=== PATIENT | male | born 1955 | race American Indian/Alaskan Native ===

== ENCOUNTER 2017-09-09 08:24 | Outpatient (CLI) | payer BC ==
[2017-09-09 09:05] LABS: Blood Urea Nitrogen 15 mg/dL (9-20)
--- NOTE | 2017-09-09 11:01 | Cat Scan Report ---
FINAL REPORT EXAM: CT ANGIO ABD/FEMORAL ABD AORTA HISTORY: ANUERYSM BEHIND LEFT KNEE TECHNIQUE: CT angiography of the abdomen and pelvis performed. Lower extremity CT runoff angiography of the lower extremities performed. Images obtained from above diaphragm to the feet. IV contrast was administered. Axial images and coronal and sagittal reformatted images were obtained. Rotational MIP reformatted angiographic images also obtained. PRIORS: None. FINDINGS: There is some dependent atelectasis at the lung bases. There are coronary artery atherosclerotic calcifications. There is fatty infiltration of the liver. The visualized liver, spleen, pancreas, adrenal glands and kidneys demonstrate no significant abnormalities. There is no evidence of intestinal obstruction. The appendix is normal. There is no free intraperitoneal air. There are no abnormal fluid collections seen. The bladder is unremarkable. There are aortoiliac atherosclerotic calcifications. There is no abdominal aortic aneurysm, but there is a left common iliac artery aneurysm measuring 19 mm diameter. The celiac trunk/axis, SMA, renal arteries and TORI are patent without evidence of stenosis. Lower extremity runoff images demonstrate patent vessels from groin to foot bilaterally. There is a right superficial femoral artery aneurysm at level of mid thigh. It measures about 12 mm diameter. There is distal popliteal artery is slightly aneurysmal just above the trifurcation. It measures about 10 mm diameter as opposed to 7 mm measurement of popliteal segment above this. There is a popliteal artery aneurysm on the left containing some mural thrombus. This involves the upper popliteal artery which measures up to 13 mm diameter. IMPRESSION: The coronary and aortoiliac atherosclerotic calcifications. Left common iliac artery aneurysm measuring 19 mm diameter. Left popliteal artery aneurysm with some mural thrombus measuring 13 mm diameter. 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 Right distal popliteal artery aneurysm/ectasia measuring 10 mm. Lower extremity arteries are patent without evidence of stenosis.
== END 2017-09-09 08:25 | disposition home or self-care (01) ==
LOC: CT 08:24
PROVIDERS: ATTEND Radiology Diagnostic Radiology
DX: I87.2 Venous insufficiency (chronic) (peripheral) (principal); I70.293 Other atherosclerosis of native arteries of extremities, bilateral legs; I25.10 Atherosclerotic heart disease of native coronary artery without angina pectoris; I74.8 Embolism and thrombosis of other arteries; F17.210 Nicotine dependence, cigarettes, uncomplicated
CPT/HCPCS: 36415; 75635; 82565; 84520; Q9967

== ENCOUNTER 2017-09-24 07:42 | Day surgery (SDC) | payer BC, MEDICARE ==
[~2017-09-24 07:42] MED LIST: ANCEF/STERILE WATER 2 GM/20 ML 2 GM/20 ML SYRINGE IV NR; NACL 0.9% 1000 ML 1,000 ML IV SCH
[2017-09-24 08:55] LABS: Hematocrit 46.7 % (35.5-45.6); Hemoglobin 15.6 gm/dl (11.8-15.2); Mean Corpuscular HGB Conc 33 % (32-34); Mean Corpuscular Hemoglobin 30 pg (28-32); Mean Corpuscular Volume 90 fl (84-94); Platelet Count 191 K/mm3 (140-440); Red Cell Distribution Width 14.9 % (13.2-15.2)
[2017-09-24 10:09] LABS: Band Neutrophils # (Manual) 0.1 K/mm3; Total Cells Counted 100
[2017-09-24 10:10] LABS: RBC Morphology Normal
[2017-09-24 10:11] LABS: Platelet Estimate Cons
[2017-09-24 10:29] LABS: BUN/Creatinine Ratio 9; Blood Urea Nitrogen 11 mg/dL (9-20); Calcium 9.3 mg/dL (8.4-10.2); Hemolysis Index 21
[2017-09-24 11:06] LABS: INR 0.91 (0.87-1.13); Partial Thromboplastin Time 26.9 Sec. (24.2-36.6)
[2017-09-24] MEDS ORDERED: HEPARIN/NS 5000 UNIT/500ML(CATH LAB) 1,000 ML IR ONE (12:06)
[2017-09-24] MEDS ORDERED: XYLOCAINE 2% INFILTRATI ONE (12:07)
[2017-09-24] MEDS ORDERED: ANCEF/STERILE WATER 2 GM/20 ML 2 GM/20 ML SYRINGE IV ONE (12:19)
[2017-09-24] MEDS ORDERED: HEPARIN 10,000 UNITS/10 ML ONE (12:19)
[2017-09-24] MEDS ORDERED: ZOFRAN ONE (12:28)
[2017-09-24] MEDS: SUBLIMAZE ONE ×2 (12:31→12:40)
[2017-09-24] MEDS: VERSED ONE ×2 (12:32→12:41)
--- NOTE | 2017-09-24 13:04 | Short Stay Summary ---
Short Stay Documentation Date of service: 09/24/17 - History Principal diagnosis: Popliteal aneurysm H&P: obtained from office - Allergies and Medications Current Medications: Allergies No Known Allergies Allergy (Verified 06/14/13 08:29) Home Medications Medication Instructions Recorded Confirmed Last Taken Type Atorvastatin Calcium [Lipitor] 80 mg PO QDAY 06/14/13 09/24/17 09/23/17 History 40mg Clopidogrel Bisulfate [Plavix] 75 mg PO QDAY 06/14/13 09/24/17 09/23/17 History 75mg Darunavir [Prezista] 800 mg PO QDAY 06/14/13 09/24/17 09/23/17 History 800mg Famciclovir 125 mg PO QDAY 06/14/13 09/24/17 09/23/17 History 125mg Metoprolol [Lopressor] 50 mg PO BID 06/14/13 09/24/17 09/23/17 History 50mg Ramipril Cap (Nf) [Altace Cap (Nf)] 2.5 mg PO QDAY 06/14/13 09/24/17 09/23/17 History 2.5mg Ritonavir [Norvir] 100 mg PO QDAY 06/14/13 09/24/17 09/23/17 History 100mg Active Medications Cefazolin Sodium (Ancef/Sterile Water 2 Gm/20 Ml) 2 gm in 20 mls @ 80 mls/hr IV PREOP NR; Protocol Stop: 09/24/17 23:59 Sodium Chloride (Nacl 0.9% 1000 Ml) 1,000 mls @ 42 mls/hr IV DIRECT HIRA Last Admin: 09/24/17 08:35 Dose: 42 mls/hr - Brief post op/procedure progress note Date of procedure: 09/24/17 Pre-op diagnosis: Popliteal aneurysm Post-op diagnosis: same Procedure: Revascularization of left popliteal aneurysm stent/graft placement Anesthesia: local Surgeon: SUYAPA NICOLE Estimated blood loss: minimal Pathology: none Condition: stable - Disposition Condition at discharge: Good Disposition: DC-01 TO HOME OR SELFCARE Short Stay Discharge Plan Activity: advance as tolerated Weight Bearing Status: Weight Bear as Tolerated Diet: regular Wound: keep clean and dry, per your surgeon's advice Follow up with: PRIMARY CARE, [Primary Care Provider] - 7 Days
--- NOTE | 2017-09-24 13:13 | Operative Report ---
Operative Report Operative Report: EXAM: LEFT LOWER EXTREMITY REVASCULARIZATION CLINICAL INDICATION: LEFT POPLITEAL ANEURYSM DATE: 10/01 2017 PROCEDURE: Following an explanation of the risks, fits and alternatives; written informed consent was obtained. The patient was brought to the cardiac catheterization suite and placed in supine position examination table. Initial ultrasound evaluation of his right groin demonstrated a patent right common femoral artery. The patient's right groin was prepped and draped in the usual fashion 1% cocaine was used for anesthesia. Under ultrasound guidance, the right common femoral artery was cannulated with a 7 cm 21-gauge needle. A 0.018 guidewire was advanced centrally. The needle was removed and a micro-sheath placed. The 0.018 guidewire was exchanged for a 0.035 guidewire and the micro-sheath exchanged for a 5 Bangladeshi vascular sheath. A 5 Bangl[place]hi Omni flush catheter was advanced over the guidewire to the distal abdominal aorta. Aortogram was performed for anatomic localization. The bifurcation was crossed Omni flush catheter and a 0.5 guidewire and the cath advanced to proximal SFA. The catheter was then exchanged for a vertebral catheter and together the catheter guidewire advanced to the distal SFA. Imaging is obtained following the injection of contrast through the catheter which documented and demonstrated again the patient's popliteal aneurysm extending the tibioperoneal trunk. The 5 Bangl[place]hi sheath was exchanged for a 7 Bangladeshi 65 cm sheath. The guidewire and catheter were advanced to the tibioperoneal trunk and the guidewire exchanged for a V 18 guidewire which was advanced down the peroneal artery. Additional imaging was obtained through the sheath for anatomic localization and the popliteal aneurysm was treated using a 6 x 150 mm [place] stent graft. The stent graft was seated using a 6 mm balloon. Post stent and angioplasty imaging demonstrated a persistent proximal endoleak and a 7 mm x 50 mm upon stent graft was deployed in the proximal aspect of the stent extending into the SFA the stent was seated using a 7 mm balloon. Procedure imaging was obtained which demonstrates brisk flow with complete exclusion of the popliteal aneurysm and no persistent endoleak. The V 18 guidewire was removed and a 0.035 guidewire advanced through the sheath and the sheath removed. Hemostasis achieved using an Angio-Seal arterial closure device. The patient tolerated the procedure well. There were no immediate post procedure complications. Conscious sedation was performed under the guidance of radiologic nursing. Continuous cardiopulmonary monitoring was utilized. IMPRESSION: 1) Left lower extremity angiogram demonstrating a popliteal aneurysm. 2) Revascularization of the left lower extremity using a stent graft to exclude the popliteal aneurysm as described.
[2017-09-24 14:52] VITALS: BP 113/81
== END 2017-09-24 15:00 | disposition home or self-care (01) ==
LOC: CATHLABREC 07:42
PROVIDERS: ATTEND Radiology Diagnostic Radiology
DX: I72.4 Aneurysm of artery of lower extremity (principal); I70.213 Atherosclerosis of native arteries of extremities with intermittent claudication, bilateral legs; I10 Essential (primary) hypertension; J45.909 Unspecified asthma, uncomplicated; E78.5 Hyperlipidemia, unspecified; Z79.01 Long term (current) use of anticoagulants; Z79.899 Other long term (current) drug therapy; Z98.890 Other specified postprocedural states
CPT/HCPCS: 36415; 37226; 80048; 85007; 85025; 85610; 85730; 99156; 99157; C1725; C1760; C1769; C1874; C1887; J0690; J1644; J2250; J2405; J3010; J7030; Q9967

== ENCOUNTER 2017-10-05 17:15 | Inpatient (IN) | payer MEDICARE ==
[2017-10-05] MEDS ORDERED: SUBLIMAZE IV ONE (17:44)
--- NOTE | 2017-10-05 17:56 | Emergency Department Report ---
ED Extremity Problem HPI - General Chief complaint: Extremity Problem,Nontraumatic Stated complaint: PAIN IN THE LEFT LEG/SURGERY ABOUT 2 WEEKS AGO Time Seen by Provider: 10/05/17 17:30 Source: patient Mode of arrival: Wheelchair Limitations: No Limitations - History of Present Illness Initial comments: Mr Saunders is a 61 year-old man with hx of HIV, peripheral vascular disease who presents from home with acute onset left leg pain. had popliteal artery aneurysm stented on 09/[address] Heaton here at [facility]. Has been taking his plavix , but did not take it today. Reports compliance with ARVs and has normal CD4+ count. Acute onset left calf/foot pain since 330pm. No longer has feeling in foot now. No injury. MD Complaint: extremity pain -: Sudden Time: 15:30 Location: left, lower extremity Radiation: none Consistency: constant Improves with: nothing - Related Data Home Medications Medication Instructions Recorded Confirmed Last Taken Atorvastatin Calcium [Lipitor] 80 mg PO QDAY 06/14/13 09/24/17 09/23/17 40mg Clopidogrel Bisulfate [Plavix] 75 mg PO QDAY 06/14/13 09/24/17 09/23/17 75mg Darunavir [Prezista] 800 mg PO QDAY 06/14/13 09/24/17 09/23/17 800mg Famciclovir 125 mg PO QDAY 06/14/13 09/24/17 09/23/17 125mg Metoprolol [Lopressor] 50 mg PO BID 06/14/13 09/24/17 09/23/17 50mg Ramipril Cap (Nf) [Altace Cap (Nf)] 2.5 mg PO QDAY 06/14/13 09/24/17 09/23/17 2.5mg Ritonavir [Norvir] 100 mg PO QDAY 06/14/13 09/24/17 09/23/17 100mg Allergies Allergy/AdvReac Type Severity Reaction Status Date / Time No Known Allergies Allergy Verified 06/14/13 08:29 ED Review of Systems ROS: Stated complaint: PAIN IN THE LEFT LEG/SURGERY ABOUT 2 WEEKS AGO Other details as noted in HPI Comment: All other systems reviewed and negative ED Past Medical Hx - Past Medical History Hx Hypertension: Yes Hx Heart Attack/AMI: Yes (2003,2004) Hx Deep Vein Thrombosis: Yes Hx Arthritis: Yes Hx Asthma: Yes Hx HIV: Yes - Surgical History Hx Coronary Stent: Yes (2003,2004) - Social History Smoking Status: Current Every Day Smoker Substance Use Type: None - Medications Home Medications: Home Medications Medication Instructions Recorded Confirmed Last Taken Type Atorvastatin Calcium [Lipitor] 80 mg PO QDAY 06/14/13 09/24/17 09/23/17 History 40mg Clopidogrel Bisulfate [Plavix] 75 mg PO QDAY 06/14/13 09/24/17 09/23/17 History 75mg Darunavir [Prezista] 800 mg PO QDAY 06/14/13 09/24/17 09/23/17 History 800mg Famciclovir 125 mg PO QDAY 06/14/13 09/24/17 09/23/17 History 125mg Metoprolol [Lopressor] 50 mg PO BID 06/14/13 09/24/17 09/23/17 History 50mg Ramipril Cap (Nf) [Altace Cap (Nf)] 2.5 mg PO QDAY 06/14/13 09/24/17 09/23/17 History 2.5mg Ritonavir [Norvir] 100 mg PO QDAY 06/14/13 09/24/17 09/23/17 History 100mg ED Physical Exam - General Limitations: No Limitations General appearance: alert, other (in severe pain) - Head Head exam: Present: atraumatic, normocephalic - Eye Eye exam: Present: normal appearance, PERRL, EOMI - ENT ENT exam: Present: normal exam, normal orophraynx - Neck Neck exam: Present: normal inspection. Absent: tenderness - Respiratory Respiratory exam: Present: normal lung sounds bilaterally. Absent: respiratory distress - Cardiovascular Cardiovascular Exam: Present: normal rhythm, tachycardia - GI/Abdominal GI/Abdominal exam: Present: soft. Absent: distended, tenderness, guarding - Rectal Rectal exam: Present: deferred - Extremities Exam Extremities exam: Present: other (RLE with multiple well healed surgical incisional scars. L foot without palpable DP or PT pulses. No capillary refill. Able to move toes, no sensation in foot. Mild left calf ttp. no leg swelling. ) - Back Exam Back exam: Present: normal inspection. Absent: tenderness - Neurological Exam Neurological exam: Present: alert, oriented X3 - Psychiatric Psychiatric exam: Present: normal affect, normal mood - Skin Skin exam: Present: dry, intact ED Course Vital Signs 10/05/17 10/05/17 10/05/17 17:22 17:45 18:04 Pulse Rate 107 H 105 H Respiratory 20 24 24 Rate Blood Pressure 124/83 Blood Pressure 136/96 [Right] O2 Sat by Pulse 97 97 97 Oximetry ED Medical Decision Making - Lab Data Result diagrams: 10/05/17 17:51 10/05/17 17:51 - Radiology Data Radiology results: report reviewed, image reviewed - Medical Decision Making Mr Saunders is a 61 year-old man who presents with pulseless left foot. had popliteal aneurysm stented on 09/24/17. Acute onset of pain at 330pm. Did not take plavix today. Exam without pulses or cap refill. Unable to get doppler pulse L DP or PT. Cold foot. Spoke with vascular surgery supervisor bonding, Massimo MOTTA. Recommends stat CTA LLE and she will be in. Giving fentanyl for pain. Basic labs. Has full lab work-up from 09/24 with Cr 1.2 and GFR>60. Will not wait for repeat Cr before getting CTA. Has been well since surgery, normal PO and urine output. Low suspicion of Michael in this time period. Explained risks and benefits to patient, he agrees with plan and understands risks. To CT urgently. Starting HIHD. Dilaudid and zofran as pain is unrelieved. CTA was not done by proper protocol, only imaged lower leg. No visible contrast. to biology laboratory assistant and admit to ICU. Critical Care Time: Yes Critical care time in (mins) excluding proc time.: 30 Critical care attestation.: If time is entered above; I have spent that time in minutes in the direct care of this critically ill patient, excluding procedure time. ED Disposition Clinical Impression: Obstruction of artery Disposition: DC-09 OP ADMIT IP TO THIS HOSP Is pt being admited?: Yes Condition: Fair Referrals: PRIMARY CARE, [Primary Care Provider] - 3-5 Days
[2017-10-05 18:03] LABS: Basophils # (Auto) 0.1 K/mm3 (0.0-0.1); Basophils % (Auto) 1.1 % (0.0-1.8); Eosinophils # (Auto) 0.1 K/mm3 (0.0-0.4); Eosinophils % (Auto) 0.9 % (0.0-4.3); Hematocrit 46.8 % (35.5-45.6); Hemoglobin 15.9 gm/dl (11.8-15.2); Lymphocytes # (Auto) 2.1 K/mm3 (1.2-5.4); Lymphocytes % (Auto) 31.4 % (13.4-35.0); Mean Corpuscular HGB Conc 34 % (32-34); Mean Corpuscular Hemoglobin 30 pg (28-32); Mean Corpuscular Volume 90 fl (84-94); Monocytes # (Auto) 0.5 K/mm3 (0.0-0.8); Monocytes % (Auto) 8.1 % (0.0-7.3); Platelet Count 198 K/mm3 (140-440); Red Blood Count 5.22 M/mm3 (3.65-5.03); Red Cell Distribution Width 14.5 % (13.2-15.2)
[2017-10-05 18:14] LABS: INR 0.94 (0.87-1.13)
[2017-10-05] MEDS ORDERED: HEPARIN 10,000 UNITS/10 ML IV ONE (18:15)
[2017-10-05] MEDS ORDERED: DILAUDID IV ONE (18:18)
[2017-10-05] MEDS ORDERED: ZOFRAN IV ONE (18:18)
[2017-10-05 18:20] LABS: Albumin 4.6 g/dL (3.9-5)
[2017-10-05 18:32] LABS: Calcium 9.8 mg/dL (8.4-10.2)
[2017-10-05] MEDS: HEPARIN/ 0.45% NACL-25,000 UNIT/500 ML 25,000 UNIT/500 ML BAG IV SCH ×2 (18:36→21:08)
--- NOTE | 2017-10-05 19:07 | Cat Scan Report ---
FINAL REPORT PROCEDURE: CT ANGIO LOWER EXTREMITY LT TECHNIQUE: Computerized tomographic angiography of the LEFT lower extremity was performed after the IV injection of iodinated nonionic contrast including image processing. The image data was postprocessed using 2-dimensional multiplanar reformatted (MPR) and 3-dimensional (MIP and/or volume rendered) techniques. HISTORY: pulseless LLE COMPARISON: CTA 09/09/2017 FINDINGS: There is a stent seen in the popliteal artery. There is no enhancement of the arteries or the veins in the left lower extremity, which may be related to technical factors. Therefore cannot exclude occlusion of the popliteal artery. No muscle edema or osseous abnormality is seen. IMPRESSION: Study is limited. Images only of the calf were obtained. No enhancement of the arteries is identified, which may be related to technical factors versus arterial occlusion. Study is indeterminate. Findings were discussed with Dr. Etienne by telephone at 5:52 p.m. central standard time on 10/05/2017
[2017-10-05] MEDS ORDERED: SODIUM CHLORIDE FLUSH SYRINGE 10 ML IV PRN (19:12)
--- NOTE | 2017-10-05 19:12 | History and Physical Report ---
History of Present Illness Chief complaint: My leg hurts History of present illness: 61 YO Male with PVD S/P Left Popliteal Aneurysm Repair, HTN, Nicotine Dependence , DVT, OA, Asthma, HIV presents to ED for evaluation. PT states that he has acute onset of pain in his Left foot. Pt states that pain started around 1500 hrs after he completed doing work in his yard. Pt states that he is not able to feel his foot at this time. Pt seen and evaluated in ED and found to have LLE ischemia. Vascular surgery team consulted. Patient Admitted to ICU. Pt taken to operating room emergently for surgical intervention. Pt denies fever, chills, CP , palpitations, NVD, Syncope, Productive cough, recent ill contacts, BRBPR, prolonged travel/immobility, skin rash, or recent ill contacts. Past History Past Medical History: acute PR, arthritis, HIV/AIDS, hypertension, PVD Past Surgical History: Other (vascular surgery) Social history: smoking Family history: hypertension Medications and Allergies Allergies Allergy/AdvReac Type Severity Reaction Status Date / Time No Known Allergies Allergy Verified 06/14/13 08:29 Home Medications Medication Instructions Recorded Confirmed Last Taken Type Atorvastatin Calcium [Lipitor] 80 mg PO QDAY 06/14/13 10/05/17 09/23/17 History 40mg Clopidogrel Bisulfate [Plavix] 75 mg PO QDAY 06/14/13 10/05/17 09/23/17 History 75mg Darunavir [Prezista] 800 mg PO QDAY 06/14/13 10/05/17 09/23/17 History 800mg Famciclovir 125 mg PO QDAY 06/14/13 10/05/17 09/23/17 History 125mg Metoprolol [Lopressor] 50 mg PO BID 06/14/13 10/05/17 09/23/17 History 50mg Ramipril Cap (Nf) [Altace Cap (Nf)] 2.5 mg PO QDAY 06/14/13 10/05/17 09/23/17 History 2.5mg Ritonavir [Norvir] 100 mg PO QDAY 06/14/13 10/05/17 09/23/17 History 100mg Active Meds: Active Medications Heparin Sodium/Sodium Chloride (Heparin/ 0.45% Nacl-25,000 Unit/500 Ml) 25,000 unit in 500 mls @ 29 mls/hr IV TITR HIRA; Protocol Last Admin: 10/05/17 18:36 Dose: 1,450 units/hr, 29 mls/hr Review of Systems Constitutional: no weight loss, no weight gain, no fever, no chills Ears, nose, mouth and throat: no ear pain, no ear discharge, no tinnitis, no decreased hearing, no nose pain, no nasal congestion Cardiovascular: no chest pain, no orthopnea, no palpitations, no rapid/ irregular heart beat, no edema Respiratory: no cough, no cough with sputum, no excessive sputum, no hemoptysis , no shortness of breath Gastrointestinal: no nausea, no vomiting, no diarrhea, no constipation, no change in bowel habits Genitourinary Male: no hematuria, no flank pain, no discharge, no urinary frequency, no urinary hesitancy, no nocturia Rectal: no pain, no incontinence, no bleeding Musculoskeletal: no neck stiffness, no neck pain, no shooting arm pain, no arm numbness/tingling, no low back pain, no shooting leg pain Integumentary: no rash, no pruritis, no redness, no sores, no wounds, no jaundice Neurological: no head injury, no transient paralysis, no paralysis, no weakness , no parathesias, no numbness, no tingling, no seizures Psychiatric: no anxiety, no memory loss, no change in sleep habits, no sleep disturbances, no insomnia, no hypersomnia, no change in appetite, no change in libido, no suicidal ideation Endocrine: no cold intolerance, no heat intolerance, no polyphagia, no excessive thirst, no polydipsia, no polyuria, no nocturia, no excessive sweating Hematologic/Lymphatic: no easy bruising, no easy bleeding, no lymphadenopathy, no lymphedema Allergic/Immunologic: no urticaria, no allergic rhinitis, no wheezing, no persistent infections, no anaphylaxis Exam - Constitutional Vitals: Temp Pulse Resp BP Pulse Ox 105 H 24 136/96 97 10/05/17 17:45 10/05/17 18:04 10/05/17 17:45 10/05/17 18:04 General appearance: Present: mild distress - EENT Eyes: Present: PERRL ENT: hearing intact, clear oral mucosa - Neck Neck: Present: supple, normal ROM - Respiratory Respiratory effort: normal Respiratory: bilateral: CTA - Cardiovascular Heart Sounds: Present: S1 & S2. Absent: rub, click - Extremities Extremities: pulses symmetrical, No edema Extremity abnormal: cold (diminished LLE pulses), pulses diminished Peripheral Pulses: abnormal - Abdominal General gastrointestinal: Present: soft, non-tender, non-distended, normal bowel sounds Male genitourinary: Present: normal - Integumentary Integumentary: Present: clear, warm, dry - Musculoskeletal Musculoskeletal: gait normal, strength equal bilaterally - Psychiatric Psychiatric: appropriate mood/affect, intact judgment & insight - Neurologic Neurologic: CNII-XII intact, moves all extremities Results - Labs CBC & Chem 7: 10/05/17 17:51 10/05/17 17:51 Labs: Abnormal lab results 10/05/17 10/05/17 10/05/17 Range/Units 17:51 17:51 17:51 RBC 5.22 H (3.65-5.03) M/mm3 Hgb 15.9 H (11.8-15.2) gm/dl Hct 46.8 H (35.5-45.6) % [place] % (Auto) 8.1 H (0.0-7.3) % Glucose 122 H (75-100) mg/dL Lactic Acid 3.10 H* (0.7-2.0) mmol/L Assessment and Plan - Patient Problems (1) Ischemia of left lower extremity Current Visit: Yes Status: Acute Plan to address problem: CT LLE, Vascular surgery consulted, Pt taken urgently to operating room for surgical intervention. Admit to ICU The high probability of a clinically significant, sudden or life threatening deterioration of the [vascular, respiratory, renal] system(s) required my full and direct attention, intervention and personal management. The aggregate critical care time was [65] minutes. This time is in addition to time spent performing reported procedures but includes the following: [x] Data Review and interpretation [x] Patient assessment and monitoring of vital signs [x] Documentation [x] Medication orders and management (2) HIV disease Current Visit: Yes Status: Acute Plan to address problem: Resume antiretroviral therapy, outpatient ID f/u care. (3) Acidosis Current Visit: Yes Status: Acute Plan to address problem: IVF resuscitation therapy, treat LLE limb ischemia, repeat lactic acid (4) PVD (peripheral vascular disease) Current Visit: Yes Status: Acute (5) Nicotine dependence Current Visit: Yes Status: Acute Qualifiers: Substance use status: in withdrawal Plan to address problem: smoking cessation counseling, supportive care. (6) HTN (hypertension) Current Visit: Yes Status: Acute Qualifiers: Hypertension type: essential hypertension Qualified Code(s): I10 - Essential (primary) hypertension Plan to address problem: monitor bp q shift, (7) DVT prophylaxis Current Visit: Yes Status: Acute Plan to address problem: supportive care, anticoagulation as per vascular team.
--- NOTE | 2017-10-05 19:22 | Consultation ---
History of Present Illness - Reason for Consult Consult date: 10/05/17 left leg ischemia Requesting physician: SONIA OLSEN - History of Present Illness 61y male came with c/o severe left foot pain that started today around 3pm after cutting grass. He came to ED. Patient has sensoryloss in the foot, foot cool, but motor +. Patient had left popliteal aneurysm repair with stent graft on 09/24/17. Past History Past Medical History: CAD Past Surgical History: Other (right LE poplitealaneurysm repair, recent endovascular popliteal artery repair left) Medications and Allergies Allergies Allergy/AdvReac Type Severity Reaction Status Date / Time No Known Allergies Allergy Verified 06/14/13 08:29 Home Medications Medication Instructions Recorded Confirmed Last Taken Type Atorvastatin Calcium [Lipitor] 80 mg PO QDAY 06/14/13 09/24/17 09/23/17 History 40mg Clopidogrel Bisulfate [Plavix] 75 mg PO QDAY 06/14/13 09/24/17 09/23/17 History 75mg Darunavir [Prezista] 800 mg PO QDAY 06/14/13 09/24/17 09/23/17 History 800mg Famciclovir 125 mg PO QDAY 06/14/13 09/24/17 09/23/17 History 125mg Metoprolol [Lopressor] 50 mg PO BID 06/14/13 09/24/17 09/23/17 History 50mg Ramipril Cap (Nf) [Altace Cap (Nf)] 2.5 mg PO QDAY 06/14/13 09/24/17 09/23/17 History 2.5mg Ritonavir [Norvir] 100 mg PO QDAY 06/14/13 09/24/17 09/23/17 History 100mg Active Meds: Active Medications Atorvastatin Calcium (Lipitor) 80 mg PO QDAY HIRA Darunavir (Prezista) 800 mg PO QDAY [facility] Heparin Sodium/Sodium Chloride (Heparin/ 0.45% Nacl-25,000 Unit/500 Ml) 25,000 unit in 500 mls @ 29 mls/hr IV TITR [facility]; Protocol Last Admin: 10/05/17 18:36 Dose: 1,450 units/hr, 29 mls/hr Metoprolol Tartrate (Lopressor) 50 mg PO BID [facility] Miscellaneous Medication (Famciclovir [Famciclovir]) 125 mg PO QDAY [facility] Miscellaneous Medication (Ramipril Cap (Nf) [Altace Cap (Nf)]) 2.5 mg PO QDAY HIRA Ritonavir (Norvir) 100 mg PO QDAY HIRA Sodium Chloride (Sodium Chloride Flush Syringe 10 Ml) 10 ml IV BID HIRA Sodium Chloride (Sodium Chloride Flush Syringe 10 Ml) 10 ml IV PRN PRN PRN Reason: LINE FLUSH Exam - Physical Exam Narrative exam: left Le femoral pulse palpable, no palpable distal pulses, foot cool to touch, decreased sensory, motor+ right Le warm, with palpable DP/PT - Constitutional Vitals: Temp Pulse Resp BP Pulse Ox 105 H 24 136/96 97 10/05/17 17:45 10/05/17 18:04 10/05/17 17:45 10/05/17 18:04 Results - Labs CBC & Chem 7: 10/05/17 17:51 10/05/17 17:51 Labs: Abnormal lab results 10/05/17 10/05/17 10/05/17 Range/Units 17:51 17:51 17:51 RBC 5.22 H (3.65-5.03) M/mm3 Hgb 15.9 H (11.8-15.2) gm/dl Hct 46.8 H (35.5-45.6) % [place] % (Auto) 8.1 H (0.0-7.3) % Glucose 122 H (75-100) mg/dL Lactic Acid 3.10 H* (0.7-2.0) mmol/L Assessment and Plan 61y male with acute left LE ischemia [place] IIa he underwent CTA, however inadequate, only below knee portion was imaged, which showed only lower portion of popliteal stent that appears occluded, no flow in tibials seen. He was immediately started on Heparin drip with bolus plan for angiogram with possible placement of EKOS catheter patient is low bleeding risk
[2017-10-05] MEDS ORDERED: XYLOCAINE 2% INFILTRATI ONE (19:31)
[2017-10-05] MEDS ORDERED: HEPARIN/NS 5000 UNIT/500ML(CATH LAB) 1,000 ML IR ONE (19:31)
[2017-10-05] MEDS ORDERED: HEPARIN 10,000 UNITS/10 ML ONE (19:31)
[2017-10-05] MEDS ORDERED: NACL 0.9% 500 ML 500 ML ONE (19:32)
[2017-10-05] MEDS ORDERED: CATHFLO ONE (19:32)
[2017-10-05] MEDS ORDERED: ANCEF/STERILE WATER 2 GM/20 ML 2 GM/20 ML SYRINGE IV ONE (19:32)
[2017-10-05] MEDS ORDERED: HEPARIN/ 0.45% NACL-25,000 UNIT/500 ML 25,000 UNIT/500 ML BAG ONE (19:43)
[2017-10-05] MEDS ORDERED: NACL 0.9% 1000 ML 1,000 ML ONE (19:43)
[2017-10-05] MEDS ORDERED: NACL 0.9% 1000 ML 1,000 ML EKOSCLUMEN SCH (20:00)
[2017-10-05] MEDS ORDERED: NACL 0.9% 1000 ML 1,000 ML SHEATH SCH (20:00)
[2017-10-05] MEDS ORDERED: CATHFLO 20 MG in NACL 0.9% 500 ML 500 ML EKOSDLUMEN SCH (20:00)
[2017-10-05] MEDS ORDERED: HEPARIN/ 0.45% NACL-25,000 UNIT/500 ML 25,000 UNIT/500 ML BAG SHEATH SCH (20:00)
[2017-10-05] MEDS ORDERED: NACL 0.9% 1000 ML 1,000 ML IV SCH (20:00)
[2017-10-05] MEDS: SUBLIMAZE ONE ×2 (20:02→20:06)
[2017-10-05] MEDS: VERSED ONE ×2 (20:02→20:08)
[2017-10-05] MEDS ORDERED: ZOFRAN IV PRN (20:36)
[2017-10-05] MEDS ORDERED: MORPHINE ONE (20:43)
--- NOTE | 2017-10-05 21:05 | Operative Report ---
Operative Report Operative Report: Operative note: Date: 10/05/2017 Preoperative diagnosis: Left leg ischemia Postoperative diagnosis: Same. Operation: Ultrasound-guided right common femoral artery access. Left lower extremity immediate angiogram and placement of EKOS catheter. Surgeon: Snow Draper. Asst.: none Anesthesia: Gen. EBL: Minimal Findings: Thrombosed distal femoral artery and popliteal stent Indications: 61-year-old gentleman came in was left lower extremity pain that started bold 2 hours prior to arrival. 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 On limited CT it was noted to have in-stent thrombosis. Patient was offered emergent procedure. He was explained risk and benefits of the procedure and chose to proceed, signed informed consent. Operative details: Patient was brought to the Back Panel Padder and placed in supine position. He is right groin was prepped and draped in sterile fashion. Timeout was performed and ultimately members in agreement. Right femoral artery was accessed under continuous ultrasound guidance using micropuncture needle after local anesthetic injection. Micropuncture wire was advanced and neck incision was created by 11 blade. This was exchanged to Q puncture sheath. Bentson wire was advanced into distal aorta and the micropuncture sheath was exchanged to 5 Polish access sheath. It was washed. Omni Flush catheter was inserted and aortogram performed noting bifurcation. Wire was advanced to contralateral site and Omni Flush catheter was positioned in the left common femoral artery. Angiogram was performed noting began starting distal femoral artery. Bentson wire was advanced into the SFA. Omni Flush catheter was exchanged to a vertebral catheter and those were maneuvered through occluded stent in the posterior tibial artery. Catheter was removed and a 5 Polish access sheath was changed to 6 x 45 cm destination sheath. Next, I placed a EKOS catheter was 50 cm infusion length from mid SFA to posterior tibial artery. Sheath" were primed with 3 mL of heparin and TPA port was primed with 4 mg of TPA. Infusion was initiated. Catheters were secured in place with stitches. Sterile dressing was applied. Patient tolerated procedure well and was transferred to ICU for further management.
[2017-10-05] MEDS ORDERED: VASELINE LIP THERAPY TP PRN (21:43)
[2017-10-05] MEDS: MORPHINE IV PRN (22:20)
[2017-10-05] MEDS: SODIUM CHLORIDE FLUSH SYRINGE 10 ML IV SCH (22:21)
[2017-10-05] MEDS: LOPRESSOR PO SCH (22:27)
[2017-10-06] MEDS: NORCO 5/325 PO PRN ×4 (00:35→23:00)
[2017-10-06 02:06] LABS: Basophils # (Auto) 0.1 K/mm3 (0.0-0.1); Basophils % (Auto) 0.8 % (0.0-1.8); Eosinophils % (Auto) 0.1 % (0.0-4.3); Hematocrit 44.4 % (35.5-45.6); Hemoglobin 14.9 gm/dl (11.8-15.2); Lymphocytes # (Auto) 1.8 K/mm3 (1.2-5.4); Lymphocytes % (Auto) 21.8 % (13.4-35.0); Mean Corpuscular HGB Conc 34 % (32-34); Mean Corpuscular Hemoglobin 30 pg (28-32); Mean Corpuscular Volume 90 fl (84-94); Monocytes # (Auto) 0.5 K/mm3 (0.0-0.8); Monocytes % (Auto) 5.5 % (0.0-7.3); Platelet Count 181 K/mm3 (140-440); Red Blood Count 4.93 M/mm3 (3.65-5.03); Red Cell Distribution Width 14.7 % (13.2-15.2)
[2017-10-06] MEDS: MORPHINE IV PRN ×3 (02:53→20:26)
[2017-10-06 06:19] LABS: BUN/Creatinine Ratio 18; Blood Urea Nitrogen 18 mg/dL (9-20); Calcium 8.6 mg/dL (8.4-10.2); Hemolysis Index 5
[2017-10-06 07:51] LABS: Basophils # (Auto) 0.1 K/mm3 (0.0-0.1); Basophils % (Auto) 0.7 % (0.0-1.8); Eosinophils % (Auto) 0.6 % (0.0-4.3); Hemoglobin 14.7 gm/dl (11.8-15.2); Lymphocytes # (Auto) 2.9 K/mm3 (1.2-5.4); Lymphocytes % (Auto) 34.5 % (13.4-35.0); Mean Corpuscular HGB Conc 33 % (32-34); Mean Corpuscular Hemoglobin 30 pg (28-32); Mean Corpuscular Volume 91 fl (84-94); Monocytes # (Auto) 0.6 K/mm3 (0.0-0.8); Monocytes % (Auto) 7.6 % (0.0-7.3); Platelet Count 162 K/mm3 (140-440); Red Blood Count 4.83 M/mm3 (3.65-5.03); Red Cell Distribution Width 15.1 % (13.2-15.2)
[2017-10-06 08:03] LABS: Fibrinogen 385 mg/dl (211-480)
[2017-10-06 08:13] LABS: Heparin anti-factor XA > 2.00 U.I./ml (0.3-0.7)
--- NOTE | 2017-10-06 08:43 | Progress Note ---
Assessment and Plan (1) Ischemia of left lower extremity Current Visit: Yes Status: Acute Plan to address problem: S/p left femoral art angioram and EKOS catheter insertion (2) HIV disease Current Visit: Yes Status: Acute Plan to address problem: Continue with antiretroviral therapy, outpatient ID f/u care. (3) Acidosis Current Visit: Yes Status: Acute Plan to address problem: Lactic acidosis resolved. continue with IVF resuscitation therapy, (4) PVD (peripheral vascular disease) Current Visit: Yes Status: Acute on TPA with EKOS (5) Nicotine dependence Current Visit: Yes Status: Acute Qualifiers: Substance use status: in withdrawal Plan to address problem: smoking cessation counseling, supportive care. (6) HTN (hypertension) Current Visit: Yes Status: Acute Qualifiers: Hypertension type: essential hypertension Qualified Code(s): I10 - Essential (primary) hypertension Plan to address problem: monitor bp q shift, (7) DVT prophylaxis Current Visit: Yes Status: Acute Plan to address problem: supportive care, anticoagulation as per vascular team. The high probability of a clinically significant, sudden or life threatening deterioration of the [vascular, respiratory, renal] system(s) required my full and direct attention, intervention and personal management. The aggregate critical care time was [65] minutes. This time is in addition to time spent performing reported procedures but includes the following: [x] Data Review and interpretation [x] Patient assessment and monitoring of vital signs [x] Documentation [x] Medication orders and management Subjective Date of service: 10/06/17 Principal diagnosis: acute ischemic left limb, PAD Interval history: Pt seen and examined. Pain in the left leg improved Objective - Constitutional Vitals: Vital Signs - 12hr 10/05/17 10/05/17 10/05/17 21:16 21:21 21:30 Temperature Pulse Rate 99 H 104 H 106 H Respiratory 13 14 Rate Blood Pressure 130/87 143/88 O2 Sat by Pulse 97 95 Oximetry 10/05/17 10/05/17 10/05/17 21:41 21:50 21:51 Temperature 99.6 F Pulse Rate 103 H 103 H Respiratory 14 13 Rate Blood Pressure 143/88 141/93 O2 Sat by Pulse 95 96 Oximetry 10/05/17 10/05/17 10/05/17 22:00 22:01 22:11 Temperature Pulse Rate 101 H 105 H 107 H Respiratory 17 15 Rate Blood Pressure 158/98 158/98 O2 Sat by Pulse 96 97 Oximetry 10/05/17 10/05/17 10/05/17 22:21 22:27 22:30 Temperature Pulse Rate 103 H 102 H 106 H Respiratory 13 15 Rate Blood Pressure 152/96 152/96 148/93 O2 Sat by Pulse 95 94 Oximetry 10/05/17 10/05/17 10/05/17 22:41 22:51 23:00 Temperature Pulse Rate 108 H 110 H 113 H Respiratory 15 27 H 11 L Rate Blood Pressure 148/93 163/102 161/97 O2 Sat by Pulse 95 96 93 Oximetry 10/05/17 10/05/17 10/05/17 23:15 23:21 23:30 Temperature Pulse Rate 110 H 113 H Respiratory 19 16 21 Rate Blood Pressure 164/104 148/100 O2 Sat by Pulse 94 95 Oximetry 10/05/17 10/05/17 10/06/17 23:40 23:45 00:00 Temperature 98.4 F Pulse Rate 113 H 112 H 112 H Respiratory 16 19 20 Rate Blood Pressure 148/100 179/108 171/108 O2 Sat by Pulse 97 94 95 Oximetry 10/06/17 10/06/17 10/06/17 00:01 00:15 00:30 Temperature Pulse Rate 110 H 106 H 105 H Respiratory 12 12 10 L Rate Blood Pressure 171/108 162/104 159/99 O2 Sat by Pulse 96 95 92 Oximetry 10/06/17 10/06/17 10/06/17 00:45 01:00 01:15 Temperature Pulse Rate 96 H 94 H 91 H Respiratory 16 18 9 L Rate Blood Pressure 156/100 161/105 162/99 O2 Sat by Pulse 95 96 92 Oximetry 10/06/17 10/06/17 10/06/17 01:30 01:45 02:00 Temperature Pulse Rate 87 89 89 Respiratory 19 17 16 Rate Blood Pressure 158/100 158/103 154/103 O2 Sat by Pulse 95 94 94 Oximetry 10/06/17 10/06/17 10/06/17 02:15 02:30 02:45 Temperature Pulse Rate 86 81 89 Respiratory 15 17 13 Rate Blood Pressure 147/100 148/96 148/96 O2 Sat by Pulse 97 94 96 Oximetry 10/06/17 10/06/17 10/06/17 02:53 03:00 03:15 Temperature Pulse Rate 93 H 80 Respiratory 18 16 18 Rate Blood Pressure 134/95 138/90 O2 Sat by Pulse 96 93 Oximetry 10/06/17 10/06/17 10/06/17 03:30 03:45 04:00 Temperature 98.7 F Pulse Rate 80 85 78 Respiratory 17 14 16 Rate Blood Pressure 137/91 141/89 141/94 O2 Sat by Pulse 97 92 94 Oximetry 10/06/17 10/06/17 10/06/17 04:05 04:15 04:30 Temperature Pulse Rate 80 78 Respiratory 16 20 13 Rate Blood Pressure 138/92 147/98 O2 Sat by Pulse 94 92 93 Oximetry 10/06/17 10/06/17 10/06/17 04:45 05:00 05:15 Temperature Pulse Rate 78 76 80 Respiratory 14 13 16 Rate Blood Pressure 143/92 131/92 157/91 O2 Sat by Pulse 93 93 89 Oximetry 10/06/17 10/06/17 10/06/17 05:30 05:45 06:00 Temperature Pulse Rate 75 72 80 Respiratory 14 15 16 Rate Blood Pressure 157/94 151/85 151/85 O2 Sat by Pulse 93 93 95 Oximetry 10/06/17 10/06/17 10/06/17 06:15 06:30 06:45 Temperature Pulse Rate 80 65 80 Respiratory 18 13 12 Rate Blood Pressure 139/89 142/92 142/82 O2 Sat by Pulse 94 92 89 Oximetry 10/06/17 10/06/17 10/06/17 07:00 07:15 07:30 Temperature Pulse Rate 84 80 58 L Respiratory 12 12 11 L Rate Blood Pressure 132/89 139/87 140/85 O2 Sat by Pulse 91 90 92 Oximetry 10/06/17 10/06/17 10/06/17 07:45 08:00 08:06 Temperature Pulse Rate 77 66 Respiratory 14 16 14 Rate Blood Pressure 144/85 O2 Sat by Pulse 92 96 96 Oximetry 10/06/17 08:15 Temperature Pulse Rate 73 Respiratory 14 Rate Blood Pressure 142/88 O2 Sat by Pulse 93 Oximetry General appearance: Present: no acute distress, well-nourished - EENT Eyes: PERRL, EOM intact Ears: bilateral: normal - Neck Neck: supple, normal ROM - Respiratory Respiratory effort: normal Respiratory: bilateral: CTA - Breasts Breasts: normal - Cardiovascular Rhythm: regular Heart Sounds: Present: S1 & S2. Absent: gallop, rub Extremities: pulses intact, No edema, normal color, Full ROM - Gastrointestinal General gastrointestinal: Present: soft, non-tender, non-distended, normal bowel sounds - Integumentary Integumentary: clear, warm, dry - Musculoskeletal Musculoskeletal: 1, strength equal bilaterally - Neurologic Neurologic: moves all extremities - Psychiatric Psychiatric: memory intact, appropriate mood/affect, intact judgment & insight - Labs CBC & Chem 7: 10/06/17 07:14 10/06/17 05:41 Labs: Abnormal lab results 10/05/17 10/05/17 10/05/17 Range/Units 17:51 17:51 17:51 RBC 5.22 H (3.65-5.03) M/mm3 Hgb 15.9 H (11.8-15.2) gm/dl Hct 46.8 H (35.5-45.6) % [place] % (Auto) 8.1 H (0.0-7.3) % Seg Neutrophils % (40.0-70.0) % Fibrinogen (211-480) mg/dl Heparin Anti-Xa Level (0.3-0.7) U.I./ml Glucose 122 H (75-100) mg/dL Lactic Acid 3.10 H* (0.7-2.0) mmol/L 10/05/17 10/06/17 10/06/17 Range/Units 19:44 01:54 01:54 RBC (3.65-5.03) M/mm3 Hgb (11.8-15.2) gm/dl Hct (35.5-45.6) % [place] % (Auto) (0.0-7.3) % Seg Neutrophils % 71.8 H (40.0-70.0) % Fibrinogen 521 H (211-480) mg/dl Heparin Anti-Xa Level 0.15 L (0.3-0.7) U.I./ml Glucose (75-100) mg/dL Lactic Acid (0.7-2.0) mmol/L 10/06/17 10/06/17 10/06/17 Range/Units 05:41 07:14 07:14 RBC (3.65-5.03) M/mm3 Hgb (11.8-15.2) gm/dl Hct (35.5-45.6) % [place] % (Auto) 7.6 H (0.0-7.3) % Seg Neutrophils % (40.0-70.0) % Fibrinogen (211-480) mg/dl Heparin Anti-Xa Level > 2.00 H (0.3-0.7) U.I./ml Glucose 103 H (75-100) mg/dL Lactic Acid (0.7-2.0) mmol/L
[2017-10-06] MEDS ORDERED: RAMIPRIL 2.5 MG PO SCH (10:00)
[2017-10-06] MEDS ORDERED: FAMCICLOVIR 125 MG PO SCH (10:00)
[2017-10-06] MEDS: LOPRESSOR PO SCH ×2 (10:08→23:01)
[2017-10-06] MEDS: ZESTRIL PO SCH (10:08)
--- NOTE | 2017-10-06 10:27 | Progress Note ---
Assessment and Plan Patient with acute left limb ischemia 2 weeks following exclusion of left popliteal aneurysm with stent graft. 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 He has not yet had his chest and abdomen evaluated. We'll plan on bringing the patient down for thrombolytic catheter removal and clean out of any residual thrombus if any. The patient will then need to be started on Eliquis for at least 6 months. Additionally, the patient will need a CTA of his chest and abdomen to determine if any vascular abnormalities are contributing to his acute limb ischemia Subjective Date of service: 10/06/17 Principal diagnosis: acute ischemic left limb, PAD Interval history: Patient seen and evaluated. His leg no longer hurts and he has palpable dorsalis pedis pulses. Thrombolytics infusion catheter remains intact. Objective - Constitutional Vitals: Vital Signs - 12hr 10/05/17 10/05/17 10/05/17 22:27 22:30 22:41 Temperature Pulse Rate 102 H 106 H 108 H Respiratory 15 15 Rate Blood Pressure 152/96 148/93 148/93 O2 Sat by Pulse 94 95 Oximetry 10/05/17 10/05/17 10/05/17 22:51 23:00 23:15 Temperature Pulse Rate 110 H 113 H 110 H Respiratory 27 H 11 L 19 Rate Blood Pressure 163/102 161/97 164/104 O2 Sat by Pulse 96 93 94 Oximetry 10/05/17 10/05/17 10/05/17 23:21 23:30 23:40 Temperature Pulse Rate 113 H 113 H Respiratory 16 21 16 Rate Blood Pressure 148/100 148/100 O2 Sat by Pulse 95 97 Oximetry 10/05/17 10/06/17 10/06/17 23:45 00:00 00:01 Temperature 98.4 F Pulse Rate 112 H 112 H 110 H Respiratory 19 20 12 Rate Blood Pressure 179/108 171/108 171/108 O2 Sat by Pulse 94 95 96 Oximetry 10/06/17 10/06/17 10/06/17 00:15 00:30 00:45 Temperature Pulse Rate 106 H 105 H 96 H Respiratory 12 10 L 16 Rate Blood Pressure 162/104 159/99 156/100 O2 Sat by Pulse 95 92 95 Oximetry 10/06/17 10/06/17 10/06/17 01:00 01:15 01:30 Temperature Pulse Rate 94 H 91 H 87 Respiratory 18 9 L 19 Rate Blood Pressure 161/105 162/99 158/100 O2 Sat by Pulse 96 92 95 Oximetry 10/06/17 10/06/17 10/06/17 01:45 02:00 02:15 Temperature Pulse Rate 89 89 86 Respiratory 17 16 15 Rate Blood Pressure 158/103 154/103 147/100 O2 Sat by Pulse 94 94 97 Oximetry 10/06/17 10/06/17 10/06/17 02:30 02:45 02:53 Temperature Pulse Rate 81 89 Respiratory 17 13 18 Rate Blood Pressure 148/96 148/96 O2 Sat by Pulse 94 96 96 Oximetry 10/06/17 10/06/17 10/06/17 03:00 03:15 03:30 Temperature Pulse Rate 93 H 80 80 Respiratory 16 18 17 Rate Blood Pressure 134/95 138/90 137/91 O2 Sat by Pulse 93 97 Oximetry 10/06/17 10/06/17 10/06/17 03:45 04:00 04:05 Temperature 98.7 F Pulse Rate 85 78 Respiratory 14 16 16 Rate Blood Pressure 141/89 141/94 O2 Sat by Pulse 92 94 94 Oximetry 10/06/17 10/06/17 10/06/17 04:15 04:30 04:45 Temperature Pulse Rate 80 78 78 Respiratory 20 13 14 Rate Blood Pressure 138/92 147/98 143/92 O2 Sat by Pulse 92 93 93 Oximetry 10/06/17 10/06/17 10/06/17 05:00 05:15 05:30 Temperature Pulse Rate 76 80 75 Respiratory 13 16 14 Rate Blood Pressure 131/92 157/91 157/94 O2 Sat by Pulse 93 89 93 Oximetry 10/06/17 10/06/17 10/06/17 05:45 06:00 06:15 Temperature Pulse Rate 72 80 80 Respiratory 15 16 18 Rate Blood Pressure 151/85 151/85 139/89 O2 Sat by Pulse 93 95 94 Oximetry 10/06/17 10/06/17 10/06/17 06:30 06:45 07:00 Temperature Pulse Rate 65 80 84 Respiratory 13 12 12 Rate Blood Pressure 142/92 142/82 132/89 O2 Sat by Pulse 92 89 91 Oximetry 10/06/17 10/06/17 10/06/17 07:15 07:30 07:45 Temperature Pulse Rate 80 58 L 77 Respiratory 12 11 L 14 Rate Blood Pressure 139/87 140/85 144/85 O2 Sat by Pulse 90 92 92 Oximetry 10/06/17 10/06/17 10/06/17 08:00 08:06 08:15 Temperature Pulse Rate 66 73 Respiratory 16 14 14 Rate Blood Pressure 142/88 O2 Sat by Pulse 96 96 93 Oximetry 10/06/17 10:08 Temperature Pulse Rate 75 Respiratory Rate Blood Pressure 126/80 O2 Sat by Pulse Oximetry General appearance: Present: no acute distress - EENT Eyes: PERRL ENT: hearing intact - Neck Neck: supple, normal ROM - Respiratory Respiratory effort: normal - Breasts Breasts: deferred - Cardiovascular Rhythm: regular Extremities: no ischemia, Full ROM - Gastrointestinal General gastrointestinal: Present: deferred Rectal Exam: deferred - Genitourinary Male genitourinary: deferred - Musculoskeletal Musculoskeletal: strength equal bilaterally - Psychiatric Psychiatric: appropriate mood/affect, cooperative - Labs CBC & Chem 7: 10/06/17 07:14 10/06/17 05:41 Labs: Abnormal lab results 10/05/17 10/05/17 10/05/17 Range/Units 17:51 17:51 17:51 RBC 5.22 H (3.65-5.03) M/mm3 Hgb 15.9 H (11.8-15.2) gm/dl Hct 46.8 H (35.5-45.6) % [place] % (Auto) 8.1 H (0.0-7.3) % Seg Neutrophils % (40.0-70.0) % Fibrinogen (211-480) mg/dl Heparin Anti-Xa Level (0.3-0.7) U.I./ml Glucose 122 H (75-100) mg/dL Lactic Acid 3.10 H* (0.7-2.0) mmol/L 10/05/17 10/06/17 10/06/17 Range/Units 19:44 01:54 01:54 RBC (3.65-5.03) M/mm3 Hgb (11.8-15.2) gm/dl Hct (35.5-45.6) % [place] % (Auto) (0.0-7.3) % Seg Neutrophils % 71.8 H (40.0-70.0) % Fibrinogen 521 H (211-480) mg/dl Heparin Anti-Xa Level 0.15 L (0.3-0.7) U.I./ml Glucose (75-100) mg/dL Lactic Acid (0.7-2.0) mmol/L 10/06/17 10/06/17 10/06/17 Range/Units 05:41 07:14 07:14 RBC (3.65-5.03) M/mm3 Hgb (11.8-15.2) gm/dl Hct (35.5-45.6) % [place] % (Auto) 7.6 H (0.0-7.3) % Seg Neutrophils % (40.0-70.0) % Fibrinogen (211-480) mg/dl Heparin Anti-Xa Level > 2.00 H (0.3-0.7) U.I./ml Glucose 103 H (75-100) mg/dL Lactic Acid (0.7-2.0) mmol/L
[2017-10-06] MEDS: NORVIR PO SCH (10:53)
[2017-10-06] MEDS: PREZISTA PO SCH (10:54)
[2017-10-06] MEDS: FAMVIR PO SCH (11:04)
--- NOTE | 2017-10-06 11:22 | Consultation ---
History of Present Illness Consult date: 10/06/17 Requesting physician: YUE BONILLA Reason for consult: other (Acute Limb Ischemia s/p Thrombolysis; HIV positive; HTN) History of present illness: PULMONARY/CCM CONSULT NOTE (Full dictation # [id number]) Please see dictated notes for full details Past History Past Medical History: acute [place], arthritis, HIV/AIDS, hypertension, PVD Past Surgical History: Other (vascular surgery) Social history: smoking Family history: hypertension Medications and Allergies Allergies Allergy/AdvReac Type Severity Reaction Status Date / Time No Known Allergies Allergy Verified 06/14/13 08:29 Home Medications Medication Instructions Recorded Confirmed Last Taken Type Atorvastatin Calcium [Lipitor] 80 mg PO QDAY 06/14/13 10/05/17 09/23/17 History 40mg Clopidogrel Bisulfate [Plavix] 75 mg PO QDAY 06/14/13 10/05/17 09/23/17 History 75mg Darunavir [Prezista] 800 mg PO QDAY 06/14/13 10/05/17 09/23/17 History 800mg Famciclovir 125 mg PO QDAY 06/14/13 10/05/17 09/23/17 History 125mg Metoprolol [Lopressor] 50 mg PO BID 06/14/13 10/05/17 09/23/17 History 50mg Ramipril Cap (Nf) [Altace Cap (Nf)] 2.5 mg PO QDAY 06/14/13 10/05/17 09/23/17 History 2.5mg Ritonavir [Norvir] 100 mg PO QDAY 06/14/13 10/05/17 09/23/17 History 100mg Active Meds: Active Medications Acetaminophen/Hydrocodone Bitart ([place] 5/325) 2 each PO Q6H PRN PRN Reason: Pain, Moderate (4-6) Last Admin: 10/06/17 07:02 Dose: 2 each Atorvastatin Calcium (Lipitor) 80 mg PO QDAY [facility] Last Admin: 10/06/17 10:53 Dose: 80 mg Darunavir (Prezista) 800 mg PO QDAY [facility] Last Admin: 10/06/17 10:54 Dose: 800 mg Famciclovir (Famvir) 125 mg PO QDAY [facility] Last Admin: 10/06/17 11:04 Dose: Not Given Hydrophilic Ointment (Vaseline Lip Therapy) 1 applic TP DIRECT PRN PRN Reason: Dry Lips Last Admin: 10/05/17 22:21 Dose: 1 applic Heparin Sodium/Sodium Chloride (Heparin/ 0.45% Nacl-25,000 Unit/500 Ml) 25,000 unit in 500 mls @ 29 mls/hr IV TITR HIRA; Protocol Last Admin: 10/05/17 21:08 Dose: 1,450 units/hr, 29 mls/hr Alteplase, Recombinant 20 mg/ (Sodium Chloride) 500 mls @ 25 mls/hr EKOSDLUMEN DIRECT HIRA Last Admin: 10/05/17 21:08 Dose: 0 mls Heparin Sodium/Sodium Chloride (Heparin/ 0.45% Nacl-25,000 Unit/500 Ml) 25,000 unit in 500 mls @ 10 mls/hr SHEATH DIRECT HIRA; Protocol Sodium Chloride (Nacl 0.9% 1000 Ml) 1,000 mls @ 30 mls/hr IV DIRECT HIRA Sodium Chloride (Nacl 0.9% 1000 Ml) 1,000 mls @ 35 mls/hr EKOSCLUMEN DIRECT HIRA Sodium Chloride (Nacl 0.9% 1000 Ml) 1,000 mls @ 30 mls/hr SHEATH DIRECT HIRA Lisinopril (Zestril) 5 mg PO QDAY [facility] Last Admin: 10/06/17 10:08 Dose: Not Given Metoprolol Tartrate (Lopressor) 50 mg PO BID [facility] Last Admin: 10/06/17 10:08 Dose: 50 mg Morphine Sulfate (Morphine) 2 mg IV Q4H PRN PRN Reason: Pain, Moderate (4-6) Last Admin: 10/06/17 10:08 Dose: 2 mg Ondansetron HCl (Zofran) 4 mg IV Q8H PRN PRN Reason: Nausea And Vomiting Last Admin: 10/05/17 22:20 Dose: 4 mg Ritonavir (Norvir) 100 mg PO QDAY [facility] Last Admin: 10/06/17 10:53 Dose: 100 mg Sodium Chloride (Sodium Chloride Flush Syringe 10 Ml) 10 ml IV BID [facility] Last Admin: 10/05/17 22:21 Dose: 10 ml Sodium Chloride (Sodium Chloride Flush Syringe 10 Ml) 10 ml IV PRN PRN PRN Reason: LINE FLUSH Physical Examination Vital signs: Vital Signs Pulse Resp BP Pulse Ox 107 H 20 124/83 97 10/05/17 17:22 10/05/17 17:22 10/05/17 17:22 10/05/17 17:22 Results - Laboratory Findings CBC and BMP: 10/06/17 07:14 10/06/17 05:41 PT/INR, D-dimer PT 13.0 Sec. (12.2-14.9) 10/05/17 17:51 INR 0.94 (0.87-1.13) 10/05/17 17:51 Abnormal lab findings: Abnormal Labs 10/05/17 10/05/17 10/05/17 17:51 17:51 17:51 RBC 5.22 H Hgb 15.9 H Hct 46.8 H [place] % (Auto) 8.1 H Seg Neutrophils % Fibrinogen Heparin Anti-Xa Level Glucose 122 H Lactic Acid 3.10 H* 10/05/17 10/06/17 10/06/17 19:44 01:54 01:54 RBC Hgb Hct [place] % (Auto) Seg Neutrophils % 71.8 H Fibrinogen 521 H Heparin Anti-Xa Level 0.15 L Glucose Lactic Acid 10/06/17 10/06/17 10/06/17 05:41 07:14 07:14 RBC Hgb Hct [place] % (Auto) 7.6 H Seg Neutrophils % Fibrinogen Heparin Anti-Xa Level > 2.00 H Glucose 103 H Lactic Acid
[2017-10-06] MEDS ORDERED: HEPARIN/NS 5000 UNIT/500ML(CATH LAB) 1,000 ML IR ONE (13:32)
[2017-10-06] MEDS ORDERED: HEPARIN 10,000 UNITS/10 ML ONE (13:32)
[2017-10-06] MEDS ORDERED: XYLOCAINE 2% INFILTRATI ONE (13:33)
[2017-10-06] MEDS ORDERED: ANCEF/STERILE WATER 2 GM/20 ML 0 GM/0 ML SYRINGE IV ONE (13:52)
[2017-10-06] MEDS ORDERED: NACL 0.9% 250ML 250 ML ONE (13:52)
[2017-10-06] MEDS: SUBLIMAZE ONE ×3 (13:58→14:54)
[2017-10-06] MEDS: VERSED IV ONE ×3 (13:58→14:54)
[2017-10-06] MEDS ORDERED: CATHFLO ONE ×3 (14:12→14:40)
[2017-10-06] MEDS ORDERED: NITROGLYCERIN SYRINGE 3 ML ONE ×3 (14:12→14:59)
--- NOTE | 2017-10-06 15:21 | Operative Report ---
Operative Report Operative Report: Exam: Thrombolytics catheter removal, left lower extremity mechanical thrombectomy and angioplasty Clinical indication: Patient with arterial thrombus in his left leg Date: 10/06/2017 Procedure: Following an explanation of the risks, benefits and alternatives; written informed consent was obtained. The patient was brought to the angiographic suite and placed in supine position on the examination table. His right groin and indwelling catheter and sheath were prepped and draped in the usual sterile fashion. 1% lidocaine was used for anesthesia. Initial fluoroscopic images demonstrated appropriate positioning of the patient' s previously placed thrombolytics catheter. The infusion wire was removed and a 0.035 guidewire advanced through the catheter. The catheter was then removed intact. Contrast was injected through the sheath which demonstrated patency of the superficial femoral artery, popliteal artery including the previously placed stents in the proximal aspects of the anterior tibial artery, peroneal artery and posterior tibial artery. On the foot and both anterior tibial artery and posterior tibial artery there is sluggish flow with collateral formation however , thrombus is present within the distal aspect of both arteries. A 4 [place] vertebral catheter was advanced over the guidewire and the guidewire exchanged for a V 18 guidewire. Initially, selection of the posterior tibial artery was performed in the guidewire and catheter advanced distally. The guidewire and catheter would only advanced to the mid foot and the lateral plantar artery. Contrast was injected which demonstrated thrombus extending from the lateral plantar artery to the distal posterior tibial artery. A total of 6 mg of TPA was then infused followed by nitroglycerin. Followed by a dwell time of 5 minutes, mechanical thrombectomy was performed using a CAT3 Penumbra aspiration thrombectomy catheter. The catheter would only reached the mid foot. Post thrombectomy imaging plasty demonstrated flow extending to the mid foot with collaterals extending distally filling the pedal arch. 2 areas of stenosis versus arterial spasm are present and these were balloon using a 3 mm x 80 mm balloon insufflated to 8 mellissa for 1 minute. The catheter and guidewire were then withdrawn proximally and directed to the anterior tibial artery. The catheter and guidewire were advanced into the anterior tibial artery to the dorsalis pedis artery proximally. Contrast was injected which demonstrated thrombus extending in the distal anterior tibial artery extending into the dorsalis pedis artery. 4 mg of TPA was infused followed by nitroglycerin. Aspiration thrombectomy was performed using the penumbra aspiration thrombectomy catheter again. The catheter was withdrawn proximally and angiography performed from the popliteal artery. This demonstrates brisk flow into the proximal and mid anterior tibial arteries, posterior tibial artery and peroneal artery with sluggish flow distally secondary to scattered areas thrombus. An additional 4 mg of TPA followed by nitroglycerin was infused from the popliteal artery. At this point, the catheters, guidewires and she's were removed and hemostasis achieved using an Angio-Seal arterial closure device. A sterile dressing was then applied. The patient tolerated the procedure well. There were no immediate post procedure complications. Conscious sedation was performed under the guidance of radiologic nursing. Continuous cardiopulmonary monitoring was utilized. Impression: 1) Successful thrombolysis of the popliteal artery and proximal tibial arteries with residual combos within the distal anterior tibial and posterior tibial arteries. 2) Mechanical thrombectomy of the anterior tibial artery and posterior tibial artery. 3) Angioplasty of the posterior tibial artery. 4) At the conclusion of the procedure, the patient was started on a heparin drip with nitroglycerin paste applied to the dorsum of the foot.
[2017-10-06 15:38] LABS: Basophils # (Auto) 0.1 K/mm3 (0.0-0.1); Eosinophils # (Auto) 0.3 K/mm3 (0.0-0.4); Eosinophils % (Auto) 4.8 % (0.0-4.3); Hematocrit 42.1 % (35.5-45.6); Hemoglobin 13.7 gm/dl (11.8-15.2); Lymphocytes # (Auto) 2.2 K/mm3 (1.2-5.4); Lymphocytes % (Auto) 31.7 % (13.4-35.0); Mean Corpuscular HGB Conc 33 % (32-34); Mean Corpuscular Hemoglobin 30 pg (28-32); Mean Corpuscular Volume 91 fl (84-94); Monocytes # (Auto) 0.5 K/mm3 (0.0-0.8); Platelet Count 140 K/mm3 (140-440); Red Blood Count 4.65 M/mm3 (3.65-5.03); Red Cell Distribution Width 15.1 % (13.2-15.2)
[2017-10-06] MEDS: PEPCID PO SCH (15:42)
[2017-10-06 15:49] LABS: Heparin anti-factor XA 0.11 U.I./ml (0.3-0.7)
[2017-10-06] MEDS: HEPARIN/ 0.45% NACL-25,000 UNIT/500 ML 25,000 UNIT/500 ML BAG IV SCH (16:12)
[2017-10-06] MEDS: NITRO-BID 2% TP SCH (17:26)
--- NOTE | 2017-10-06 19:00 | XRay Report ---
FINAL REPORT PROCEDURE: XR CHEST 1V AP TECHNIQUE: Chest radiograph anteroposterior view. CPT 67878 HISTORY: Acute Hypoxemic Respiratory Failure COMPARISON: No prior studies are available for comparison. FINDINGS: Heart: Normal. Mediastinum/Vessels: Normal. Lungs/Pleural space: No infiltrate, effusion, or pneumothorax is seen. Bony thorax: No acute osseous abnormality. Life support devices: None. IMPRESSION: No radiographic evidence of acute cardiopulmonary abnormality.
[2017-10-07] MEDS: MORPHINE IV PRN ×3 (01:07→18:44)
--- NOTE | 2017-10-07 01:26 | Consultation ---
PULMONARY CRITICAL CARE CONSULT NOTE CONSULTING PHYSICIAN: Dr. Willams. REASON FOR CONSULTATION: Need for ICU admission in a patient status post thrombolytic therapy. CHIEF COMPLAINT AND HISTORY OF PRESENT ILLNESS: The patient is a 61-year-old -[place]wegian male with past medical history significant amongst other things for a diagnosis of peripheral vascular disease, who reportedly has recently had a stent placed to the left lower extremity secondary to his peripheral vascular disease. He states that he was out in his yard and it was the first time he would really exert himself since he has a surgical intervention when he developed an acute onset of pain and then numbness in the left lower extremities. He was unable to feel his feet. He came into the Emergency Room, was found to have acute limb ischemia. Vascular Surgery was consulted. He was taken emergently into the OR/procedure suite and thrombolytic catheter-directed therapy was performed. Postop, he was brought into the Intensive Care Unit for observation and for catheter-directed thrombolytic therapy overnight. When I stopped by to see him, he was feeling better, still had some pain in his lower extremity, but certainly said he feels much better and he was able to feel and move his lower extremity. He denied any acute chest pains along with his symptoms. He admits to continued tobacco use. He does have a 15+ pack year tobacco smoking history. He denies any palpitations. He denied any fevers or chills. He denied any direct head trauma, otherwise to the lower extremity. This really is as much of the history of presentation as I have. PAST MEDICAL HISTORY: Again, history of peripheral vascular disease, hypertension, tobacco use disorder. He is HIV positive. He has a history of prior deep venous thrombosis, history of osteoarthritis. He has a history of asthma. He is obese. PAST SURGICAL HISTORY: Status post left popliteal artery aneurysm repair. MEDICATIONS: He was on at the time I stopped by to see were reviewed, pertinent medications include the following: He was on the EKOS therapy with recombinant alteplase 25 mL per hour, Lipitor 80 mg p.o. daily, Prezista 800 mg p.o. daily, Famciclovir 125 mg p.o. daily. He was on IV heparin therapy at 1450 units per hour. Lisinopril 5 mg p.o. daily, metoprolol 50 mg p.o. b.i.d., morphine sulfate 2 mg IV q. 4 hours p.r.n. moderate pain, Zofran 4 mg IV q. 8 hours p.r.n. nausea and vomiting, and Norvir 100 mg p.o. daily. ALLERGIES: No known drug allergies. DIET: Obese gentleman. Denies significant weight loss or gain in the preceding few weeks to months. FAMILY AND SOCIAL HISTORY: Lives in the community. He has a 15+ pack year tobacco smoking history. There is a family history of hypertension. Denies alcohol or illicit drug use or abuse. REVIEW OF SYSTEMS: No loss of consciousness. No new onset seizures. No new onset focal weakness. Denied palpitations, no syncope. No heat or cold intolerance. No polyuria or polydipsia. Denies any new rash on his body. A complete 13-system review of systems obtained. Pertinent positives and/or negatives are as in the body of history above; otherwise, are noncontributory. PHYSICAL EXAMINATION: VITAL SIGNS: At presentation in the Emergency Room, review of the vital signs shows that he had low-grade fever, temperature 99.6, pulse 103, respiratory rate 14, blood pressure 143/88, oxygen sats were 95%, at the time I saw him he was on 3 liters nasal cannula. GENERAL: He is an elderly looking -Norwegian, normocephalic, atraumatic, lying in bed, talking to me in full sentences without significant respiratory distress. HEAD, EYES, EARS, NOSE AND THROAT: ____ EXTREMITIES: There is EKOS catheter sheath in the right groin. NEUROLOGICAL: Pupils are equal, round, about 4 mm, reactive to light. Extraocular muscle movements are intact. SKIN: Poor turgor in the lower extremities without cellulitis or rashes. LABORATORY DATA: From my review are as follows: Admission white cell count 6700, hemoglobin 15.9, hematocrit 46.8, platelet count 198. INR 0.94. Serum sodium 139, potassium 3.7, chloride 99, bicarbonate 22, BUN is 18, creatinine 1.5, glucose 122. Lactic acid level was 3.10 at presentation. Microbiology: No studies. RADIOGRAPHIC STUDIES: He had a lower extremity CT angiogram done at presentation yesterday. It read as no enhancement of the arteries is identified, which could have been related due to technical factors or due to an acute occlusion. ASSESSMENT AND PLAN: 1. Acute limb ischemia, status post catheter-directed thrombolytic therapy. 2. Peripheral vascular disease. 3. Hypertension. 4. Tobacco use disorder. 5. History of deep venous thrombosis. 6. Asthma. 7. Human immunodeficiency virus positive. 8. Obesity. 9. History of coronary artery disease. PLAN: Continue EKOS catheter-directed thrombolytic therapy until the sheath is pulled by the vascular team. Continue IV heparin for now. He is unable to give me much of a history regarding the treatment received on the prior DVT. For now, we will continue with anticoagulation as directed by the vascular team. Tobacco cessation has been strongly counseled. I am bothered about his hypoxemia, I will get an arterial blood gas on the oxygen therapy. I will also get a chest x-ray. He will be placed on GI prophylaxis, especially with him on IV heparin. Flu and pneumonia vaccination will be addressed per protocol. Physical therapy consult will be placed. Other intervention will depend on his progression during this admission. We will continue his chronic disease medications. Thank you very much for the consult. We will follow along. We will make further recommendations as picture progresses/becomes clearer. JOB# [id number] MIKALA/JEISON CREWS
[2017-10-07 04:33] LABS: Hematocrit 43.4 % (35.5-45.6); Hemoglobin 14.5 gm/dl (11.8-15.2)
[2017-10-07 06:02] LABS: BUN/Creatinine Ratio 18; Blood Urea Nitrogen 14 mg/dL (9-20); Calcium 8.5 mg/dL (8.4-10.2); Hemolysis Index 1
[2017-10-07] MEDS: NITRO-BID 2% TP SCH ×4 (06:50→18:45)
[2017-10-07] MEDS: NORCO 5/325 PO PRN ×3 (07:14→23:41)
[2017-10-07] MEDS: HEPARIN/ 0.45% NACL-25,000 UNIT/500 ML 25,000 UNIT/500 ML BAG IV SCH ×2 (08:33→23:45)
[2017-10-07] MEDS: ZESTRIL PO SCH (09:55)
[2017-10-07] MEDS: PEPCID PO SCH (09:56)
[2017-10-07] MEDS: LOPRESSOR PO SCH ×2 (09:56→22:10)
[2017-10-07] MEDS: NORVIR PO SCH (09:57)
[2017-10-07] MEDS: PREZISTA PO SCH (09:58)
--- NOTE | 2017-10-07 10:08 | Progress Note ---
Assessment and Plan Assessment and plan: (1) Ischemia of left lower extremity Current Visit: Yes Status: Acute Plan to address problem: S/p left femoral art angioram and EKOS catheter insertion (2) HIV disease Current Visit: Yes Status: Acute Plan to address problem: Continue with antiretroviral therapy, outpatient ID f/u care. (3) Acidosis Current Visit: Yes Status: Acute Plan to address problem: Lactic acidosis resolved. continue with IVF resuscitation therapy, (4) PVD (peripheral vascular disease) Current Visit: Yes Status: Acute on TPA with EKOS (5) Nicotine dependence Current Visit: Yes Status: Acute Qualifiers: Substance use status: in withdrawal Plan to address problem: smoking cessation counseling, supportive care. (6) HTN (hypertension) Current Visit: Yes Status: Acute Qualifiers: Hypertension type: essential hypertension Qualified Code(s): I10 - Essential (primary) hypertension Plan to address problem: monitor bp q shift, (7) DVT prophylaxis Current Visit: Yes Status: Acute Plan to address problem: supportive care, on heparin drip History Interval history: Patient seen and examined medical records reviewed Feels better no new complaints once to go home Left lower extremity pulses palpable, very minimal edema Denies chest pain shortness of breath Vital signs reviewed Hospitalist Physical - Constitutional Vitals: Temp Pulse Resp BP Pulse Ox 98.0 F 60 13 145/86 93 10/07/17 04:00 10/07/17 09:58 10/07/17 09:01 10/07/17 09:58 10/07/17 09:01 General appearance: Present: no acute distress, well-nourished - EENT Eyes: Present: PERRL, EOM intact - Neck Neck: Present: supple, normal ROM - Respiratory Respiratory effort: normal Respiratory: bilateral: diminished, negative: rales, rhonchi, wheezing - Cardiovascular Rhythm: regular Heart Sounds: Present: S1 & S2 - Extremities Extremities: no ischemia, No edema - Abdominal General gastrointestinal: soft, non-tender, non-distended, normal bowel sounds - Integumentary Integumentary: Present: clear, warm - Psychiatric Psychiatric: appropriate mood/affect, cooperative - Neurologic Neurologic: CNII-XII intact, moves all extremities Results - Labs CBC & Chem 7: 10/08/17 06:12 10/08/17 06:12 Labs: Laboratory Last Values WBC 7.0 K/mm3 (4.5-11.0) 10/06/17 15:00 RBC 4.65 M/mm3 (3.65-5.03) 10/06/17 15:00 Hgb 14.5 gm/dl (11.8-15.2) 10/07/17 03:35 Hct 43.4 % (35.5-45.6) 10/07/17 03:35 MCV 91 fl (84-94) 10/06/17 15:00 MCH 30 pg (28-32) 10/06/17 15:00 MCHC 33 % (32-34) 10/06/17 15:00 RDW 15.1 % (13.2-15.2) 10/06/17 15:00 Plt Count 133 K/mm3 (140-440) L 10/07/17 03:35 Lymph % (Auto) 31.7 % (13.4-35.0) 10/06/17 15:00 [place] % (Auto) 7.0 % (0.0-7.3) 10/06/17 15:00 Eos % (Auto) 4.8 % (0.0-4.3) H 10/06/17 15:00 Baso % (Auto) 2.0 % (0.0-1.8) H 10/06/17 15:00 Lymph # 2.2 K/mm3 (1.2-5.4) 10/06/17 15:00 [place] # 0.5 K/mm3 (0.0-0.8) 10/06/17 15:00 Eos # 0.3 K/mm3 (0.0-0.4) 10/06/17 15:00 Baso # 0.1 K/mm3 (0.0-0.1) 10/06/17 15:00 Seg Neutrophils % 54.5 % (40.0-70.0) 10/06/17 15:00 Seg Neutrophils # 3.8 K/mm3 (1.8-7.7) 10/06/17 15:00 PT 13.0 Sec. (12.2-14.9) 10/05/17 17:51 INR 0.94 (0.87-1.13) 10/05/17 17:51 APTT 25.6 Sec. (24.2-36.6) 10/05/17 18:22 Fibrinogen 309 mg/dl (211-480) 10/06/17 15:00 Heparin Anti-Xa Level 0.43 U.I./ml (0.3-0.7) 10/07/17 06:54 POC ABG pH 7.354 (7.35-7.45) 10/06/17 16:44 POC ABG pCO2 45.0 (35-45) 10/06/17 16:44 POC ABG pO2 59 (80-105) L 10/06/17 16:44 POC ABG HCO3 25.1 10/06/17 16:44 POC ABG Total CO2 26 10/06/17 16:44 POC ABG O2 Sat 89 10/06/17 16:44 POC ABG Base Excess 0 10/06/17 16:44 FiO2 32 % 10/06/17 16:44 Sodium 139 mmol/L (137-145) 10/07/17 03:35 Potassium 4.2 mmol/L (3.6-5.0) 10/07/17 03:35 Chloride 96.4 mmol/L (98-107) L 10/07/17 03:35 Carbon Dioxide 26 mmol/L (22-30) 10/07/17 03:35 Anion Gap 13 mmol/L 10/07/17 03:35 BUN 14 mg/dL (9-20) 10/07/17 03:35 Creatinine 0.8 mg/dL (0.8-1.5) 10/07/17 03:35 Estimated GFR > 60 ml/min 10/07/17 03:35 BUN/Creatinine Ratio 18 % 10/07/17 03:35 Glucose 114 mg/dL (75-100) H 10/07/17 03:35 Lactic Acid 1.50 mmol/L (0.7-2.0) 10/05/17 21:39 Calcium 8.5 mg/dL (8.4-10.2) 10/07/17 03:35 Total Bilirubin 0.50 mg/dL (0.1-1.2) 10/05/17 17:51 AST 21 units/L (5-40) 10/05/17 17:51 ALT 12 units/L (7-56) 10/05/17 17:51 Alkaline Phosphatase 86 units/L (35-129) 10/05/17 17:51 Total Protein 8.0 g/dL (6.3-8.2) 10/05/17 17:51 Albumin 4.6 g/dL (3.9-5) 10/05/17 17:51 Albumin/Globulin Ratio 1.4 % 10/05/17 17:51 Blood Type O POSITIVE 10/05/17 18:49 Antibody Screen Negative 10/05/17 18:49
[2017-10-07] MEDS: SODIUM CHLORIDE FLUSH SYRINGE 10 ML IV SCH ×3 (10:16→22:11)
[2017-10-07] MEDS: FAMVIR PO SCH (10:18)
--- NOTE | 2017-10-07 10:33 | Consultation ---
REFERRING PHYSICIAN: Gerard Heaton MD REASON FOR CONSULTATION: Arterial thrombosis. HISTORY OF PRESENT ILLNESS: The patient is a 61-year-old male with history of HIV, who presented to the hospital 2 weeks following surgery on left popliteal aneurysm and stent graft. 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 The patient underwent left popliteal aneurysm repair and thrombolysis of the left lower extremity mechanical thrombectomy and angioplasty. He had had similar right popliteal artery surgery in 2012 in the form of lysis and surgical revision on the right popliteal artery. 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 FAMILY HISTORY: The patient does have family history of thrombosis in his brother and also has low extremity swelling in mother and sister. SOCIAL HISTORY: The patient does smoke cigarettes. Positive for tobacco abuse. PAST SURGICAL HISTORY: He also has had cardiac surgery back in 2003 and 2004 in [place]. REVIEW OF SYSTEMS: He denies any malignancy. He had been fairly active prior to these episodes. PAST MEDICAL HISTORY: Positive for HIV, arthritis, coronary artery disease, hypertension. PHYSICAL EXAMINATION: GENERAL: The patient is awake and oriented. HEENT: Unremarkable. CHEST: Clear. HEART: Regular rate and rhythm. ABDOMEN: Soft. EXTREMITIES: Left foot is swollen, warm. Right foot is warm. PERTINENT LABORATORY DATA: The patient's hemoglobin 14.5, hematocrit 43.2, white count yesterday was 7.0, platelets today are 133, where it is slightly down from his admission platelet count of 198. Chemistries initially exact lactic acid was 3.1, now it is 1.5, creatinine 1.0. LFTs within normal limits. HOSPITAL COURSE: The patient is currently on heparin drip. MEDICATIONS: He is on Lipitor, Famvir, Zestril, [place]. ASSESSMENT: 1. History of arterial thrombosis in this patient in the fall of events in 2011 and now requiring thrombectomy and angioplasty. 2. Tobacco abuse. 3. Family history of thrombosis. PLAN: At this time, we will go ahead and do hypercoagulable workup. Strongly recommended for the patient to quit smoking. I agree with anticoagulation in view of the patient having had arterial thrombosis, Coumadin may be a choice, but may be a more appropriate and may be an approved choice. Once he is stable, he can be switched to Coumadin. We will follow. Platelets are trickling down. We will monitor closely. If may consider heparin-induced thrombocytopenia assay if the platelets go down further. JOB# [id number] NEGIN/JEISON
--- NOTE | 2017-10-07 12:04 | Progress Note ---
Assessment and Plan Acute limb ischemia, status post catheter-directed thrombolytic therapy. Peripheral vascular disease. Hypertension. Tobacco use disorder. History of deep venous thrombosis. Asthma. Human immunodeficiency virus positive. Obesity. History of coronary artery disease (hypoxemia is bothersome in this HIV +ve patient with hazy CXR re: ? PCP) - encourage ICS and deep breathing re: Atelectasis - get ABG - if persistent hypoxemic will get CT chest to r/o GGO's / occult PCP as may need therapy - consider CD4 count assay - continue supplemental oxygen and wean for sats > 90% - continue wound care per RN and WCT - vascular surgery E&M ongoing - continue IV heparin for now - hematology consult placed - continue GI prophylaxis - continue ART ... improved and will transfer out of ICU' ... 35' Subjective Date of service: 10/07/17 Principal diagnosis: Acute Limb Ischemia s/p thrombolysis; Hypoxemic Resp failure; PVDx; HIV +ve Interval history: Patient is seen today for: Acute Limb Ischemia s/p thrombolysis; Hypoxemic Resp failure; PVDx; HIV +ve Seen and examined at bedside; 24hour events reviewed; nursing and respiratory care staff consulted; no adverse overnight events reported to me; resting in bed ; EkOS sheath has been removed; remains on supplemental oxygen; remains on IV heparin Objective Vital Signs - 12hr 10/07/17 10/07/17 10/07/17 01:00 02:00 03:01 Temperature Pulse Rate 79 85 72 Pulse Rate [ From Monitor] Respiratory 22 18 17 Rate Blood Pressure 131/80 138/72 134/81 O2 Sat by Pulse 86 93 95 Oximetry 10/07/17 10/07/17 10/07/17 04:00 05:00 06:00 Temperature 98.0 F Pulse Rate 70 60 49 L Pulse Rate [ From Monitor] Respiratory 17 17 14 Rate Blood Pressure 125/74 133/70 142/83 O2 Sat by Pulse 92 92 94 Oximetry 10/07/17 10/07/17 10/07/17 06:50 07:00 08:00 Temperature Pulse Rate 54 L 75 Pulse Rate [ 54 L From Monitor] Respiratory 13 18 Rate Blood Pressure 122/80 122/80 O2 Sat by Pulse 93 96 Oximetry 10/07/17 10/07/17 10/07/17 08:01 08:15 09:01 Temperature Pulse Rate 52 L 53 L Pulse Rate [ From Monitor] Respiratory 19 13 Rate Blood Pressure 144/84 145/86 O2 Sat by Pulse 95 97 93 Oximetry 10/07/17 10/07/17 10/07/17 09:55 09:56 09:58 Temperature Pulse Rate 62 62 60 Pulse Rate [ From Monitor] Respiratory Rate Blood Pressure 145/86 145/86 145/86 O2 Sat by Pulse Oximetry 10/07/17 10:00 Temperature Pulse Rate 65 Pulse Rate [ From Monitor] Respiratory 15 Rate Blood Pressure 147/86 O2 Sat by Pulse 89 Oximetry Constitutional: no acute distress, alert, other (elderly AAM, normocephalic and atraumatic resting in bed.) Eyes: non-icteric ENT: oropharynx moist, other (mallampati 2) Neck: supple, no lymphadenopathy, no JVD, other (no thyromegaly) Effort: mildly labored Ascultation: Bilateral: diminished breath sounds, rhonchi (base) Percussion: Bilateral: not dull Cardiovascular: regular rate and rhythm, other (No R/M) Gastrointestinal: normoactive bowel sounds, soft, non-tender, non-distended, other (No HSM) Integumentary: normal Extremities: no cyanosis, pulses normal, no ischemia or petechiae, other (right groin dressing) Neurologic: normal mental status, non-focal exam, pupils equal and round, motor strength normal and Psychiatric: mood appropriate, affect normal CBC and BMP: 10/08/17 06:12 10/08/17 06:12 ABG, PT/INR, D-dimer: ABG POC ABG pH 7.354 (7.35-7.45) 10/06/17 16:44 POC ABG pCO2 45.0 (35-45) 10/06/17 16:44 POC ABG pO2 59 (80-105) L 10/06/17 16:44 POC ABG HCO3 25.1 10/06/17 16:44 POC ABG Total CO2 26 10/06/17 16:44 POC ABG O2 Sat 89 10/06/17 16:44 PT/INR, D-dimer PT 13.0 Sec. (12.2-14.9) 10/05/17 17:51 INR 0.94 (0.87-1.13) 10/05/17 17:51 Abnormal lab findings: Abnormal Labs 10/05/17 10/05/17 10/05/17 17:51 17:51 17:51 RBC 5.22 H Hgb 15.9 H Hct 46.8 H Plt Count [place] % (Auto) 8.1 H Eos % (Auto) Baso % (Auto) Seg Neutrophils % Fibrinogen Heparin Anti-Xa Level POC ABG pO2 Chloride Glucose 122 H Lactic Acid 3.10 H* 10/05/17 10/06/17 10/06/17 19:44 01:54 01:54 RBC Hgb Hct Plt Count [place] % (Auto) Eos % (Auto) Baso % (Auto) Seg Neutrophils % 71.8 H Fibrinogen 521 H Heparin Anti-Xa Level 0.15 L POC ABG pO2 Chloride Glucose Lactic Acid 10/06/17 10/06/17 10/06/17 05:41 07:14 07:14 RBC Hgb Hct Plt Count [place] % (Auto) 7.6 H Eos % (Auto) Baso % (Auto) Seg Neutrophils % Fibrinogen Heparin Anti-Xa Level > 2.00 H POC ABG pO2 Chloride Glucose 103 H Lactic Acid 10/06/17 10/06/17 10/06/17 15:00 15:00 16:44 RBC Hgb Hct Plt Count [place] % (Auto) Eos % (Auto) 4.8 H Baso % (Auto) 2.0 H Seg Neutrophils % Fibrinogen Heparin Anti-Xa Level 0.11 L POC ABG pO2 59 L Chloride Glucose Lactic Acid 10/06/17 10/07/17 10/07/17 21:09 03:35 03:35 RBC Hgb Hct Plt Count 133 L [place] % (Auto) Eos % (Auto) Baso % (Auto) Seg Neutrophils % Fibrinogen Heparin Anti-Xa Level 0.10 L POC ABG pO2 Chloride 96.4 L Glucose 114 H Lactic Acid Chest x-ray: image reviewed (RLL platelike atelectasis and mild haziness) Allied health notes reviewed: nursing
--- NOTE | 2017-10-07 15:37 | Progress Note ---
Assessment and Plan Patient with a minimal amount of reperfusion edema following revascularization of his left leg. This is his second lower extremity thrombotic event and he is currently undergoing evaluation with hematology oncology for a hypercoagulable state. We will defer to their recommendations regarding long-term anticoagulation. Patient will need to ambulate as well. Will order JERED hose to help with decompression of his left leg. Okay to transfer from the ICU to [facility] floor with telemetry. Subjective Date of service: 10/07/17 Principal diagnosis: acute ischemic left limb, PAD Interval history: Patient doing well. He has a minimal amount of reperfusion edema with a palpable dorsalis pedis and posterior tibial pulse on the left foot. The left foot is warm. He complains of some burning pain. The leg is currently being elevated. Objective - Constitutional Vitals: Vital Signs - 12hr 10/07/17 10/07/17 10/07/17 04:00 05:00 06:00 Temperature 98.0 F Pulse Rate 70 60 49 L Pulse Rate [ From Monitor] Respiratory 17 17 14 Rate Blood Pressure 125/74 133/70 142/83 O2 Sat by Pulse 92 92 94 Oximetry 10/07/17 10/07/17 10/07/17 06:50 07:00 08:00 Temperature Pulse Rate 54 L 75 Pulse Rate [ 54 L From Monitor] Respiratory 13 18 Rate Blood Pressure 122/80 122/80 O2 Sat by Pulse 93 96 Oximetry 10/07/17 10/07/17 10/07/17 08:01 08:15 09:01 Temperature Pulse Rate 52 L 53 L Pulse Rate [ From Monitor] Respiratory 19 13 Rate Blood Pressure 144/84 145/86 O2 Sat by Pulse 95 97 93 Oximetry 10/07/17 10/07/17 10/07/17 09:55 09:56 09:58 Temperature Pulse Rate 62 62 60 Pulse Rate [ From Monitor] Respiratory Rate Blood Pressure 145/86 145/86 145/86 O2 Sat by Pulse Oximetry 10/07/17 10/07/17 10/07/17 10:00 11:01 12:01 Temperature Pulse Rate 65 66 71 Pulse Rate [ From Monitor] Respiratory 15 18 15 Rate Blood Pressure 147/86 136/87 138/86 O2 Sat by Pulse 89 93 93 Oximetry 10/07/17 10/07/17 10/07/17 13:00 13:01 14:01 Temperature Pulse Rate 63 57 L Pulse Rate [ From Monitor] Respiratory 20 18 19 Rate Blood Pressure 138/86 127/71 O2 Sat by Pulse 95 93 94 Oximetry 10/07/17 10/07/17 14:28 15:01 Temperature Pulse Rate 62 58 L Pulse Rate [ From Monitor] Respiratory 16 Rate Blood Pressure 127/71 O2 Sat by Pulse 94 Oximetry General appearance: Present: no acute distress - EENT Eyes: PERRL, EOM intact ENT: hearing intact - Neck Neck: supple, normal ROM - Respiratory Respiratory effort: normal - Breasts Breasts: deferred Extremities: no ischemia Extremity abnormal: edema - Gastrointestinal General gastrointestinal: Present: deferred Rectal Exam: deferred - Genitourinary Male genitourinary: deferred - Integumentary Integumentary: clear - Psychiatric Psychiatric: cooperative - Labs CBC & Chem 7: 10/07/17 03:35 10/07/17 03:35 Labs: Abnormal lab results 10/06/17 10/06/17 10/06/17 Range/Units 15:00 15:00 16:44 Plt Count (140-440) K/mm3 Eos % (Auto) 4.8 H (0.0-4.3) % Baso % (Auto) 2.0 H (0.0-1.8) % Heparin Anti-Xa Level 0.11 L (0.3-0.7) U.I./ml POC ABG pO2 59 L (80-105) Chloride (98-107) mmol/L Glucose (75-100) mg/dL 10/06/17 10/07/17 10/07/17 Range/Units 21:09 03:35 03:35 Plt Count 133 L (140-440) K/mm3 Eos % (Auto) (0.0-4.3) % Baso % (Auto) (0.0-1.8) % Heparin Anti-Xa Level 0.10 L (0.3-0.7) U.I./ml POC ABG pO2 (80-105) Chloride 96.4 L (98-107) mmol/L Glucose 114 H (75-100) mg/dL
[2017-10-08] MEDS: NITRO-BID 2% TP SCH ×3 (06:50→14:32)
[2017-10-08] MEDS: NORCO 5/325 PO PRN (06:57)
[2017-10-08 07:17] LABS: BUN/Creatinine Ratio 10; Blood Urea Nitrogen 9 mg/dL (9-20); Calcium 8.8 mg/dL (8.4-10.2); Hemolysis Index 3
[2017-10-08 07:20] LABS: Hematocrit 42.8 % (35.5-45.6); Hemoglobin 14.1 gm/dl (11.8-15.2); Mean Corpuscular HGB Conc 33 % (32-34); Mean Corpuscular Hemoglobin 30 pg (28-32); Mean Corpuscular Volume 91 fl (84-94); Mean Platelet Volume 9 fl (6-12); Platelet Count 148 K/mm3 (140-440); Red Blood Count 4.72 M/mm3 (3.65-5.03); Red Cell Distribution Width 14.5 % (13.2-15.2)
--- NOTE | 2017-10-08 07:45 | Hem/Onc Consultation ---
History of Present Illness - Reason for Consult Consult date: 10/07/17 - History of Present Illness dictated a/coag for 6 months preferably with coumadin Past History Past Medical History: acute [place], arthritis, HIV/AIDS, hypertension, PVD Past Surgical History: Other (vascular surgery) Social history: smoking Family history: hypertension Medications and Allergies Allergies Allergy/AdvReac Type Severity Reaction Status Date / Time No Known Allergies Allergy Verified 06/14/13 08:29 Home Medications Medication Instructions Recorded Confirmed Last Taken Type Atorvastatin Calcium [Lipitor] 80 mg PO QDAY 06/14/13 10/05/17 09/23/17 History 40mg Clopidogrel Bisulfate [Plavix] 75 mg PO QDAY 06/14/13 10/05/17 09/23/17 History 75mg Darunavir [Prezista] 800 mg PO QDAY 06/14/13 10/05/17 09/23/17 History 800mg Famciclovir 125 mg PO QDAY 06/14/13 10/05/17 09/23/17 History 125mg Metoprolol [Lopressor] 50 mg PO BID 06/14/13 10/05/17 09/23/17 History 50mg Ramipril Cap (Nf) [Altace Cap (Nf)] 2.5 mg PO QDAY 06/14/13 10/05/17 09/23/17 History 2.5mg Ritonavir [Norvir] 100 mg PO QDAY 06/14/13 10/05/17 09/23/17 History 100mg Active Meds: Active Medications Acetaminophen/Hydrocodone Bitart ([place] 5/325) 2 each PO Q6H PRN PRN Reason: Pain, Moderate (4-6) Last Admin: 10/08/17 06:57 Dose: 2 each Atorvastatin Calcium (Lipitor) 80 mg PO QDAY [facility] Last Admin: 10/07/17 12:52 Dose: Not Given Darunavir (Prezista) 800 mg PO QDAY [facility] Last Admin: 10/07/17 09:58 Dose: 800 mg Famciclovir (Famvir) 125 mg PO QDAY [facility] Last Admin: 10/07/17 10:18 Dose: Not Given Famotidine (Pepcid) 20 mg PO DAILY [facility] Last Admin: 10/07/17 09:56 Dose: 20 mg Hydrophilic Ointment (Vaseline Lip Therapy) 1 applic TP DIRECT PRN PRN Reason: Dry Lips Last Admin: 10/05/17 22:21 Dose: 1 applic Heparin Sodium/Sodium Chloride (Heparin/ 0.45% Nacl-25,000 Unit/500 Ml) 25,000 unit in 500 mls @ 29 mls/hr IV TITR [facility]; Protocol Last Admin: 10/07/17 23:45 Dose: 1,650 units/hr, 33 mls/hr Sodium Chloride (Nacl 0.9% 1000 Ml) 1,000 mls @ 30 mls/hr IV DIRECT HIRA Lisinopril (Zestril) 5 mg PO QDAY [facility] Last Admin: 10/07/17 09:55 Dose: 5 mg Metoprolol Tartrate (Lopressor) 50 mg PO BID [facility] Last Admin: 10/07/17 22:10 Dose: 50 mg Morphine Sulfate (Morphine) 2 mg IV Q4H PRN PRN Reason: Pain, Moderate (4-6) Last Admin: 10/07/17 18:44 Dose: 2 mg Nitroglycerin (Nitro-Bid 2%) 0.5 inch TP QIDNTG [facility]; Protocol Stop: 10/08/17 14:01 Last Admin: 10/08/17 06:50 Dose: 0.5 inch Ondansetron HCl (Zofran) 4 mg IV Q8H PRN PRN Reason: Nausea And Vomiting Last Admin: 10/05/17 22:20 Dose: 4 mg Ritonavir (Norvir) 100 mg PO QDAY [facility] Last Admin: 10/07/17 09:57 Dose: 100 mg Sodium Chloride (Sodium Chloride Flush Syringe 10 Ml) 10 ml IV BID [facility] Last Admin: 10/07/17 22:11 Dose: 10 ml Sodium Chloride (Sodium Chloride Flush Syringe 10 Ml) 10 ml IV PRN PRN PRN Reason: LINE FLUSH Exam - Constitutional Vitals: Last Vital Signs Temp 98.7 F 10/08/17 05:50 Pulse 66 10/08/17 06:50 Resp 18 10/08/17 05:50 BP 133/76 10/08/17 06:50 Pulse Ox 91 10/08/17 05:50 Results - Labs lab Results: Laboratory Results - last 24 hr 10/07/17 10/08/17 10/08/17 17:26 06:12 06:12 WBC 7.1 RBC 4.72 Hgb 14.1 Hct 42.8 MCV 91 MCH 30 MCHC 33 RDW 14.5 Plt Count 148 Heparin Anti-Xa Level 0.53 Sodium 142 Potassium 3.9 Chloride 101.6 Carbon Dioxide 26 Anion Gap 18 BUN 9 Creatinine 0.9 Estimated GFR > 60 BUN/Creatinine Ratio 10 Glucose 93 Calcium 8.8 10/08/17 06:12 WBC RBC Hgb Hct MCV MCH MCHC RDW Plt Count Heparin Anti-Xa Level 0.33 Sodium Potassium Chloride Carbon Dioxide Anion Gap BUN Creatinine Estimated GFR BUN/Creatinine Ratio Glucose Calcium
[2017-10-08] MEDS: SODIUM CHLORIDE FLUSH SYRINGE 10 ML IV SCH ×2 (09:51→10:00)
[2017-10-08] MEDS: FAMVIR PO SCH (09:52)
[2017-10-08] MEDS: PREZISTA PO SCH (09:54)
[2017-10-08] MEDS: NORVIR PO SCH (09:59)
[2017-10-08] MEDS: LOPRESSOR PO SCH (10:00)
[2017-10-08] MEDS: ZESTRIL PO SCH (10:01)
[2017-10-08] MEDS: PEPCID PO SCH (10:01)
--- NOTE | 2017-10-08 14:07 | Progress Note ---
Assessment and Plan Acute limb ischemia, status post catheter-directed thrombolytic therapy. Peripheral vascular disease. Hypertension. Tobacco use disorder. History of deep venous thrombosis. Asthma. Human immunodeficiency virus positive. Obesity. History of coronary artery disease (hypoxemia is bothersome in this HIV +ve patient with hazy CXR re: ? PCP) - ordered serum Ldh as a PCP screen - encourage ICS and deep breathing re: Atelectasis - get ABG - if persistent hypoxemic will get CT chest to r/o GGO's / occult PCP as may need therapy - consider CD4 count assay - continue supplemental oxygen and wean for sats > 90% - continue wound care per RN and WCT - vascular surgery E&M ongoing - continue IV heparin for now - hematology consult placed - continue GI prophylaxis - continue ART ... re-evaluate in am & prn ... 35' Subjective Date of service: 10/08/17 Principal diagnosis: Acute Limb Ischemia s/p thrombolysis; Hypoxemic Resp failure; PVDx; HIV +ve Interval history: Patient is seen today for: Acute Limb Ischemia s/p thrombolysis; Hypoxemic Resp failure; PVDx; HIV +ve Seen and examined at bedside; 24hour events reviewed; nursing and respiratory care staff consulted; no adverse overnight events reported to me; resting in bed ; still with some groin pain; no N/V/F/C Objective Vital Signs - 12hr 10/08/17 10/08/17 10/08/17 05:50 06:50 08:35 Temperature 98.7 F Pulse Rate 66 66 Respiratory 18 Rate Blood Pressure 133/76 Blood Pressure 133/76 [Right] O2 Sat by Pulse 91 93 Oximetry 10/08/17 10/08/17 10/08/17 09:03 09:57 10:00 Temperature 98.3 F Pulse Rate 66 66 66 Respiratory 18 Rate Blood Pressure 137/84 134/84 Blood Pressure 137/84 [Right] O2 Sat by Pulse 88 Oximetry 10/08/17 10/08/17 10:01 12:35 Temperature 98.4 F Pulse Rate 66 52 L Respiratory 18 Rate Blood Pressure 137/84 Blood Pressure 120/66 [Right] O2 Sat by Pulse 89 Oximetry Constitutional: no acute distress, alert, other (elderly AAM, normocephalic and atraumatic resting in bed.) Eyes: non-icteric ENT: oropharynx moist, other (mallampati 2) Neck: supple, no lymphadenopathy, no JVD, other (no thyromegaly) Effort: mildly labored Ascultation: Bilateral: diminished breath sounds, rhonchi (base) Percussion: Bilateral: not dull Cardiovascular: regular rate and rhythm, other (No R/M) Gastrointestinal: normoactive bowel sounds, soft, non-tender, non-distended, other (No HSM) Integumentary: normal Extremities: no cyanosis, pulses normal, no ischemia or petechiae, other (right groin dressing) Neurologic: normal mental status, non-focal exam, pupils equal and round, motor strength normal and Psychiatric: mood appropriate, affect normal CBC and BMP: 10/11/17 09:46 10/10/17 05:07 ABG, PT/INR, D-dimer: ABG POC ABG pH 7.354 (7.35-7.45) 10/06/17 16:44 POC ABG pCO2 45.0 (35-45) 10/06/17 16:44 POC ABG pO2 59 (80-105) L 10/06/17 16:44 POC ABG HCO3 25.1 10/06/17 16:44 POC ABG Total CO2 26 10/06/17 16:44 POC ABG O2 Sat 89 10/06/17 16:44 PT/INR, D-dimer PT 13.0 Sec. (12.2-14.9) 10/05/17 17:51 INR 0.94 (0.87-1.13) 10/05/17 17:51 Abnormal lab findings: Abnormal Labs 10/05/17 10/05/17 10/05/17 17:51 17:51 17:51 RBC 5.22 H Hgb 15.9 H Hct 46.8 H Plt Count [place] % (Auto) 8.1 H Eos % (Auto) Baso % (Auto) Seg Neutrophils % Fibrinogen Heparin Anti-Xa Level POC ABG pO2 Chloride Glucose 122 H Lactic Acid 3.10 H* 10/05/17 10/06/17 10/06/17 19:44 01:54 01:54 RBC Hgb Hct Plt Count [place] % (Auto) Eos % (Auto) Baso % (Auto) Seg Neutrophils % 71.8 H Fibrinogen 521 H Heparin Anti-Xa Level 0.15 L POC ABG pO2 Chloride Glucose Lactic Acid 10/06/17 10/06/17 10/06/17 05:41 07:14 07:14 RBC Hgb Hct Plt Count [place] % (Auto) 7.6 H Eos % (Auto) Baso % (Auto) Seg Neutrophils % Fibrinogen Heparin Anti-Xa Level > 2.00 H POC ABG pO2 Chloride Glucose 103 H Lactic Acid 10/06/17 10/06/17 10/06/17 15:00 15:00 16:44 RBC Hgb Hct Plt Count [place] % (Auto) Eos % (Auto) 4.8 H Baso % (Auto) 2.0 H Seg Neutrophils % Fibrinogen Heparin Anti-Xa Level 0.11 L POC ABG pO2 59 L Chloride Glucose Lactic Acid 10/06/17 10/07/17 10/07/17 21:09 03:35 03:35 RBC Hgb Hct Plt Count 133 L [place] % (Auto) Eos % (Auto) Baso % (Auto) Seg Neutrophils % Fibrinogen Heparin Anti-Xa Level 0.10 L POC ABG pO2 Chloride 96.4 L Glucose 114 H Lactic Acid Allied health notes reviewed: nursing
[2017-10-08] MEDS: HEPARIN/ 0.45% NACL-25,000 UNIT/500 ML 25,000 UNIT/500 ML BAG IV SCH (16:13)
[2017-10-08 16:18] LABS: Anisocytosis 1+; Band Neutrophils # (Manual) 0.1 K/mm3; Platelet Estimate Consistent w Auto; Total Cells Counted 100
--- NOTE | 2017-10-08 16:29 | Event Note ---
Date: 10/08/17 Evaluated patient today. Patient has palpable left pedal pulses, but expresses that he is having more difficulty moving his left foot than yesterday. He has slight bulging of his anterior lateral compartment on the left side. Discuss compartment syndrome with patient, and explained that he would require a left sided fasciotomy. Risks, benefits, and alternatives discussed. Will be brought down once OR room available.
[2017-10-08] MEDS ORDERED: NACL 0.9% 1000 ML 1,000 ML ONE (20:48)
--- NOTE | 2017-10-08 20:55 | Anesthesia Day of Surgery ---
Anesthesia Day of Surgery - Day of Surgery Patient Examined: Yes Patient H&P Reviewed: Yes Patient is NPO: Yes
--- NOTE | 2017-10-08 20:55 | Anesthesia Consultation ---
Anesthesia Consult and Med Hx Date of service: 10/08/17 - Airway Anesthetic Teeth Evaluation: Poor, Chipped ROM Head & Neck: Adequate Mental/Hyoid Distance: Adequate Mallampati Class: Class III Intubation Access Assessment: Probably Good - Pulmonary Exam CTA: Yes - Cardiac Exam Cardiac Exam: RRR - Pre-Operative Health Status ASA Pre-Surgery Classification: ASA3, Emergency Proposed Anesthetic Plan: General - Pulmonary Hx Smoking: Yes Hx Asthma: Yes Hx Pneumonia: Yes - Cardiovascular System Hx Hypertension: Yes Hx Heart Attack/AMI: Yes (2003,2004) Hx Percutaneous Transluminal Coronary Angioplasty (PTCA): Yes - Central Nervous System Hx Psychiatric Problems: No - Other Systems Hx Cancer: No
[2017-10-08] MEDS ORDERED: DILAUDID IV PRN ×2 (20:59)
[2017-10-08] MEDS ORDERED: NARCAN 0.4 MG/1 ML IV PRN (20:59)
[2017-10-08] MEDS ORDERED: DEMEROL IV PRN (20:59)
[2017-10-08] MEDS ORDERED: ZOFRAN IV PRN (20:59)
[2017-10-08] MEDS ORDERED: DIPRIVAN 10 MG/ML IV ONE (21:17)
[2017-10-08] MEDS ORDERED: SUBLIMAZE ONE ×2 (21:17→21:28)
[2017-10-08] MEDS ORDERED: VERSED ONE (21:17)
[2017-10-08] MEDS ORDERED: XYLOCAINE MPF 2% ONE (21:20)
--- NOTE | 2017-10-08 21:39 | Progress Note ---
Assessment and Plan Assessment and plan: -- Ischemia of left lower extremity Current Visit: Yes Status: Acute Plan to address problem: S/p catheter directed thrombolytic therapy. And Thrombectomy --HIV disease Current Visit: Yes Status: Acute Plan to address problem: Continue with antiretroviral therapy, outpatient ID f/u upon discharge --Lactic Acidosis Current Visit: Yes Status: Acute Plan to address problem: Lactic acidosis resolved. continue with IVF needed -- PVD (peripheral vascular disease) Current Visit: Yes Status: Acute on TPA with EKOS -- Nicotine dependence Current Visit: Yes Status: Acute Qualifiers: Substance use status: in withdrawal Plan to address problem: smoking cessation counseling, supportive care. -- HTN (hypertension) Current Visit: Yes Status: Acute Qualifiers: Hypertension type: essential hypertension Qualified Code(s): I10 - Essential (primary) hypertension Plan to address problem: monitor bp q shift, -- DVT prophylaxis Current Visit: Yes Status: Acute Plan to address problem: Patient is on heparin drip History Interval history: Patient seen and examined medical records reviewed Patient feels slightly better, left foot pulses are palpable, on heparin drip Patient complaint some vague pain in the leg, relieved by pain medications Vital signs noted Hospitalist Physical - Constitutional Vitals: Temp Pulse Resp BP Pulse Ox 98.9 F 72 17 134/83 93 10/08/17 20:47 10/08/17 21:00 10/08/17 21:00 10/08/17 21:00 10/08/17 21:00 General appearance: Present: no acute distress, well-nourished - EENT Eyes: Present: PERRL, EOM intact - Neck Neck: Present: supple, normal ROM - Respiratory Respiratory effort: normal Respiratory: negative: rales, rhonchi, wheezing - Cardiovascular Rhythm: regular Heart Sounds: Present: S1 & S2 - Extremities Extremity abnormal: edema, tenderness (mild), other (Pedal pulses palpable) - Abdominal General gastrointestinal: soft, non-tender, non-distended, normal bowel sounds - Integumentary Integumentary: Present: clear, warm - Psychiatric Psychiatric: appropriate mood/affect, cooperative - Neurologic Neurologic: CNII-XII intact, moves all extremities Results - Labs CBC & Chem 7: 10/09/17 06:09 10/08/17 06:12 Labs: Laboratory Last Values WBC 7.1 K/mm3 (4.5-11.0) 10/08/17 06:12 RBC 4.72 M/mm3 (3.65-5.03) 10/08/17 06:12 Hgb 14.1 gm/dl (11.8-15.2) 10/08/17 06:12 Hct 42.8 % (35.5-45.6) 10/08/17 06:12 MCV 91 fl (84-94) 10/08/17 06:12 MCH 30 pg (28-32) 10/08/17 06:12 MCHC 33 % (32-34) 10/08/17 06:12 RDW 14.5 % (13.2-15.2) 10/08/17 06:12 Plt Count 148 K/mm3 (140-440) 10/08/17 06:12 Lymph % (Auto) 31.7 % (13.4-35.0) 10/06/17 15:00 [place] % (Auto) 7.0 % (0.0-7.3) 10/06/17 15:00 Eos % (Auto) 4.8 % (0.0-4.3) H 10/06/17 15:00 Baso % (Auto) 2.0 % (0.0-1.8) H 10/06/17 15:00 Lymph # 2.2 K/mm3 (1.2-5.4) 10/06/17 15:00 [place] # 0.5 K/mm3 (0.0-0.8) 10/06/17 15:00 Eos # 0.3 K/mm3 (0.0-0.4) 10/06/17 15:00 Baso # 0.1 K/mm3 (0.0-0.1) 10/06/17 15:00 Add Manual Diff Complete 10/08/17 06:12 Total Counted 100 10/08/17 06:12 Seg Neutrophils % 54.5 % (40.0-70.0) 10/06/17 15:00 Seg Neuts % (Manual) 35.0 % (40.0-70.0) L 10/08/17 06:12 Band Neutrophils % 1.0 % 10/08/17 06:12 Lymphocytes % (Manual) 50.0 % (13.4-35.0) H 10/08/17 06:12 Reactive Lymphs % (Man) 0 % 10/08/17 06:12 Monocytes % (Manual) 4.0 % (0.0-7.3) 10/08/17 06:12 Eosinophils % (Manual) 9.0 % (0.0-4.3) H 10/08/17 06:12 Basophils % (Manual) 1.0 % (0.0-1.8) 10/08/17 06:12 Metamyelocytes % 0 % 10/08/17 06:12 Myelocytes % 0 % 10/08/17 06:12 Promyelocytes % 0 % 10/08/17 06:12 Blast Cells % 0 % 10/08/17 06:12 Nucleated RBC % Not Reportable 10/08/17 06:12 Seg Neutrophils # 3.8 K/mm3 (1.8-7.7) 10/06/17 15:00 Seg Neutrophils # Man 2.5 K/mm3 (1.8-7.7) 10/08/17 06:12 Band Neutrophils # 0.1 K/mm3 10/08/17 06:12 Lymphocytes # (Manual) 3.6 K/mm3 (1.2-5.4) 10/08/17 06:12 Abs React Lymphs (Man) 0.0 K/mm3 10/08/17 06:12 Monocytes # (Manual) 0.3 K/mm3 (0.0-0.8) 10/08/17 06:12 Eosinophils # (Manual) 0.6 K/mm3 (0.0-0.4) H 10/08/17 06:12 Basophils # (Manual) 0.1 K/mm3 (0.0-0.1) 10/08/17 06:12 Metamyelocytes # 0.0 K/mm3 10/08/17 06:12 Myelocytes # 0.0 K/mm3 10/08/17 06:12 Promyelocytes # 0.0 K/mm3 10/08/17 06:12 Blast Cells # 0.0 K/mm3 10/08/17 06:12 WBC Morphology Not Reportable 10/08/17 06:12 Hypersegmented Neuts Not Reportable 10/08/17 06:12 Hyposegmented Neuts Not Reportable 10/08/17 06:12 Hypogranular Neuts Not Reportable 10/08/17 06:12 Smudge Cells Not Reportable 10/08/17 06:12 Toxic Granulation Not Reportable 10/08/17 06:12 Toxic Vacuolation Not Reportable 10/08/17 06:12 Dohle Bodies Not Reportable 10/08/17 06:12 Pelger-Huet Anomaly Not Reportable 10/08/17 06:12 Candelaria Rods Not Reportable 10/08/17 06:12 Platelet Estimate Consistent w auto 10/08/17 06:12 Clumped Platelets Not Reportable 10/08/17 06:12 Plt Clumps, EDTA Not Reportable 10/08/17 06:12 Large Platelets Not Reportable 10/08/17 06:12 Giant Platelets Not Reportable 10/08/17 06:12 Platelet Satelliting Not Reportable 10/08/17 06:12 Plt Morphology Comment Not Reportable 10/08/17 06:12 RBC Morphology Not Reportable 10/08/17 06:12 Dimorphic RBCs Not Reportable 10/08/17 06:12 Polychromasia Not Reportable 10/08/17 06:12 Hypochromasia Not Reportable 10/08/17 06:12 Poikilocytosis Not Reportable 10/08/17 06:12 Anisocytosis 1+ 10/08/17 06:12 Microcytosis Not Reportable 10/08/17 06:12 Macrocytosis Not Reportable 10/08/17 06:12 Spherocytes Not Reportable 10/08/17 06:12 Pappenheimer Bodies Not Reportable 10/08/17 06:12 Sickle Cells Not Reportable 10/08/17 06:12 Target Cells Not Reportable 10/08/17 06:12 Tear Drop Cells Not Reportable 10/08/17 06:12 Ovalocytes Not Reportable 10/08/17 06:12 Helmet Cells Not Reportable 10/08/17 06:12 Rosario-Inland Bodies Not Reportable 10/08/17 06:12 Rhodes Rings Not Reportable 10/08/17 06:12 Nabeel Cells Not Reportable 10/08/17 06:12 Bite Cells Not Reportable 10/08/17 06:12 Crenated Cell Not Reportable 10/08/17 06:12 Elliptocytes Not Reportable 10/08/17 06:12 Acanthocytes (Spur) Not Reportable 10/08/17 06:12 Rouleaux Not Reportable 10/08/17 06:12 Hemoglobin C Crystals Not Reportable 10/08/17 06:12 Schistocytes Not Reportable 10/08/17 06:12 Malaria parasites Not Reportable 10/08/17 06:12 Cruzito Bodies Not Reportable 10/08/17 06:12 Hem Pathologist Commnt No 10/08/17 06:12 PT 13.0 Sec. (12.2-14.9) 10/05/17 17:51 INR 0.94 (0.87-1.13) 10/05/17 17:51 APTT 25.6 Sec. (24.2-36.6) 10/05/17 18:22 Fibrinogen 309 mg/dl (211-480) 10/06/17 15:00 Heparin Anti-Xa Level 0.33 U.I./ml (0.3-0.7) 10/08/17 06:12 POC ABG pH 7.354 (7.35-7.45) 10/06/17 16:44 POC ABG pCO2 45.0 (35-45) 10/06/17 16:44 POC ABG pO2 59 (80-105) L 10/06/17 16:44 POC ABG HCO3 25.1 10/06/17 16:44 POC ABG Total CO2 26 10/06/17 16:44 POC ABG O2 Sat 89 10/06/17 16:44 POC ABG Base Excess 0 10/06/17 16:44 FiO2 32 % 10/06/17 16:44 Sodium 142 mmol/L (137-145) 10/08/17 06:12 Potassium 3.9 mmol/L (3.6-5.0) 10/08/17 06:12 Chloride 101.6 mmol/L (98-107) 10/08/17 06:12 Carbon Dioxide 26 mmol/L (22-30) 10/08/17 06:12 Anion Gap 18 mmol/L 10/08/17 06:12 BUN 9 mg/dL (9-20) 10/08/17 06:12 Creatinine 0.9 mg/dL (0.8-1.5) 10/08/17 06:12 Estimated GFR > 60 ml/min 10/08/17 06:12 BUN/Creatinine Ratio 10 % 10/08/17 06:12 Glucose 93 mg/dL (75-100) 10/08/17 06:12 Lactic Acid 1.50 mmol/L (0.7-2.0) 10/05/17 21:39 Calcium 8.8 mg/dL (8.4-10.2) 10/08/17 06:12 Total Bilirubin 0.50 mg/dL (0.1-1.2) 10/05/17 17:51 AST 21 units/L (5-40) 10/05/17 17:51 ALT 12 units/L (7-56) 10/05/17 17:51 Alkaline Phosphatase 86 units/L (35-129) 10/05/17 17:51 Lactate Dehydrogenase 283 units/L (91-180) H 10/08/17 06:12 Total Protein 8.0 g/dL (6.3-8.2) 10/05/17 17:51 Albumin 4.6 g/dL (3.9-5) 10/05/17 17:51 Albumin/Globulin Ratio 1.4 % 10/05/17 17:51 Blood Type O POSITIVE 10/05/17 18:49 Antibody Screen Negative 10/05/17 18:49
[2017-10-08] MEDS ORDERED: ZOFRAN ONE (21:53)
[2017-10-08] MEDS ORDERED: ANCEF/STERILE WATER 2 GM/20 ML 2 GM/20 ML SYRINGE IV ONE (21:57)
[2017-10-08] MEDS ORDERED: MARCAINE 0.5% 30 ML INFILTRATI ONE (22:10)
--- NOTE | 2017-10-08 22:25 | Post Operative Note ---
Pre-op diagnosis: compartment syndrome left leg Post-op diagnosis: same Findings: Significant Bulging anterior compartment with viable muscle, minor bulging in the lateral compartment with viable muscle Procedure: Fasciotomy of the anterior and lateral compartments left leg Anesthesia: other (Gen. via LMA) Surgeon: KEVIN BROWN Estimated blood loss: minimal Pathology: none Condition: stable Disposition: floor
[2017-10-08] MEDS ORDERED: NACL 0.9% 1000 ML 1,000 ML IV ONE (22:30)
--- NOTE | 2017-10-08 22:37 | Operative Report ---
Operative Report Operative Report: Date of procedure: 10/08/2017 Pre-operative diagnosis: Compartment syndrome left leg with foot drop Post-operative diagnosis: Same Procedure name(s): Fasciotomy of the anterior and lateral compartments left leg Surgeon: Jcarlos Tidwell MD Papier Mache Molder: None Anesthesia: Gen. via LMA EBL: Minimal Specimen(s): None Complications: None Findings: Anterior compartment with significant bulging, muscle viable, lateral compartment with minimal bulging, muscle viable Procedure: Patient in the supine position after adequate levels of general anesthesia was obtained the left leg was prepped and draped using standard sterile technique. A longitudinal incision was made in the midcalf overlying the border between the anterior and lateral compartments and carried down to the fascia was encountered. A vertical incision was then made over the anterior compartment for several centimeters and the muscle was noted a bulge promptly through the fascia consistent with elevated compartment pressures. The skin incision was then extended both proximally and distally as was the fascial incision until the entire anterior compartment was released. There was minimal bleeding. A longitudinal incision was also made over the lateral compartment with significantly less bulging. Extended that fasciotomy proximally and distally approximately two thirds the length of the anterior compartment until I was satisfied that there was probably no significant compartment pressure elevation in the lateral compartment and I stopped. Stasis was obtained using electrocautery as necessary. Field block with Marcaine was then placed in the incision was then dressed using iodoform gauze and a bulky fluff dressing was applied. This was secured with ABDs lightly applied Kerlix and an colette wrap applied loosely. There was a palpable pedal pulse at the completion of the procedure. Sponge and needle counts correct. The patient was then extubated and returned to the recovery room in stable condition having tolerated the procedure well.
[2017-10-08] MEDS ORDERED: DILAUDID ONE (23:12)
[2017-10-09] MEDS: SODIUM CHLORIDE FLUSH SYRINGE 10 ML IV SCH ×3 (00:22→21:43)
[2017-10-09] MEDS: LOPRESSOR PO SCH ×3 (00:22→21:30)
[2017-10-09] MEDS: NACL 0.9% 1000 ML 1,000 ML IV SCH (05:41)
[2017-10-09] MEDS: NORCO 5/325 PO PRN ×4 (05:50→23:54)
--- NOTE | 2017-10-09 06:32 | Post Anesthesia Evaluation ---
- Post Anesthesia Evaluation Patient Participated: Yes Airway Patent: Yes Stable Respiratory Function: Yes Nausea/Vomiting: No Temp > 96.8F: Yes Pain Manageable: Yes Adequeate Hydration: Yes Anesthesia Complications: No Block Receding Appropriately: Not Applicable Patient on Ventilator: No
[2017-10-09 07:05] LABS: Hematocrit 43.5 % (35.5-45.6); Hemoglobin 14.7 gm/dl (11.8-15.2)
[2017-10-09] MEDS: PEPCID PO SCH (09:35)
[2017-10-09] MEDS: ZESTRIL PO SCH (09:35)
[2017-10-09] MEDS ORDERED: PLAVIX PO SCH (10:00)
--- NOTE | 2017-10-09 12:08 | Hem/Onc Progress Note ---
Assessment and Plan CBC stable. Hypercoagulable workup in progress. Again discussed with the patient that he would need anticoagulants. I have recommended at least 6 months of Coumadin once he's stable. Also strongly recommended tobacco cessation Subjective Date of service: 10/09/17 Interval history: Events noted. Patient was taken to the operating room for compartment syndrome. Still has pain in the left leg. Objective - Constitutional Vitals: Last Vital Signs Temp 98.3 F 10/09/17 08:00 Pulse 72 10/09/17 08:10 Resp 18 10/09/17 08:10 BP 120/75 10/09/17 09:36 Pulse Ox 91 10/09/17 08:10 General appearance: mild distress - Neck Neck: supple - Respiratory Respiratory: bilateral: CTA - Cardiovascular Rhythm: regular Extremity abnormal: other (left leg bandaged) - Gastrointestinal General gastrointestinal: Present: soft - Labs Lab Results: Laboratory Results - last 24 hr 10/08/17 10/08/17 10/09/17 06:12 06:12 06:09 Hgb 14.7 Hct 43.5 Plt Count 162 Add Manual Diff Complete Total Counted 100 Seg Neuts % (Manual) 35.0 L Band Neutrophils % 1.0 Lymphocytes % (Manual) 50.0 H Reactive Lymphs % (Man) 0 Monocytes % (Manual) 4.0 Eosinophils % (Manual) 9.0 H Basophils % (Manual) 1.0 Metamyelocytes % 0 Myelocytes % 0 Promyelocytes % 0 Blast Cells % 0 Nucleated RBC % Not Reportable Seg Neutrophils # Man 2.5 Band Neutrophils # 0.1 Lymphocytes # (Manual) 3.6 Abs React Lymphs (Man) 0.0 Monocytes # (Manual) 0.3 Eosinophils # (Manual) 0.6 H Basophils # (Manual) 0.1 Metamyelocytes # 0.0 Myelocytes # 0.0 Promyelocytes # 0.0 Blast Cells # 0.0 WBC Morphology Not Reportable Hypersegmented Neuts Not Reportable Hyposegmented Neuts Not Reportable Hypogranular Neuts Not Reportable Smudge Cells Not Reportable Toxic Granulation Not Reportable Toxic Vacuolation Not Reportable Dohle Bodies Not Reportable Pelger-Huet Anomaly Not Reportable Candelaria Rods Not Reportable Platelet Estimate Consistent w auto Clumped Platelets Not Reportable Plt Clumps, EDTA Not Reportable Large Platelets Not Reportable Giant Platelets Not Reportable Platelet Satelliting Not Reportable Plt Morphology Comment Not Reportable RBC Morphology Not Reportable Dimorphic RBCs Not Reportable Polychromasia Not Reportable Hypochromasia Not Reportable Poikilocytosis Not Reportable Anisocytosis 1+ Microcytosis Not Reportable Macrocytosis Not Reportable Spherocytes Not Reportable Pappenheimer Bodies Not Reportable Sickle Cells Not Reportable Target Cells Not Reportable Tear Drop Cells Not Reportable Ovalocytes Not Reportable Helmet Cells Not Reportable Rosario-[place] Bodies Not Reportable [place] Rings Not Reportable [place] Cells Not Reportable Bite Cells Not Reportable Crenated Cell Not Reportable Elliptocytes Not Reportable Acanthocytes (Spur) Not Reportable Rouleaux Not Reportable Hemoglobin C Crystals Not Reportable Schistocytes Not Reportable Malaria parasites Not Reportable [place] Bodies Not Reportable Hem Pathologist Commnt No Heparin Anti-Xa Level Lactate Dehydrogenase 283 H 10/09/17 06:09 Hgb Hct Plt Count Add Manual Diff Total Counted Seg Neuts % (Manual) Band Neutrophils % Lymphocytes % (Manual) Reactive Lymphs % (Man) Monocytes % (Manual) Eosinophils % (Manual) Basophils % (Manual) Metamyelocytes % Myelocytes % Promyelocytes % Blast Cells % Nucleated RBC % Seg Neutrophils # Man Band Neutrophils # Lymphocytes # (Manual) Abs React Lymphs (Man) Monocytes # (Manual) Eosinophils # (Manual) Basophils # (Manual) Metamyelocytes # Myelocytes # Promyelocytes # Blast Cells # WBC Morphology Hypersegmented Neuts Hyposegmented Neuts Hypogranular Neuts Smudge Cells Toxic Granulation Toxic Vacuolation Dohle Bodies Pelger-Huet Anomaly Candelaria Rods Platelet Estimate Clumped Platelets Plt Clumps, EDTA Large Platelets Giant Platelets Platelet Satelliting Plt Morphology Comment RBC Morphology Dimorphic RBCs Polychromasia Hypochromasia Poikilocytosis Anisocytosis Microcytosis Macrocytosis Spherocytes Pappenheimer Bodies Sickle Cells Target Cells Tear Drop Cells Ovalocytes Helmet Cells Rosario-Ram[place] Bodies [place] Rings Nabeel Cells Bite Cells Crenated Cell Elliptocytes Acanthocytes (Spur) Rouleaux Hemoglobin C Crystals Schistocytes Malaria parasites [place] Bodies Hem Pathologist Commnt Heparin Anti-Xa Level 0.36 Lactate Dehydrogenase
[2017-10-09] MEDS: MORPHINE IV PRN (14:50)
--- NOTE | 2017-10-09 18:27 | Progress Note ---
Assessment and Plan 61-year-old male status post left lower extremity percutaneous thrombolysis and left lower extremity fasciotomy. In pain. Change medication so [place] is scheduled twice a day, with breakthrough [place] as needed. No strikethrough bleeding. Will assess wound site tomorrow. Palpable left pedal pulses. Decreased left foot neurologic function from baseline. Discussed how patient will need physical therapy and that neurologic function could slowly improve over the course of many months/year. On heparin drip. Subjective Date of service: 10/09/17 Principal diagnosis: Acute Limb Ischemia s/p thrombolysis; Hypoxemic Resp failure; PVDx; HIV +ve Interval history: Still has trouble with dorsiflexion and plantarflexion and toe movements of the left foot. Palpable pedal pulses. In pain from fasciotomies. Objective - Constitutional Vitals: Vital Signs - 12hr 10/09/17 10/09/17 10/09/17 08:00 08:10 09:35 Temperature 98.3 F Pulse Rate 72 Respiratory 18 Rate Blood Pressure 120/85 120/75 Blood Pressure [Right] O2 Sat by Pulse 91 Oximetry 10/09/17 10/09/17 10/09/17 09:36 10:00 12:00 Temperature 98.2 F Pulse Rate Respiratory 18 Rate Blood Pressure 120/75 Blood Pressure [Right] O2 Sat by Pulse Oximetry 10/09/17 10/09/17 10/09/17 12:53 16:00 16:45 Temperature 98.2 F Pulse Rate 64 70 Respiratory 18 18 Rate Blood Pressure 125/80 Blood Pressure 134/87 [Right] O2 Sat by Pulse 93 95 94 Oximetry General appearance: Present: no acute distress - EENT Eyes: EOM intact ENT: hearing intact - Respiratory Respiratory effort: normal Extremities: pulses intact (left pedal pulses palpable.), normal temperature, normal color - Psychiatric Psychiatric: appropriate mood/affect, cooperative - Labs CBC & Chem 7: 10/09/17 06:09 10/08/17 06:12
--- NOTE | 2017-10-09 18:39 | Progress Note ---
Assessment and Plan Patient alert, awake, resting on room air.O2 saturation 94%. No complaint of chest pain, shortness of breath or cough. - Patient Problems (1) HIV disease Current Visit: Yes Status: Acute Plan to address problem: Management as per primary and infectious diseases. (2) HTN (hypertension) Current Visit: Yes Status: Acute Qualifiers: Hypertension type: essential hypertension Qualified Code(s): I10 - Essential (primary) hypertension Plan to address problem: Management as per primary care. (3) Ischemia of left lower extremity Current Visit: Yes Status: Acute Plan to address problem: Patient is on I/V heparin Management as per vascular surgery. (4) Nicotine dependence Current Visit: Yes Status: Acute Qualifiers: Substance use status: in withdrawal Plan to address problem: Counselled to stop smoking. (5) Respiratory failure with hypoxia and hypercapnia Current Visit: Yes Status: Acute Plan to address problem: Patient has mild hypoxic and hypercapnic faolure. Possible COPD. PFTs as out patient. Subjective Date of service: 10/09/17 Principal diagnosis: Acute Limb Ischemia s/p thrombolysis; Hypoxemic Resp failure; PVDx; HIV +ve Interval history: Patient alert, awake, resting on room air.O2 saturation 94%. No complaint of chest pain, shortness of breath or cough. Objective Vital Signs - 12hr 10/09/17 10/09/17 10/09/17 08:00 08:10 09:35 Temperature 98.3 F Pulse Rate 72 Respiratory 18 Rate Blood Pressure 120/85 120/75 Blood Pressure [Right] O2 Sat by Pulse 91 Oximetry 10/09/17 10/09/17 10/09/17 09:36 10:00 12:00 Temperature 98.2 F Pulse Rate Respiratory 18 Rate Blood Pressure 120/75 Blood Pressure [Right] O2 Sat by Pulse Oximetry 10/09/17 10/09/17 10/09/17 12:53 16:00 16:45 Temperature 98.2 F Pulse Rate 64 70 Respiratory 18 18 Rate Blood Pressure 125/80 Blood Pressure 134/87 [Right] O2 Sat by Pulse 93 95 94 Oximetry Constitutional: no acute distress, alert Eyes: non-icteric ENT: oropharynx moist, other (mallampati 2) Neck: supple, no lymphadenopathy, no JVD, other (no thyromegaly) Effort: mildly labored Ascultation: Bilateral: diminished breath sounds, rhonchi (base) Percussion: Bilateral: not dull Cardiovascular: regular rate and rhythm, other (No R/M) Gastrointestinal: normoactive bowel sounds, soft, non-tender, non-distended, other (No HSM) Integumentary: normal Extremities: no cyanosis, pulses normal, no ischemia or petechiae, other (right groin dressing) Neurologic: normal mental status, non-focal exam, pupils equal and round, motor strength normal and Psychiatric: mood appropriate, affect normal CBC and BMP: 10/09/17 06:09 10/08/17 06:12 ABG, PT/INR, D-dimer: ABG POC ABG pH 7.354 (7.35-7.45) 10/06/17 16:44 POC ABG pCO2 45.0 (35-45) 10/06/17 16:44 POC ABG pO2 59 (80-105) L 10/06/17 16:44 POC ABG HCO3 25.1 10/06/17 16:44 POC ABG Total CO2 26 10/06/17 16:44 POC ABG O2 Sat 89 10/06/17 16:44 PT/INR, D-dimer PT 13.0 Sec. (12.2-14.9) 10/05/17 17:51 INR 0.94 (0.87-1.13) 10/05/17 17:51 Abnormal lab findings: Abnormal Labs 10/05/17 10/05/17 10/05/17 17:51 17:51 17:51 RBC 5.22 H Hgb 15.9 H Hct 46.8 H Plt Count [place] % (Auto) 8.1 H Eos % (Auto) Baso % (Auto) Seg Neutrophils % Seg Neuts % (Manual) Lymphocytes % (Manual) Eosinophils % (Manual) Eosinophils # (Manual) Fibrinogen Heparin Anti-Xa Level POC ABG pO2 Chloride Glucose 122 H Lactic Acid 3.10 H* Lactate Dehydrogenase 10/05/17 10/06/17 10/06/17 19:44 01:54 01:54 RBC Hgb Hct Plt Count [place] % (Auto) Eos % (Auto) Baso % (Auto) Seg Neutrophils % 71.8 H Seg Neuts % (Manual) Lymphocytes % (Manual) Eosinophils % (Manual) Eosinophils # (Manual) Fibrinogen 521 H Heparin Anti-Xa Level 0.15 L POC ABG pO2 Chloride Glucose Lactic Acid Lactate Dehydrogenase 10/06/17 10/06/17 10/06/17 05:41 07:14 07:14 RBC Hgb Hct Plt Count [place] % (Auto) 7.6 H Eos % (Auto) Baso % (Auto) Seg Neutrophils % Seg Neuts % (Manual) Lymphocytes % (Manual) Eosinophils % (Manual) Eosinophils # (Manual) Fibrinogen Heparin Anti-Xa Level > 2.00 H POC ABG pO2 Chloride Glucose 103 H Lactic Acid Lactate Dehydrogenase 10/06/17 10/06/17 10/06/17 15:00 15:00 16:44 RBC Hgb Hct Plt Count [place] % (Auto) Eos % (Auto) 4.8 H Baso % (Auto) 2.0 H Seg Neutrophils % Seg Neuts % (Manual) Lymphocytes % (Manual) Eosinophils % (Manual) Eosinophils # (Manual) Fibrinogen Heparin Anti-Xa Level 0.11 L POC ABG pO2 59 L Chloride Glucose Lactic Acid Lactate Dehydrogenase 10/06/17 10/07/17 10/07/17 21:09 03:35 03:35 RBC Hgb Hct Plt Count 133 L [place] % (Auto) Eos % (Auto) Baso % (Auto) Seg Neutrophils % Seg Neuts % (Manual) Lymphocytes % (Manual) Eosinophils % (Manual) Eosinophils # (Manual) Fibrinogen Heparin Anti-Xa Level 0.10 L POC ABG pO2 Chloride 96.4 L Glucose 114 H Lactic Acid Lactate Dehydrogenase 10/08/17 10/08/17 06:12 06:12 RBC Hgb Hct Plt Count [place] % (Auto) Eos % (Auto) Baso % (Auto) Seg Neutrophils % Seg Neuts % (Manual) 35.0 L Lymphocytes % (Manual) 50.0 H Eosinophils % (Manual) 9.0 H Eosinophils # (Manual) 0.6 H Fibrinogen Heparin Anti-Xa Level POC ABG pO2 Chloride Glucose Lactic Acid Lactate Dehydrogenase 283 H Allied health notes reviewed: nursing
--- NOTE | 2017-10-09 18:45 | Progress Note ---
Assessment and Plan Assessment and plan: --Compartment syndrome Patient had fasciotomy of the anterior and lateral compartments of the left leg Elevated liver, pain medication supportive care, vascular following -- Ischemia of left lower extremity Current Visit: Yes Status: Acute Plan to address problem: S/p catheter directed thrombolytic therapy. And Thrombectomy --HIV disease Current Visit: Yes Status: Acute Plan to address problem: Continue with antiretroviral therapy, outpatient ID f/u upon discharge --Lactic Acidosis Current Visit: Yes Status: Acute Plan to address problem: Lactic acidosis resolved. continue with IVF needed -- PVD (peripheral vascular disease) Current Visit: Yes Status: Acute on TPA with EKOS -- Nicotine dependence Current Visit: Yes Status: Acute Qualifiers: Substance use status: in withdrawal Plan to address problem: smoking cessation counseling, supportive care. -- HTN (hypertension) Current Visit: Yes Status: Acute Qualifiers: Hypertension type: essential hypertension Qualified Code(s): I10 - Essential (primary) hypertension Plan to address problem: monitor bp q shift, -- DVT prophylaxis Current Visit: Yes Status: Acute Plan to address problem: Patient is on heparin drip History Interval history: Patient seen and examined medical records reviewed Patient had fasciotomy of the anterior and lateral compartments of the left leg Complains of some pain. Afebrile alert awake oriented 3 Vital signs reviewed Hospitalist Physical - Constitutional Vitals: Temp Pulse Resp BP Pulse Ox 98.2 F 70 18 134/87 94 10/09/17 16:00 10/09/17 16:00 10/09/17 16:00 10/09/17 16:00 10/09/17 16:45 General appearance: Present: no acute distress, well-nourished - EENT Eyes: Present: PERRL, EOM intact - Neck Neck: Present: supple, normal ROM - Respiratory Respiratory effort: normal Respiratory: bilateral: diminished, negative: rales, rhonchi, wheezing - Cardiovascular Rhythm: regular Heart Sounds: Present: S1 & S2 - Extremities Extremities: abnormal (difficulty dorsiflexion and plantar flexion of left foot toes) Extremity abnormal: edema - Abdominal General gastrointestinal: soft, non-tender, non-distended, normal bowel sounds - Integumentary Integumentary: Present: clear, warm - Psychiatric Psychiatric: appropriate mood/affect, cooperative - Neurologic Neurologic: CNII-XII intact, moves all extremities Results - Labs CBC & Chem 7: 10/09/17 06:09 10/08/17 06:12 Labs: Laboratory Last Values WBC 7.1 K/mm3 (4.5-11.0) 10/08/17 06:12 RBC 4.72 M/mm3 (3.65-5.03) 10/08/17 06:12 Hgb 14.7 gm/dl (11.8-15.2) 10/09/17 06:09 Hct 43.5 % (35.5-45.6) 10/09/17 06:09 MCV 91 fl (84-94) 10/08/17 06:12 MCH 30 pg (28-32) 10/08/17 06:12 MCHC 33 % (32-34) 10/08/17 06:12 RDW 14.5 % (13.2-15.2) 10/08/17 06:12 Plt Count 162 K/mm3 (140-440) 10/09/17 06:09 Lymph % (Auto) 31.7 % (13.4-35.0) 10/06/17 15:00 [place] % (Auto) 7.0 % (0.0-7.3) 10/06/17 15:00 Eos % (Auto) 4.8 % (0.0-4.3) H 10/06/17 15:00 Baso % (Auto) 2.0 % (0.0-1.8) H 10/06/17 15:00 Lymph # 2.2 K/mm3 (1.2-5.4) 10/06/17 15:00 [place] # 0.5 K/mm3 (0.0-0.8) 10/06/17 15:00 Eos # 0.3 K/mm3 (0.0-0.4) 10/06/17 15:00 Baso # 0.1 K/mm3 (0.0-0.1) 10/06/17 15:00 Add Manual Diff Complete 10/08/17 06:12 Total Counted 100 10/08/17 06:12 Seg Neutrophils % 54.5 % (40.0-70.0) 10/06/17 15:00 Seg Neuts % (Manual) 35.0 % (40.0-70.0) L 10/08/17 06:12 Band Neutrophils % 1.0 % 07/04/18 06:12 Lymphocytes % (Manual) 50.0 % (13.4-35.0) H 10/08/17 06:12 Reactive Lymphs % (Man) 0 % 10/08/17 06:12 Monocytes % (Manual) 4.0 % (0.0-7.3) 10/08/17 06:12 Eosinophils % (Manual) 9.0 % (0.0-4.3) H 10/08/17 06:12 Basophils % (Manual) 1.0 % (0.0-1.8) 10/08/17 06:12 Metamyelocytes % 0 % 10/08/17 06:12 Myelocytes % 0 % 10/08/17 06:12 Promyelocytes % 0 % 10/08/17 06:12 Blast Cells % 0 % 10/08/17 06:12 Nucleated RBC % Not Reportable 10/08/17 06:12 Seg Neutrophils # 3.8 K/mm3 (1.8-7.7) 10/06/17 15:00 Seg Neutrophils # Man 2.5 K/mm3 (1.8-7.7) 10/08/17 06:12 Band Neutrophils # 0.1 K/mm3 10/08/17 06:12 Lymphocytes # (Manual) 3.6 K/mm3 (1.2-5.4) 10/08/17 06:12 Abs React Lymphs (Man) 0.0 K/mm3 10/08/17 06:12 Monocytes # (Manual) 0.3 K/mm3 (0.0-0.8) 10/08/17 06:12 Eosinophils # (Manual) 0.6 K/mm3 (0.0-0.4) H 10/08/17 06:12 Basophils # (Manual) 0.1 K/mm3 (0.0-0.1) 10/08/17 06:12 Metamyelocytes # 0.0 K/mm3 10/08/17 06:12 Myelocytes # 0.0 K/mm3 10/08/17 06:12 Promyelocytes # 0.0 K/mm3 10/08/17 06:12 Blast Cells # 0.0 K/mm3 10/08/17 06:12 WBC Morphology Not Reportable 10/08/17 06:12 Hypersegmented Neuts Not Reportable 10/08/17 06:12 Hyposegmented Neuts Not Reportable 10/08/17 06:12 Hypogranular Neuts Not Reportable 10/08/17 06:12 Smudge Cells Not Reportable 10/08/17 06:12 Toxic Granulation Not Reportable 10/08/17 06:12 Toxic Vacuolation Not Reportable 10/08/17 06:12 Dohle Bodies Not Reportable 10/08/17 06:12 Pelger-Huet Anomaly Not Reportable 10/08/17 06:12 [place] Rods Not Reportable 10/08/17 06:12 Platelet Estimate Consistent w auto 10/08/17 06:12 Clumped Platelets Not Reportable 10/08/17 06:12 Plt Clumps, EDTA Not Reportable 10/08/17 06:12 Large Platelets Not Reportable 10/08/17 06:12 Giant Platelets Not Reportable 10/08/17 06:12 Platelet Satelliting Not Reportable 10/08/17 06:12 Plt Morphology Comment Not Reportable 10/08/17 06:12 RBC Morphology Not Reportable 10/08/17 06:12 Dimorphic RBCs Not Reportable 10/08/17 06:12 Polychromasia Not Reportable 10/08/17 06:12 Hypochromasia Not Reportable 10/08/17 06:12 Poikilocytosis Not Reportable 10/08/17 06:12 Anisocytosis 1+ 10/08/17 06:12 Microcytosis Not Reportable 10/08/17 06:12 Macrocytosis Not Reportable 10/08/17 06:12 Spherocytes Not Reportable 10/08/17 06:12 Pappenheimer Bodies Not Reportable 10/08/17 06:12 Sickle Cells Not Reportable 10/08/17 06:12 Target Cells Not Reportable 10/08/17 06:12 Tear Drop Cells Not Reportable 10/08/17 06:12 Ovalocytes Not Reportable 10/08/17 06:12 Helmet Cells Not Reportable 10/08/17 06:12 [place] Bodies Not Reportable 10/08/17 06:12 [place] Rings Not Reportable 10/08/17 06:12 [place]abe[place] Cells Not Reportable 10/08/17 06:12 Bite Cells Not Reportable 10/08/17 06:12 Crenated Cell Not Reportable 10/08/17 06:12 Elliptocytes Not Reportable 10/08/17 06:12 Acanthocytes (Spur) Not Reportable 10/08/17 06:12 Rouleaux Not Reportable 10/08/17 06:12 Hemoglobin C Crystals Not Reportable 10/08/17 06:12 Schistocytes Not Reportable 10/08/17 06:12 Malaria parasites Not Reportable 10/08/17 06:12 [place] Bodies Not Reportable 10/08/17 06:12 Hem Pathologist Commnt No 10/08/17 06:12 PT 13.0 Sec. (12.2-14.9) 10/05/17 17:51 INR 0.94 (0.87-1.13) 10/05/17 17:51 APTT 25.6 Sec. (24.2-36.6) 10/05/17 18:22 Fibrinogen 309 mg/dl (211-480) 10/06/17 15:00 Heparin Anti-Xa Level 0.36 U.I./ml (0.3-0.7) 10/09/17 06:09 POC ABG pH 7.354 (7.35-7.45) 10/06/17 16:44 POC ABG pCO2 45.0 (35-45) 10/06/17 16:44 POC ABG pO2 59 (80-105) L 10/06/17 16:44 POC ABG HCO3 25.1 10/06/17 16:44 POC ABG Total CO2 26 10/06/17 16:44 POC ABG O2 Sat 89 10/06/17 16:44 POC ABG Base Excess 0 10/06/17 16:44 FiO2 32 % 10/06/17 16:44 Sodium 142 mmol/L (137-145) 10/08/17 06:12 Potassium 3.9 mmol/L (3.6-5.0) 10/08/17 06:12 Chloride 101.6 mmol/L (98-107) 10/08/17 06:12 Carbon Dioxide 26 mmol/L (22-30) 10/08/17 06:12 Anion Gap 18 mmol/L 10/08/17 06:12 BUN 9 mg/dL (9-20) 10/08/17 06:12 Creatinine 0.9 mg/dL (0.8-1.5) 10/08/17 06:12 Estimated GFR > 60 ml/min 10/08/17 06:12 BUN/Creatinine Ratio 10 % 10/08/17 06:12 Glucose 93 mg/dL (75-100) 10/08/17 06:12 Lactic Acid 1.50 mmol/L (0.7-2.0) 10/05/17 21:39 Calcium 8.8 mg/dL (8.4-10.2) 10/08/17 06:12 Total Bilirubin 0.50 mg/dL (0.1-1.2) 10/05/17 17:51 AST 21 units/L (5-40) 10/05/17 17:51 ALT 12 units/L (7-56) 10/05/17 17:51 Alkaline Phosphatase 86 units/L (35-129) 10/05/17 17:51 Lactate Dehydrogenase 283 units/L (91-180) H 10/08/17 06:12 Total Protein 8.0 g/dL (6.3-8.2) 10/05/17 17:51 Albumin 4.6 g/dL (3.9-5) 10/05/17 17:51 Albumin/Globulin Ratio 1.4 % 10/05/17 17:51 Blood Type O POSITIVE 10/05/17 18:49 Antibody Screen Negative 10/05/17 18:49
[2017-10-09] MEDS: NORCO 5/325 PO SCH (21:41)
[2017-10-09] MEDS: HEPARIN/ 0.45% NACL-25,000 UNIT/500 ML 25,000 UNIT/500 ML BAG IV SCH (23:54)
[2017-10-10] MEDS: NORCO 5/325 PO PRN ×5 (04:08→21:15)
[2017-10-10 06:01] LABS: BUN/Creatinine Ratio 11; Blood Urea Nitrogen 10 mg/dL (9-20); Hemolysis Index 6
[2017-10-10 07:26] LABS: Protein S, Free 132 % normal (57-171); Protein S, Total 105 % (70-140)
[2017-10-10] MEDS: LOPRESSOR PO SCH ×2 (10:06→21:15)
[2017-10-10] MEDS: ZESTRIL PO SCH (10:06)
[2017-10-10] MEDS: PEPCID PO SCH (10:06)
[2017-10-10] MEDS: SODIUM CHLORIDE FLUSH SYRINGE 10 ML IV SCH ×2 (10:07→22:47)
[2017-10-10] MEDS: NORCO 5/325 PO SCH ×2 (10:08→21:26)
[2017-10-10] MEDS ORDERED: MILK OF MAGNESIA PO PRN (10:29)
[2017-10-10] MEDS ORDERED: MILK OF MAGNESIA PO ONE (11:00)
--- NOTE | 2017-10-10 13:43 | Progress Note ---
Assessment and Plan Patient alert, awake, resting on room air.O2 saturation 93%. No complaint of chest pain, shortness of breath or cough. - Patient Problems (1) HIV disease Current Visit: Yes Status: Acute Plan to address problem: Management as per primary and infectious diseases. (2) HTN (hypertension) Current Visit: Yes Status: Acute Qualifiers: Hypertension type: essential hypertension Qualified Code(s): I10 - Essential (primary) hypertension Plan to address problem: Management as per primary care. (3) Ischemia of left lower extremity Current Visit: Yes Status: Acute Plan to address problem: Patient is on I/V heparin Management as per vascular surgery. (4) Nicotine dependence Current Visit: Yes Status: Acute Qualifiers: Substance use status: in withdrawal Plan to address problem: Counselled to stop smoking. (5) Respiratory failure with hypoxia and hypercapnia Current Visit: Yes Status: Acute Plan to address problem: Patient has mild hypoxic and hypercapnic faolure. Possible COPD. PFTs as out patient. Subjective Date of service: 10/10/17 Principal diagnosis: Acute Limb Ischemia s/p thrombolysis; Hypoxemic Resp failure; PVDx; HIV +ve Interval history: Patient alert, awake, resting on room air.O2 saturation 93%. No complaint of chest pain, shortness of breath or cough. Objective Vital Signs - 12hr 10/10/17 10/10/17 10/10/17 03:51 07:23 08:33 Temperature 98.5 F 98.2 F Pulse Rate 70 52 L Pulse Rate [ From Monitor] Respiratory 16 Rate Respiratory 20 Rate [Bilateral Leg] Blood Pressure 136/89 129/81 Blood Pressure [Right] O2 Sat by Pulse 90 93 Oximetry 10/10/17 10/10/17 10/10/17 08:35 08:37 10:00 Temperature Pulse Rate 55 L Pulse Rate [ 72 From Monitor] Respiratory 20 20 Rate Respiratory Rate [Bilateral Leg] Blood Pressure Blood Pressure [Right] O2 Sat by Pulse 98 Oximetry 10/10/17 10/10/17 10/10/17 10:06 12:03 13:06 Temperature 98.1 F Pulse Rate 63 54 L Pulse Rate [ From Monitor] Respiratory 16 20 Rate Respiratory Rate [Bilateral Leg] Blood Pressure 129/81 Blood Pressure 125/76 [Right] O2 Sat by Pulse 93 Oximetry Constitutional: no acute distress, alert Eyes: non-icteric ENT: oropharynx moist, other (mallampati 2) Neck: supple, no lymphadenopathy, no JVD, other (no thyromegaly) Effort: mildly labored Ascultation: Bilateral: diminished breath sounds, rhonchi (base) Percussion: Bilateral: not dull Cardiovascular: regular rate and rhythm, other (No R/M) Gastrointestinal: normoactive bowel sounds, soft, non-tender, non-distended, other (No HSM) Integumentary: normal Extremities: no cyanosis, pulses normal, no ischemia or petechiae, other (right groin dressing) Neurologic: normal mental status, non-focal exam, pupils equal and round, motor strength normal and Psychiatric: mood appropriate, affect normal CBC and BMP: 10/09/17 06:09 10/10/17 05:07 ABG, PT/INR, D-dimer: ABG POC ABG pH 7.354 (7.35-7.45) 10/06/17 16:44 POC ABG pCO2 45.0 (35-45) 10/06/17 16:44 POC ABG pO2 59 (80-105) L 10/06/17 16:44 POC ABG HCO3 25.1 10/06/17 16:44 POC ABG Total CO2 26 10/06/17 16:44 POC ABG O2 Sat 89 10/06/17 16:44 PT/INR, D-dimer PT 13.0 Sec. (12.2-14.9) 10/05/17 17:51 INR 0.94 (0.87-1.13) 10/05/17 17:51 Abnormal lab findings: Abnormal Labs 10/05/17 10/05/17 10/05/17 17:51 17:51 17:51 RBC 5.22 H Hgb 15.9 H Hct 46.8 H Plt Count [place] % (Auto) 8.1 H Eos % (Auto) Baso % (Auto) Seg Neutrophils % Seg Neuts % (Manual) Lymphocytes % (Manual) Eosinophils % (Manual) Eosinophils # (Manual) Fibrinogen LA PTT Baseline Heparin Anti-Xa Level POC ABG pO2 Chloride Glucose 122 H Lactic Acid 3.10 H* Lactate Dehydrogenase 10/05/17 10/06/17 10/06/17 19:44 01:54 01:54 RBC Hgb Hct Plt Count [place] % (Auto) Eos % (Auto) Baso % (Auto) Seg Neutrophils % 71.8 H Seg Neuts % (Manual) Lymphocytes % (Manual) Eosinophils % (Manual) Eosinophils # (Manual) Fibrinogen 521 H LA PTT Baseline Heparin Anti-Xa Level 0.15 L POC ABG pO2 Chloride Glucose Lactic Acid Lactate Dehydrogenase 10/06/17 10/06/17 10/06/17 05:41 07:14 07:14 RBC Hgb Hct Plt Count [place] % (Auto) 7.6 H Eos % (Auto) Baso % (Auto) Seg Neutrophils % Seg Neuts % (Manual) Lymphocytes % (Manual) Eosinophils % (Manual) Eosinophils # (Manual) Fibrinogen LA PTT Baseline Heparin Anti-Xa Level > 2.00 H POC ABG pO2 Chloride Glucose 103 H Lactic Acid Lactate Dehydrogenase 10/06/17 10/06/17 10/06/17 15:00 15:00 16:44 RBC Hgb Hct Plt Count [place] % (Auto) Eos % (Auto) 4.8 H Baso % (Auto) 2.0 H Seg Neutrophils % Seg Neuts % (Manual) Lymphocytes % (Manual) Eosinophils % (Manual) Eosinophils # (Manual) Fibrinogen LA PTT Baseline Heparin Anti-Xa Level 0.11 L POC ABG pO2 59 L Chloride Glucose Lactic Acid Lactate Dehydrogenase 10/06/17 10/07/17 10/07/17 21:09 03:35 03:35 RBC Hgb Hct Plt Count 133 L [place] % (Auto) Eos % (Auto) Baso % (Auto) Seg Neutrophils % Seg Neuts % (Manual) Lymphocytes % (Manual) Eosinophils % (Manual) Eosinophils # (Manual) Fibrinogen LA PTT Baseline Heparin Anti-Xa Level 0.10 L POC ABG pO2 Chloride 96.4 L Glucose 114 H Lactic Acid Lactate Dehydrogenase 10/07/17 10/08/17 10/08/17 10:23 06:12 06:12 RBC Hgb Hct Plt Count [place] % (Auto) Eos % (Auto) Baso % (Auto) Seg Neutrophils % Seg Neuts % (Manual) 35.0 L Lymphocytes % (Manual) 50.0 H Eosinophils % (Manual) 9.0 H Eosinophils # (Manual) 0.6 H Fibrinogen LA PTT Baseline 98 H Heparin Anti-Xa Level POC ABG pO2 Chloride Glucose Lactic Acid Lactate Dehydrogenase 283 H 10/10/17 05:07 RBC Hgb Hct Plt Count [place] % (Auto) Eos % (Auto) Baso % (Auto) Seg Neutrophils % Seg Neuts % (Manual) Lymphocytes % (Manual) Eosinophils % (Manual) Eosinophils # (Manual) Fibrinogen LA PTT Baseline Heparin Anti-Xa Level POC ABG pO2 Chloride Glucose 112 H Lactic Acid Lactate Dehydrogenase Allied health notes reviewed: nursing
[2017-10-10] MEDS: HEPARIN/ 0.45% NACL-25,000 UNIT/500 ML 25,000 UNIT/500 ML BAG IV SCH (14:40)
--- NOTE | 2017-10-10 14:50 | Progress Note ---
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 Pt subsequently presents with ischemic leg and thrombosed arterial supply to LLE. Pt s/p ekos thrombolysis revascularization to the LLE. Post-operatively he developed increasing pain and swelling to the left leg. With concerns of possible compartment syndrome he was taken to the OR for a fasciotomy. He is tolerating anticoagulation with a heparin drip. Wound vac has been placed by ET. Re-evaluate next week, if swelling improves then he maybe able to be closed primarily. Would not start oral anticoagulation in the event he needs additional surgery. He has underlying HIV and possible underlying hypercoagulable state. Heme recommend 6 months of AC, preferably with coumadin. Will consult PT for gait training and possible foot drop. Subjective Date of service: 10/10/17 Principal diagnosis: Acute Limb Ischemia s/p thrombolysis; Hypoxemic Resp failure; PVDx; HIV +ve Interval history: Pt awake and alert. C/o incisional pain. Objective - Constitutional Vitals: Vital Signs - 12hr 10/10/17 10/10/17 10/10/17 03:51 07:23 08:33 Temperature 98.5 F 98.2 F Pulse Rate 70 52 L Pulse Rate [ From Monitor] Respiratory 16 Rate Respiratory 20 Rate [Bilateral Leg] Blood Pressure 136/89 129/81 Blood Pressure [Right] O2 Sat by Pulse 90 93 Oximetry 10/10/17 10/10/17 10/10/17 08:35 08:37 10:00 Temperature Pulse Rate 55 L Pulse Rate [ 72 From Monitor] Respiratory 20 20 Rate Respiratory Rate [Bilateral Leg] Blood Pressure Blood Pressure [Right] O2 Sat by Pulse 98 Oximetry 10/10/17 10/10/17 10/10/17 10:06 12:03 13:06 Temperature 98.1 F Pulse Rate 63 54 L Pulse Rate [ From Monitor] Respiratory 16 20 Rate Respiratory Rate [Bilateral Leg] Blood Pressure 129/81 Blood Pressure 125/76 [Right] O2 Sat by Pulse 93 Oximetry General appearance: Present: no acute distress - EENT Eyes: EOM intact ENT: hearing intact - Neck Neck: supple - Respiratory Respiratory effort: normal Extremities: pulses intact (LLE DP and Pt are palpable), abnormal (LLE bandages CDI , vac in place.) - Neurologic Neurologic: other (moves left foot, dorsiflex left great toe slightly, unable to dorsiflex foot) - Psychiatric Psychiatric: appropriate mood/affect, intact judgment & insight, cooperative - Labs CBC & Chem 7: 10/09/17 06:09 10/10/17 05:07 Labs: Abnormal lab results 10/07/17 10/10/17 Range/Units 10:23 05:07 LA PTT Baseline 98 H (<=40) sec Glucose 112 H (75-100) mg/dL
--- NOTE | 2017-10-10 19:37 | Progress Note ---
Assessment and Plan Assessment and plan: --Constipation; stool softeners, if no improvement consider enema as needed --Possible Compartment syndrome Patient had fasciotomy /wound VAC, elevated the limb pain medication supportive care, vascular following -- Ischemia of left lower extremity Current Visit: Yes Status: Acute Plan to address problem: S/p catheter directed thrombolytic therapy. And Thrombectomy --HIV disease Current Visit: Yes Status: Acute Plan to address problem: Continue with antiretroviral therapy, outpatient ID f/u upon discharge --Lactic Acidosis Current Visit: Yes Status: Acute Plan to address problem: Lactic acidosis resolved. -- PVD (peripheral vascular disease) Current Visit: Yes Status: Acute Continue current management -- Nicotine dependence Current Visit: Yes Status: Acute Qualifiers: Substance use status: in withdrawal Plan to address problem: smoking cessation counseling, supportive care. -- HTN (hypertension) Current Visit: Yes Status: Acute Qualifiers: Hypertension type: essential hypertension Qualified Code(s): I10 - Essential (primary) hypertension Plan to address problem: monitor bp q shift, -- DVT prophylaxis Current Visit: Yes Status: Acute Plan to address problem: Patient is on heparin drip Physical therapy occupational therapy History Interval history: Patient seen and examined medical records reviewed Complains of some pain in the left lower extremity, unable to dorsiflex or plantar flex the toes of the left foot Alert awake Oriented 3 No new complaints Vital signs reviewed Hospitalist Physical - Constitutional Vitals: Temp Pulse Resp BP Pulse Ox 98.1 F 56 L 20 111/65 93 10/10/17 15:11 10/10/17 15:11 10/10/17 17:19 10/10/17 15:11 10/10/17 15:11 General appearance: Present: no acute distress, well-nourished - EENT Eyes: Present: PERRL, EOM intact - Neck Neck: Present: supple, normal ROM - Respiratory Respiratory effort: normal Respiratory: bilateral: diminished, negative: rales, rhonchi, wheezing - Cardiovascular Rhythm: regular Heart Sounds: Present: S1 & S2 - Extremities Extremities: abnormal ( mild swelling, pulses palpable) - Abdominal General gastrointestinal: soft, non-tender, non-distended, normal bowel sounds - Integumentary Integumentary: Present: clear, warm - Psychiatric Psychiatric: appropriate mood/affect, cooperative - Neurologic Neurologic: CNII-XII intact, moves all extremities Results - Labs CBC & Chem 7: 10/09/17 06:09 10/10/17 05:07 Labs: Laboratory Last Values WBC 7.1 K/mm3 (4.5-11.0) 10/08/17 06:12 RBC 4.72 M/mm3 (3.65-5.03) 10/08/17 06:12 Hgb 14.7 gm/dl (11.8-15.2) 10/09/17 06:09 Hct 43.5 % (35.5-45.6) 10/09/17 06:09 MCV 91 fl (84-94) 10/08/17 06:12 MCH 30 pg (28-32) 10/08/17 06:12 MCHC 33 % (32-34) 10/08/17 06:12 RDW 14.5 % (13.2-15.2) 10/08/17 06:12 Plt Count 162 K/mm3 (140-440) 10/09/17 06:09 Lymph % (Auto) 31.7 % (13.4-35.0) 10/06/17 15:00 [place] % (Auto) 7.0 % (0.0-7.3) 10/06/17 15:00 Eos % (Auto) 4.8 % (0.0-4.3) H 10/06/17 15:00 Baso % (Auto) 2.0 % (0.0-1.8) H 10/06/17 15:00 Lymph # 2.2 K/mm3 (1.2-5.4) 10/06/17 15:00 [place] # 0.5 K/mm3 (0.0-0.8) 10/06/17 15:00 Eos # 0.3 K/mm3 (0.0-0.4) 10/06/17 15:00 Baso # 0.1 K/mm3 (0.0-0.1) 10/06/17 15:00 Add Manual Diff Complete 10/08/17 06:12 Total Counted 100 10/08/17 06:12 Seg Neutrophils % 54.5 % (40.0-70.0) 10/06/17 15:00 Seg Neuts % (Manual) 35.0 % (40.0-70.0) L 10/08/17 06:12 Band Neutrophils % 1.0 % 10/08/17 06:12 Lymphocytes % (Manual) 50.0 % (13.4-35.0) H 10/08/17 06:12 Reactive Lymphs % (Man) 0 % 10/08/17 06:12 Monocytes % (Manual) 4.0 % (0.0-7.3) 10/08/17 06:12 Eosinophils % (Manual) 9.0 % (0.0-4.3) H 10/08/17 06:12 Basophils % (Manual) 1.0 % (0.0-1.8) 10/08/17 06:12 Metamyelocytes % 0 % 10/08/17 06:12 Myelocytes % 0 % 10/08/17 06:12 Promyelocytes % 0 % 10/08/17 06:12 Blast Cells % 0 % 10/08/17 06:12 Nucleated RBC % Not Reportable 10/08/17 06:12 Seg Neutrophils # 3.8 K/mm3 (1.8-7.7) 10/06/17 15:00 Seg Neutrophils # Man 2.5 K/mm3 (1.8-7.7) 10/08/17 06:12 Band Neutrophils # 0.1 K/mm3 10/08/17 06:12 Lymphocytes # (Manual) 3.6 K/mm3 (1.2-5.4) 10/08/17 06:12 Abs React Lymphs (Man) 0.0 K/mm3 10/08/17 06:12 Monocytes # (Manual) 0.3 K/mm3 (0.0-0.8) 10/08/17 06:12 Eosinophils # (Manual) 0.6 K/mm3 (0.0-0.4) H 10/08/17 06:12 Basophils # (Manual) 0.1 K/mm3 (0.0-0.1) 10/08/17 06:12 Metamyelocytes # 0.0 K/mm3 10/08/17 06:12 Myelocytes # 0.0 K/mm3 10/08/17 06:12 Promyelocytes # 0.0 K/mm3 10/08/17 06:12 Blast Cells # 0.0 K/mm3 10/08/17 06:12 WBC Morphology Not Reportable 10/08/17 06:12 Hypersegmented Neuts Not Reportable 10/08/17 06:12 Hyposegmented Neuts Not Reportable 10/08/17 06:12 Hypogranular Neuts Not Reportable 10/08/17 06:12 Smudge Cells Not Reportable 10/08/17 06:12 Toxic Granulation Not Reportable 10/08/17 06:12 Toxic Vacuolation Not Reportable 10/08/17 06:12 Dohle Bodies Not Reportable 10/08/17 06:12 Pelger-Huet Anomaly Not Reportable 10/08/17 06:12 [place] Rods Not Reportable 10/08/17 06:12 Platelet Estimate Consistent w auto 10/08/17 06:12 Clumped Platelets Not Reportable 10/08/17 06:12 Plt Clumps, EDTA Not Reportable 10/08/17 06:12 Large Platelets Not Reportable 10/08/17 06:12 Giant Platelets Not Reportable 10/08/17 06:12 Platelet Satelliting Not Reportable 10/08/17 06:12 Plt Morphology Comment Not Reportable 10/08/17 06:12 RBC Morphology Not Reportable 10/08/17 06:12 Dimorphic RBCs Not Reportable 10/08/17 06:12 Polychromasia Not Reportable 10/08/17 06:12 Hypochromasia Not Reportable 10/08/17 06:12 Poikilocytosis Not Reportable 10/08/17 06:12 Anisocytosis 1+ 10/08/17 06:12 Microcytosis Not Reportable 10/08/17 06:12 Macrocytosis Not Reportable 10/08/17 06:12 Spherocytes Not Reportable 10/08/17 06:12 Pappenheimer Bodies Not Reportable 10/08/17 06:12 Sickle Cells Not Reportable 10/08/17 06:12 Target Cells Not Reportable 10/08/17 06:12 Tear Drop Cells Not Reportable 10/08/17 06:12 Ovalocytes Not Reportable 10/08/17 06:12 Helmet Cells Not Reportable 10/08/17 06:12 Rosario-Charlack Bodies Not Reportable 10/08/17 06:12 [place] Rings Not Reportable 10/08/17 06:12 [place] Cells Not Reportable 10/08/17 06:12 Bite Cells Not Reportable 10/08/17 06:12 Crenated Cell Not Reportable 10/08/17 06:12 Elliptocytes Not Reportable 10/08/17 06:12 Acanthocytes (Spur) Not Reportable 10/08/17 06:12 Rouleaux Not Reportable 10/08/17 06:12 Hemoglobin C Crystals Not Reportable 10/08/17 06:12 Schistocytes Not Reportable 10/08/17 06:12 Malaria parasites Not Reportable 10/08/17 06:12 [place] Bodies Not Reportable 10/08/17 06:12 Hem Pathologist Commnt No 10/08/17 06:12 PT 13.0 Sec. (12.2-14.9) 10/05/17 17:51 INR 0.94 (0.87-1.13) 10/05/17 17:51 APTT 25.6 Sec. (24.2-36.6) 10/05/17 18:22 Fibrinogen 309 mg/dl (211-480) 10/06/17 15:00 Lupus Anticoagulant see below 10/07/17 10:23 LA PTT Baseline 98 sec (<=40) H 10/07/17 10:23 Free Protein S 132 % normal (57-171) 10/07/17 10:23 Total Protein S 105 % (70-140) 10/07/17 10:23 Heparin Anti-Xa Level 0.36 U.I./ml (0.3-0.7) 10/10/17 05:08 POC ABG pH 7.354 (7.35-7.45) 10/06/17 16:44 POC ABG pCO2 45.0 (35-45) 10/06/17 16:44 POC ABG pO2 59 (80-105) L 10/06/17 16:44 POC ABG HCO3 25.1 10/06/17 16:44 POC ABG Total CO2 26 10/06/17 16:44 POC ABG O2 Sat 89 10/06/17 16:44 POC ABG Base Excess 0 10/06/17 16:44 FiO2 32 % 10/06/17 16:44 Sodium 140 mmol/L (137-145) 10/10/17 05:07 Potassium 4.0 mmol/L (3.6-5.0) 10/10/17 05:07 Chloride 101.6 mmol/L (98-107) 10/10/17 05:07 Carbon Dioxide 25 mmol/L (22-30) 10/10/17 05:07 Anion Gap 17 mmol/L 10/10/17 05:07 BUN 10 mg/dL (9-20) 10/10/17 05:07 Creatinine 0.9 mg/dL (0.8-1.5) 10/10/17 05:07 Estimated GFR > 60 ml/min 10/10/17 05:07 BUN/Creatinine Ratio 11 % 10/10/17 05:07 Glucose 112 mg/dL (75-100) H 10/10/17 05:07 Lactic Acid 1.50 mmol/L (0.7-2.0) 10/05/17 21:39 Calcium 9.0 mg/dL (8.4-10.2) 10/10/17 05:07 Total Bilirubin 0.50 mg/dL (0.1-1.2) 10/05/17 17:51 AST 21 units/L (5-40) 10/05/17 17:51 ALT 12 units/L (7-56) 10/05/17 17:51 Alkaline Phosphatase 86 units/L (35-129) 10/05/17 17:51 Lactate Dehydrogenase 283 units/L (91-180) H 10/08/17 06:12 Total Protein 8.0 g/dL (6.3-8.2) 10/05/17 17:51 Albumin 4.6 g/dL (3.9-5) 10/05/17 17:51 Albumin/Globulin Ratio 1.4 % 10/05/17 17:51 Blood Type O POSITIVE 10/05/17 18:49 Antibody Screen Negative 10/05/17 18:49
[2017-10-11] MEDS: NORCO 5/325 PO PRN ×2 (04:31→09:51)
[2017-10-11] MEDS: HEPARIN/ 0.45% NACL-25,000 UNIT/500 ML 25,000 UNIT/500 ML BAG IV SCH ×2 (04:31→19:45)
[2017-10-11] MEDS: ZESTRIL PO SCH (09:49)
[2017-10-11] MEDS: LOPRESSOR PO SCH ×2 (09:50→21:51)
[2017-10-11] MEDS: PEPCID PO SCH (09:50)
[2017-10-11] MEDS: SODIUM CHLORIDE FLUSH SYRINGE 10 ML IV SCH (09:52)
[2017-10-11 10:07] LABS: Hematocrit 45.4 % (35.5-45.6); Hemoglobin 15.3 gm/dl (11.8-15.2)
--- NOTE | 2017-10-11 11:05 | Progress Note ---
Assessment and Plan Patient doing well status post reperfusion of his left lower extremity. He will undergo primary closure of his fasciotomies on Friday. He will need aggressive physical therapy as well. Subjective Date of service: 10/11/17 Principal diagnosis: Acute Limb Ischemia s/p thrombolysis; Hypoxemic Resp failure; PVDx; HIV +ve Interval history: Patient doing well following left lower extremity revascularization and fasciotomies. Is able to wiggle his toes and minimally dorsiflex and plantarflex his foot. Complains of pain at the site of the fasciotomies. Objective - Constitutional Vitals: Vital Signs - 12hr 10/10/17 10/10/17 10/11/17 23:17 23:26 04:06 Temperature 98.1 F 98.1 F Pulse Rate 67 58 L 72 Pulse Rate [ From Monitor] Respiratory 18 18 Rate Respiratory Rate [Left Leg] Blood Pressure 121/77 137/85 O2 Sat by Pulse 91 94 Oximetry 10/11/17 10/11/17 10/11/17 07:26 08:00 09:49 Temperature 98.2 F Pulse Rate 82 82 Pulse Rate [ From Monitor] Respiratory 20 Rate Respiratory Rate [Left Leg] Blood Pressure 127/85 127/85 O2 Sat by Pulse 92 Oximetry 10/11/17 10/11/17 10/11/17 09:50 09:51 09:57 Temperature Pulse Rate 82 Pulse Rate [ From Monitor] Respiratory 20 Rate Respiratory 20 Rate [Left Leg] Blood Pressure 127/85 O2 Sat by Pulse Oximetry 10/11/17 10:00 Temperature Pulse Rate Pulse Rate [ 95 H From Monitor] Respiratory 20 Rate Respiratory Rate [Left Leg] Blood Pressure O2 Sat by Pulse 92 Oximetry General appearance: Present: no acute distress - EENT Eyes: PERRL ENT: hearing intact - Neck Neck: supple, normal ROM - Respiratory Respiratory effort: normal - Breasts Breasts: deferred - Cardiovascular Rhythm: regular Extremities: abnormal Extremity abnormal: edema - Gastrointestinal General gastrointestinal: Present: deferred Rectal Exam: deferred - Genitourinary Male genitourinary: deferred - Integumentary Integumentary: clear, warm - Psychiatric Psychiatric: appropriate mood/affect, cooperative - Labs CBC & Chem 7: 10/11/17 09:46 10/10/17 05:07 Labs: Abnormal lab results 10/11/17 Range/Units 09:46 Hgb 15.3 H (11.8-15.2) gm/dl
[2017-10-11] MEDS: OxyCONTIN PO SCH ×2 (12:42→21:51)
--- NOTE | 2017-10-11 13:04 | Progress Note ---
Assessment and Plan Assessment and plan: --Constipation; stool softeners, if no improvement consider enema as needed --Possible Compartment syndrome Patient had fasciotomy /wound VAC, elevated the limb pain medication supportive care, vascular planning wound closure on Friday -- Ischemia of left lower extremity Current Visit: Yes Status: Acute Plan to address problem: S/p catheter directed thrombolytic therapy. And Thrombectomy --HIV disease Current Visit: Yes Status: Acute Plan to address problem: Continue with antiretroviral therapy, outpatient ID f/u upon discharge --Lactic Acidosis Current Visit: Yes Status: Acute Plan to address problem: Lactic acidosis resolved. -- PVD (peripheral vascular disease) Current Visit: Yes Status: Acute Continue current management -- Nicotine dependence Current Visit: Yes Status: Acute Qualifiers: Substance use status: in withdrawal Plan to address problem: smoking cessation counseling, supportive care. -- HTN (hypertension) Current Visit: Yes Status: Acute Qualifiers: Hypertension type: essential hypertension Qualified Code(s): I10 - Essential (primary) hypertension Plan to address problem: monitor bp q shift, -- DVT prophylaxis Current Visit: Yes Status: Acute Plan to address problem: Patient is on heparin drip Physical therapy occupational therapy History Interval history: Patient seen and examined medical records reviewed The patient feels slightly better Complains of excruciating pain left lower extremity Status post fasciotomy with the drain in place Alert awake oriented 3 Vital signs reviewed Hospitalist Physical - Constitutional Vitals: Temp Pulse Resp BP Pulse Ox 97.9 F 63 20 118/85 93 10/11/17 12:00 10/11/17 12:00 10/11/17 12:42 10/11/17 12:00 10/11/17 12:00 General appearance: Present: no acute distress, well-nourished - EENT Eyes: Present: PERRL, EOM intact - Neck Neck: Present: supple, normal ROM - Respiratory Respiratory effort: normal Respiratory: bilateral: diminished, negative: rales, rhonchi, wheezing - Cardiovascular Rhythm: regular Heart Sounds: Present: S1 & S2 - Extremities Extremities: abnormal (left lower extremity, swelling and tenderness, unable to plantar flex and dorsiflex the toes) Extremity abnormal: other (wound VAC in place) - Abdominal General gastrointestinal: soft, non-tender, non-distended, normal bowel sounds - Integumentary Integumentary: Present: clear, warm - Psychiatric Psychiatric: appropriate mood/affect, cooperative - Neurologic Neurologic: CNII-XII intact, moves all extremities Results - Labs CBC & Chem 7: 10/11/17 09:46 10/10/17 05:07 Labs: Laboratory Last Values WBC 7.1 K/mm3 (4.5-11.0) 10/08/17 06:12 RBC 4.72 M/mm3 (3.65-5.03) 10/08/17 06:12 Hgb 15.3 gm/dl (11.8-15.2) H 10/11/17 09:46 Hct 45.4 % (35.5-45.6) 10/11/17 09:46 MCV 91 fl (84-94) 10/08/17 06:12 MCH 30 pg (28-32) 10/08/17 06:12 MCHC 33 % (32-34) 10/08/17 06:12 RDW 14.5 % (13.2-15.2) 10/08/17 06:12 Plt Count 195 K/mm3 (140-440) 10/11/17 09:46 Lymph % (Auto) 31.7 % (13.4-35.0) 10/06/17 15:00 [place] % (Auto) 7.0 % (0.0-7.3) 10/06/17 15:00 Eos % (Auto) 4.8 % (0.0-4.3) H 10/06/17 15:00 Baso % (Auto) 2.0 % (0.0-1.8) H 10/06/17 15:00 Lymph # 2.2 K/mm3 (1.2-5.4) 10/06/17 15:00 [place] # 0.5 K/mm3 (0.0-0.8) 10/06/17 15:00 Eos # 0.3 K/mm3 (0.0-0.4) 10/06/17 15:00 Baso # 0.1 K/mm3 (0.0-0.1) 10/06/17 15:00 Add Manual Diff Complete 10/08/17 06:12 Total Counted 100 10/08/17 06:12 Seg Neutrophils % 54.5 % (40.0-70.0) 10/06/17 15:00 Seg Neuts % (Manual) 35.0 % (40.0-70.0) L 10/08/17 06:12 Band Neutrophils % 1.0 % 10/08/17 06:12 Lymphocytes % (Manual) 50.0 % (13.4-35.0) H 10/08/17 06:12 Reactive Lymphs % (Man) 0 % 10/08/17 06:12 Monocytes % (Manual) 4.0 % (0.0-7.3) 10/08/17 06:12 Eosinophils % (Manual) 9.0 % (0.0-4.3) H 10/08/17 06:12 Basophils % (Manual) 1.0 % (0.0-1.8) 10/08/17 06:12 Metamyelocytes % 0 % 10/08/17 06:12 Myelocytes % 0 % 10/08/17 06:12 Promyelocytes % 0 % 10/08/17 06:12 Blast Cells % 0 % 10/08/17 06:12 Nucleated RBC % Not Reportable 10/08/17 06:12 Seg Neutrophils # 3.8 K/mm3 (1.8-7.7) 10/06/17 15:00 Seg Neutrophils # Man 2.5 K/mm3 (1.8-7.7) 10/08/17 06:12 Band Neutrophils # 0.1 K/mm3 10/08/17 06:12 Lymphocytes # (Manual) 3.6 K/mm3 (1.2-5.4) 10/08/17 06:12 Abs React Lymphs (Man) 0.0 K/mm3 10/08/17 06:12 Monocytes # (Manual) 0.3 K/mm3 (0.0-0.8) 10/08/17 06:12 Eosinophils # (Manual) 0.6 K/mm3 (0.0-0.4) H 10/08/17 06:12 Basophils # (Manual) 0.1 K/mm3 (0.0-0.1) 10/08/17 06:12 Metamyelocytes # 0.0 K/mm3 10/08/17 06:12 Myelocytes # 0.0 K/mm3 10/08/17 06:12 Promyelocytes # 0.0 K/mm3 10/08/17 06:12 Blast Cells # 0.0 K/mm3 10/08/17 06:12 WBC Morphology Not Reportable 10/08/17 06:12 Hypersegmented Neuts Not Reportable 10/08/17 06:12 Hyposegmented Neuts Not Reportable 10/08/17 06:12 Hypogranular Neuts Not Reportable 10/08/17 06:12 Smudge Cells Not Reportable 10/08/17 06:12 Toxic Granulation Not Reportable 10/08/17 06:12 Toxic Vacuolation Not Reportable 10/08/17 06:12 Dohle Bodies Not Reportable 10/08/17 06:12 Pelger-Huet Anomaly Not Reportable 10/08/17 06:12 Candelaria Rods Not Reportable 10/08/17 06:12 Platelet Estimate Consistent w auto 10/08/17 06:12 Clumped Platelets Not Reportable 10/08/17 06:12 Plt Clumps, EDTA Not Reportable 10/08/17 06:12 Large Platelets Not Reportable 10/08/17 06:12 Giant Platelets Not Reportable 10/08/17 06:12 Platelet Satelliting Not Reportable 10/08/17 06:12 Plt Morphology Comment Not Reportable 10/08/17 06:12 RBC Morphology Not Reportable 10/08/17 06:12 Dimorphic RBCs Not Reportable 10/08/17 06:12 Polychromasia Not Reportable 10/08/17 06:12 Hypochromasia Not Reportable 10/08/17 06:12 Poikilocytosis Not Reportable 10/08/17 06:12 Anisocytosis 1+ 10/08/17 06:12 Microcytosis Not Reportable 10/08/17 06:12 Macrocytosis Not Reportable 10/08/17 06:12 Spherocytes Not Reportable 10/08/17 06:12 Pappenheimer Bodies Not Reportable 10/08/17 06:12 Sickle Cells Not Reportable 10/08/17 06:12 Target Cells Not Reportable 10/08/17 06:12 Tear Drop Cells Not Reportable 10/08/17 06:12 Ovalocytes Not Reportable 10/08/17 06:12 Helmet Cells Not Reportable 10/08/17 06:12 Rosario-Kirkpatrick Bodies Not Reportable 10/08/17 06:12 [place] Rings Not Reportable 10/08/17 06:12 [place]abeel Cells Not Reportable 10/08/17 06:12 Bite Cells Not Reportable 10/08/17 06:12 Crenated Cell Not Reportable 10/08/17 06:12 Elliptocytes Not Reportable 10/08/17 06:12 Acanthocytes (Spur) Not Reportable 10/08/17 06:12 Rouleaux Not Reportable 10/08/17 06:12 Hemoglobin C Crystals Not Reportable 10/08/17 06:12 Schistocytes Not Reportable 10/08/17 06:12 Malaria parasites Not Reportable 10/08/17 06:12 [place] Bodies Not Reportable 10/08/17 06:12 Hem Pathologist Commnt No 10/08/17 06:12 PT 13.0 Sec. (12.2-14.9) 10/05/17 17:51 INR 0.94 (0.87-1.13) 10/05/17 17:51 APTT 25.6 Sec. (24.2-36.6) 10/05/17 18:22 Fibrinogen 309 mg/dl (211-480) 10/06/17 15:00 Lupus Anticoagulant see below 10/07/17 10:23 LA PTT Baseline 98 sec (<=40) H 10/07/17 10:23 Free Protein S 132 % normal (57-171) 10/07/17 10:23 Total Protein S 105 % (70-140) 10/07/17 10:23 Heparin Anti-Xa Level 0.36 U.I./ml (0.3-0.7) 10/11/17 09:49 POC ABG pH 7.354 (7.35-7.45) 10/06/17 16:44 POC ABG pCO2 45.0 (35-45) 10/06/17 16:44 POC ABG pO2 59 (80-105) L 10/06/17 16:44 POC ABG HCO3 25.1 10/06/17 16:44 POC ABG Total CO2 26 10/06/17 16:44 POC ABG O2 Sat 89 10/06/17 16:44 POC ABG Base Excess 0 10/06/17 16:44 FiO2 32 % 10/06/17 16:44 Sodium 140 mmol/L (137-145) 10/10/17 05:07 Potassium 4.0 mmol/L (3.6-5.0) 10/10/17 05:07 Chloride 101.6 mmol/L (98-107) 10/10/17 05:07 Carbon Dioxide 25 mmol/L (22-30) 10/10/17 05:07 Anion Gap 17 mmol/L 10/10/17 05:07 BUN 10 mg/dL (9-20) 10/10/17 05:07 Creatinine 0.9 mg/dL (0.8-1.5) 10/10/17 05:07 Estimated GFR > 60 ml/min 10/10/17 05:07 BUN/Creatinine Ratio 11 % 10/10/17 05:07 Glucose 112 mg/dL (75-100) H 10/10/17 05:07 Lactic Acid 1.50 mmol/L (0.7-2.0) 10/05/17 21:39 Calcium 9.0 mg/dL (8.4-10.2) 10/10/17 05:07 Total Bilirubin 0.50 mg/dL (0.1-1.2) 10/05/17 17:51 AST 21 units/L (5-40) 10/05/17 17:51 ALT 12 units/L (7-56) 10/05/17 17:51 Alkaline Phosphatase 86 units/L (35-129) 10/05/17 17:51 Lactate Dehydrogenase 283 units/L (91-180) H 10/08/17 06:12 Total Protein 8.0 g/dL (6.3-8.2) 10/05/17 17:51 Albumin 4.6 g/dL (3.9-5) 10/05/17 17:51 Albumin/Globulin Ratio 1.4 % 10/05/17 17:51 Blood Type O POSITIVE 10/05/17 18:49 Antibody Screen Negative 10/05/17 18:49
--- NOTE | 2017-10-11 13:44 | Progress Note ---
Assessment and Plan Acute limb ischemia, status post catheter-directed thrombolytic therapy. Peripheral vascular disease. Hypertension. Tobacco use disorder. History of deep venous thrombosis. Asthma. Human immunodeficiency virus positive. Obesity. History of coronary artery disease - serum LDH slightly elevated but other possible reasons - encouraged ICS and deep breathing re: Atelectasis - CXR discontinued - continue supplemental oxygen and wean for sats > 90% - continue wound care per RN and WCT - vascular surgery E&M ongoing - continue IV heparin for now - hematology consult noted re: coumadin X 6 months - continue GI prophylaxis - continue ART ... re-evaluate in am & prn ... 35' Subjective Date of service: 10/11/17 Principal diagnosis: Acute Limb Ischemia s/p thrombolysis; Hypoxemic Resp failure; PVDx; HIV +ve Interval history: Patient is seen today for: Acute Limb Ischemia s/p thrombolysis; Hypoxemic Resp failure; PVDx; HIV +ve Seen and examined at bedside; 24hour events reviewed; nursing and respiratory care staff consulted; no adverse overnight events reported to me; resting in bed ; now off oxygen; still with left leg pain; No N/V/F/C; no gross bleeding Objective Vital Signs - 12hr 10/11/17 10/11/17 10/11/17 04:06 07:26 08:00 Temperature 98.1 F 98.2 F Pulse Rate 72 82 Pulse Rate [ From Monitor] Respiratory 18 20 Rate Respiratory Rate [Left Leg] Blood Pressure 137/85 127/85 Blood Pressure [Right] O2 Sat by Pulse 94 92 Oximetry 10/11/17 10/11/17 10/11/17 09:49 09:50 09:51 Temperature Pulse Rate 82 82 Pulse Rate [ From Monitor] Respiratory 20 Rate Respiratory Rate [Left Leg] Blood Pressure 127/85 127/85 Blood Pressure [Right] O2 Sat by Pulse Oximetry 10/11/17 10/11/17 10/11/17 09:57 10:00 12:00 Temperature 97.9 F Pulse Rate 77 63 Pulse Rate [ 95 H From Monitor] Respiratory 20 18 Rate Respiratory 20 Rate [Left Leg] Blood Pressure Blood Pressure 118/85 [Right] O2 Sat by Pulse 92 93 Oximetry 10/11/17 12:42 Temperature Pulse Rate Pulse Rate [ From Monitor] Respiratory 20 Rate Respiratory Rate [Left Leg] Blood Pressure Blood Pressure [Right] O2 Sat by Pulse Oximetry Constitutional: no acute distress, alert, other (elderly AAM, normocephalic and atraumatic resting in bed.) Eyes: non-icteric ENT: oropharynx moist, other (mallampati 2) Neck: supple, no lymphadenopathy, no JVD, other (no thyromegaly) Effort: mildly labored Ascultation: Bilateral: clear, diminished breath sounds Percussion: Bilateral: not dull Cardiovascular: regular rate and rhythm, other (No R/M) Gastrointestinal: normoactive bowel sounds, soft, non-tender, non-distended, other (No HSM) Integumentary: normal Extremities: no cyanosis, pulses normal, no ischemia or petechiae, other (left leg /alan dressing) Neurologic: normal mental status, non-focal exam, pupils equal and round, motor strength normal and Psychiatric: mood appropriate, affect normal CBC and BMP: 10/11/17 09:46 10/10/17 05:07 ABG, PT/INR, D-dimer: ABG POC ABG pH 7.354 (7.35-7.45) 10/06/17 16:44 POC ABG pCO2 45.0 (35-45) 10/06/17 16:44 POC ABG pO2 59 (80-105) L 10/06/17 16:44 POC ABG HCO3 25.1 10/06/17 16:44 POC ABG Total CO2 26 10/06/17 16:44 POC ABG O2 Sat 89 10/06/17 16:44 PT/INR, D-dimer PT 13.0 Sec. (12.2-14.9) 10/05/17 17:51 INR 0.94 (0.87-1.13) 10/05/17 17:51 Abnormal lab findings: Abnormal Labs 10/05/17 10/05/17 10/05/17 17:51 17:51 17:51 RBC 5.22 H Hgb 15.9 H Hct 46.8 H Plt Count [place] % (Auto) 8.1 H Eos % (Auto) Baso % (Auto) Seg Neutrophils % Seg Neuts % (Manual) Lymphocytes % (Manual) Eosinophils % (Manual) Eosinophils # (Manual) Fibrinogen LA PTT Baseline Heparin Anti-Xa Level POC ABG pO2 Chloride Glucose 122 H Lactic Acid 3.10 H* Lactate Dehydrogenase 10/05/17 10/06/17 10/06/17 19:44 01:54 01:54 RBC Hgb Hct Plt Count [place] % (Auto) Eos % (Auto) Baso % (Auto) Seg Neutrophils % 71.8 H Seg Neuts % (Manual) Lymphocytes % (Manual) Eosinophils % (Manual) Eosinophils # (Manual) Fibrinogen 521 H LA PTT Baseline Heparin Anti-Xa Level 0.15 L POC ABG pO2 Chloride Glucose Lactic Acid Lactate Dehydrogenase 10/06/17 10/06/17 10/06/17 05:41 07:14 07:14 RBC Hgb Hct Plt Count [place] % (Auto) 7.6 H Eos % (Auto) Baso % (Auto) Seg Neutrophils % Seg Neuts % (Manual) Lymphocytes % (Manual) Eosinophils % (Manual) Eosinophils # (Manual) Fibrinogen LA PTT Baseline Heparin Anti-Xa Level > 2.00 H POC ABG pO2 Chloride Glucose 103 H Lactic Acid Lactate Dehydrogenase 10/06/17 10/06/17 10/06/17 15:00 15:00 16:44 RBC Hgb Hct Plt Count [place] % (Auto) Eos % (Auto) 4.8 H Baso % (Auto) 2.0 H Seg Neutrophils % Seg Neuts % (Manual) Lymphocytes % (Manual) Eosinophils % (Manual) Eosinophils # (Manual) Fibrinogen LA PTT Baseline Heparin Anti-Xa Level 0.11 L POC ABG pO2 59 L Chloride Glucose Lactic Acid Lactate Dehydrogenase 10/06/17 10/07/17 10/07/17 21:09 03:35 03:35 RBC Hgb Hct Plt Count 133 L [place] % (Auto) Eos % (Auto) Baso % (Auto) Seg Neutrophils % Seg Neuts % (Manual) Lymphocytes % (Manual) Eosinophils % (Manual) Eosinophils # (Manual) Fibrinogen LA PTT Baseline Heparin Anti-Xa Level 0.10 L POC ABG pO2 Chloride 96.4 L Glucose 114 H Lactic Acid Lactate Dehydrogenase 10/07/17 10/08/17 10/08/17 10:23 06:12 06:12 RBC Hgb Hct Plt Count [place] % (Auto) Eos % (Auto) Baso % (Auto) Seg Neutrophils % Seg Neuts % (Manual) 35.0 L Lymphocytes % (Manual) 50.0 H Eosinophils % (Manual) 9.0 H Eosinophils # (Manual) 0.6 H Fibrinogen LA PTT Baseline 98 H Heparin Anti-Xa Level POC ABG pO2 Chloride Glucose Lactic Acid Lactate Dehydrogenase 283 H 10/10/17 10/11/17 05:07 09:46 RBC Hgb 15.3 H Hct Plt Count [place] % (Auto) Eos % (Auto) Baso % (Auto) Seg Neutrophils % Seg Neuts % (Manual) Lymphocytes % (Manual) Eosinophils % (Manual) Eosinophils # (Manual) Fibrinogen LA PTT Baseline Heparin Anti-Xa Level POC ABG pO2 Chloride Glucose 112 H Lactic Acid Lactate Dehydrogenase Allied health notes reviewed: nursing
[2017-10-12] MEDS: SODIUM CHLORIDE FLUSH SYRINGE 10 ML IV SCH ×3 (00:17→23:35)
[2017-10-12] MEDS: NORCO 5/325 PO PRN ×4 (00:17→20:32)
--- NOTE | 2017-10-12 09:34 | Progress Note ---
Assessment and Plan Assessment and plan: --Constipation; stool softeners,milk of magnesia, Dulcolax if no improvement consider enema as needed --Compartment syndrome s/p fasciotomy /wound VAC, elevate the limb Physical therapy as tolerated,pain medication supportive care, vascular planning wound closure tomorrow 10/13/2017 -- Ischemia of left lower extremity Current Visit: Yes Status: Acute Plan to address problem: S/p catheter directed thrombolytic therapy. And Thrombectomy --HIV disease Current Visit: Yes Status: Acute Plan to address problem: Continue with antiretroviral therapy, outpatient ID f/u upon discharge --Lactic Acidosis Current Visit: Yes Status: Acute Plan to address problem: Lactic acidosis resolved. -- PVD (peripheral vascular disease) Current Visit: Yes Status: Acute Continue current management -- Nicotine dependence Current Visit: Yes Status: Acute Qualifiers: Substance use status: in withdrawal Plan to address problem: smoking cessation counseling, supportive care. -- HTN (hypertension) continue antihypertensives and when necessary medication -- DVT prophylaxis Current Visit: Yes Status: Acute Plan to address problem: Patient is on heparin drip Physical therapy occupational therapy Plan of care is reviewed with patient and his notes History Interval history: Patient seen and examined medical record reviewed Patient Complaints of constipation alert,wake Oriented 3 Vital signs reviewed Hospitalist Physical - Constitutional Vitals: Temp Pulse Resp BP Pulse Ox 98.4 F 78 24 134/88 92 10/12/17 07:50 10/12/17 07:50 10/12/17 08:53 10/12/17 07:50 10/12/17 07:50 General appearance: Present: no acute distress, well-nourished - EENT Eyes: Present: PERRL, EOM intact - Neck Neck: Present: supple, normal ROM - Respiratory Respiratory: bilateral: diminished, negative: rales, rhonchi, wheezing - Cardiovascular Rhythm: regular Heart Sounds: Present: S1 & S2 - Extremities Extremities: abnormal (Fasciotomy with wound VAC) Extremity abnormal: edema, erythema (reduced dorsiflexion and plantar flexion of the toes of the left foot) - Abdominal General gastrointestinal: soft, non-tender, non-distended, normal bowel sounds - Integumentary Integumentary: Present: clear, warm - Psychiatric Psychiatric: appropriate mood/affect, cooperative - Neurologic Neurologic: CNII-XII intact, moves all extremities Results - Labs CBC & Chem 7: 10/11/17 09:46 10/10/17 05:07 Labs: Laboratory Last Values WBC 7.1 K/mm3 (4.5-11.0) 10/08/17 06:12 RBC 4.72 M/mm3 (3.65-5.03) 10/08/17 06:12 Hgb 15.3 gm/dl (11.8-15.2) H 10/11/17 09:46 Hct 45.4 % (35.5-45.6) 10/11/17 09:46 MCV 91 fl (84-94) 10/08/17 06:12 MCH 30 pg (28-32) 10/08/17 06:12 MCHC 33 % (32-34) 10/08/17 06:12 RDW 14.5 % (13.2-15.2) 10/08/17 06:12 Plt Count 195 K/mm3 (140-440) 10/11/17 09:46 Lymph % (Auto) 31.7 % (13.4-35.0) 10/06/17 15:00 [place] % (Auto) 7.0 % (0.0-7.3) 10/06/17 15:00 Eos % (Auto) 4.8 % (0.0-4.3) H 10/06/17 15:00 Baso % (Auto) 2.0 % (0.0-1.8) H 10/06/17 15:00 Lymph # 2.2 K/mm3 (1.2-5.4) 10/06/17 15:00 [place] # 0.5 K/mm3 (0.0-0.8) 10/06/17 15:00 Eos # 0.3 K/mm3 (0.0-0.4) 10/06/17 15:00 Baso # 0.1 K/mm3 (0.0-0.1) 10/06/17 15:00 Add Manual Diff Complete 10/08/17 06:12 Total Counted 100 10/08/17 06:12 Seg Neutrophils % 54.5 % (40.0-70.0) 10/06/17 15:00 Seg Neuts % (Manual) 35.0 % (40.0-70.0) L 10/08/17 06:12 Band Neutrophils % 1.0 % 10/08/17 06:12 Lymphocytes % (Manual) 50.0 % (13.4-35.0) H 10/08/17 06:12 Reactive Lymphs % (Man) 0 % 10/08/17 06:12 Monocytes % (Manual) 4.0 % (0.0-7.3) 10/08/17 06:12 Eosinophils % (Manual) 9.0 % (0.0-4.3) H 10/08/17 06:12 Basophils % (Manual) 1.0 % (0.0-1.8) 10/08/17 06:12 Metamyelocytes % 0 % 10/08/17 06:12 Myelocytes % 0 % 10/08/17 06:12 Promyelocytes % 0 % 10/08/17 06:12 Blast Cells % 0 % 10/08/17 06:12 Nucleated RBC % Not Reportable 10/08/17 06:12 Seg Neutrophils # 3.8 K/mm3 (1.8-7.7) 10/06/17 15:00 Seg Neutrophils # Man 2.5 K/mm3 (1.8-7.7) 10/08/17 06:12 Band Neutrophils # 0.1 K/mm3 10/08/17 06:12 Lymphocytes # (Manual) 3.6 K/mm3 (1.2-5.4) 10/08/17 06:12 Abs React Lymphs (Man) 0.0 K/mm3 10/08/17 06:12 Monocytes # (Manual) 0.3 K/mm3 (0.0-0.8) 10/08/17 06:12 Eosinophils # (Manual) 0.6 K/mm3 (0.0-0.4) H 10/08/17 06:12 Basophils # (Manual) 0.1 K/mm3 (0.0-0.1) 10/08/17 06:12 Metamyelocytes # 0.0 K/mm3 10/08/17 06:12 Myelocytes # 0.0 K/mm3 10/08/17 06:12 Promyelocytes # 0.0 K/mm3 10/08/17 06:12 Blast Cells # 0.0 K/mm3 10/08/17 06:12 WBC Morphology Not Reportable 10/08/17 06:12 Hypersegmented Neuts Not Reportable 10/08/17 06:12 Hyposegmented Neuts Not Reportable 10/08/17 06:12 Hypogranular Neuts Not Reportable 10/08/17 06:12 Smudge Cells Not Reportable 10/08/17 06:12 Toxic Granulation Not Reportable 10/08/17 06:12 Toxic Vacuolation Not Reportable 10/08/17 06:12 Dohle Bodies Not Reportable 10/08/17 06:12 Pelger-Huet Anomaly Not Reportable 10/08/17 06:12 Candelaria Rods Not Reportable 10/08/17 06:12 Platelet Estimate Consistent w auto 10/08/17 06:12 Clumped Platelets Not Reportable 10/08/17 06:12 Plt Clumps, EDTA Not Reportable 10/08/17 06:12 Large Platelets Not Reportable 10/08/17 06:12 Giant Platelets Not Reportable 10/08/17 06:12 Platelet Satelliting Not Reportable 10/08/17 06:12 Plt Morphology Comment Not Reportable 10/08/17 06:12 RBC Morphology Not Reportable 10/08/17 06:12 Dimorphic RBCs Not Reportable 10/08/17 06:12 Polychromasia Not Reportable 10/08/17 06:12 Hypochromasia Not Reportable 10/08/17 06:12 Poikilocytosis Not Reportable 10/08/17 06:12 Anisocytosis 1+ 10/08/17 06:12 Microcytosis Not Reportable 10/08/17 06:12 Macrocytosis Not Reportable 10/08/17 06:12 Spherocytes Not Reportable 10/08/17 06:12 Pappenheimer Bodies Not Reportable 10/08/17 06:12 Sickle Cells Not Reportable 10/08/17 06:12 Target Cells Not Reportable 10/08/17 06:12 Tear Drop Cells Not Reportable 10/08/17 06:12 Ovalocytes Not Reportable 10/08/17 06:12 Helmet Cells Not Reportable 10/08/17 06:12 Rosario-Obert Bodies Not Reportable 10/08/17 06:12 [place] Rings Not Reportable 10/08/17 06:12 [place] Cells Not Reportable 10/08/17 06:12 Bite Cells Not Reportable 10/08/17 06:12 Crenated Cell Not Reportable 10/08/17 06:12 Elliptocytes Not Reportable 10/08/17 06:12 Acanthocytes (Spur) Not Reportable 10/08/17 06:12 Rouleaux Not Reportable 10/08/17 06:12 Hemoglobin C Crystals Not Reportable 10/08/17 06:12 Schistocytes Not Reportable 10/08/17 06:12 Malaria parasites Not Reportable 10/08/17 06:12 [place] Bodies Not Reportable 10/08/17 06:12 Hem Pathologist Commnt No 10/08/17 06:12 PT 13.0 Sec. (12.2-14.9) 10/05/17 17:51 INR 0.94 (0.87-1.13) 10/05/17 17:51 APTT 25.6 Sec. (24.2-36.6) 10/05/17 18:22 Fibrinogen 309 mg/dl (211-480) 10/06/17 15:00 Lupus Anticoagulant see below 10/07/17 10:23 LA PTT Baseline 98 sec (<=40) H 10/07/17 10:23 Free Protein S 132 % normal (57-171) 10/07/17 10:23 Total Protein S 105 % (70-140) 10/07/17 10:23 Heparin Anti-Xa Level 0.36 U.I./ml (0.3-0.7) 10/11/17 09:49 POC ABG pH 7.354 (7.35-7.45) 10/06/17 16:44 POC ABG pCO2 45.0 (35-45) 10/06/17 16:44 POC ABG pO2 59 (80-105) L 10/06/17 16:44 POC ABG HCO3 25.1 10/06/17 16:44 POC ABG Total CO2 26 10/06/17 16:44 POC ABG O2 Sat 89 10/06/17 16:44 POC ABG Base Excess 0 10/06/17 16:44 FiO2 32 % 10/06/17 16:44 Sodium 140 mmol/L (137-145) 10/10/17 05:07 Potassium 4.0 mmol/L (3.6-5.0) 10/10/17 05:07 Chloride 101.6 mmol/L (98-107) 10/10/17 05:07 Carbon Dioxide 25 mmol/L (22-30) 10/10/17 05:07 Anion Gap 17 mmol/L 10/10/17 05:07 BUN 10 mg/dL (9-20) 10/10/17 05:07 Creatinine 0.9 mg/dL (0.8-1.5) 10/10/17 05:07 Estimated GFR > 60 ml/min 10/10/17 05:07 BUN/Creatinine Ratio 11 % 10/10/17 05:07 Glucose 112 mg/dL (75-100) H 10/10/17 05:07 Lactic Acid 1.50 mmol/L (0.7-2.0) 10/05/17 21:39 Calcium 9.0 mg/dL (8.4-10.2) 10/10/17 05:07 Total Bilirubin 0.50 mg/dL (0.1-1.2) 10/05/17 17:51 AST 21 units/L (5-40) 10/05/17 17:51 ALT 12 units/L (7-56) 10/05/17 17:51 Alkaline Phosphatase 86 units/L (35-129) 10/05/17 17:51 Lactate Dehydrogenase 283 units/L (91-180) H 10/08/17 06:12 Total Protein 8.0 g/dL (6.3-8.2) 10/05/17 17:51 Albumin 4.6 g/dL (3.9-5) 10/05/17 17:51 Albumin/Globulin Ratio 1.4 % 10/05/17 17:51 Blood Type O POSITIVE 10/05/17 18:49 Antibody Screen Negative 10/05/17 18:49
[2017-10-12] MEDS ORDERED: MILK OF MAGNESIA PO ONE (09:35)
[2017-10-12] MEDS ORDERED: DULCOLAX PR ONE (09:35)
--- NOTE | 2017-10-12 09:40 | Progress Note ---
Assessment and Plan Plan for closure Friday of patient's left lower extremity fasciotomies Subjective Date of service: 10/12/17 Principal diagnosis: Acute Limb Ischemia s/p thrombolysis; Hypoxemic Resp failure; PVDx; HIV +ve Interval history: Doing well. No significant complaints of pain. Palpable pedal pulses on the left. Objective - Constitutional Vitals: Vital Signs - 12hr 10/11/17 10/11/17 10/11/17 21:51 22:51 23:44 Temperature 98.2 F Pulse Rate 73 78 Respiratory 20 20 18 Rate Respiratory Rate [Left Leg] Blood Pressure 107/63 130/86 O2 Sat by Pulse 93 Oximetry 10/12/17 10/12/17 10/12/17 00:17 03:51 06:22 Temperature 98.5 F Pulse Rate 65 Respiratory 20 Rate Respiratory 22 Rate [Left Leg] Blood Pressure 112/72 O2 Sat by Pulse 92 Oximetry 10/12/17 10/12/17 10/12/17 06:36 07:50 08:53 Temperature 98.4 F Pulse Rate 65 78 Respiratory 18 24 Rate Respiratory Rate [Left Leg] Blood Pressure 134/88 O2 Sat by Pulse 92 Oximetry General appearance: Present: no acute distress - EENT Eyes: PERRL ENT: hearing intact - Neck Neck: supple - Respiratory Respiratory effort: normal - Breasts Breasts: deferred - Cardiovascular Rhythm: regular Extremities: pulses intact, abnormal Extremity abnormal: edema - Gastrointestinal General gastrointestinal: Present: deferred Rectal Exam: deferred - Genitourinary Male genitourinary: deferred - Psychiatric Psychiatric: appropriate mood/affect, cooperative - Labs CBC & Chem 7: 10/11/17 09:46 10/10/17 05:07 Labs: Abnormal lab results 10/11/17 Range/Units 09:46 Hgb 15.3 H (11.8-15.2) gm/dl
[2017-10-12] MEDS: PEPCID PO SCH (10:38)
[2017-10-12] MEDS: ZESTRIL PO SCH (10:39)
[2017-10-12] MEDS: LOPRESSOR PO SCH ×2 (10:39→23:30)
[2017-10-12] MEDS: OxyCONTIN PO SCH ×2 (10:40→23:29)
[2017-10-12] MEDS: HEPARIN/ 0.45% NACL-25,000 UNIT/500 ML 25,000 UNIT/500 ML BAG IV SCH (12:25)
[2017-10-12] MEDS: NORCO 5/325 PO SCH (12:58)
--- NOTE | 2017-10-12 13:23 | Progress Note ---
Assessment and Plan Acute limb ischemia, status post catheter-directed thrombolytic therapy. Peripheral vascular disease. Hypertension. Tobacco use disorder. History of deep venous thrombosis. Asthma. Human immunodeficiency virus positive. Obesity. History of coronary artery disease - serum LDH slightly elevated but other possible reasons - encouraged ICS and deep breathing re: Atelectasis - CXR discontinued - continue supplemental oxygen and wean for sats > 90% - continue wound care per RN and WCT - vascular surgery E&M ongoing - continue IV heparin for now - hematology consult noted re: coumadin X 6 months - continue GI prophylaxis - continue ART ... re-evaluate in am & prn ... 35' Subjective Date of service: 10/12/17 Principal diagnosis: Acute Limb Ischemia s/p thrombolysis; Hypoxemic Resp failure; PVDx; HIV +ve Interval history: Patient is seen today for: Acute Limb Ischemia s/p thrombolysis; Hypoxemic Resp failure; PVDx; HIV +ve Seen and examined at bedside; 24hour events reviewed; nursing and respiratory care staff consulted; no adverse overnight events reported to me; resting in bed ; Objective Vital Signs - 12hr 10/12/17 10/12/17 10/12/17 03:51 06:22 06:36 Temperature 98.5 F Pulse Rate 65 65 Respiratory Rate Respiratory 22 Rate [Left Leg] Blood Pressure 112/72 O2 Sat by Pulse 92 Oximetry 10/12/17 10/12/17 10/12/17 07:50 08:53 10:39 Temperature 98.4 F Pulse Rate 78 Respiratory 18 24 Rate Respiratory Rate [Left Leg] Blood Pressure 134/88 134/88 O2 Sat by Pulse 92 Oximetry 10/12/17 11:44 Temperature 97.4 F L Pulse Rate 89 Respiratory 18 Rate Respiratory Rate [Left Leg] Blood Pressure 106/77 O2 Sat by Pulse 92 Oximetry Constitutional: no acute distress, alert, other (elderly AAM, normocephalic and atraumatic resting in bed.) Eyes: non-icteric ENT: oropharynx moist, other (mallampati 2) Neck: supple, no lymphadenopathy, no JVD, other (no thyromegaly) Effort: mildly labored Ascultation: Bilateral: clear, diminished breath sounds, rhonchi (base) Percussion: Bilateral: not dull Cardiovascular: regular rate and rhythm, other (No R/M) Gastrointestinal: normoactive bowel sounds, soft, non-tender, non-distended, other (No HSM) Integumentary: normal Extremities: no cyanosis, pulses normal, no ischemia or petechiae, other (left leg /alan dressing) Neurologic: normal mental status, non-focal exam, pupils equal and round, motor strength normal and Psychiatric: mood appropriate, affect normal CBC and BMP: 10/11/17 09:46 10/10/17 05:07 ABG, PT/INR, D-dimer: ABG POC ABG pH 7.354 (7.35-7.45) 10/06/17 16:44 POC ABG pCO2 45.0 (35-45) 10/06/17 16:44 POC ABG pO2 59 (80-105) L 10/06/17 16:44 POC ABG HCO3 25.1 10/06/17 16:44 POC ABG Total CO2 26 10/06/17 16:44 POC ABG O2 Sat 89 10/06/17 16:44 PT/INR, D-dimer PT 13.0 Sec. (12.2-14.9) 10/05/17 17:51 INR 0.94 (0.87-1.13) 10/05/17 17:51 Abnormal lab findings: Abnormal Labs 10/05/17 10/05/17 10/05/17 17:51 17:51 17:51 RBC 5.22 H Hgb 15.9 H Hct 46.8 H Plt Count [place] % (Auto) 8.1 H Eos % (Auto) Baso % (Auto) Seg Neutrophils % Seg Neuts % (Manual) Lymphocytes % (Manual) Eosinophils % (Manual) Eosinophils # (Manual) Fibrinogen LA PTT Baseline Heparin Anti-Xa Level POC ABG pO2 Chloride Glucose 122 H Lactic Acid 3.10 H* Lactate Dehydrogenase 10/05/17 10/06/17 10/06/17 19:44 01:54 01:54 RBC Hgb Hct Plt Count [place] % (Auto) Eos % (Auto) Baso % (Auto) Seg Neutrophils % 71.8 H Seg Neuts % (Manual) Lymphocytes % (Manual) Eosinophils % (Manual) Eosinophils # (Manual) Fibrinogen 521 H LA PTT Baseline Heparin Anti-Xa Level 0.15 L POC ABG pO2 Chloride Glucose Lactic Acid Lactate Dehydrogenase 10/06/17 10/06/17 10/06/17 05:41 07:14 07:14 RBC Hgb Hct Plt Count [place] % (Auto) 7.6 H Eos % (Auto) Baso % (Auto) Seg Neutrophils % Seg Neuts % (Manual) Lymphocytes % (Manual) Eosinophils % (Manual) Eosinophils # (Manual) Fibrinogen LA PTT Baseline Heparin Anti-Xa Level > 2.00 H POC ABG pO2 Chloride Glucose 103 H Lactic Acid Lactate Dehydrogenase 10/06/17 10/06/17 10/06/17 15:00 15:00 16:44 RBC Hgb Hct Plt Count [place] % (Auto) Eos % (Auto) 4.8 H Baso % (Auto) 2.0 H Seg Neutrophils % Seg Neuts % (Manual) Lymphocytes % (Manual) Eosinophils % (Manual) Eosinophils # (Manual) Fibrinogen LA PTT Baseline Heparin Anti-Xa Level 0.11 L POC ABG pO2 59 L Chloride Glucose Lactic Acid Lactate Dehydrogenase 10/06/17 10/07/17 10/07/17 21:09 03:35 03:35 RBC Hgb Hct Plt Count 133 L [place] % (Auto) Eos % (Auto) Baso % (Auto) Seg Neutrophils % Seg Neuts % (Manual) Lymphocytes % (Manual) Eosinophils % (Manual) Eosinophils # (Manual) Fibrinogen LA PTT Baseline Heparin Anti-Xa Level 0.10 L POC ABG pO2 Chloride 96.4 L Glucose 114 H Lactic Acid Lactate Dehydrogenase 10/07/17 10/08/17 10/08/17 10:23 06:12 06:12 RBC Hgb Hct Plt Count [place] % (Auto) Eos % (Auto) Baso % (Auto) Seg Neutrophils % Seg Neuts % (Manual) 35.0 L Lymphocytes % (Manual) 50.0 H Eosinophils % (Manual) 9.0 H Eosinophils # (Manual) 0.6 H Fibrinogen LA PTT Baseline 98 H Heparin Anti-Xa Level POC ABG pO2 Chloride Glucose Lactic Acid Lactate Dehydrogenase 283 H 10/10/17 10/11/17 10/12/17 05:07 09:46 09:37 RBC Hgb 15.3 H Hct Plt Count [place] % (Auto) Eos % (Auto) Baso % (Auto) Seg Neutrophils % Seg Neuts % (Manual) Lymphocytes % (Manual) Eosinophils % (Manual) Eosinophils # (Manual) Fibrinogen LA PTT Baseline Heparin Anti-Xa Level < 0.10 L POC ABG pO2 Chloride Glucose 112 H Lactic Acid Lactate Dehydrogenase [facility] notes reviewed: nursing
[2017-10-12] MEDS ORDERED: HABITROL TD SCH (14:00)
[2017-10-12] MEDS: HABITROL TD SCH (16:20)
[2017-10-13] MEDS: HEPARIN/ 0.45% NACL-25,000 UNIT/500 ML 25,000 UNIT/500 ML BAG IV SCH ×2 (05:25→21:06)
[2017-10-13 05:47] LABS: Basophils # (Auto) 0.1 K/mm3 (0.0-0.1); Basophils % (Auto) 0.8 % (0.0-1.8); Eosinophils # (Auto) 0.5 K/mm3 (0.0-0.4); Eosinophils % (Auto) 7.1 % (0.0-4.3); Hematocrit 45.8 % (35.5-45.6); Hemoglobin 15.5 gm/dl (11.8-15.2); Lymphocytes # (Auto) 2.8 K/mm3 (1.2-5.4); Mean Corpuscular HGB Conc 34 % (32-34); Mean Corpuscular Hemoglobin 31 pg (28-32); Mean Corpuscular Volume 91 fl (84-94); Monocytes # (Auto) 0.6 K/mm3 (0.0-0.8); Monocytes % (Auto) 8.1 % (0.0-7.3); Platelet Count 225 K/mm3 (140-440); Red Blood Count 5.03 M/mm3 (3.65-5.03); Red Cell Distribution Width 14.6 % (13.2-15.2)
[2017-10-13 06:12] LABS: BUN/Creatinine Ratio 15; Blood Urea Nitrogen 15 mg/dL (9-20); Calcium 9.5 mg/dL (8.4-10.2); Hemolysis Index 15
--- NOTE | 2017-10-13 09:05 | Hem/Onc Progress Note ---
Assessment and Plan Protein C and S within normal limits. Lupus anticoagulant indeterminate due to heparin. Rest pending. Continue heparin and can be switched to Coumadin when ready. We will have to repeat lupus anticoagulant as outpatient Subjective Date of service: 10/13/17 Interval history: Events noted. pt to have surgery possibly today Objective - Constitutional Vitals: Last Vital Signs Temp 98.5 F 10/13/17 07:55 Pulse 82 10/13/17 07:55 Resp 17 10/13/17 08:17 BP 120/77 10/13/17 07:55 Pulse Ox 90 10/13/17 07:55 General appearance: no acute distress Performance status: 3-limited selfcare - Neck Neck: supple - Respiratory Respiratory effort: Positive: normal - Cardiovascular Rhythm: regular Extremities: abnormal (left leg bandaged swelling better warm to touch) - Gastrointestinal General gastrointestinal: Present: soft - Labs Lab Results: Laboratory Results - last 24 hr 10/12/17 10/12/17 10/13/17 09:37 12:47 05:28 WBC 7.7 RBC 5.03 Hgb 15.5 H Hct 45.8 H MCV 91 MCH 31 MCHC 34 RDW 14.6 Plt Count 225 Lymph % (Auto) 37.0 H Roberts % (Auto) 8.1 H Eos % (Auto) 7.1 H Baso % (Auto) 0.8 Lymph # 2.8 Roberts # 0.6 Eos # 0.5 H Baso # 0.1 Seg Neutrophils % 47.0 Seg Neutrophils # 3.6 Heparin Anti-Xa Level < 0.10 L 0.39 Sodium Potassium Chloride Carbon Dioxide Anion Gap BUN Creatinine Estimated GFR BUN/Creatinine Ratio Glucose Calcium Magnesium 10/13/17 05:28 WBC RBC Hgb Hct MCV MCH MCHC RDW Plt Count Lymph % (Auto) Roberts % (Auto) Eos % (Auto) Baso % (Auto) Lymph # Roberts # Eos # Baso # Seg Neutrophils % Seg Neutrophils # Heparin Anti-Xa Level Sodium 138 Potassium 4.5 Chloride 98.2 Carbon Dioxide 27 Anion Gap 17 BUN 15 Creatinine 1.0 Estimated GFR > 60 BUN/Creatinine Ratio 15 Glucose 95 Calcium 9.5 Magnesium 2.20
[2017-10-13] MEDS: ZESTRIL PO SCH (09:46)
[2017-10-13] MEDS: NORCO 5/325 PO PRN ×4 (09:47→22:28)
[2017-10-13] MEDS: LOPRESSOR PO SCH ×2 (09:47→21:19)
[2017-10-13] MEDS: PEPCID PO SCH (09:48)
[2017-10-13] MEDS: HABITROL TD SCH (09:48)
[2017-10-13] MEDS: SODIUM CHLORIDE FLUSH SYRINGE 10 ML IV SCH ×2 (09:49→21:20)
--- NOTE | 2017-10-13 10:40 | Progress Note ---
Assessment and Plan Assessment and plan: --Compartment syndrome s/p fasciotomy /wound VAC, elevate the limb Physical therapy as tolerated,pain medication supportive care, vascular planning wound closure today, rescheduled -- Ischemia of left lower extremity Current Visit: Yes Status: Acute Plan to address problem: S/p catheter directed thrombolytic therapy. And Thrombectomy --HIV disease Current Visit: Yes Status: Acute Plan to address problem: Continue with antiretroviral therapy, outpatient ID f/u upon discharge --Lactic Acidosis Current Visit: Yes Status: Acute Plan to address problem: Lactic acidosis resolved. -- PVD (peripheral vascular disease) Current Visit: Yes Status: Acute Continue current management -- Nicotine dependence Current Visit: Yes Status: Acute Qualifiers: Substance use status: in withdrawal Plan to address problem: smoking cessation counseling, supportive care. -- HTN (hypertension) continue antihypertensives and when necessary medication --Constipation; stool softeners,milk of magnesia, Dulcolax if no improvement consider enema as needed -- DVT prophylaxis Current Visit: Yes Status: Acute Plan to address problem: Patient is on heparin drip Physical therapy occupational therapy Plan of care is reviewed with patient and his notes History Interval history: Patient seen and examined medical records reviewed No new events reported by the nursing staff Patient was initially scheduled for wound closure, Reschedule for technical reasons Patient feels better Complaints of excruciating pain by changing the dressing Hospitalist Physical - Constitutional Vitals: Temp Pulse Resp BP Pulse Ox 98.5 F 70 17 122/74 90 10/13/17 07:55 10/13/17 10:00 10/13/17 09:47 10/13/17 09:47 10/13/17 07:55 General appearance: Present: no acute distress, well-nourished - EENT Eyes: Present: PERRL, EOM intact - Neck Neck: Present: supple, normal ROM - Respiratory Respiratory effort: normal Respiratory: negative: rales, rhonchi, wheezing - Cardiovascular Rhythm: regular Heart Sounds: Present: S1 & S2 - Extremities Extremities: abnormal (dressing in place, wound VAC intact) Extremity abnormal: edema, erythema - Abdominal General gastrointestinal: soft, non-tender, non-distended, normal bowel sounds - Integumentary Integumentary: Present: clear, warm - Psychiatric Psychiatric: appropriate mood/affect, cooperative - Neurologic Neurologic: CNII-XII intact, moves all extremities Results - Labs CBC & Chem 7: 10/13/17 05:28 10/13/17 05:28 Labs: Laboratory Last Values WBC 7.7 K/mm3 (4.5-11.0) 10/13/17 05:28 RBC 5.03 M/mm3 (3.65-5.03) 10/13/17 05:28 Hgb 15.5 gm/dl (11.8-15.2) H 10/13/17 05:28 Hct 45.8 % (35.5-45.6) H 10/13/17 05:28 MCV 91 fl (84-94) 10/13/17 05:28 MCH 31 pg (28-32) 10/13/17 05:28 MCHC 34 % (32-34) 10/13/17 05:28 RDW 14.6 % (13.2-15.2) 10/13/17 05:28 Plt Count 225 K/mm3 (140-440) 10/13/17 05:28 Lymph % (Auto) 37.0 % (13.4-35.0) H 10/13/17 05:28 [place] % (Auto) 8.1 % (0.0-7.3) H 10/13/17 05:28 Eos % (Auto) 7.1 % (0.0-4.3) H 10/13/17 05:28 Baso % (Auto) 0.8 % (0.0-1.8) 10/13/17 05:28 Lymph # 2.8 K/mm3 (1.2-5.4) 10/13/17 05:28 [place] # 0.6 K/mm3 (0.0-0.8) 10/13/17 05:28 Eos # 0.5 K/mm3 (0.0-0.4) H 10/13/17 05:28 Baso # 0.1 K/mm3 (0.0-0.1) 10/13/17 05:28 Add Manual Diff Complete 10/08/17 06:12 Total Counted 100 10/08/17 06:12 Seg Neutrophils % 47.0 % (40.0-70.0) 10/13/17 05:28 Seg Neuts % (Manual) 35.0 % (40.0-70.0) L 10/08/17 06:12 Band Neutrophils % 1.0 % 10/08/17 06:12 Lymphocytes % (Manual) 50.0 % (13.4-35.0) H 10/08/17 06:12 Reactive Lymphs % (Man) 0 % 10/08/17 06:12 Monocytes % (Manual) 4.0 % (0.0-7.3) 10/08/17 06:12 Eosinophils % (Manual) 9.0 % (0.0-4.3) H 10/08/17 06:12 Basophils % (Manual) 1.0 % (0.0-1.8) 10/08/17 06:12 Metamyelocytes % 0 % 10/08/17 06:12 Myelocytes % 0 % 10/08/17 06:12 Promyelocytes % 0 % 10/08/17 06:12 Blast Cells % 0 % 10/08/17 06:12 Nucleated RBC % Not Reportable 10/08/17 06:12 Seg Neutrophils # 3.6 K/mm3 (1.8-7.7) 10/13/17 05:28 Seg Neutrophils # Man 2.5 K/mm3 (1.8-7.7) 10/08/17 06:12 Band Neutrophils # 0.1 K/mm3 10/08/17 06:12 Lymphocytes # (Manual) 3.6 K/mm3 (1.2-5.4) 10/08/17 06:12 Abs React Lymphs (Man) 0.0 K/mm3 10/08/17 06:12 Monocytes # (Manual) 0.3 K/mm3 (0.0-0.8) 10/08/17 06:12 Eosinophils # (Manual) 0.6 K/mm3 (0.0-0.4) H 10/08/17 06:12 Basophils # (Manual) 0.1 K/mm3 (0.0-0.1) 10/08/17 06:12 Metamyelocytes # 0.0 K/mm3 10/08/17 06:12 Myelocytes # 0.0 K/mm3 10/08/17 06:12 Promyelocytes # 0.0 K/mm3 10/08/17 06:12 Blast Cells # 0.0 K/mm3 10/08/17 06:12 WBC Morphology Not Reportable 10/08/17 06:12 Hypersegmented Neuts Not Reportable 10/08/17 06:12 Hyposegmented Neuts Not Reportable 10/08/17 06:12 Hypogranular Neuts Not Reportable 10/08/17 06:12 Smudge Cells Not Reportable 10/08/17 06:12 Toxic Granulation Not Reportable 10/08/17 06:12 Toxic Vacuolation Not Reportable 10/08/17 06:12 Dohle Bodies Not Reportable 10/08/17 06:12 Pelger-Huet Anomaly Not Reportable 10/08/17 06:12 [place] Rods Not Reportable 10/08/17 06:12 Platelet Estimate Consistent w auto 10/08/17 06:12 Clumped Platelets Not Reportable 10/08/17 06:12 Plt Clumps, EDTA Not Reportable 10/08/17 06:12 Large Platelets Not Reportable 10/08/17 06:12 Giant Platelets Not Reportable 10/08/17 06:12 Platelet Satelliting Not Reportable 10/08/17 06:12 Plt Morphology Comment Not Reportable 10/08/17 06:12 RBC Morphology Not Reportable 10/08/17 06:12 Dimorphic RBCs Not Reportable 10/08/17 06:12 Polychromasia Not Reportable 10/08/17 06:12 Hypochromasia Not Reportable 10/08/17 06:12 Poikilocytosis Not Reportable 10/08/17 06:12 Anisocytosis 1+ 10/08/17 06:12 Microcytosis Not Reportable 10/08/17 06:12 Macrocytosis Not Reportable 10/08/17 06:12 Spherocytes Not Reportable 10/08/17 06:12 Pappenheimer Bodies Not Reportable 10/08/17 06:12 Sickle Cells Not Reportable 10/08/17 06:12 Target Cells Not Reportable 10/08/17 06:12 Tear Drop Cells Not Reportable 10/08/17 06:12 Ovalocytes Not Reportable 10/08/17 06:12 Helmet Cells Not Reportable 10/08/17 06:12 Rosario-[place] Bodies Not Reportable 10/08/17 06:12 [place] Rings Not Reportable 10/08/17 06:12 [place] Cells Not Reportable 10/08/17 06:12 Bite Cells Not Reportable 10/08/17 06:12 Crenated Cell Not Reportable 10/08/17 06:12 Elliptocytes Not Reportable 10/08/17 06:12 Acanthocytes (Spur) Not Reportable 10/08/17 06:12 Rouleaux Not Reportable 10/08/17 06:12 Hemoglobin C Crystals Not Reportable 10/08/17 06:12 Schistocytes Not Reportable 10/08/17 06:12 Malaria parasites Not Reportable 10/08/17 06:12 [place] Bodies Not Reportable 10/08/17 06:12 Hem Pathologist Commnt No 10/08/17 06:12 PT 13.0 Sec. (12.2-14.9) 10/05/17 17:51 INR 0.94 (0.87-1.13) 10/05/17 17:51 APTT 25.6 Sec. (24.2-36.6) 10/05/17 18:22 Fibrinogen 309 mg/dl (211-480) 10/06/17 15:00 Lupus Anticoagulant see below 10/07/17 10:23 LA PTT Baseline 98 sec (<=40) H 10/07/17 10:23 Free Protein S 132 % normal (57-171) 10/07/17 10:23 Total Protein S 105 % (70-140) 10/07/17 10:23 Heparin Anti-Xa Level 0.39 U.I./ml (0.3-0.7) 10/12/17 12:47 POC ABG pH 7.354 (7.35-7.45) 10/06/17 16:44 POC ABG pCO2 45.0 (35-45) 10/06/17 16:44 POC ABG pO2 59 (80-105) L 10/06/17 16:44 POC ABG HCO3 25.1 10/06/17 16:44 POC ABG Total CO2 26 10/06/17 16:44 POC ABG O2 Sat 89 10/06/17 16:44 POC ABG Base Excess 0 10/06/17 16:44 FiO2 32 % 10/06/17 16:44 Sodium 138 mmol/L (137-145) 10/13/17 05:28 Potassium 4.5 mmol/L (3.6-5.0) 10/13/17 05:28 Chloride 98.2 mmol/L (98-107) 10/13/17 05:28 Carbon Dioxide 27 mmol/L (22-30) 10/13/17 05:28 Anion Gap 17 mmol/L 10/13/17 05:28 BUN 15 mg/dL (9-20) 10/13/17 05:28 Creatinine 1.0 mg/dL (0.8-1.5) 10/13/17 05:28 Estimated GFR > 60 ml/min 10/13/17 05:28 BUN/Creatinine Ratio 15 % 10/13/17 05:28 Glucose 95 mg/dL (75-100) 10/13/17 05:28 Lactic Acid 1.50 mmol/L (0.7-2.0) 10/05/17 21:39 Calcium 9.5 mg/dL (8.4-10.2) 10/13/17 05:28 Magnesium 2.20 mg/dL (1.7-2.3) 10/13/17 05:28 Total Bilirubin 0.50 mg/dL (0.1-1.2) 10/05/17 17:51 AST 21 units/L (5-40) 10/05/17 17:51 ALT 12 units/L (7-56) 10/05/17 17:51 Alkaline Phosphatase 86 units/L (35-129) 10/05/17 17:51 Lactate Dehydrogenase 283 units/L (91-180) H 10/08/17 06:12 Total Protein 8.0 g/dL (6.3-8.2) 10/05/17 17:51 Albumin 4.6 g/dL (3.9-5) 10/05/17 17:51 Albumin/Globulin Ratio 1.4 % 10/05/17 17:51 Blood Type O POSITIVE 10/05/17 18:49 Antibody Screen Negative 10/05/17 18:49
[2017-10-13] MEDS ORDERED: MORPHINE IV ONE (11:00)
--- NOTE | 2017-10-13 11:43 | Progress Note ---
Assessment and Plan Pt s/p acute thrombosis of the arterial flow to the LLE resulting in profound ischemia. He is s/p EKOS/revascularization earlier this admission. LLE ischemia lead to compartment syndrome, and a fasciotomy was performed. A wound vac was placed last week in hopes that reduced swelling may allow for primary closure of the fasciotomy wound prior to d/c home. The Pt is currently on a heparin drip. Oral anticogulation (Coumadin recommended by Hematology) on hold until his surgical closure is completed. The Pt appears to have a L foot drop. PT reconsulted, await eval. Next elective/non-emergent open surgical case will likely be mid-week (suspect Friday). Discussed with pt, who states understanding and agrees to proceed. - Patient Problems (1) Ischemia of left lower extremity Current Visit: Yes Status: Acute (2) Hypercoagulable state Current Visit: Yes Status: Suspected (3) HIV disease Current Visit: Yes Status: Acute (4) HTN (hypertension) Current Visit: Yes Status: Acute Qualifiers: Hypertension type: essential hypertension Qualified Code(s): I10 - Essential (primary) hypertension (5) Nicotine dependence Current Visit: Yes Status: Acute Qualifiers: Substance use status: in withdrawal Subjective Date of service: 10/13/17 Principal diagnosis: Acute Limb Ischemia s/p thrombolysis; Hypoxemic Resp failure; PVDx; HIV +ve Interval history: Pt awake and alert. Continues to c/o fasciotomy incisional discomfort to manipulation. Objective - Constitutional Vitals: Vital Signs - 12hr 10/12/17 10/13/17 10/13/17 23:30 04:18 07:55 Temperature 98.0 F 98.5 F Pulse Rate 78 82 82 Respiratory 20 18 Rate Blood Pressure 113/87 122/97 120/77 O2 Sat by Pulse 93 90 Oximetry 10/13/17 10/13/17 10/13/17 08:17 09:46 09:47 Temperature Pulse Rate 82 82 Respiratory 17 17 Rate Blood Pressure 122/74 122/74 O2 Sat by Pulse Oximetry 10/13/17 10/13/17 10/13/17 10:00 10:47 10:57 Temperature Pulse Rate 70 Respiratory 19 19 Rate Blood Pressure O2 Sat by Pulse Oximetry General appearance: Present: no acute distress - EENT Eyes: EOM intact ENT: hearing intact - Neck Neck: supple - Respiratory Respiratory effort: normal Extremities: no ischemia, normal temperature, abnormal (LLE fasciotomy incision evaluated while ET nurse was changing the vac. Wound base red, skin edges soft and mobile. Though the exam was limited secondary to pt's guarding.) - Neurologic Neurologic: other (decreased motor fxn to left foot.) - Psychiatric Psychiatric: appropriate mood/affect, intact judgment & insight, cooperative - Labs CBC & Chem 7: 10/13/17 05:28 10/13/17 05:28 Labs: Abnormal lab results 10/12/17 10/13/17 Range/Units 09:37 05:28 Hgb 15.5 H (11.8-15.2) gm/dl Hct 45.8 H (35.5-45.6) % Lymph % (Auto) 37.0 H (13.4-35.0) % [place] % (Auto) 8.1 H (0.0-7.3) % Eos % (Auto) 7.1 H (0.0-4.3) % Eos # 0.5 H (0.0-0.4) K/mm3 Heparin Anti-Xa Level < 0.10 L (0.3-0.7) U.I./ml
--- NOTE | 2017-10-13 13:30 | Progress Note ---
Assessment and Plan Acute limb ischemia, status post catheter-directed thrombolytic therapy. Peripheral vascular disease. Hypertension. Tobacco use disorder. History of deep venous thrombosis. Asthma. Human immunodeficiency virus positive. Obesity. History of coronary artery disease - serum LDH slightly elevated but other possible reasons - encouraged ICS and deep breathing re: Atelectasis - CXR discontinued - continue supplemental oxygen and wean for sats > 90% - continue wound care per RN and WCT - vascular surgery E&M ongoing - continue IV heparin for now - hematology consult noted re: coumadin X 6 months - continue GI prophylaxis - continue ART ... re-evaluate in am & prn ... 35' Subjective Date of service: 10/13/17 Principal diagnosis: Acute Limb Ischemia s/p thrombolysis; Hypoxemic Resp failure; PVDx; HIV +ve Interval history: Patient is seen today for: Acute Limb Ischemia s/p thrombolysis; Hypoxemic Resp failure; PVDx; HIV +ve Seen and examined at bedside; 24hour events reviewed; nursing and respiratory care staff consulted; no adverse overnight events reported to me; resting in bed ; Objective Vital Signs - 12hr 10/13/17 10/13/17 10/13/17 04:18 07:55 08:17 Temperature 98.0 F 98.5 F Pulse Rate 82 82 Respiratory 20 18 17 Rate Blood Pressure 122/97 120/77 O2 Sat by Pulse 93 90 Oximetry 10/13/17 10/13/17 10/13/17 09:46 09:47 10:00 Temperature Pulse Rate 82 82 70 Respiratory 17 Rate Blood Pressure 122/74 122/74 O2 Sat by Pulse Oximetry 10/13/17 10/13/17 10/13/17 10:47 10:57 11:57 Temperature 97.8 F Pulse Rate 61 Respiratory 19 19 18 Rate Blood Pressure 120/69 O2 Sat by Pulse 95 Oximetry Constitutional: no acute distress, alert, other (elderly AAM, normocephalic and atraumatic resting in bed.) Eyes: non-icteric ENT: oropharynx moist, other (mallampati 2) Neck: supple, no lymphadenopathy, no JVD, other (no thyromegaly) Effort: mildly labored Ascultation: Bilateral: clear, diminished breath sounds, rhonchi (base) Percussion: Bilateral: not dull Cardiovascular: regular rate and rhythm, other (No R/M) Gastrointestinal: normoactive bowel sounds, soft, non-tender, non-distended, other (No HSM) Integumentary: normal Extremities: no cyanosis, pulses normal, no ischemia or petechiae, other (left leg /alan dressing) Neurologic: normal mental status, non-focal exam, pupils equal and round, motor strength normal and Psychiatric: mood appropriate, affect normal CBC and BMP: 10/13/17 05:28 10/13/17 05:28 ABG, PT/INR, D-dimer: ABG POC ABG pH 7.354 (7.35-7.45) 10/06/17 16:44 POC ABG pCO2 45.0 (35-45) 10/06/17 16:44 POC ABG pO2 59 (80-105) L 10/06/17 16:44 POC ABG HCO3 25.1 10/06/17 16:44 POC ABG Total CO2 26 10/06/17 16:44 POC ABG O2 Sat 89 10/06/17 16:44 PT/INR, D-dimer PT 13.0 Sec. (12.2-14.9) 10/05/17 17:51 INR 0.94 (0.87-1.13) 10/05/17 17:51 Abnormal lab findings: Abnormal Labs 10/05/17 10/05/17 10/05/17 17:51 17:51 17:51 RBC 5.22 H Hgb 15.9 H Hct 46.8 H Plt Count Lymph % (Auto) [place] % (Auto) 8.1 H Eos % (Auto) Baso % (Auto) Eos # Seg Neutrophils % Seg Neuts % (Manual) Lymphocytes % (Manual) Eosinophils % (Manual) Eosinophils # (Manual) Fibrinogen LA PTT Baseline Heparin Anti-Xa Level POC ABG pO2 Chloride Glucose 122 H Lactic Acid 3.10 H* Lactate Dehydrogenase 10/05/17 10/06/17 10/06/17 19:44 01:54 01:54 RBC Hgb Hct Plt Count Lymph % (Auto) [place] % (Auto) Eos % (Auto) Baso % (Auto) Eos # Seg Neutrophils % 71.8 H Seg Neuts % (Manual) Lymphocytes % (Manual) Eosinophils % (Manual) Eosinophils # (Manual) Fibrinogen 521 H LA PTT Baseline Heparin Anti-Xa Level 0.15 L POC ABG pO2 Chloride Glucose Lactic Acid Lactate Dehydrogenase 07/02/18 07/02/18 07/02/18 05:41 07:14 07:14 RBC Hgb Hct Plt Count Lymph % (Auto) [place] % (Auto) 7.6 H Eos % (Auto) Baso % (Auto) Eos # Seg Neutrophils % Seg Neuts % (Manual) Lymphocytes % (Manual) Eosinophils % (Manual) Eosinophils # (Manual) Fibrinogen LA PTT Baseline Heparin Anti-Xa Level > 2.00 H POC ABG pO2 Chloride Glucose 103 H Lactic Acid Lactate Dehydrogenase 10/06/17 10/06/17 10/06/17 15:00 15:00 16:44 RBC Hgb Hct Plt Count Lymph % (Auto) [place] % (Auto) Eos % (Auto) 4.8 H Baso % (Auto) 2.0 H Eos # Seg Neutrophils % Seg Neuts % (Manual) Lymphocytes % (Manual) Eosinophils % (Manual) Eosinophils # (Manual) Fibrinogen LA PTT Baseline Heparin Anti-Xa Level 0.11 L POC ABG pO2 59 L Chloride Glucose Lactic Acid Lactate Dehydrogenase 10/06/17 10/07/17 10/07/17 21:09 03:35 03:35 RBC Hgb Hct Plt Count 133 L Lymph % (Auto) [place] % (Auto) Eos % (Auto) Baso % (Auto) Eos # Seg Neutrophils % Seg Neuts % (Manual) Lymphocytes % (Manual) Eosinophils % (Manual) Eosinophils # (Manual) Fibrinogen LA PTT Baseline Heparin Anti-Xa Level 0.10 L POC ABG pO2 Chloride 96.4 L Glucose 114 H Lactic Acid Lactate Dehydrogenase 10/07/17 10/08/17 10/08/17 10:23 06:12 06:12 RBC Hgb Hct Plt Count Lymph % (Auto) [place] % (Auto) Eos % (Auto) Baso % (Auto) Eos # Seg Neutrophils % Seg Neuts % (Manual) 35.0 L Lymphocytes % (Manual) 50.0 H Eosinophils % (Manual) 9.0 H Eosinophils # (Manual) 0.6 H Fibrinogen LA PTT Baseline 98 H Heparin Anti-Xa Level POC ABG pO2 Chloride Glucose Lactic Acid Lactate Dehydrogenase 283 H 10/10/17 10/11/17 10/12/17 05:07 09:46 09:37 RBC Hgb 15.3 H Hct Plt Count Lymph % (Auto) [place] % (Auto) Eos % (Auto) Baso % (Auto) Eos # Seg Neutrophils % Seg Neuts % (Manual) Lymphocytes % (Manual) Eosinophils % (Manual) Eosinophils # (Manual) Fibrinogen LA PTT Baseline Heparin Anti-Xa Level < 0.10 L POC ABG pO2 Chloride Glucose 112 H Lactic Acid Lactate Dehydrogenase 10/13/17 05:28 RBC Hgb 15.5 H Hct 45.8 H Plt Count Lymph % (Auto) 37.0 H [place] % (Auto) 8.1 H Eos % (Auto) 7.1 H Baso % (Auto) Eos # 0.5 H Seg Neutrophils % Seg Neuts % (Manual) Lymphocytes % (Manual) Eosinophils % (Manual) Eosinophils # (Manual) Fibrinogen LA PTT Baseline Heparin Anti-Xa Level POC ABG pO2 Chloride Glucose Lactic Acid Lactate Dehydrogenase Allied health notes reviewed: nursing
[2017-10-14 06:52] LABS: Basophils # (Auto) 0.1 K/mm3 (0.0-0.1); Basophils % (Auto) 0.9 % (0.0-1.8); Eosinophils # (Auto) 0.5 K/mm3 (0.0-0.4); Eosinophils % (Auto) 7.3 % (0.0-4.3); Hematocrit 45.5 % (35.5-45.6); Hemoglobin 15.3 gm/dl (11.8-15.2); Lymphocytes # (Auto) 3.2 K/mm3 (1.2-5.4); Lymphocytes % (Auto) 45.1 % (13.4-35.0); Mean Corpuscular HGB Conc 34 % (32-34); Mean Corpuscular Hemoglobin 31 pg (28-32); Mean Corpuscular Volume 91 fl (84-94); Monocytes # (Auto) 0.5 K/mm3 (0.0-0.8); Monocytes % (Auto) 7.3 % (0.0-7.3); Platelet Count 225 K/mm3 (140-440); Red Cell Distribution Width 14.7 % (13.2-15.2)
[2017-10-14 07:16] LABS: Alanine Aminotransferase 27 units/L (7-56); Albumin 3.8 g/dL (3.9-5); BUN/Creatinine Ratio 19; Blood Urea Nitrogen 19 mg/dL (9-20); Calcium 9.7 mg/dL (8.4-10.2); Hemolysis Index 8
[2017-10-14] MEDS: ZESTRIL PO SCH (10:04)
[2017-10-14] MEDS: NORCO 5/325 PO PRN ×4 (10:10→22:49)
[2017-10-14] MEDS: LOPRESSOR PO SCH ×2 (10:11→22:50)
[2017-10-14] MEDS: HABITROL TD SCH (10:11)
[2017-10-14] MEDS: PEPCID PO SCH (10:11)
[2017-10-14] MEDS: SODIUM CHLORIDE FLUSH SYRINGE 10 ML IV SCH (10:12)
[2017-10-14] MEDS: HEPARIN/ 0.45% NACL-25,000 UNIT/500 ML 25,000 UNIT/500 ML BAG IV SCH (11:20)
--- NOTE | 2017-10-14 15:33 | Progress Note ---
Assessment and Plan Will attempt fasciotomy closure tomorrow. The R,B, and A explained, and the pt states understanding. He agrees to proceed. If wound can be closed completely then pt will not need vac upon discharge. Strongly encouraged the pt to participate with physical therapy. He appears to have a left foot drop and needs gait training (cautioned the pt, to be careful as he is currently anticoagulated increasing risk from falls). He also needs to increase activity to avoid de-conditioning and decrease risk of nosocomial pneumonia. He stated understanding and agrees. Pt is on a heparin drip. Oral anticoagulation is on hold until until after wound closure procedure. At that point he can started on Coumadin in preparation for discharge. - Patient Problems (1) Ischemia of left lower extremity Current Visit: Yes Status: Acute (2) Hypercoagulable state Current Visit: Yes Status: Suspected (3) HIV disease Current Visit: Yes Status: Acute (4) HTN (hypertension) Current Visit: Yes Status: Acute Qualifiers: Hypertension type: essential hypertension Qualified Code(s): I10 - Essential (primary) hypertension (5) Nicotine dependence Current Visit: Yes Status: Acute Qualifiers: Substance use status: in withdrawal Subjective Date of service: 10/14/17 Principal diagnosis: Acute Limb Ischemia s/p thrombolysis; Hypoxemic Resp failure; PVDx; HIV +ve Interval history: Pt awake and alert denies new complaint. Continues to c/o fasciotomy discomfort. Did not worked with PT yesterday due to discomfort. Objective - Constitutional Vitals: Vital Signs - 12hr 10/14/17 10/14/17 10/14/17 05:09 08:19 08:52 Temperature 97.6 F 98.6 F Pulse Rate 104 H 101 H Respiratory 16 19 16 Rate Blood Pressure 110/68 119/87 O2 Sat by Pulse 93 92 Oximetry 10/14/17 10/14/17 10/14/17 10:04 10:10 10:11 Temperature Pulse Rate 100 H 100 H Respiratory 19 Rate Blood Pressure 120/82 120/82 O2 Sat by Pulse Oximetry 10/14/17 10/14/17 10/14/17 11:56 12:00 14:21 Temperature Pulse Rate 76 94 H Respiratory 18 17 Rate Blood Pressure 113/72 O2 Sat by Pulse 95 Oximetry General appearance: Present: no acute distress - EENT Eyes: EOM intact ENT: hearing intact - Neck Neck: supple - Respiratory Respiratory effort: normal Extremities: no ischemia, normal temperature, abnormal (Right groin bandage removed puncture site healing. No obvious swelling or abnormality. Left lower leg vac in place.) - Neurologic Neurologic: other (Motor dysfunction to Left foot, scant movement to command.) - Psychiatric Psychiatric: appropriate mood/affect, intact judgment & insight, cooperative - Labs CBC & Chem 7: 10/14/17 06:16 10/14/17 06:16 Labs: Abnormal lab results 10/13/17 10/14/17 10/14/17 Range/Units 13:12 06:16 06:16 Hgb 15.3 H (11.8-15.2) gm/dl Lymph % (Auto) 45.1 H (13.4-35.0) % Eos % (Auto) 7.3 H (0.0-4.3) % Eos # 0.5 H (0.0-0.4) K/mm3 Seg Neutrophils % 39.4 L (40.0-70.0) % Heparin Anti-Xa Level 0.16 L (0.3-0.7) U.I./ml Albumin 3.8 L (3.9-5) g/dL
--- NOTE | 2017-10-14 18:43 | Progress Note ---
Assessment and Plan Acute limb ischemia, status post catheter-directed thrombolytic therapy. Peripheral vascular disease. Hypertension. Tobacco use disorder. History of deep venous thrombosis. Asthma. Human immunodeficiency virus positive. Obesity. History of coronary artery disease - for fasciotomy closure tomorrow per vascular - incentive spirometry - continue supplemental oxygen and wean for sats > 90% - continue wound care per RN and WCT - continue IV heparin for now - hematology consult noted re: coumadin X 6 months - continue GI prophylaxis - continue ART Subjective Date of service: 10/14/17 Principal diagnosis: Acute Limb Ischemia s/p thrombolysis; Hypoxemic Resp failure; PVDx; HIV +ve Objective Vital Signs - 12hr 10/14/17 10/14/17 10/14/17 08:19 08:52 10:04 Temperature 98.6 F Pulse Rate 101 H 100 H Respiratory 19 16 Rate Blood Pressure 119/87 120/82 Blood Pressure [Right] O2 Sat by Pulse 92 Oximetry 10/14/17 10/14/17 10/14/17 10:10 10:11 11:56 Temperature Pulse Rate 100 H 76 Respiratory 19 18 Rate Blood Pressure 120/82 113/72 Blood Pressure [Right] O2 Sat by Pulse 95 Oximetry 10/14/17 10/14/17 10/14/17 12:00 14:21 17:26 Temperature 98.4 F Pulse Rate 94 H 79 Respiratory 17 18 Rate Blood Pressure Blood Pressure 114/78 [Right] O2 Sat by Pulse 93 Oximetry 10/14/17 18:34 Temperature Pulse Rate Respiratory 17 Rate Blood Pressure Blood Pressure [Right] O2 Sat by Pulse Oximetry Constitutional: no acute distress, alert, other (elderly AAM, normocephalic and atraumatic resting in bed.) Eyes: non-icteric ENT: oropharynx moist, other (mallampati 2) Neck: supple, no lymphadenopathy, no JVD, other (no thyromegaly) Effort: mildly labored Ascultation: Bilateral: clear, diminished breath sounds, rhonchi (base) Percussion: Bilateral: not dull Cardiovascular: regular rate and rhythm, other (No R/M) Gastrointestinal: normoactive bowel sounds, soft, non-tender, non-distended, other (No HSM) Integumentary: normal Extremities: no cyanosis, pulses normal, no ischemia or petechiae, other (left leg /alan dressing) Neurologic: normal mental status, non-focal exam, pupils equal and round, motor strength normal and Psychiatric: mood appropriate, affect normal CBC and BMP: 10/14/17 06:16 10/14/17 06:16 ABG, PT/INR, D-dimer: ABG POC ABG pH 7.354 (7.35-7.45) 10/06/17 16:44 POC ABG pCO2 45.0 (35-45) 10/06/17 16:44 POC ABG pO2 59 (80-105) L 10/06/17 16:44 POC ABG HCO3 25.1 10/06/17 16:44 POC ABG Total CO2 26 10/06/17 16:44 POC ABG O2 Sat 89 10/06/17 16:44 PT/INR, D-dimer PT 13.0 Sec. (12.2-14.9) 10/05/17 17:51 INR 0.94 (0.87-1.13) 10/05/17 17:51 Abnormal lab findings: Abnormal Labs 10/05/17 10/05/17 10/05/17 17:51 17:51 17:51 RBC 5.22 H Hgb 15.9 H Hct 46.8 H Plt Count Lymph % (Auto) [place] % (Auto) 8.1 H Eos % (Auto) Baso % (Auto) Eos # Seg Neutrophils % Seg Neuts % (Manual) Lymphocytes % (Manual) Eosinophils % (Manual) Eosinophils # (Manual) Fibrinogen LA PTT Baseline Heparin Anti-Xa Level POC ABG pO2 Chloride Glucose 122 H Lactic Acid 3.10 H* Lactate Dehydrogenase Albumin 10/05/17 10/06/17 10/06/17 19:44 01:54 01:54 RBC Hgb Hct Plt Count Lymph % (Auto) [place] % (Auto) Eos % (Auto) Baso % (Auto) Eos # Seg Neutrophils % 71.8 H Seg Neuts % (Manual) Lymphocytes % (Manual) Eosinophils % (Manual) Eosinophils # (Manual) Fibrinogen 521 H LA PTT Baseline Heparin Anti-Xa Level 0.15 L POC ABG pO2 Chloride Glucose Lactic Acid Lactate Dehydrogenase Albumin 10/06/17 10/06/17 10/06/17 05:41 07:14 07:14 RBC Hgb Hct Plt Count Lymph % (Auto) [place] % (Auto) 7.6 H Eos % (Auto) Baso % (Auto) Eos # Seg Neutrophils % Seg Neuts % (Manual) Lymphocytes % (Manual) Eosinophils % (Manual) Eosinophils # (Manual) Fibrinogen LA PTT Baseline Heparin Anti-Xa Level > 2.00 H POC ABG pO2 Chloride Glucose 103 H Lactic Acid Lactate Dehydrogenase Albumin 10/06/17 10/06/17 10/06/17 15:00 15:00 16:44 RBC Hgb Hct Plt Count Lymph % (Auto) [place] % (Auto) Eos % (Auto) 4.8 H Baso % (Auto) 2.0 H Eos # Seg Neutrophils % Seg Neuts % (Manual) Lymphocytes % (Manual) Eosinophils % (Manual) Eosinophils # (Manual) Fibrinogen LA PTT Baseline Heparin Anti-Xa Level 0.11 L POC ABG pO2 59 L Chloride Glucose Lactic Acid Lactate Dehydrogenase Albumin 10/06/17 10/07/17 10/07/17 21:09 03:35 03:35 RBC Hgb Hct Plt Count 133 L Lymph % (Auto) [place] % (Auto) Eos % (Auto) Baso % (Auto) Eos # Seg Neutrophils % Seg Neuts % (Manual) Lymphocytes % (Manual) Eosinophils % (Manual) Eosinophils # (Manual) Fibrinogen LA PTT Baseline Heparin Anti-Xa Level 0.10 L POC ABG pO2 Chloride 96.4 L Glucose 114 H Lactic Acid Lactate Dehydrogenase Albumin 10/07/17 10/08/17 10/08/17 10:23 06:12 06:12 RBC Hgb Hct Plt Count Lymph % (Auto) [place] % (Auto) Eos % (Auto) Baso % (Auto) Eos # Seg Neutrophils % Seg Neuts % (Manual) 35.0 L Lymphocytes % (Manual) 50.0 H Eosinophils % (Manual) 9.0 H Eosinophils # (Manual) 0.6 H Fibrinogen LA PTT Baseline 98 H Heparin Anti-Xa Level POC ABG pO2 Chloride Glucose Lactic Acid Lactate Dehydrogenase 283 H Albumin 10/10/17 10/11/17 10/12/17 05:07 09:46 09:37 RBC Hgb 15.3 H Hct Plt Count Lymph % (Auto) [place] % (Auto) Eos % (Auto) Baso % (Auto) Eos # Seg Neutrophils % Seg Neuts % (Manual) Lymphocytes % (Manual) Eosinophils % (Manual) Eosinophils # (Manual) Fibrinogen LA PTT Baseline Heparin Anti-Xa Level < 0.10 L POC ABG pO2 Chloride Glucose 112 H Lactic Acid Lactate Dehydrogenase Albumin 10/13/17 10/13/17 10/14/17 05:28 13:12 06:16 RBC Hgb 15.5 H 15.3 H Hct 45.8 H Plt Count Lymph % (Auto) 37.0 H 45.1 H [place] % (Auto) 8.1 H Eos % (Auto) 7.1 H 7.3 H Baso % (Auto) Eos # 0.5 H 0.5 H Seg Neutrophils % 39.4 L Seg Neuts % (Manual) Lymphocytes % (Manual) Eosinophils % (Manual) Eosinophils # (Manual) Fibrinogen LA PTT Baseline Heparin Anti-Xa Level 0.16 L POC ABG pO2 Chloride Glucose Lactic Acid Lactate Dehydrogenase Albumin 10/14/17 06:16 RBC Hgb Hct Plt Count Lymph % (Auto) [place] % (Auto) Eos % (Auto) Baso % (Auto) Eos # Seg Neutrophils % Seg Neuts % (Manual) Lymphocytes % (Manual) Eosinophils % (Manual) Eosinophils # (Manual) Fibrinogen LA PTT Baseline Heparin Anti-Xa Level POC ABG pO2 Chloride Glucose Lactic Acid Lactate Dehydrogenase Albumin 3.8 L Allied health notes reviewed: nursing
--- NOTE | 2017-10-14 19:34 | Progress Note ---
Assessment and Plan Assessment and plan: --Compartment syndrome s/p fasciotomy /wound VAC, elevate the limb Physical therapy as tolerated,pain medication supportive care, vascular planning wound closure tomorrow -- Ischemia of left lower extremity Current Visit: Yes Status: Acute Plan to address problem: S/p catheter directed thrombolytic therapy. And Thrombectomy On heparin drip --HIV disease Current Visit: Yes Status: Acute Plan to address problem: Continue with antiretroviral therapy, outpatient ID f/u upon discharge --Lactic Acidosis Current Visit: Yes Status: Acute Plan to address problem: Lactic acidosis resolved. -- PVD (peripheral vascular disease) Current Visit: Yes Status: Acute Continue current management -- Nicotine dependence Current Visit: Yes Status: Acute Qualifiers: Substance use status: in withdrawal Plan to address problem: smoking cessation counseling, supportive care. -- HTN (hypertension) continue antihypertensives and when necessary medication --Constipation; stool softeners,milk of magnesia, Dulcolax if no improvement consider enema as needed -- DVT prophylaxis Current Visit: Yes Status: Acute Plan to address problem: Patient is on heparin drip Physical therapy occupational therapy Plan of care is reviewed with patient and his notes History Interval history: Patient seen and examined medical records reviewed No new events reported Patient is rescheduled for fasciotomy closure tomorrow Complaints of severe pain and weakness Tolerating physical therapy Patient is on heparin drip Hospitalist Physical - Constitutional Vitals: Temp Pulse Resp BP Pulse Ox 98.4 F 79 17 114/78 93 10/14/17 17:26 10/14/17 17:26 10/14/17 18:34 10/14/17 17:26 10/14/17 17:26 General appearance: Present: mild distress (secondary to pain), well-nourished - EENT Eyes: Present: PERRL, EOM intact - Neck Neck: Present: supple, normal ROM - Respiratory Respiratory effort: normal Respiratory: bilateral: diminished, negative: rales, rhonchi, wheezing - Cardiovascular Rhythm: regular Heart Sounds: Present: S1 & S2 - Extremities Extremities: no ischemia, abnormal (dressing in place) Extremity abnormal: edema - Abdominal General gastrointestinal: soft, non-tender, non-distended, normal bowel sounds - Integumentary Integumentary: Present: clear, warm - Psychiatric Psychiatric: appropriate mood/affect, cooperative - Neurologic Neurologic: CNII-XII intact, moves all extremities Results - Labs CBC & Chem 7: 10/14/17 06:16 10/14/17 06:16 Labs: Laboratory Last Values WBC 7.0 K/mm3 (4.5-11.0) 10/14/17 06:16 RBC 5.00 M/mm3 (3.65-5.03) 10/14/17 06:16 Hgb 15.3 gm/dl (11.8-15.2) H 10/14/17 06:16 Hct 45.5 % (35.5-45.6) 10/14/17 06:16 MCV 91 fl (84-94) 10/14/17 06:16 MCH 31 pg (28-32) 10/14/17 06:16 MCHC 34 % (32-34) 10/14/17 06:16 RDW 14.7 % (13.2-15.2) 10/14/17 06:16 Plt Count 225 K/mm3 (140-440) 10/14/17 06:16 Lymph % (Auto) 45.1 % (13.4-35.0) H 10/14/17 06:16 [place] % (Auto) 7.3 % (0.0-7.3) 10/14/17 06:16 Eos % (Auto) 7.3 % (0.0-4.3) H 10/14/17 06:16 Baso % (Auto) 0.9 % (0.0-1.8) 10/14/17 06:16 Lymph # 3.2 K/mm3 (1.2-5.4) 10/14/17 06:16 [place] # 0.5 K/mm3 (0.0-0.8) 10/14/17 06:16 Eos # 0.5 K/mm3 (0.0-0.4) H 10/14/17 06:16 Baso # 0.1 K/mm3 (0.0-0.1) 10/14/17 06:16 Add Manual Diff Complete 10/08/17 06:12 Total Counted 100 10/08/17 06:12 Seg Neutrophils % 39.4 % (40.0-70.0) L 10/14/17 06:16 Seg Neuts % (Manual) 35.0 % (40.0-70.0) L 10/08/17 06:12 Band Neutrophils % 1.0 % 10/08/17 06:12 Lymphocytes % (Manual) 50.0 % (13.4-35.0) H 10/08/17 06:12 Reactive Lymphs % (Man) 0 % 10/08/17 06:12 Monocytes % (Manual) 4.0 % (0.0-7.3) 10/08/17 06:12 Eosinophils % (Manual) 9.0 % (0.0-4.3) H 10/08/17 06:12 Basophils % (Manual) 1.0 % (0.0-1.8) 10/08/17 06:12 Metamyelocytes % 0 % 10/08/17 06:12 Myelocytes % 0 % 10/08/17 06:12 Promyelocytes % 0 % 10/08/17 06:12 Blast Cells % 0 % 10/08/17 06:12 Nucleated RBC % Not Reportable 10/08/17 06:12 Seg Neutrophils # 2.8 K/mm3 (1.8-7.7) 10/14/17 06:16 Seg Neutrophils # Man 2.5 K/mm3 (1.8-7.7) 10/08/17 06:12 Band Neutrophils # 0.1 K/mm3 10/08/17 06:12 Lymphocytes # (Manual) 3.6 K/mm3 (1.2-5.4) 10/08/17 06:12 Abs React Lymphs (Man) 0.0 K/mm3 10/08/17 06:12 Monocytes # (Manual) 0.3 K/mm3 (0.0-0.8) 10/08/17 06:12 Eosinophils # (Manual) 0.6 K/mm3 (0.0-0.4) H 10/08/17 06:12 Basophils # (Manual) 0.1 K/mm3 (0.0-0.1) 10/08/17 06:12 Metamyelocytes # 0.0 K/mm3 10/08/17 06:12 Myelocytes # 0.0 K/mm3 10/08/17 06:12 Promyelocytes # 0.0 K/mm3 10/08/17 06:12 Blast Cells # 0.0 K/mm3 10/08/17 06:12 WBC Morphology Not Reportable 10/08/17 06:12 Hypersegmented Neuts Not Reportable 10/08/17 06:12 Hyposegmented Neuts Not Reportable 10/08/17 06:12 Hypogranular Neuts Not Reportable 10/08/17 06:12 Smudge Cells Not Reportable 10/08/17 06:12 Toxic Granulation Not Reportable 10/08/17 06:12 Toxic Vacuolation Not Reportable 10/08/17 06:12 Dohle Bodies Not Reportable 10/08/17 06:12 [place]uet Anomaly Not Reportable 10/08/17 06:12 [place] Rods Not Reportable 10/08/17 06:12 Platelet Estimate Consistent w auto 10/08/17 06:12 Clumped Platelets Not Reportable 10/08/17 06:12 Plt Clumps, EDTA Not Reportable 10/08/17 06:12 Large Platelets Not Reportable 10/08/17 06:12 Giant Platelets Not Reportable 10/08/17 06:12 Platelet Satelliting Not Reportable 10/08/17 06:12 Plt Morphology Comment Not Reportable 10/08/17 06:12 RBC Morphology Not Reportable 10/08/17 06:12 Dimorphic RBCs Not Reportable 10/08/17 06:12 Polychromasia Not Reportable 10/08/17 06:12 Hypochromasia Not Reportable 10/08/17 06:12 Poikilocytosis Not Reportable 10/08/17 06:12 Anisocytosis 1+ 10/08/17 06:12 Microcytosis Not Reportable 10/08/17 06:12 Macrocytosis Not Reportable 10/08/17 06:12 Spherocytes Not Reportable 10/08/17 06:12 Pappenheimer Bodies Not Reportable 10/08/17 06:12 Sickle Cells Not Reportable 10/08/17 06:12 Target Cells Not Reportable 10/08/17 06:12 Tear Drop Cells Not Reportable 10/08/17 06:12 Ovalocytes Not Reportable 10/08/17 06:12 Helmet Cells Not Reportable 10/08/17 06:12 [place] Bodies Not Reportable 10/08/17 06:12 [place] Rings Not Reportable 10/08/17 06:12 [place] Cells Not Reportable 10/08/17 06:12 Bite Cells Not Reportable 10/08/17 06:12 Crenated Cell Not Reportable 10/08/17 06:12 Elliptocytes Not Reportable 10/08/17 06:12 Acanthocytes (Spur) Not Reportable 10/08/17 06:12 [place] Not Reportable 10/08/17 06:12 Hemoglobin C Crystals Not Reportable 10/08/17 06:12 Schistocytes Not Reportable 10/08/17 06:12 Malaria parasites Not Reportable 10/08/17 06:12 [place] Bodies Not Reportable 10/08/17 06:12 Hem Pathologist Commnt No 10/08/17 06:12 PT 13.0 Sec. (12.2-14.9) 10/05/17 17:51 INR 0.94 (0.87-1.13) 10/05/17 17:51 APTT 25.6 Sec. (24.2-36.6) 10/05/17 18:22 Fibrinogen 309 mg/dl (211-480) 10/06/17 15:00 Lupus Anticoagulant see below 10/07/17 10:23 LA PTT Baseline 98 sec (<=40) H 10/07/17 10:23 Free Protein S 132 % normal (57-171) 10/07/17 10:23 Total Protein S 105 % (70-140) 10/07/17 10:23 Heparin Anti-Xa Level 0.30 U.I./ml (0.3-0.7) 10/14/17 18:13 POC ABG pH 7.354 (7.35-7.45) 10/06/17 16:44 POC ABG pCO2 45.0 (35-45) 10/06/17 16:44 POC ABG pO2 59 (80-105) L 10/06/17 16:44 POC ABG HCO3 25.1 10/06/17 16:44 POC ABG Total CO2 26 10/06/17 16:44 POC ABG O2 Sat 89 10/06/17 16:44 POC ABG Base Excess 0 10/06/17 16:44 FiO2 32 % 10/06/17 16:44 Sodium 140 mmol/L (137-145) 10/14/17 06:16 Potassium 4.1 mmol/L (3.6-5.0) 10/14/17 06:16 Chloride 99.9 mmol/L (98-107) 10/14/17 06:16 Carbon Dioxide 25 mmol/L (22-30) 10/14/17 06:16 Anion Gap 19 mmol/L 10/14/17 06:16 BUN 19 mg/dL (9-20) 10/14/17 06:16 Creatinine 1.0 mg/dL (0.8-1.5) 10/14/17 06:16 Estimated GFR > 60 ml/min 10/14/17 06:16 BUN/Creatinine Ratio 19 % 10/14/17 06:16 Glucose 94 mg/dL (75-100) 10/14/17 06:16 Lactic Acid 1.50 mmol/L (0.7-2.0) 10/05/17 21:39 Calcium 9.7 mg/dL (8.4-10.2) 10/14/17 06:16 Magnesium 2.20 mg/dL (1.7-2.3) 10/14/17 06:16 Total Bilirubin 0.30 mg/dL (0.1-1.2) 10/14/17 06:16 AST 32 units/L (5-40) 10/14/17 06:16 ALT 27 units/L (7-56) 10/14/17 06:16 Alkaline Phosphatase 72 units/L (35-129) 10/14/17 06:16 Lactate Dehydrogenase 283 units/L (91-180) H 10/08/17 06:12 Total Protein 7.4 g/dL (6.3-8.2) 10/14/17 06:16 Albumin 3.8 g/dL (3.9-5) L 10/14/17 06:16 Albumin/Globulin Ratio 1.1 % 10/14/17 06:16 Blood Type O POSITIVE 10/05/17 18:49 Antibody Screen Negative 10/05/17 18:49
[2017-10-15] MEDS: SODIUM CHLORIDE FLUSH SYRINGE 10 ML IV SCH ×2 (00:59→09:23)
[2017-10-15] MEDS: HEPARIN/ 0.45% NACL-25,000 UNIT/500 ML 25,000 UNIT/500 ML BAG IV SCH ×2 (02:32→18:17)
--- NOTE | 2017-10-15 07:35 | Progress Note ---
Assessment and Plan Assessment and plan: --Compartment syndrome s/p fasciotomy /wound VAC, elevate the limb Physical therapy as tolerated,pain medication supportive care, vascular planning wound closure today -- Ischemia of left lower extremity Current Visit: Yes Status: Acute Plan to address problem: S/p catheter directed thrombolytic therapy. And Thrombectomy, On heparin drip --HIV disease Current Visit: Yes Status: Acute Plan to address problem: Continue with antiretroviral therapy, outpatient ID f/u upon discharge --Lactic Acidosis Current Visit: Yes Status: Acute Plan to address problem: Lactic acidosis resolved. -- PVD (peripheral vascular disease) Current Visit: Yes Status: Acute Continue current management -- Nicotine dependence Current Visit: Yes Status: Acute Qualifiers: Substance use status: in withdrawal Plan to address problem: smoking cessation counseling, supportive care. -- HTN (hypertension) continue antihypertensives and when necessary medication --Constipation; stool softeners,milk of magnesia, Dulcolax if no improvement consider enema as needed -- DVT prophylaxis Current Visit: Yes Status: Acute Plan to address problem: Patient is on heparin drip Physical therapy occupational therapy Plan of care is reviewed with patient and his notes Discharge planning per case management Possible home with home health versus rehabilitation When medically stable History Interval history: Patient seen and examined medical records reviewed Feels better mild pain on the left lower extremity Scheduled for wound closure Vital signs noted Hospitalist Physical - Constitutional Vitals: Temp Pulse Resp BP Pulse Ox 97.8 F 88 20 110/68 94 10/15/17 05:15 10/15/17 05:15 10/15/17 05:15 10/15/17 05:15 10/15/17 05:15 General appearance: Present: no acute distress, well-nourished - EENT Eyes: Present: PERRL, EOM intact - Neck Neck: Present: supple, normal ROM - Respiratory Respiratory effort: normal Respiratory: bilateral: diminished, negative: rales, rhonchi, wheezing - Cardiovascular Rhythm: regular Heart Sounds: Present: S1 & S2 - Extremities Extremities: abnormal ( mild edema , erythema dressing in place) - Abdominal General gastrointestinal: soft, non-tender, non-distended, normal bowel sounds - Integumentary Integumentary: Present: clear, warm - Psychiatric Psychiatric: appropriate mood/affect, cooperative - Neurologic Neurologic: CNII-XII intact, moves all extremities Results - Labs CBC & Chem 7: 10/14/17 06:16 10/14/17 06:16 Labs: Laboratory Last Values WBC 7.0 K/mm3 (4.5-11.0) 10/14/17 06:16 RBC 5.00 M/mm3 (3.65-5.03) 10/14/17 06:16 Hgb 15.3 gm/dl (11.8-15.2) H 10/14/17 06:16 Hct 45.5 % (35.5-45.6) 10/14/17 06:16 MCV 91 fl (84-94) 10/14/17 06:16 MCH 31 pg (28-32) 10/14/17 06:16 MCHC 34 % (32-34) 10/14/17 06:16 RDW 14.7 % (13.2-15.2) 10/14/17 06:16 Plt Count 225 K/mm3 (140-440) 10/14/17 06:16 Lymph % (Auto) 45.1 % (13.4-35.0) H 10/14/17 06:16 [place] % (Auto) 7.3 % (0.0-7.3) 10/14/17 06:16 Eos % (Auto) 7.3 % (0.0-4.3) H 10/14/17 06:16 Baso % (Auto) 0.9 % (0.0-1.8) 10/14/17 06:16 Lymph # 3.2 K/mm3 (1.2-5.4) 10/14/17 06:16 [place] # 0.5 K/mm3 (0.0-0.8) 10/14/17 06:16 Eos # 0.5 K/mm3 (0.0-0.4) H 10/14/17 06:16 Baso # 0.1 K/mm3 (0.0-0.1) 10/14/17 06:16 Add Manual Diff Complete 10/08/17 06:12 Total Counted 100 10/08/17 06:12 Seg Neutrophils % 39.4 % (40.0-70.0) L 10/14/17 06:16 Seg Neuts % (Manual) 35.0 % (40.0-70.0) L 10/08/17 06:12 Band Neutrophils % 1.0 % 10/08/17 06:12 Lymphocytes % (Manual) 50.0 % (13.4-35.0) H 10/08/17 06:12 Reactive Lymphs % (Man) 0 % 10/08/17 06:12 Monocytes % (Manual) 4.0 % (0.0-7.3) 10/08/17 06:12 Eosinophils % (Manual) 9.0 % (0.0-4.3) H 10/08/17 06:12 Basophils % (Manual) 1.0 % (0.0-1.8) 10/08/17 06:12 Metamyelocytes % 0 % 10/08/17 06:12 Myelocytes % 0 % 10/08/17 06:12 Promyelocytes % 0 % 10/08/17 06:12 Blast Cells % 0 % 10/08/17 06:12 Nucleated RBC % Not Reportable 10/08/17 06:12 Seg Neutrophils # 2.8 K/mm3 (1.8-7.7) 10/14/17 06:16 Seg Neutrophils # Man 2.5 K/mm3 (1.8-7.7) 10/08/17 06:12 Band Neutrophils # 0.1 K/mm3 10/08/17 06:12 Lymphocytes # (Manual) 3.6 K/mm3 (1.2-5.4) 10/08/17 06:12 Abs React Lymphs (Man) 0.0 K/mm3 10/08/17 06:12 Monocytes # (Manual) 0.3 K/mm3 (0.0-0.8) 10/08/17 06:12 Eosinophils # (Manual) 0.6 K/mm3 (0.0-0.4) H 10/08/17 06:12 Basophils # (Manual) 0.1 K/mm3 (0.0-0.1) 10/08/17 06:12 Metamyelocytes # 0.0 K/mm3 10/08/17 06:12 Myelocytes # 0.0 K/mm3 10/08/17 06:12 Promyelocytes # 0.0 K/mm3 10/08/17 06:12 Blast Cells # 0.0 K/mm3 10/08/17 06:12 WBC Morphology Not Reportable 10/08/17 06:12 Hypersegmented Neuts Not Reportable 10/08/17 06:12 Hyposegmented Neuts Not Reportable 10/08/17 06:12 Hypogranular Neuts Not Reportable 10/08/17 06:12 Smudge Cells Not Reportable 10/08/17 06:12 Toxic Granulation Not Reportable 10/08/17 06:12 Toxic Vacuolation Not Reportable 10/08/17 06:12 Dohle Bodies Not Reportable 10/08/17 06:12 Pelger-Huet Anomaly Not Reportable 10/08/17 06:12 [place] Rods Not Reportable 10/08/17 06:12 Platelet Estimate Consistent w auto 10/08/17 06:12 Clumped Platelets Not Reportable 10/08/17 06:12 Plt Clumps, EDTA Not Reportable 10/08/17 06:12 Large Platelets Not Reportable 10/08/17 06:12 Giant Platelets Not Reportable 10/08/17 06:12 Platelet Satelliting Not Reportable 10/08/17 06:12 Plt Morphology Comment Not Reportable 10/08/17 06:12 RBC Morphology Not Reportable 10/08/17 06:12 Dimorphic RBCs Not Reportable 10/08/17 06:12 Polychromasia Not Reportable 10/08/17 06:12 Hypochromasia Not Reportable 10/08/17 06:12 Poikilocytosis Not Reportable 10/08/17 06:12 Anisocytosis 1+ 10/08/17 06:12 Microcytosis Not Reportable 10/08/17 06:12 Macrocytosis Not Reportable 10/08/17 06:12 Spherocytes Not Reportable 10/08/17 06:12 Pappenheimer Bodies Not Reportable 10/08/17 06:12 Sickle Cells Not Reportable 10/08/17 06:12 Target Cells Not Reportable 10/08/17 06:12 Tear Drop Cells Not Reportable 10/08/17 06:12 Ovalocytes Not Reportable 10/08/17 06:12 Helmet Cells Not Reportable 10/08/17 06:12 [place] Bodies Not Reportable 10/08/17 06:12 [place] Rings Not Reportable 10/08/17 06:12 [place] Cells Not Reportable 10/08/17 06:12 Bite Cells Not Reportable 10/08/17 06:12 Crenated Cell Not Reportable 10/08/17 06:12 Elliptocytes Not Reportable 10/08/17 06:12 Acanthocytes (Spur) Not Reportable 10/08/17 06:12 [place]leaux Not Reportable 10/08/17 06:12 Hemoglobin C Crystals Not Reportable 10/08/17 06:12 Schistocytes Not Reportable 10/08/17 06:12 Malaria parasites Not Reportable 10/08/17 06:12 [place] Bodies Not Reportable 10/08/17 06:12 Hem Pathologist Commnt No 10/08/17 06:12 PT 13.0 Sec. (12.2-14.9) 10/05/17 17:51 INR 0.94 (0.87-1.13) 10/05/17 17:51 APTT 25.6 Sec. (24.2-36.6) 10/05/17 18:22 Fibrinogen 309 mg/dl (211-480) 10/06/17 15:00 Lupus Anticoagulant see below 10/07/17 10:23 LA PTT Baseline 98 sec (<=40) H 10/07/17 10:23 Free Protein S 132 % normal (57-171) 10/07/17 10:23 Total Protein S 105 % (70-140) 10/07/17 10:23 Heparin Anti-Xa Level 0.30 U.I./ml (0.3-0.7) 10/14/17 18:13 POC ABG pH 7.354 (7.35-7.45) 10/06/17 16:44 POC ABG pCO2 45.0 (35-45) 10/06/17 16:44 POC ABG pO2 59 (80-105) L 10/06/17 16:44 POC ABG HCO3 25.1 10/06/17 16:44 POC ABG Total CO2 26 10/06/17 16:44 POC ABG O2 Sat 89 10/06/17 16:44 POC ABG Base Excess 0 10/06/17 16:44 FiO2 32 % 10/06/17 16:44 Sodium 140 mmol/L (137-145) 10/14/17 06:16 Potassium 4.1 mmol/L (3.6-5.0) 10/14/17 06:16 Chloride 99.9 mmol/L (98-107) 10/14/17 06:16 Carbon Dioxide 25 mmol/L (22-30) 10/14/17 06:16 Anion Gap 19 mmol/L 10/14/17 06:16 BUN 19 mg/dL (9-20) 10/14/17 06:16 Creatinine 1.0 mg/dL (0.8-1.5) 10/14/17 06:16 Estimated GFR > 60 ml/min 10/14/17 06:16 BUN/Creatinine Ratio 19 % 10/14/17 06:16 Glucose 94 mg/dL (75-100) 10/14/17 06:16 Lactic Acid 1.50 mmol/L (0.7-2.0) 10/05/17 21:39 Calcium 9.7 mg/dL (8.4-10.2) 10/14/17 06:16 Magnesium 2.20 mg/dL (1.7-2.3) 10/14/17 06:16 Total Bilirubin 0.30 mg/dL (0.1-1.2) 10/14/17 06:16 AST 32 units/L (5-40) 10/14/17 06:16 ALT 27 units/L (7-56) 10/14/17 06:16 Alkaline Phosphatase 72 units/L (35-129) 10/14/17 06:16 Lactate Dehydrogenase 283 units/L (91-180) H 10/08/17 06:12 Total Protein 7.4 g/dL (6.3-8.2) 10/14/17 06:16 Albumin 3.8 g/dL (3.9-5) L 10/14/17 06:16 Albumin/Globulin Ratio 1.1 % 10/14/17 06:16 Blood Type O POSITIVE 10/05/17 18:49 Antibody Screen Negative 10/05/17 18:49
--- NOTE | 2017-10-15 08:23 | Anesthesia Day of Surgery ---
Anesthesia Day of Surgery - Day of Surgery Patient Examined: Yes Patient H&P Reviewed: Yes Patient is NPO: Yes
[2017-10-15] MEDS ORDERED: VERSED IV NR (09:00)
[2017-10-15] MEDS: LOPRESSOR PO SCH ×2 (09:21→21:21)
[2017-10-15] MEDS: ZESTRIL PO SCH (09:21)
[2017-10-15] MEDS: NORCO 5/325 PO PRN ×3 (09:21→18:23)
[2017-10-15] MEDS: HABITROL TD SCH (09:24)
[2017-10-15] MEDS: PEPCID PO SCH (09:24)
[2017-10-15] MEDS ORDERED: ANCEF/STERILE WATER 2 GM/20 ML 2 GM/20 ML SYRINGE IV NR (09:30)
--- NOTE | 2017-10-15 09:54 | Hem/Onc Progress Note ---
Assessment and Plan We will go ahead and start him on Coumadin starting tonight. Follow-up on hypercoagulable workup. Subjective Date of service: 10/15/17 Interval history: Events noted. pt to have surgery possibly today Objective - Constitutional Vitals: Last Vital Signs Temp 98.6 F 10/15/17 07:19 Pulse 85 10/15/17 07:19 Resp 18 10/15/17 07:19 BP 122/84 10/15/17 07:19 Pulse Ox 93 10/15/17 07:19 - Respiratory Respiratory effort: Positive: normal Respiratory: bilateral: diminished - Cardiovascular Rhythm: regular Extremity abnormal: other (F leg bandaged with wound VAC) - Gastrointestinal General gastrointestinal: Present: soft - Labs Lab Results: Laboratory Results - last 24 hr 10/14/17 18:13 Heparin Anti-Xa Level 0.30
[2017-10-15] MEDS: NACL 0.9% 1000 ML 1,000 ML IV SCH (11:03)
[2017-10-15] MEDS ORDERED: SUBLIMAZE ONE (11:13)
[2017-10-15] MEDS ORDERED: DIPRIVAN 10 MG/ML IV ONE (11:13)
[2017-10-15] MEDS ORDERED: XYLOCAINE MPF 2% ONE (11:13)
[2017-10-15] MEDS ORDERED: AMIDATE IV ONE (11:26)
[2017-10-15] MEDS ORDERED: ePHEDrine 50 MG/5 ML-0.9% NACL IV ONE (11:40)
[2017-10-15] MEDS ORDERED: ZOFRAN ONE (11:55)
[2017-10-15] MEDS ORDERED: NACL 0.9% IR ONE (12:10)
[2017-10-15] MEDS ORDERED: DILAUDID ONE (12:52)
--- NOTE | 2017-10-15 12:55 | Post Operative Note ---
Pre-op diagnosis: open fasciotomy incision left leg Post-op diagnosis: same Findings: Good tissue viability. Skin closed without tension. Procedure: Closure of complex incision (21.5 cm in length), left leg Anesthesia: other (Gen. using LMA) Surgeon: KEVIN BROWN Estimated blood loss: minimal Pathology: none Condition: stable Disposition: floor
[2017-10-15] MEDS ORDERED: ZOFRAN IV PRN (13:04)
[2017-10-15] MEDS: DILAUDID IV PRN ×4 (13:08→13:55)
[2017-10-15] MEDS: TORADOL IV PRN (13:31)
[2017-10-15 15:09] LABS: INR 1.01 (0.87-1.13)
[2017-10-15] MEDS ORDERED: COUMADIN PO SCH (17:00)
[2017-10-15] MEDS: COUMADIN PO SCH (18:14)
--- NOTE | 2017-10-15 18:20 | Progress Note ---
Subjective Date of service: 10/15/17 Principal diagnosis: Acute Limb Ischemia s/p thrombolysis; Hypoxemic Resp failure; PVDx; HIV +ve Objective Vital Signs - 12hr 10/15/17 10/15/17 10/15/17 07:19 10:30 10:45 Temperature 98.6 F 98.0 F 98.0 F Pulse Rate 85 93 H 93 H Respiratory 18 18 18 Rate Blood Pressure 122/84 104/74 104/74 O2 Sat by Pulse 93 94 94 Oximetry 10/15/17 10/15/17 10/15/17 12:55 13:00 13:05 Temperature 97.0 F L Pulse Rate 76 68 78 Respiratory 17 17 19 Rate Blood Pressure 110/75 109/67 94/68 O2 Sat by Pulse 96 91 95 Oximetry 10/15/17 10/15/17 10/15/17 13:08 13:10 13:15 Temperature Pulse Rate 74 61 Respiratory 15 15 10 L Rate Blood Pressure 101/66 96/64 O2 Sat by Pulse 97 98 Oximetry 10/15/17 10/15/17 10/15/17 13:18 13:30 13:31 Temperature Pulse Rate 68 Respiratory 12 12 14 Rate Blood Pressure 101/59 O2 Sat by Pulse 96 Oximetry 10/15/17 10/15/17 10/15/17 13:33 13:45 13:55 Temperature Pulse Rate 61 Respiratory 14 13 13 Rate Blood Pressure 105/63 O2 Sat by Pulse 95 Oximetry 10/15/17 10/15/17 10/15/17 14:00 14:15 14:30 Temperature Pulse Rate 67 65 64 Respiratory 12 14 13 Rate Blood Pressure 95/59 101/59 99/55 O2 Sat by Pulse 96 97 96 Oximetry 10/15/17 10/15/17 10/15/17 14:34 14:45 15:00 Temperature 97.7 F Pulse Rate 63 94 H Respiratory 14 12 16 Rate Blood Pressure 103/67 94/59 O2 Sat by Pulse 96 94 Oximetry Constitutional: no acute distress, alert, other (elderly AAM, normocephalic and atraumatic resting in bed.) Eyes: non-icteric ENT: oropharynx moist, other (mallampati 2) Neck: supple, no lymphadenopathy, no JVD, other (no thyromegaly) Effort: mildly labored Ascultation: Bilateral: clear, diminished breath sounds, rhonchi (base) Percussion: Bilateral: not dull Cardiovascular: regular rate and rhythm, other (No R/M) Gastrointestinal: normoactive bowel sounds, soft, non-tender, non-distended, other (No HSM) Integumentary: normal Extremities: no cyanosis, pulses normal, no ischemia or petechiae, other (left leg /alan dressing) Neurologic: normal mental status, non-focal exam, pupils equal and round, motor strength normal and Psychiatric: mood appropriate, affect normal CBC and BMP: 10/14/17 06:16 10/14/17 06:16 ABG, PT/INR, D-dimer: ABG POC ABG pH 7.354 (7.35-7.45) 10/06/17 16:44 POC ABG pCO2 45.0 (35-45) 10/06/17 16:44 POC ABG pO2 59 (80-105) L 10/06/17 16:44 POC ABG HCO3 25.1 10/06/17 16:44 POC ABG Total CO2 26 10/06/17 16:44 POC ABG O2 Sat 89 10/06/17 16:44 PT/INR, D-dimer PT 13.8 Sec. (12.2-14.9) 10/15/17 14:35 INR 1.01 (0.87-1.13) 10/15/17 14:35 Abnormal lab findings: Abnormal Labs 10/05/17 10/05/17 10/05/17 17:51 17:51 17:51 RBC 5.22 H Hgb 15.9 H Hct 46.8 H Plt Count Lymph % (Auto) [place] % (Auto) 8.1 H Eos % (Auto) Baso % (Auto) Eos # Seg Neutrophils % Seg Neuts % (Manual) Lymphocytes % (Manual) Eosinophils % (Manual) Eosinophils # (Manual) Fibrinogen LA PTT Baseline Heparin Anti-Xa Level POC ABG pO2 Chloride Glucose 122 H Lactic Acid 3.10 H* Lactate Dehydrogenase Albumin 10/05/17 10/06/17 10/06/17 19:44 01:54 01:54 RBC Hgb Hct Plt Count Lymph % (Auto) [place] % (Auto) Eos % (Auto) Baso % (Auto) Eos # Seg Neutrophils % 71.8 H Seg Neuts % (Manual) Lymphocytes % (Manual) Eosinophils % (Manual) Eosinophils # (Manual) Fibrinogen 521 H LA PTT Baseline Heparin Anti-Xa Level 0.15 L POC ABG pO2 Chloride Glucose Lactic Acid Lactate Dehydrogenase Albumin 10/06/17 10/06/17 10/06/17 05:41 07:14 07:14 RBC Hgb Hct Plt Count Lymph % (Auto) [place] % (Auto) 7.6 H Eos % (Auto) Baso % (Auto) Eos # Seg Neutrophils % Seg Neuts % (Manual) Lymphocytes % (Manual) Eosinophils % (Manual) Eosinophils # (Manual) Fibrinogen LA PTT Baseline Heparin Anti-Xa Level > 2.00 H POC ABG pO2 Chloride Glucose 103 H Lactic Acid Lactate Dehydrogenase Albumin 10/06/17 10/06/17 10/06/17 15:00 15:00 16:44 RBC Hgb Hct Plt Count Lymph % (Auto) [place] % (Auto) Eos % (Auto) 4.8 H Baso % (Auto) 2.0 H Eos # Seg Neutrophils % Seg Neuts % (Manual) Lymphocytes % (Manual) Eosinophils % (Manual) Eosinophils # (Manual) Fibrinogen LA PTT Baseline Heparin Anti-Xa Level 0.11 L POC ABG pO2 59 L Chloride Glucose Lactic Acid Lactate Dehydrogenase Albumin 10/06/17 10/07/17 10/07/17 21:09 03:35 03:35 RBC Hgb Hct Plt Count 133 L Lymph % (Auto) [place] % (Auto) Eos % (Auto) Baso % (Auto) Eos # Seg Neutrophils % Seg Neuts % (Manual) Lymphocytes % (Manual) Eosinophils % (Manual) Eosinophils # (Manual) Fibrinogen LA PTT Baseline Heparin Anti-Xa Level 0.10 L POC ABG pO2 Chloride 96.4 L Glucose 114 H Lactic Acid Lactate Dehydrogenase Albumin 10/07/17 10/08/17 10/08/17 10:23 06:12 06:12 RBC Hgb Hct Plt Count Lymph % (Auto) [place] % (Auto) Eos % (Auto) Baso % (Auto) Eos # Seg Neutrophils % Seg Neuts % (Manual) 35.0 L Lymphocytes % (Manual) 50.0 H Eosinophils % (Manual) 9.0 H Eosinophils # (Manual) 0.6 H Fibrinogen LA PTT Baseline 98 H Heparin Anti-Xa Level POC ABG pO2 Chloride Glucose Lactic Acid Lactate Dehydrogenase 283 H Albumin 10/10/17 10/11/17 10/12/17 05:07 09:46 09:37 RBC Hgb 15.3 H Hct Plt Count Lymph % (Auto) [place] % (Auto) Eos % (Auto) Baso % (Auto) Eos # Seg Neutrophils % Seg Neuts % (Manual) Lymphocytes % (Manual) Eosinophils % (Manual) Eosinophils # (Manual) Fibrinogen LA PTT Baseline Heparin Anti-Xa Level < 0.10 L POC ABG pO2 Chloride Glucose 112 H Lactic Acid Lactate Dehydrogenase Albumin 10/13/17 10/13/17 10/14/17 05:28 13:12 06:16 RBC Hgb 15.5 H 15.3 H Hct 45.8 H Plt Count Lymph % (Auto) 37.0 H 45.1 H [place] % (Auto) 8.1 H Eos % (Auto) 7.1 H 7.3 H Baso % (Auto) Eos # 0.5 H 0.5 H Seg Neutrophils % 39.4 L Seg Neuts % (Manual) Lymphocytes % (Manual) Eosinophils % (Manual) Eosinophils # (Manual) Fibrinogen LA PTT Baseline Heparin Anti-Xa Level 0.16 L POC ABG pO2 Chloride Glucose Lactic Acid Lactate Dehydrogenase Albumin 10/14/17 06:16 RBC Hgb Hct Plt Count Lymph % (Auto) [place] % (Auto) Eos % (Auto) Baso % (Auto) Eos # Seg Neutrophils % Seg Neuts % (Manual) Lymphocytes % (Manual) Eosinophils % (Manual) Eosinophils # (Manual) Fibrinogen LA PTT Baseline Heparin Anti-Xa Level POC ABG pO2 Chloride Glucose Lactic Acid Lactate Dehydrogenase Albumin 3.8 L Allied health notes reviewed: nursing
[2017-10-16] MEDS: TORADOL IV PRN (01:14)
[2017-10-16] MEDS: NORCO 5/325 PO PRN ×3 (09:00→21:39)
--- NOTE | 2017-10-16 10:27 | Progress Note ---
Assessment and Plan Assessment and plan: --Compartment syndrome s/p fasciotomy /wound VAC, elevate the limb Underwent wound closure yesterday, wound clean Wound care, pain management, physical therapy occupational therapy -- Ischemia of left lower extremity Current Visit: Yes Status: Acute Plan to address problem: S/p catheter directed thrombolytic therapy. And Thrombectomy, On heparin drip, and Coumadin pulses felt Frequent INRs, therapeutic goal 2-3 --HIV disease Current Visit: Yes Status: Acute Plan to address problem: Continue with antiretroviral therapy, outpatient ID f/u upon discharge --Lactic Acidosis Current Visit: Yes Status: Acute Plan to address problem: Lactic acidosis resolved. -- PVD (peripheral vascular disease) Current Visit: Yes Status: Acute Continue current management -- Nicotine dependence Current Visit: Yes Status: Acute Qualifiers: Substance use status: in withdrawal Plan to address problem: smoking cessation counseling, supportive care. -- HTN (hypertension) continue antihypertensives and when necessary medication --Constipation; stool softeners,milk of magnesia, Dulcolax if no improvement consider enema as needed -- DVT prophylaxis Current Visit: Yes Status: Acute Plan to address problem: Patient is on heparin drip Physical therapy occupational therapy Plan of care is reviewed with patient and his nurse As Well as the case management Follow-up PT and OT evaluation Possible home with home health versus rehabilitation When medically stable History Interval history: Patient seen and examined medical records reviewed Patient feels slightly better, had wound closure yesterday Complains of mild pain at the site of surgery Alert awake oriented 3 Vital signs reviewed stable Hospitalist Physical - Constitutional Vitals: Temp Pulse Resp BP Pulse Ox 98.2 F 79 18 104/71 92 10/16/17 05:20 10/16/17 05:20 10/16/17 05:20 10/16/17 05:20 10/16/17 05:20 General appearance: Present: no acute distress, well-nourished - EENT Eyes: Present: PERRL, EOM intact - Neck Neck: Present: supple, normal ROM - Respiratory Respiratory effort: normal Respiratory: negative: rales, rhonchi, wheezing - Cardiovascular Rhythm: regular Heart Sounds: Present: S1 & S2 - Extremities Extremities: abnormal (left foot sutured wound clean, trace edema, tenderness to touch, pulses felt) - Abdominal General gastrointestinal: soft, non-tender, non-distended, normal bowel sounds - Integumentary Integumentary: Present: clear, warm - Psychiatric Psychiatric: appropriate mood/affect, cooperative - Neurologic Neurologic: CNII-XII intact, moves all extremities Results - Labs CBC & Chem 7: 10/14/17 06:16 10/14/17 06:16 Labs: Laboratory Last Values WBC 7.0 K/mm3 (4.5-11.0) 10/14/17 06:16 RBC 5.00 M/mm3 (3.65-5.03) 10/14/17 06:16 Hgb 15.3 gm/dl (11.8-15.2) H 10/14/17 06:16 Hct 45.5 % (35.5-45.6) 10/14/17 06:16 MCV 91 fl (84-94) 10/14/17 06:16 MCH 31 pg (28-32) 10/14/17 06:16 MCHC 34 % (32-34) 10/14/17 06:16 RDW 14.7 % (13.2-15.2) 10/14/17 06:16 Plt Count 225 K/mm3 (140-440) 10/14/17 06:16 Lymph % (Auto) 45.1 % (13.4-35.0) H 10/14/17 06:16 [place] % (Auto) 7.3 % (0.0-7.3) 10/14/17 06:16 Eos % (Auto) 7.3 % (0.0-4.3) H 10/14/17 06:16 Baso % (Auto) 0.9 % (0.0-1.8) 10/14/17 06:16 Lymph # 3.2 K/mm3 (1.2-5.4) 10/14/17 06:16 [place] # 0.5 K/mm3 (0.0-0.8) 10/14/17 06:16 Eos # 0.5 K/mm3 (0.0-0.4) H 10/14/17 06:16 Baso # 0.1 K/mm3 (0.0-0.1) 10/14/17 06:16 Add Manual Diff Complete 10/08/17 06:12 Total Counted 100 10/08/17 06:12 Seg Neutrophils % 39.4 % (40.0-70.0) L 10/14/17 06:16 Seg Neuts % (Manual) 35.0 % (40.0-70.0) L 10/08/17 06:12 Band Neutrophils % 1.0 % 10/08/17 06:12 Lymphocytes % (Manual) 50.0 % (13.4-35.0) H 10/08/17 06:12 Reactive Lymphs % (Man) 0 % 10/08/17 06:12 Monocytes % (Manual) 4.0 % (0.0-7.3) 10/08/17 06:12 Eosinophils % (Manual) 9.0 % (0.0-4.3) H 10/08/17 06:12 Basophils % (Manual) 1.0 % (0.0-1.8) 10/08/17 06:12 Metamyelocytes % 0 % 10/08/17 06:12 Myelocytes % 0 % 10/08/17 06:12 Promyelocytes % 0 % 10/08/17 06:12 Blast Cells % 0 % 10/08/17 06:12 Nucleated RBC % Not Reportable 10/08/17 06:12 Seg Neutrophils # 2.8 K/mm3 (1.8-7.7) 10/14/17 06:16 Seg Neutrophils # Man 2.5 K/mm3 (1.8-7.7) 10/08/17 06:12 Band Neutrophils # 0.1 K/mm3 10/08/17 06:12 Lymphocytes # (Manual) 3.6 K/mm3 (1.2-5.4) 10/08/17 06:12 Abs React Lymphs (Man) 0.0 K/mm3 10/08/17 06:12 Monocytes # (Manual) 0.3 K/mm3 (0.0-0.8) 10/08/17 06:12 Eosinophils # (Manual) 0.6 K/mm3 (0.0-0.4) H 10/08/17 06:12 Basophils # (Manual) 0.1 K/mm3 (0.0-0.1) 10/08/17 06:12 Metamyelocytes # 0.0 K/mm3 10/08/17 06:12 Myelocytes # 0.0 K/mm3 10/08/17 06:12 Promyelocytes # 0.0 K/mm3 10/08/17 06:12 Blast Cells # 0.0 K/mm3 10/08/17 06:12 WBC Morphology Not Reportable 10/08/17 06:12 Hypersegmented Neuts Not Reportable 10/08/17 06:12 Hyposegmented Neuts Not Reportable 10/08/17 06:12 Hypogranular Neuts Not Reportable 10/08/17 06:12 Smudge Cells Not Reportable 10/08/17 06:12 Toxic Granulation Not Reportable 10/08/17 06:12 Toxic Vacuolation Not Reportable 10/08/17 06:12 Dohle Bodies Not Reportable 10/08/17 06:12 Pelger-Huet Anomaly Not Reportable 10/08/17 06:12 [place] Rods Not Reportable 10/08/17 06:12 Platelet Estimate Consistent w auto 10/08/17 06:12 Clumped Platelets Not Reportable 10/08/17 06:12 Plt Clumps, EDTA Not Reportable 10/08/17 06:12 Large Platelets Not Reportable 10/08/17 06:12 Giant Platelets Not Reportable 10/08/17 06:12 Platelet Satelliting Not Reportable 10/08/17 06:12 Plt Morphology Comment Not Reportable 10/08/17 06:12 RBC Morphology Not Reportable 10/08/17 06:12 Dimorphic RBCs Not Reportable 10/08/17 06:12 Polychromasia Not Reportable 10/08/17 06:12 Hypochromasia Not Reportable 10/08/17 06:12 Poikilocytosis Not Reportable 10/08/17 06:12 Anisocytosis 1+ 10/08/17 06:12 Microcytosis Not Reportable 10/08/17 06:12 Macrocytosis Not Reportable 10/08/17 06:12 Spherocytes Not Reportable 10/08/17 06:12 Pappenheimer Bodies Not Reportable 10/08/17 06:12 Sickle Cells Not Reportable 10/08/17 06:12 Target Cells Not Reportable 10/08/17 06:12 Tear Drop Cells Not Reportable 10/08/17 06:12 Ovalocytes Not Reportable 10/08/17 06:12 Helmet Cells Not Reportable 10/08/17 06:12 Rosario-Diboll Bodies Not Reportable 10/08/17 06:12 [place] Rings Not Reportable 10/08/17 06:12 Nabeel Cells Not Reportable 10/08/17 06:12 Bite Cells Not Reportable 10/08/17 06:12 Crenated Cell Not Reportable 10/08/17 06:12 Elliptocytes Not Reportable 10/08/17 06:12 Acanthocytes (Spur) Not Reportable 10/08/17 06:12 Rouleaux Not Reportable 10/08/17 06:12 Hemoglobin C Crystals Not Reportable 10/08/17 06:12 Schistocytes Not Reportable 10/08/17 06:12 Malaria parasites Not Reportable 10/08/17 06:12 [place] Bodies Not Reportable 10/08/17 06:12 Hem Pathologist Commnt No 10/08/17 06:12 PT 13.8 Sec. (12.2-14.9) 10/15/17 14:35 INR 1.01 (0.87-1.13) 10/15/17 14:35 APTT 25.6 Sec. (24.2-36.6) 10/05/17 18:22 Fibrinogen 309 mg/dl (211-480) 10/06/17 15:00 Lupus Anticoagulant see below 10/07/17 10:23 LA PTT Baseline 98 sec (<=40) H 10/07/17 10:23 Free Protein S 132 % normal (57-171) 10/07/17 10:23 Total Protein S 105 % (70-140) 10/07/17 10:23 Heparin Anti-Xa Level 0.55 U.I./ml (0.3-0.7) 10/15/17 18:55 POC ABG pH 7.354 (7.35-7.45) 10/06/17 16:44 POC ABG pCO2 45.0 (35-45) 10/06/17 16:44 POC ABG pO2 59 (80-105) L 10/06/17 16:44 POC ABG HCO3 25.1 10/06/17 16:44 POC ABG Total CO2 26 10/06/17 16:44 POC ABG O2 Sat 89 10/06/17 16:44 POC ABG Base Excess 0 10/06/17 16:44 FiO2 32 % 10/06/17 16:44 Sodium 140 mmol/L (137-145) 10/14/17 06:16 Potassium 4.1 mmol/L (3.6-5.0) 10/14/17 06:16 Chloride 99.9 mmol/L (98-107) 10/14/17 06:16 Carbon Dioxide 25 mmol/L (22-30) 10/14/17 06:16 Anion Gap 19 mmol/L 10/14/17 06:16 BUN 19 mg/dL (9-20) 10/14/17 06:16 Creatinine 1.0 mg/dL (0.8-1.5) 10/14/17 06:16 Estimated GFR > 60 ml/min 10/14/17 06:16 BUN/Creatinine Ratio 19 % 10/14/17 06:16 Glucose 94 mg/dL (75-100) 10/14/17 06:16 Lactic Acid 1.50 mmol/L (0.7-2.0) 10/05/17 21:39 Calcium 9.7 mg/dL (8.4-10.2) 10/14/17 06:16 Magnesium 2.20 mg/dL (1.7-2.3) 10/14/17 06:16 Total Bilirubin 0.30 mg/dL (0.1-1.2) 10/14/17 06:16 AST 32 units/L (5-40) 10/14/17 06:16 ALT 27 units/L (7-56) 10/14/17 06:16 Alkaline Phosphatase 72 units/L (35-129) 10/14/17 06:16 Lactate Dehydrogenase 283 units/L (91-180) H 10/08/17 06:12 Total Protein 7.4 g/dL (6.3-8.2) 10/14/17 06:16 Albumin 3.8 g/dL (3.9-5) L 10/14/17 06:16 Albumin/Globulin Ratio 1.1 % 10/14/17 06:16 Blood Type O POSITIVE 10/05/17 18:49 Antibody Screen Negative 10/05/17 18:49
--- NOTE | 2017-10-16 10:42 | Hem/Onc Progress Note ---
Assessment and Plan Continue heparin and Coumadin. hep can be stopped once INR between 2 and 3. Subjective Date of service: 10/16/17 Interval history: Events noted. Patient status post closure. Feels fair. Coumadin got started. Dose currently at 7.5 mg a day Objective - Constitutional Vitals: Last Vital Signs Temp 98.2 F 10/16/17 05:20 Pulse 79 10/16/17 05:20 Resp 18 10/16/17 05:20 BP 104/71 10/16/17 05:20 Pulse Ox 92 10/16/17 05:20 General appearance: mild distress Performance status: 3-limited selfcare - Neck Neck: supple - Respiratory Respiratory: bilateral: CTA - Cardiovascular Rhythm: regular - Gastrointestinal General gastrointestinal: Present: soft - Labs Lab Results: Laboratory Results - last 24 hr 10/15/17 10/15/17 14:35 18:55 PT 13.8 INR 1.01 Heparin Anti-Xa Level 0.55
[2017-10-16] MEDS: LOPRESSOR PO SCH ×2 (11:10→23:19)
[2017-10-16] MEDS: PEPCID PO SCH (11:10)
[2017-10-16] MEDS: ZESTRIL PO SCH (11:11)
[2017-10-16] MEDS: HABITROL TD SCH (11:11)
--- NOTE | 2017-10-16 12:48 | Progress Note ---
Assessment and Plan Patient alert, awake, resting on room air.O2 saturation 92%. No complaint of chest pain, shortness of breath or cough.Patient not using his O2 at this time. Recommend to keep O2 all the time. - Patient Problems (1) HIV disease Current Visit: Yes Status: Acute Plan to address problem: Management as per primary and infectious diseases. (2) HTN (hypertension) Current Visit: Yes Status: Acute Qualifiers: Hypertension type: essential hypertension Qualified Code(s): I10 - Essential (primary) hypertension Plan to address problem: Management as per primary care. (3) Ischemia of left lower extremity Current Visit: Yes Status: Acute Plan to address problem: Patient is on I/V heparin Management as per vascular surgery. (4) Nicotine dependence Current Visit: Yes Status: Acute Qualifiers: Substance use status: in withdrawal Plan to address problem: Counselled to stop smoking. (5) Respiratory failure with hypoxia and hypercapnia Current Visit: Yes Status: Acute Plan to address problem: Patient has mild hypoxic and hypercapnic faolure. Possible COPD. PFTs as out patient. Subjective Date of service: 10/16/17 Principal diagnosis: Acute Limb Ischemia s/p thrombolysis; Hypoxemic Resp failure; PVDx; HIV +ve Interval history: Patient alert, awake, resting on room air.O2 saturation 92%. No complaint of chest pain, shortness of breath or cough.Patient not using his O2 at this time. Recommend to keep O2 all the time. Objective Vital Signs - 12hr 10/16/17 05:20 Temperature 98.2 F Pulse Rate 79 Respiratory 18 Rate Blood Pressure 104/71 O2 Sat by Pulse 92 Oximetry Constitutional: no acute distress, alert, other (elderly AAM, normocephalic and atraumatic resting in bed.) Eyes: non-icteric ENT: oropharynx moist, other (mallampati 2) Neck: supple, no lymphadenopathy, no JVD, other (no thyromegaly) Effort: mildly labored Ascultation: Bilateral: diminished breath sounds, rhonchi (base) Percussion: Bilateral: not dull Cardiovascular: regular rate and rhythm, other (No R/M) Gastrointestinal: normoactive bowel sounds, soft, non-tender, non-distended, other (No HSM) Integumentary: normal Extremities: no cyanosis, pulses normal, no ischemia or petechiae, other (left leg /alan dressing) Neurologic: normal mental status, non-focal exam, pupils equal and round, motor strength normal and Psychiatric: mood appropriate, affect normal CBC and BMP: 10/14/17 06:16 10/14/17 06:16 ABG, PT/INR, D-dimer: ABG POC ABG pH 7.354 (7.35-7.45) 10/06/17 16:44 POC ABG pCO2 45.0 (35-45) 10/06/17 16:44 POC ABG pO2 59 (80-105) L 10/06/17 16:44 POC ABG HCO3 25.1 10/06/17 16:44 POC ABG Total CO2 26 10/06/17 16:44 POC ABG O2 Sat 89 10/06/17 16:44 PT/INR, D-dimer PT 13.8 Sec. (12.2-14.9) 10/15/17 14:35 INR 1.01 (0.87-1.13) 10/15/17 14:35 Abnormal lab findings: Abnormal Labs 10/05/17 10/05/17 10/05/17 17:51 17:51 17:51 RBC 5.22 H Hgb 15.9 H Hct 46.8 H Plt Count Lymph % (Auto) [place] % (Auto) 8.1 H Eos % (Auto) Baso % (Auto) Eos # Seg Neutrophils % Seg Neuts % (Manual) Lymphocytes % (Manual) Eosinophils % (Manual) Eosinophils # (Manual) Fibrinogen LA PTT Baseline Heparin Anti-Xa Level POC ABG pO2 Chloride Glucose 122 H Lactic Acid 3.10 H* Lactate Dehydrogenase Albumin 10/05/17 10/06/17 10/06/17 19:44 01:54 01:54 RBC Hgb Hct Plt Count Lymph % (Auto) [place] % (Auto) Eos % (Auto) Baso % (Auto) Eos # Seg Neutrophils % 71.8 H Seg Neuts % (Manual) Lymphocytes % (Manual) Eosinophils % (Manual) Eosinophils # (Manual) Fibrinogen 521 H LA PTT Baseline Heparin Anti-Xa Level 0.15 L POC ABG pO2 Chloride Glucose Lactic Acid Lactate Dehydrogenase Albumin 10/06/17 10/06/17 10/06/17 05:41 07:14 07:14 RBC Hgb Hct Plt Count Lymph % (Auto) [place] % (Auto) 7.6 H Eos % (Auto) Baso % (Auto) Eos # Seg Neutrophils % Seg Neuts % (Manual) Lymphocytes % (Manual) Eosinophils % (Manual) Eosinophils # (Manual) Fibrinogen LA PTT Baseline Heparin Anti-Xa Level > 2.00 H POC ABG pO2 Chloride Glucose 103 H Lactic Acid Lactate Dehydrogenase Albumin 10/06/17 10/06/17 10/06/17 15:00 15:00 16:44 RBC Hgb Hct Plt Count Lymph % (Auto) [place] % (Auto) Eos % (Auto) 4.8 H Baso % (Auto) 2.0 H Eos # Seg Neutrophils % Seg Neuts % (Manual) Lymphocytes % (Manual) Eosinophils % (Manual) Eosinophils # (Manual) Fibrinogen LA PTT Baseline Heparin Anti-Xa Level 0.11 L POC ABG pO2 59 L Chloride Glucose Lactic Acid Lactate Dehydrogenase Albumin 10/06/17 10/07/17 10/07/17 21:09 03:35 03:35 RBC Hgb Hct Plt Count 133 L Lymph % (Auto) [place] % (Auto) Eos % (Auto) Baso % (Auto) Eos # Seg Neutrophils % Seg Neuts % (Manual) Lymphocytes % (Manual) Eosinophils % (Manual) Eosinophils # (Manual) Fibrinogen LA PTT Baseline Heparin Anti-Xa Level 0.10 L POC ABG pO2 Chloride 96.4 L Glucose 114 H Lactic Acid Lactate Dehydrogenase Albumin 10/07/17 10/08/17 10/08/17 10:23 06:12 06:12 RBC Hgb Hct Plt Count Lymph % (Auto) [place] % (Auto) Eos % (Auto) Baso % (Auto) Eos # Seg Neutrophils % Seg Neuts % (Manual) 35.0 L Lymphocytes % (Manual) 50.0 H Eosinophils % (Manual) 9.0 H Eosinophils # (Manual) 0.6 H Fibrinogen LA PTT Baseline 98 H Heparin Anti-Xa Level POC ABG pO2 Chloride Glucose Lactic Acid Lactate Dehydrogenase 283 H Albumin 10/10/17 10/11/17 10/12/17 05:07 09:46 09:37 RBC Hgb 15.3 H Hct Plt Count Lymph % (Auto) [place] % (Auto) Eos % (Auto) Baso % (Auto) Eos # Seg Neutrophils % Seg Neuts % (Manual) Lymphocytes % (Manual) Eosinophils % (Manual) Eosinophils # (Manual) Fibrinogen LA PTT Baseline Heparin Anti-Xa Level < 0.10 L POC ABG pO2 Chloride Glucose 112 H Lactic Acid Lactate Dehydrogenase Albumin 10/13/17 10/13/17 10/14/17 05:28 13:12 06:16 RBC Hgb 15.5 H 15.3 H Hct 45.8 H Plt Count Lymph % (Auto) 37.0 H 45.1 H [place] % (Auto) 8.1 H Eos % (Auto) 7.1 H 7.3 H Baso % (Auto) Eos # 0.5 H 0.5 H Seg Neutrophils % 39.4 L Seg Neuts % (Manual) Lymphocytes % (Manual) Eosinophils % (Manual) Eosinophils # (Manual) Fibrinogen LA PTT Baseline Heparin Anti-Xa Level 0.16 L POC ABG pO2 Chloride Glucose Lactic Acid Lactate Dehydrogenase Albumin 10/14/17 06:16 RBC Hgb Hct Plt Count Lymph % (Auto) [place] % (Auto) Eos % (Auto) Baso % (Auto) Eos # Seg Neutrophils % Seg Neuts % (Manual) Lymphocytes % (Manual) Eosinophils % (Manual) Eosinophils # (Manual) Fibrinogen LA PTT Baseline Heparin Anti-Xa Level POC ABG pO2 Chloride Glucose Lactic Acid Lactate Dehydrogenase Albumin 3.8 L Allied health notes reviewed: nursing
[2017-10-16] MEDS: FAMVIR PO SCH (14:42)
[2017-10-16] MEDS: PREZISTA PO SCH (14:42)
[2017-10-16] MEDS: NORVIR PO SCH (14:42)
--- NOTE | 2017-10-16 17:42 | Progress Note ---
Assessment and Plan 61-year-old male status post left lower extremity percutaneous thrombolysis and left lower extremity fasciotomy. Left foot drop. Needs orthotics boot for left lower extremity. Continue physical therapy. INR subtherapeutic. Continue heparin drip. Case management needs to discuss with patient regarding disability issues. Subjective Date of service: 10/16/17 Principal diagnosis: Acute Limb Ischemia s/p thrombolysis; Hypoxemic Resp failure; PVDx; HIV +ve Interval history: Left lower extremity foot drop present. Palpable pedal pulses. The left leg incision is well approximated. Clean, dry, and intact. On heparin drip. INR subtherapeutic. Patient wants to see case management regarding disability. Objective - Constitutional General appearance: Present: no acute distress - EENT Eyes: EOM intact ENT: hearing intact - Respiratory Respiratory effort: normal Extremities: pulses intact, normal temperature, normal color, abnormal (incision , clean, dry, and intact) - Neurologic Neurologic: other (left foot drop) - Psychiatric Psychiatric: appropriate mood/affect, cooperative - Labs CBC & Chem 7: 10/14/17 06:16 10/14/17 06:16
[2017-10-16] MEDS: COUMADIN PO SCH ×2 (18:00→23:56)
[2017-10-17] MEDS: NACL 0.9% 1000 ML 1,000 ML IV SCH ×3 (00:04→23:15)
[2017-10-17] MEDS: HEPARIN/ 0.45% NACL-25,000 UNIT/500 ML 25,000 UNIT/500 ML BAG IV SCH ×2 (00:09→14:47)
[2017-10-17] MEDS: NORCO 5/325 PO PRN ×3 (06:22→23:10)
[2017-10-17 07:01] LABS: INR 1.22 (0.87-1.13)
--- NOTE | 2017-10-17 09:21 | Hem/Onc Progress Note ---
Assessment and Plan Continue heparin and Coumadin. hep can be stopped once INR between 2 and 3. Subjective Date of service: 10/17/17 Interval history: Events noted. Patient status post closure. Feels fair. Coumadin got started. Dose currently at 7.5 mg a day Objective - Constitutional Vitals: Last Vital Signs Temp 98.2 F 10/17/17 08:36 Pulse 69 10/17/17 08:36 Resp 16 10/17/17 08:36 BP 104/72 10/17/17 08:36 Pulse Ox 92 10/17/17 08:36 Performance status: 3-limited selfcare Extremities: abnormal (post op l leg) - Gastrointestinal General gastrointestinal: Present: soft - Labs Lab Results: Laboratory Results - last 24 hr 10/16/17 10/17/17 17:56 05:50 PT 16.1 H INR 1.22 H Heparin Anti-Xa Level 0.33
[2017-10-17] MEDS: NORVIR PO SCH (11:16)
[2017-10-17] MEDS: PREZISTA PO SCH (11:16)
[2017-10-17] MEDS: LOPRESSOR PO SCH ×2 (11:20→23:16)
[2017-10-17] MEDS: ZESTRIL PO SCH (11:20)
[2017-10-17] MEDS: PEPCID PO SCH (11:21)
[2017-10-17] MEDS: HABITROL TD SCH (11:21)
[2017-10-17] MEDS: FAMVIR PO SCH (11:22)
--- NOTE | 2017-10-17 13:40 | Progress Note ---
Assessment and Plan Patient alert, awake, resting on room air.O2 saturation 93%. No complaint of chest pain, shortness of breath or cough.Patient not using his O2 at this time. Recommend to keep O2 all the time. - Patient Problems (1) HIV disease Current Visit: Yes Status: Acute Plan to address problem: Management as per primary and infectious diseases. (2) HTN (hypertension) Current Visit: Yes Status: Acute Qualifiers: Hypertension type: essential hypertension Qualified Code(s): I10 - Essential (primary) hypertension Plan to address problem: Management as per primary care. (3) Ischemia of left lower extremity Current Visit: Yes Status: Acute Plan to address problem: Patient is on I/V heparin Patient started on PO coumadin. Management as per vascular surgery. (4) Nicotine dependence Current Visit: Yes Status: Acute Qualifiers: Substance use status: in withdrawal Plan to address problem: Counselled to stop smoking. (5) Respiratory failure with hypoxia and hypercapnia Current Visit: Yes Status: Acute Plan to address problem: Patient has mild hypoxic and hypercapnic faolure. Possible COPD. PFTs as out patient. Subjective Date of service: 10/17/17 Principal diagnosis: Acute Limb Ischemia s/p thrombolysis; Hypoxemic Resp failure; PVDx; HIV +ve Interval history: Patient alert, awake, resting on room air.O2 saturation 93%. No complaint of chest pain, shortness of breath or cough.Patient not using his O2 at this time. Recommend to keep O2 all the time. Objective Vital Signs - 12hr 10/17/17 10/17/17 10/17/17 05:40 06:22 08:36 Temperature 98.2 F 98.2 F Pulse Rate 76 69 Respiratory 20 20 16 Rate Blood Pressure 127/82 104/72 O2 Sat by Pulse 95 92 Oximetry 10/17/17 11:54 Temperature 98.0 F Pulse Rate 78 Respiratory 16 Rate Blood Pressure 112/79 O2 Sat by Pulse 93 Oximetry Constitutional: no acute distress, alert, other (elderly AAM, normocephalic and atraumatic resting in bed.) Eyes: non-icteric ENT: oropharynx moist, other (mallampati 2) Neck: supple, no lymphadenopathy, no JVD, other (no thyromegaly) Effort: mildly labored Ascultation: Bilateral: diminished breath sounds, rhonchi (base) Percussion: Bilateral: not dull Cardiovascular: regular rate and rhythm, other (No R/M) Gastrointestinal: normoactive bowel sounds, soft, non-tender, non-distended, other (No HSM) Integumentary: normal Extremities: no cyanosis, pulses normal, no ischemia or petechiae, other (left leg /alan dressing) Neurologic: normal mental status, non-focal exam, pupils equal and round, motor strength normal and Psychiatric: mood appropriate, affect normal CBC and BMP: 10/14/17 06:16 10/14/17 06:16 ABG, PT/INR, D-dimer: ABG POC ABG pH 7.354 (7.35-7.45) 10/06/17 16:44 POC ABG pCO2 45.0 (35-45) 10/06/17 16:44 POC ABG pO2 59 (80-105) L 10/06/17 16:44 POC ABG HCO3 25.1 10/06/17 16:44 POC ABG Total CO2 26 10/06/17 16:44 POC ABG O2 Sat 89 10/06/17 16:44 PT/INR, D-dimer PT 16.1 Sec. (12.2-14.9) H 10/17/17 05:50 INR 1.22 (0.87-1.13) H 10/17/17 05:50 Abnormal lab findings: Abnormal Labs 10/05/17 10/05/17 10/05/17 17:51 17:51 17:51 RBC 5.22 H Hgb 15.9 H Hct 46.8 H Plt Count Lymph % (Auto) [place] % (Auto) 8.1 H Eos % (Auto) Baso % (Auto) Eos # Seg Neutrophils % Seg Neuts % (Manual) Lymphocytes % (Manual) Eosinophils % (Manual) Eosinophils # (Manual) PT INR Fibrinogen LA PTT Baseline Heparin Anti-Xa Level POC ABG pO2 Chloride Glucose 122 H Lactic Acid 3.10 H* Lactate Dehydrogenase Albumin 10/05/17 10/06/17 10/06/17 19:44 01:54 01:54 RBC Hgb Hct Plt Count Lymph % (Auto) [place] % (Auto) Eos % (Auto) Baso % (Auto) Eos # Seg Neutrophils % 71.8 H Seg Neuts % (Manual) Lymphocytes % (Manual) Eosinophils % (Manual) Eosinophils # (Manual) PT INR Fibrinogen 521 H LA PTT Baseline Heparin Anti-Xa Level 0.15 L POC ABG pO2 Chloride Glucose Lactic Acid Lactate Dehydrogenase Albumin 10/06/17 10/06/17 10/06/17 05:41 07:14 07:14 RBC Hgb Hct Plt Count Lymph % (Auto) [place] % (Auto) 7.6 H Eos % (Auto) Baso % (Auto) Eos # Seg Neutrophils % Seg Neuts % (Manual) Lymphocytes % (Manual) Eosinophils % (Manual) Eosinophils # (Manual) PT INR Fibrinogen LA PTT Baseline Heparin Anti-Xa Level > 2.00 H POC ABG pO2 Chloride Glucose 103 H Lactic Acid Lactate Dehydrogenase Albumin 10/06/17 10/06/17 10/06/17 15:00 15:00 16:44 RBC Hgb Hct Plt Count Lymph % (Auto) [place] % (Auto) Eos % (Auto) 4.8 H Baso % (Auto) 2.0 H Eos # Seg Neutrophils % Seg Neuts % (Manual) Lymphocytes % (Manual) Eosinophils % (Manual) Eosinophils # (Manual) PT INR Fibrinogen LA PTT Baseline Heparin Anti-Xa Level 0.11 L POC ABG pO2 59 L Chloride Glucose Lactic Acid Lactate Dehydrogenase Albumin 10/06/17 10/07/17 10/07/17 21:09 03:35 03:35 RBC Hgb Hct Plt Count 133 L Lymph % (Auto) [place] % (Auto) Eos % (Auto) Baso % (Auto) Eos # Seg Neutrophils % Seg Neuts % (Manual) Lymphocytes % (Manual) Eosinophils % (Manual) Eosinophils # (Manual) PT INR Fibrinogen LA PTT Baseline Heparin Anti-Xa Level 0.10 L POC ABG pO2 Chloride 96.4 L Glucose 114 H Lactic Acid Lactate Dehydrogenase Albumin 10/07/17 10/08/17 10/08/17 10:23 06:12 06:12 RBC Hgb Hct Plt Count Lymph % (Auto) [place] % (Auto) Eos % (Auto) Baso % (Auto) Eos # Seg Neutrophils % Seg Neuts % (Manual) 35.0 L Lymphocytes % (Manual) 50.0 H Eosinophils % (Manual) 9.0 H Eosinophils # (Manual) 0.6 H PT INR Fibrinogen LA PTT Baseline 98 H Heparin Anti-Xa Level POC ABG pO2 Chloride Glucose Lactic Acid Lactate Dehydrogenase 283 H Albumin 10/10/17 10/11/17 10/12/17 05:07 09:46 09:37 RBC Hgb 15.3 H Hct Plt Count Lymph % (Auto) [place] % (Auto) Eos % (Auto) Baso % (Auto) Eos # Seg Neutrophils % Seg Neuts % (Manual) Lymphocytes % (Manual) Eosinophils % (Manual) Eosinophils # (Manual) PT INR Fibrinogen LA PTT Baseline Heparin Anti-Xa Level < 0.10 L POC ABG pO2 Chloride Glucose 112 H Lactic Acid Lactate Dehydrogenase Albumin 10/13/17 10/13/17 10/14/17 05:28 13:12 06:16 RBC Hgb 15.5 H 15.3 H Hct 45.8 H Plt Count Lymph % (Auto) 37.0 H 45.1 H [place] % (Auto) 8.1 H Eos % (Auto) 7.1 H 7.3 H Baso % (Auto) Eos # 0.5 H 0.5 H Seg Neutrophils % 39.4 L Seg Neuts % (Manual) Lymphocytes % (Manual) Eosinophils % (Manual) Eosinophils # (Manual) PT INR Fibrinogen LA PTT Baseline Heparin Anti-Xa Level 0.16 L POC ABG pO2 Chloride Glucose Lactic Acid Lactate Dehydrogenase Albumin 10/14/17 10/17/17 06:16 05:50 RBC Hgb Hct Plt Count Lymph % (Auto) [place] % (Auto) Eos % (Auto) Baso % (Auto) Eos # Seg Neutrophils % Seg Neuts % (Manual) Lymphocytes % (Manual) Eosinophils % (Manual) Eosinophils # (Manual) PT 16.1 H INR 1.22 H Fibrinogen LA PTT Baseline Heparin Anti-Xa Level POC ABG pO2 Chloride Glucose Lactic Acid Lactate Dehydrogenase Albumin 3.8 L Allied health notes reviewed: nursing
--- NOTE | 2017-10-17 14:35 | Progress Note ---
Assessment and Plan 61-year-old male status post left lower extremity percutaneous thrombolysis and left lower extremity fasciotomy. Left foot drop. Has AFO brace for foot drop. Continue physical therapy. INR subtherapeutic. Continue heparin drip. Subjective Date of service: 10/17/17 Principal diagnosis: Acute Limb Ischemia s/p thrombolysis; Hypoxemic Resp failure; PVDx; HIV +ve Interval history: Left lower extremity foot drop present. Palpable pedal pulses. The left leg incision is well approximated. Clean, dry, and intact. On heparin drip. INR subtherapeutic. Has AFO brace but took it off. Put it back on patient. Explained contractures and need to keep brace on most of the day. Objective - Constitutional Vitals: Vital Signs - 12hr 10/17/17 10/17/17 10/17/17 05:40 06:22 08:36 Temperature 98.2 F 98.2 F Pulse Rate 76 69 Respiratory 20 20 16 Rate Blood Pressure 127/82 104/72 O2 Sat by Pulse 95 92 Oximetry 10/17/17 11:54 Temperature 98.0 F Pulse Rate 78 Respiratory 16 Rate Blood Pressure 112/79 O2 Sat by Pulse 93 Oximetry General appearance: Present: no acute distress - EENT Eyes: EOM intact ENT: hearing intact - Respiratory Respiratory effort: normal Extremities: pulses intact, normal temperature, normal color, abnormal ( incision c/d/i) - Psychiatric Psychiatric: appropriate mood/affect, cooperative - Labs CBC & Chem 7: 10/14/17 06:16 10/14/17 06:16 Labs: Abnormal lab results 10/17/17 Range/Units 05:50 PT 16.1 H (12.2-14.9) Sec. INR 1.22 H (0.87-1.13)
[2017-10-17] MEDS: TORADOL IV PRN (14:45)
[2017-10-17] MEDS: COUMADIN PO SCH (18:52)
--- NOTE | 2017-10-17 19:21 | Progress Note ---
Assessment and Plan Assessment and plan: -- Ischemia of left lower extremity Current Visit: Yes Status: Acute Plan to address problem: S/p percutaneous thrombolysis left lower extremity heparin drip, and Coumadin, check INR in 2-3 Palpable pedal pulses --Compartment syndrome left lower extremity s/p fasciotomy /wound VAC, wound closure elevate the limb --Left Foot drop foot brace, PTOT, possible home with home health upon discharge --HIV disease Current Visit: Yes Status: Acute Plan to address problem: Continue with antiretroviral therapy, outpatient ID f/u upon discharge --Lactic Acidosis Current Visit: Yes Status: Acute Plan to address problem: Lactic acidosis resolved. -- PVD (peripheral vascular disease) Current Visit: Yes Status: Acute Continue current management -- Nicotine dependence Current Visit: Yes Status: Acute Qualifiers: Substance use status: in withdrawal Plan to address problem: smoking cessation counseling, supportive care. -- HTN (hypertension) continue antihypertensives and when necessary medication --Constipation; stool softeners,milk of magnesia, Dulcolax if no improvement consider enema as needed -- DVT prophylaxis Current Visit: Yes Status: Acute Plan to address problem: Patient is on heparin drip Physical therapy occupational therapy, foot brace Follow-up PT and OT evaluation Possible home with home health in 1- 2 days if stable Plan of care reviewed with the patient, his nurse The case management History Interval history: Patient seen and examined medical records reviewed On heparin drip and Coumadin , target INR 2-3 Tolerating PT OT. Complaints of severe pain A, awake oriented 3 s vital signs reviewed Hospitalist Physical - Constitutional Vitals: Temp Pulse Resp BP Pulse Ox 97.9 F 69 16 109/62 93 10/17/17 16:27 10/17/17 16:27 10/17/17 16:27 10/17/17 16:27 10/17/17 16:27 General appearance: Present: no acute distress, well-nourished - EENT Eyes: Present: PERRL, EOM intact - Neck Neck: Present: supple, normal ROM - Respiratory Respiratory effort: normal Respiratory: negative: rales, rhonchi, wheezing - Cardiovascular Rhythm: regular Heart Sounds: Present: S1 & S2 - Extremities Extremities: abnormal (surgical wound clean, mild edema left foot, foot drop) Extremity abnormal: edema, cyanosis - Abdominal General gastrointestinal: soft, non-tender, non-distended, normal bowel sounds - Integumentary Integumentary: Present: clear, warm - Psychiatric Psychiatric: appropriate mood/affect, cooperative - Neurologic Neurologic: CNII-XII intact, moves all extremities Results - Labs CBC & Chem 7: 10/14/17 06:16 10/14/17 06:16 Labs: Laboratory Last Values WBC 7.0 K/mm3 (4.5-11.0) 10/14/17 06:16 RBC 5.00 M/mm3 (3.65-5.03) 10/14/17 06:16 Hgb 15.3 gm/dl (11.8-15.2) H 10/14/17 06:16 Hct 45.5 % (35.5-45.6) 10/14/17 06:16 MCV 91 fl (84-94) 10/14/17 06:16 MCH 31 pg (28-32) 10/14/17 06:16 MCHC 34 % (32-34) 10/14/17 06:16 RDW 14.7 % (13.2-15.2) 10/14/17 06:16 Plt Count 225 K/mm3 (140-440) 10/14/17 06:16 Lymph % (Auto) 45.1 % (13.4-35.0) H 10/14/17 06:16 [place] % (Auto) 7.3 % (0.0-7.3) 10/14/17 06:16 Eos % (Auto) 7.3 % (0.0-4.3) H 10/14/17 06:16 Baso % (Auto) 0.9 % (0.0-1.8) 10/14/17 06:16 Lymph # 3.2 K/mm3 (1.2-5.4) 10/14/17 06:16 [place] # 0.5 K/mm3 (0.0-0.8) 10/14/17 06:16 Eos # 0.5 K/mm3 (0.0-0.4) H 10/14/17 06:16 Baso # 0.1 K/mm3 (0.0-0.1) 10/14/17 06:16 Add Manual Diff Complete 10/08/17 06:12 Total Counted 100 10/08/17 06:12 Seg Neutrophils % 39.4 % (40.0-70.0) L 10/14/17 06:16 Seg Neuts % (Manual) 35.0 % (40.0-70.0) L 10/08/17 06:12 Band Neutrophils % 1.0 % 10/08/17 06:12 Lymphocytes % (Manual) 50.0 % (13.4-35.0) H 10/08/17 06:12 Reactive Lymphs % (Man) 0 % 10/08/17 06:12 Monocytes % (Manual) 4.0 % (0.0-7.3) 10/08/17 06:12 Eosinophils % (Manual) 9.0 % (0.0-4.3) H 10/08/17 06:12 Basophils % (Manual) 1.0 % (0.0-1.8) 10/08/17 06:12 Metamyelocytes % 0 % 10/08/17 06:12 Myelocytes % 0 % 10/08/17 06:12 Promyelocytes % 0 % 10/08/17 06:12 Blast Cells % 0 % 10/08/17 06:12 Nucleated RBC % Not Reportable 10/08/17 06:12 Seg Neutrophils # 2.8 K/mm3 (1.8-7.7) 10/14/17 06:16 Seg Neutrophils # Man 2.5 K/mm3 (1.8-7.7) 10/08/17 06:12 Band Neutrophils # 0.1 K/mm3 10/08/17 06:12 Lymphocytes # (Manual) 3.6 K/mm3 (1.2-5.4) 10/08/17 06:12 Abs React Lymphs (Man) 0.0 K/mm3 10/08/17 06:12 Monocytes # (Manual) 0.3 K/mm3 (0.0-0.8) 10/08/17 06:12 Eosinophils # (Manual) 0.6 K/mm3 (0.0-0.4) H 10/08/17 06:12 Basophils # (Manual) 0.1 K/mm3 (0.0-0.1) 10/08/17 06:12 Metamyelocytes # 0.0 K/mm3 10/08/17 06:12 Myelocytes # 0.0 K/mm3 10/08/17 06:12 Promyelocytes # 0.0 K/mm3 10/08/17 06:12 Blast Cells # 0.0 K/mm3 10/08/17 06:12 WBC Morphology Not Reportable 10/08/17 06:12 Hypersegmented Neuts Not Reportable 10/08/17 06:12 Hyposegmented Neuts Not Reportable 10/08/17 06:12 Hypogranular Neuts Not Reportable 10/08/17 06:12 Smudge Cells Not Reportable 10/08/17 06:12 Toxic Granulation Not Reportable 10/08/17 06:12 Toxic Vacuolation Not Reportable 10/08/17 06:12 Dohle Bodies Not Reportable 10/08/17 06:12 Pel[place]uet Anomaly Not Reportable 10/08/17 06:12 [place] Rods Not Reportable 10/08/17 06:12 Platelet Estimate Consistent w auto 10/08/17 06:12 Clumped Platelets Not Reportable 10/08/17 06:12 Plt Clumps, EDTA Not Reportable 10/08/17 06:12 Large Platelets Not Reportable 10/08/17 06:12 Giant Platelets Not Reportable 10/08/17 06:12 Platelet Satelliting Not Reportable 10/08/17 06:12 Plt Morphology Comment Not Reportable 10/08/17 06:12 RBC Morphology Not Reportable 10/08/17 06:12 Dimorphic RBCs Not Reportable 10/08/17 06:12 Polychromasia Not Reportable 10/08/17 06:12 Hypochromasia Not Reportable 10/08/17 06:12 Poikilocytosis Not Reportable 10/08/17 06:12 Anisocytosis 1+ 10/08/17 06:12 Microcytosis Not Reportable 10/08/17 06:12 Macrocytosis Not Reportable 10/08/17 06:12 Spherocytes Not Reportable 10/08/17 06:12 Pappenheimer Bodies Not Reportable 10/08/17 06:12 Sickle Cells Not Reportable 10/08/17 06:12 Target Cells Not Reportable 10/08/17 06:12 Tear Drop Cells Not Reportable 10/08/17 06:12 Ovalocytes Not Reportable 10/08/17 06:12 Helmet Cells Not Reportable 10/08/17 06:12 [place] Bodies Not Reportable 10/08/17 06:12 [place] Rings Not Reportable 10/08/17 06:12 [place] Cells Not Reportable 10/08/17 06:12 Bite Cells Not Reportable 10/08/17 06:12 Crenated Cell Not Reportable 10/08/17 06:12 Elliptocytes Not Reportable 10/08/17 06:12 Acanthocytes (Spur) Not Reportable 10/08/17 06:12 Rouleaux Not Reportable 10/08/17 06:12 Hemoglobin C Crystals Not Reportable 10/08/17 06:12 Schistocytes Not Reportable 10/08/17 06:12 Malaria parasites Not Reportable 10/08/17 06:12 [place] Bodies Not Reportable 10/08/17 06:12 Hem Pathologist Commnt No 10/08/17 06:12 PT 16.1 Sec. (12.2-14.9) H 10/17/17 05:50 INR 1.22 (0.87-1.13) H 10/17/17 05:50 APTT 25.6 Sec. (24.2-36.6) 10/05/17 18:22 Fibrinogen 309 mg/dl (211-480) 10/06/17 15:00 Lupus Anticoagulant see below 10/07/17 10:23 LA PTT Baseline 98 sec (<=40) H 10/07/17 10:23 dRVVT Screen 50:50 See scanned report 10/07/17 10:23 dRVVT Mix Interpret See scanned report 10/07/17 10:23 Protein C Antigen See scanned report 10/07/17 10:23 Free Protein S 132 % normal (57-171) 10/07/17 10:23 Total Protein S 105 % (70-140) 10/07/17 10:23 Heparin Anti-Xa Level 0.46 U.I./ml (0.3-0.7) 10/17/17 16:35 POC ABG pH 7.354 (7.35-7.45) 10/06/17 16:44 POC ABG pCO2 45.0 (35-45) 10/06/17 16:44 POC ABG pO2 59 (80-105) L 10/06/17 16:44 POC ABG HCO3 25.1 10/06/17 16:44 POC ABG Total CO2 26 10/06/17 16:44 POC ABG O2 Sat 89 10/06/17 16:44 POC ABG Base Excess 0 10/06/17 16:44 FiO2 32 % 10/06/17 16:44 Sodium 140 mmol/L (137-145) 10/14/17 06:16 Potassium 4.1 mmol/L (3.6-5.0) 10/14/17 06:16 Chloride 99.9 mmol/L (98-107) 10/14/17 06:16 Carbon Dioxide 25 mmol/L (22-30) 10/14/17 06:16 Anion Gap 19 mmol/L 10/14/17 06:16 BUN 19 mg/dL (9-20) 10/14/17 06:16 Creatinine 1.0 mg/dL (0.8-1.5) 10/14/17 06:16 Estimated GFR > 60 ml/min 10/14/17 06:16 BUN/Creatinine Ratio 19 % 10/14/17 06:16 Glucose 94 mg/dL (75-100) 10/14/17 06:16 Lactic Acid 1.50 mmol/L (0.7-2.0) 10/05/17 21:39 Calcium 9.7 mg/dL (8.4-10.2) 10/14/17 06:16 Magnesium 2.20 mg/dL (1.7-2.3) 10/14/17 06:16 Total Bilirubin 0.30 mg/dL (0.1-1.2) 10/14/17 06:16 AST 32 units/L (5-40) 10/14/17 06:16 ALT 27 units/L (7-56) 10/14/17 06:16 Alkaline Phosphatase 72 units/L (35-129) 10/14/17 06:16 Lactate Dehydrogenase 283 units/L (91-180) H 10/08/17 06:12 Total Protein 7.4 g/dL (6.3-8.2) 10/14/17 06:16 Albumin 3.8 g/dL (3.9-5) L 10/14/17 06:16 Albumin/Globulin Ratio 1.1 % 10/14/17 06:16 Prothrombin Gene Mutate See scanned report 10/07/17 10:23 Blood Type O POSITIVE 10/05/17 18:49 Antibody Screen Negative 10/05/17 18:49
[2017-10-18 05:58] LABS: INR 1.57 (0.87-1.13)
[2017-10-18] MEDS: HEPARIN/ 0.45% NACL-25,000 UNIT/500 ML 25,000 UNIT/500 ML BAG IV SCH ×2 (06:26→22:06)
[2017-10-18] MEDS: NACL 0.9% 1000 ML 1,000 ML IV SCH (07:54)
[2017-10-18] MEDS: LOPRESSOR PO SCH ×2 (09:33→22:03)
[2017-10-18] MEDS: FAMVIR PO SCH (11:14)
[2017-10-18] MEDS: ZESTRIL PO SCH (11:15)
[2017-10-18] MEDS: PEPCID PO SCH (11:15)
[2017-10-18] MEDS: PREZISTA PO SCH (11:15)
[2017-10-18] MEDS: NORVIR PO SCH (11:15)
[2017-10-18] MEDS: HABITROL TD SCH (11:16)
--- NOTE | 2017-10-18 11:23 | Progress Note ---
Assessment and Plan Patient alert, awake, resting on room air.O2 saturation 94%. No complaint of chest pain, shortness of breath or cough.Patient not using his O2 at this time. Recommend to keep O2 all the time.Patients todays INR 1.57. - Patient Problems (1) HIV disease Current Visit: Yes Status: Acute Plan to address problem: Management as per primary and infectious diseases. (2) HTN (hypertension) Current Visit: Yes Status: Acute Qualifiers: Hypertension type: essential hypertension Qualified Code(s): I10 - Essential (primary) hypertension Plan to address problem: Management as per primary care. (3) Ischemia of left lower extremity Current Visit: Yes Status: Acute Plan to address problem: Patient is on I/V heparin Patient started on PO coumadin. Management as per vascular surgery. (4) Nicotine dependence Current Visit: Yes Status: Acute Qualifiers: Substance use status: in withdrawal Plan to address problem: Counselled to stop smoking. (5) Respiratory failure with hypoxia and hypercapnia Current Visit: Yes Status: Acute Plan to address problem: Patient has mild hypoxic and hypercapnic faolure. Possible COPD. PFTs as out patient. Subjective Date of service: 10/18/17 Principal diagnosis: Acute Limb Ischemia s/p thrombolysis; Hypoxemic Resp failure; PVDx; HIV +ve Interval history: Patient alert, awake, resting on room air.O2 saturation 94%. No complaint of chest pain, shortness of breath or cough.Patient not using his O2 at this time. Recommend to keep O2 all the time.Patients todays INR is 1.57. Objective Vital Signs - 12hr 10/18/17 10/18/17 10/18/17 00:10 00:22 04:38 Temperature 98.4 F 98.6 F Pulse Rate 81 103 H Respiratory 20 20 20 Rate Blood Pressure 122/78 135/84 O2 Sat by Pulse 95 92 Oximetry 10/18/17 10:00 Temperature Pulse Rate Respiratory 18 Rate Blood Pressure O2 Sat by Pulse 94 Oximetry Constitutional: no acute distress, alert, other (elderly AAM, normocephalic and atraumatic resting in bed.) Eyes: non-icteric ENT: oropharynx moist, other (mallampati 2) Neck: supple, no lymphadenopathy, no JVD, other (no thyromegaly) Effort: mildly labored Ascultation: Bilateral: diminished breath sounds, rhonchi (base) Percussion: Bilateral: not dull Cardiovascular: regular rate and rhythm, other (No R/M) Gastrointestinal: normoactive bowel sounds, soft, non-tender, non-distended, other (No HSM) Integumentary: normal Extremities: no cyanosis, pulses normal, no ischemia or petechiae, other (left leg /alan dressing) Neurologic: normal mental status, non-focal exam, pupils equal and round, motor strength normal and Psychiatric: mood appropriate, affect normal CBC and BMP: 10/14/17 06:16 10/14/17 06:16 ABG, PT/INR, D-dimer: ABG POC ABG pH 7.354 (7.35-7.45) 10/06/17 16:44 POC ABG pCO2 45.0 (35-45) 10/06/17 16:44 POC ABG pO2 59 (80-105) L 10/06/17 16:44 POC ABG HCO3 25.1 10/06/17 16:44 POC ABG Total CO2 26 10/06/17 16:44 POC ABG O2 Sat 89 10/06/17 16:44 PT/INR, D-dimer PT 19.7 Sec. (12.2-14.9) H 10/18/17 05:01 INR 1.57 (0.87-1.13) H 10/18/17 05:01 Abnormal lab findings: Abnormal Labs 10/05/17 10/05/17 10/05/17 17:51 17:51 17:51 RBC 5.22 H Hgb 15.9 H Hct 46.8 H Plt Count Lymph % (Auto) [place] % (Auto) 8.1 H Eos % (Auto) Baso % (Auto) Eos # Seg Neutrophils % Seg Neuts % (Manual) Lymphocytes % (Manual) Eosinophils % (Manual) Eosinophils # (Manual) PT INR Fibrinogen LA PTT Baseline Heparin Anti-Xa Level POC ABG pO2 Chloride Glucose 122 H Lactic Acid 3.10 H* Lactate Dehydrogenase Albumin 10/05/17 10/06/17 10/06/17 19:44 01:54 01:54 RBC Hgb Hct Plt Count Lymph % (Auto) [place] % (Auto) Eos % (Auto) Baso % (Auto) Eos # Seg Neutrophils % 71.8 H Seg Neuts % (Manual) Lymphocytes % (Manual) Eosinophils % (Manual) Eosinophils # (Manual) PT INR Fibrinogen 521 H LA PTT Baseline Heparin Anti-Xa Level 0.15 L POC ABG pO2 Chloride Glucose Lactic Acid Lactate Dehydrogenase Albumin 10/06/17 10/06/17 10/06/17 05:41 07:14 07:14 RBC Hgb Hct Plt Count Lymph % (Auto) [place] % (Auto) 7.6 H Eos % (Auto) Baso % (Auto) Eos # Seg Neutrophils % Seg Neuts % (Manual) Lymphocytes % (Manual) Eosinophils % (Manual) Eosinophils # (Manual) PT INR Fibrinogen LA PTT Baseline Heparin Anti-Xa Level > 2.00 H POC ABG pO2 Chloride Glucose 103 H Lactic Acid Lactate Dehydrogenase Albumin 10/06/17 10/06/17 10/06/17 15:00 15:00 16:44 RBC Hgb Hct Plt Count Lymph % (Auto) [place] % (Auto) Eos % (Auto) 4.8 H Baso % (Auto) 2.0 H Eos # Seg Neutrophils % Seg Neuts % (Manual) Lymphocytes % (Manual) Eosinophils % (Manual) Eosinophils # (Manual) PT INR Fibrinogen LA PTT Baseline Heparin Anti-Xa Level 0.11 L POC ABG pO2 59 L Chloride Glucose Lactic Acid Lactate Dehydrogenase Albumin 10/06/17 10/07/17 10/07/17 21:09 03:35 03:35 RBC Hgb Hct Plt Count 133 L Lymph % (Auto) [place] % (Auto) Eos % (Auto) Baso % (Auto) Eos # Seg Neutrophils % Seg Neuts % (Manual) Lymphocytes % (Manual) Eosinophils % (Manual) Eosinophils # (Manual) PT INR Fibrinogen LA PTT Baseline Heparin Anti-Xa Level 0.10 L POC ABG pO2 Chloride 96.4 L Glucose 114 H Lactic Acid Lactate Dehydrogenase Albumin 10/07/17 10/08/17 10/08/17 10:23 06:12 06:12 RBC Hgb Hct Plt Count Lymph % (Auto) [place] % (Auto) Eos % (Auto) Baso % (Auto) Eos # Seg Neutrophils % Seg Neuts % (Manual) 35.0 L Lymphocytes % (Manual) 50.0 H Eosinophils % (Manual) 9.0 H Eosinophils # (Manual) 0.6 H PT INR Fibrinogen LA PTT Baseline 98 H Heparin Anti-Xa Level POC ABG pO2 Chloride Glucose Lactic Acid Lactate Dehydrogenase 283 H Albumin 10/10/17 10/11/17 10/12/17 05:07 09:46 09:37 RBC Hgb 15.3 H Hct Plt Count Lymph % (Auto) [place] % (Auto) Eos % (Auto) Baso % (Auto) Eos # Seg Neutrophils % Seg Neuts % (Manual) Lymphocytes % (Manual) Eosinophils % (Manual) Eosinophils # (Manual) PT INR Fibrinogen LA PTT Baseline Heparin Anti-Xa Level < 0.10 L POC ABG pO2 Chloride Glucose 112 H Lactic Acid Lactate Dehydrogenase Albumin 10/13/17 10/13/17 10/14/17 05:28 13:12 06:16 RBC Hgb 15.5 H 15.3 H Hct 45.8 H Plt Count Lymph % (Auto) 37.0 H 45.1 H [place] % (Auto) 8.1 H Eos % (Auto) 7.1 H 7.3 H Baso % (Auto) Eos # 0.5 H 0.5 H Seg Neutrophils % 39.4 L Seg Neuts % (Manual) Lymphocytes % (Manual) Eosinophils % (Manual) Eosinophils # (Manual) PT INR Fibrinogen LA PTT Baseline Heparin Anti-Xa Level 0.16 L POC ABG pO2 Chloride Glucose Lactic Acid Lactate Dehydrogenase Albumin 10/14/17 10/17/17 10/18/17 06:16 05:50 05:01 RBC Hgb Hct Plt Count Lymph % (Auto) [place] % (Auto) Eos % (Auto) Baso % (Auto) Eos # Seg Neutrophils % Seg Neuts % (Manual) Lymphocytes % (Manual) Eosinophils % (Manual) Eosinophils # (Manual) PT 16.1 H 19.7 H INR 1.22 H 1.57 H Fibrinogen LA PTT Baseline Heparin Anti-Xa Level POC ABG pO2 Chloride Glucose Lactic Acid Lactate Dehydrogenase Albumin 3.8 L Allied health notes reviewed: nursing
[2017-10-18] MEDS: NORCO 5/325 PO PRN ×2 (12:30→19:29)
[2017-10-18] MEDS: COUMADIN PO SCH (17:33)
--- NOTE | 2017-10-18 17:39 | Progress Note ---
Assessment and Plan 61-year-old male status post left lower extremity percutaneous thrombolysis and left lower extremity fasciotomy. Left foot drop. Has AFO brace for foot drop. Continue physical therapy. INR subtherapeutic. Continue heparin drip. Subjective Date of service: 10/18/17 Principal diagnosis: Acute Limb Ischemia s/p thrombolysis; Hypoxemic Resp failure; PVDx; HIV +ve Interval history: Left lower extremity foot drop present. Palpable pedal pulses. The left leg incision is well approximated. Clean, dry, and intact. On heparin drip. INR subtherapeutic. Objective - Constitutional Vitals: Vital Signs - 12hr 10/18/17 10/18/17 10/18/17 07:54 10:00 10:50 Temperature 98.7 F 98.9 F Pulse Rate 98 H 91 H Respiratory 16 18 18 Rate Blood Pressure 127/83 120/82 O2 Sat by Pulse 98 94 95 Oximetry 10/18/17 15:31 Temperature Pulse Rate 82 Respiratory 18 Rate Blood Pressure 117/89 O2 Sat by Pulse 95 Oximetry - EENT ENT: hearing intact - Respiratory Respiratory effort: normal Extremities: pulses intact, normal temperature, normal color - Gastrointestinal General gastrointestinal: Present: soft - Psychiatric Psychiatric: appropriate mood/affect, cooperative - Labs CBC & Chem 7: 10/14/17 06:16 10/14/17 06:16 Labs: Abnormal lab results 10/18/17 Range/Units 05:01 PT 19.7 H (12.2-14.9) Sec. INR 1.57 H (0.87-1.13)
--- NOTE | 2017-10-18 18:08 | Progress Note ---
Assessment and Plan Assessment and plan: -- Ischemia of left lower extremity: S/p percutaneous thrombolysis left lower extremity On heparin drip, and Coumadin, sub therapeutic INR 1.57 Target INR 2-3 Palpable pedal pulses --Compartment syndrome left lower extremity s/p fasciotomy /wound VAC, wound closure elevate the limb --Left Foot drop : foot brace, PTOT, possible home with home health upon discharge --HIV disease: on antiretroviral therapy, outpatient ID f/u upon discharge --Lactic Acidosis: Resolved -- PVD ; continue current management -- Nicotine dependence;smoking cessation advised -- HTN (hypertension); well controlled On antihypertensives and PRN meds --Constipation;stool softeners as needed -- DVT prophylaxis; on heparin and Coumadin Physical therapy occupational therapy, foot brace Possible home with home health went INR is therapeutic Plan of care reviewed with the patient and his nurse History Interval history: Patient seen and examined medical records reviewed Patient feels slightly better, continues to have left lower extremity pain Tolerating physical therapy INR subtherapeutic at 1.57 On heparin drip and Coumadin Vital signs reviewed stable Hospitalist Physical - Constitutional Vitals: Temp Pulse Resp BP Pulse Ox 98.9 F 82 18 117/89 95 10/18/17 10:50 10/18/17 15:31 10/18/17 15:31 10/18/17 15:31 10/18/17 15:31 General appearance: Present: no acute distress, well-nourished - EENT Eyes: Present: PERRL, EOM intact - Neck Neck: Present: supple, normal ROM - Respiratory Respiratory effort: normal Respiratory: negative: rales, rhonchi, wheezing - Cardiovascular Rhythm: regular Heart Sounds: Present: S1 & S2 - Extremities Extremities: abnormal (left lower extremity swelling significantly improved, palpable pedal pulse, foot drop) - Abdominal General gastrointestinal: soft, non-tender, non-distended, normal bowel sounds - Integumentary Integumentary: Present: clear, warm - Psychiatric Psychiatric: appropriate mood/affect, cooperative - Neurologic Neurologic: moves all extremities Results - Labs CBC & Chem 7: 10/14/17 06:16 10/14/17 06:16 Labs: Laboratory Last Values WBC 7.0 K/mm3 (4.5-11.0) 10/14/17 06:16 RBC 5.00 M/mm3 (3.65-5.03) 10/14/17 06:16 Hgb 15.3 gm/dl (11.8-15.2) H 10/14/17 06:16 Hct 45.5 % (35.5-45.6) 10/14/17 06:16 MCV 91 fl (84-94) 10/14/17 06:16 MCH 31 pg (28-32) 10/14/17 06:16 MCHC 34 % (32-34) 10/14/17 06:16 RDW 14.7 % (13.2-15.2) 10/14/17 06:16 Plt Count 225 K/mm3 (140-440) 10/14/17 06:16 Lymph % (Auto) 45.1 % (13.4-35.0) H 10/14/17 06:16 [place] % (Auto) 7.3 % (0.0-7.3) 10/14/17 06:16 Eos % (Auto) 7.3 % (0.0-4.3) H 10/14/17 06:16 Baso % (Auto) 0.9 % (0.0-1.8) 10/14/17 06:16 Lymph # 3.2 K/mm3 (1.2-5.4) 10/14/17 06:16 [place] # 0.5 K/mm3 (0.0-0.8) 10/14/17 06:16 Eos # 0.5 K/mm3 (0.0-0.4) H 10/14/17 06:16 Baso # 0.1 K/mm3 (0.0-0.1) 10/14/17 06:16 Add Manual Diff Complete 10/08/17 06:12 Total Counted 100 10/08/17 06:12 Seg Neutrophils % 39.4 % (40.0-70.0) L 10/14/17 06:16 Seg Neuts % (Manual) 35.0 % (40.0-70.0) L 10/08/17 06:12 Band Neutrophils % 1.0 % 10/08/17 06:12 Lymphocytes % (Manual) 50.0 % (13.4-35.0) H 10/08/17 06:12 Reactive Lymphs % (Man) 0 % 10/08/17 06:12 Monocytes % (Manual) 4.0 % (0.0-7.3) 10/08/17 06:12 Eosinophils % (Manual) 9.0 % (0.0-4.3) H 10/08/17 06:12 Basophils % (Manual) 1.0 % (0.0-1.8) 10/08/17 06:12 Metamyelocytes % 0 % 10/08/17 06:12 Myelocytes % 0 % 10/08/17 06:12 Promyelocytes % 0 % 10/08/17 06:12 Blast Cells % 0 % 10/08/17 06:12 Nucleated RBC % Not Reportable 10/08/17 06:12 Seg Neutrophils # 2.8 K/mm3 (1.8-7.7) 10/14/17 06:16 Seg Neutrophils # Man 2.5 K/mm3 (1.8-7.7) 10/08/17 06:12 Band Neutrophils # 0.1 K/mm3 10/08/17 06:12 Lymphocytes # (Manual) 3.6 K/mm3 (1.2-5.4) 10/08/17 06:12 Abs React Lymphs (Man) 0.0 K/mm3 10/08/17 06:12 Monocytes # (Manual) 0.3 K/mm3 (0.0-0.8) 10/08/17 06:12 Eosinophils # (Manual) 0.6 K/mm3 (0.0-0.4) H 10/08/17 06:12 Basophils # (Manual) 0.1 K/mm3 (0.0-0.1) 10/08/17 06:12 Metamyelocytes # 0.0 K/mm3 10/08/17 06:12 Myelocytes # 0.0 K/mm3 10/08/17 06:12 Promyelocytes # 0.0 K/mm3 10/08/17 06:12 Blast Cells # 0.0 K/mm3 10/08/17 06:12 WBC Morphology Not Reportable 10/08/17 06:12 Hypersegmented Neuts Not Reportable 10/08/17 06:12 Hyposegmented Neuts Not Reportable 10/08/17 06:12 Hypogranular Neuts Not Reportable 10/08/17 06:12 Smudge Cells Not Reportable 10/08/17 06:12 Toxic Granulation Not Reportable 10/08/17 06:12 Toxic Vacuolation Not Reportable 10/08/17 06:12 Dohle Bodies Not Reportable 10/08/17 06:12 Pelger-Huet Anomaly Not Reportable 10/08/17 06:12 Candelaria Rods Not Reportable 10/08/17 06:12 Platelet Estimate Consistent w auto 10/08/17 06:12 Clumped Platelets Not Reportable 10/08/17 06:12 Plt Clumps, EDTA Not Reportable 10/08/17 06:12 Large Platelets Not Reportable 10/08/17 06:12 Giant Platelets Not Reportable 10/08/17 06:12 Platelet Satelliting Not Reportable 10/08/17 06:12 Plt Morphology Comment Not Reportable 10/08/17 06:12 RBC Morphology Not Reportable 10/08/17 06:12 Dimorphic RBCs Not Reportable 10/08/17 06:12 Polychromasia Not Reportable 10/08/17 06:12 Hypochromasia Not Reportable 10/08/17 06:12 Poikilocytosis Not Reportable 10/08/17 06:12 Anisocytosis 1+ 10/08/17 06:12 Microcytosis Not Reportable 10/08/17 06:12 Macrocytosis Not Reportable 10/08/17 06:12 Spherocytes Not Reportable 10/08/17 06:12 Pappenheimer Bodies Not Reportable 10/08/17 06:12 Sickle Cells Not Reportable 10/08/17 06:12 Target Cells Not Reportable 10/08/17 06:12 Tear Drop Cells Not Reportable 10/08/17 06:12 Ovalocytes Not Reportable 10/08/17 06:12 Helmet Cells Not Reportable 10/08/17 06:12 [place] Bodies Not Reportable 10/08/17 06:12 [place] Rings Not Reportable 10/08/17 06:12 [place] Cells Not Reportable 10/08/17 06:12 Bite Cells Not Reportable 10/08/17 06:12 Crenated Cell Not Reportable 10/08/17 06:12 Elliptocytes Not Reportable 10/08/17 06:12 Acanthocytes (Spur) Not Reportable 10/08/17 06:12 Rouleaux Not Reportable 10/08/17 06:12 Hemoglobin C Crystals Not Reportable 10/08/17 06:12 Schistocytes Not Reportable 10/08/17 06:12 Malaria parasites Not Reportable 10/08/17 06:12 [place] Bodies Not Reportable 10/08/17 06:12 Hem Pathologist Commnt No 10/08/17 06:12 PT 19.7 Sec. (12.2-14.9) H 10/18/17 05:01 INR 1.57 (0.87-1.13) H 10/18/17 05:01 APTT 25.6 Sec. (24.2-36.6) 10/05/17 18:22 Fibrinogen 309 mg/dl (211-480) 10/06/17 15:00 Lupus Anticoagulant see below 10/07/17 10:23 LA PTT Baseline 98 sec (<=40) H 10/07/17 10:23 dRVVT Screen 50:50 See scanned report 10/07/17 10:23 dRVVT Mix Interpret See scanned report 10/07/17 10:23 Protein C Antigen See scanned report 10/07/17 10:23 Free Protein S 132 % normal (57-171) 10/07/17 10:23 Total Protein S 105 % (70-140) 10/07/17 10:23 Heparin Anti-Xa Level 0.46 U.I./ml (0.3-0.7) 10/17/17 16:35 POC ABG pH 7.354 (7.35-7.45) 10/06/17 16:44 POC ABG pCO2 45.0 (35-45) 10/06/17 16:44 POC ABG pO2 59 (80-105) L 10/06/17 16:44 POC ABG HCO3 25.1 10/06/17 16:44 POC ABG Total CO2 26 10/06/17 16:44 POC ABG O2 Sat 89 10/06/17 16:44 POC ABG Base Excess 0 10/06/17 16:44 FiO2 32 % 10/06/17 16:44 Sodium 140 mmol/L (137-145) 10/14/17 06:16 Potassium 4.1 mmol/L (3.6-5.0) 10/14/17 06:16 Chloride 99.9 mmol/L (98-107) 10/14/17 06:16 Carbon Dioxide 25 mmol/L (22-30) 10/14/17 06:16 Anion Gap 19 mmol/L 10/14/17 06:16 BUN 19 mg/dL (9-20) 10/14/17 06:16 Creatinine 1.0 mg/dL (0.8-1.5) 10/14/17 06:16 Estimated GFR > 60 ml/min 10/14/17 06:16 BUN/Creatinine Ratio 19 % 10/14/17 06:16 Glucose 94 mg/dL (75-100) 10/14/17 06:16 Lactic Acid 1.50 mmol/L (0.7-2.0) 10/05/17 21:39 Calcium 9.7 mg/dL (8.4-10.2) 10/14/17 06:16 Magnesium 2.20 mg/dL (1.7-2.3) 10/14/17 06:16 Total Bilirubin 0.30 mg/dL (0.1-1.2) 10/14/17 06:16 AST 32 units/L (5-40) 10/14/17 06:16 ALT 27 units/L (7-56) 10/14/17 06:16 Alkaline Phosphatase 72 units/L (35-129) 10/14/17 06:16 Lactate Dehydrogenase 283 units/L (91-180) H 10/08/17 06:12 Total Protein 7.4 g/dL (6.3-8.2) 10/14/17 06:16 Albumin 3.8 g/dL (3.9-5) L 10/14/17 06:16 Albumin/Globulin Ratio 1.1 % 10/14/17 06:16 Prothrombin Gene Mutate See scanned report 10/07/17 10:23 Blood Type O POSITIVE 10/05/17 18:49 Antibody Screen Negative 10/05/17 18:49
[2017-10-19] MEDS: NORCO 5/325 PO PRN ×3 (04:42→22:33)
[2017-10-19 06:00] LABS: INR 1.74 (0.87-1.13)
[2017-10-19 06:04] LABS: Heparin anti-factor XA 0.46 U.I./ml (0.3-0.7)
--- NOTE | 2017-10-19 09:33 | Progress Note ---
Assessment and Plan Assessment and plan: --Left Foot drop : foot brace, PTOT, possible home with home health upon discharge -- Ischemia of left lower extremity: S/p percutaneous thrombolysis left lower extremity On heparin drip, and Coumadin, sub therapeutic INR 1.7 Target INR 2-3 Palpable pedal pulses --Compartment syndrome left lower extremity s/p fasciotomy wound closed, elevate the limb --HIV disease: on antiretroviral therapy, outpatient ID f/u upon discharge --Lactic Acidosis: Resolved -- PVD ; continue current management -- Nicotine dependence;smoking cessation advised -- HTN (hypertension); well controlled On antihypertensives and PRN meds --Constipation;stool softeners as needed -- DVT prophylaxis; on heparin and Coumadin Physical therapy occupational therapy, foot brace Possible home with home health went INR is therapeutic Patient is stable to be transferred out of telemetry to medical floor Possible discharge in 1-2 days if stable History Interval history: Since seen and examined medical records reviewed No overnight events reported by the nursing patient feels better no new complaints Vital signs reviewed INR significantly improved remains subtherapeutic at 1.7 Alert awake oriented 3 not in acute distress Hospitalist Physical - Constitutional Vitals: Temp Pulse Resp BP Pulse Ox 98.6 F 67 20 134/80 96 10/19/17 04:55 10/19/17 04:55 10/19/17 04:55 10/19/17 04:55 10/19/17 04:55 General appearance: Present: no acute distress, well-nourished - EENT Eyes: Present: PERRL, EOM intact - Neck Neck: Present: supple, normal ROM - Respiratory Respiratory effort: normal Respiratory: negative: rales, rhonchi, wheezing - Cardiovascular Rhythm: regular Heart Sounds: Present: S1 & S2 - Extremities Extremities: abnormal (left lower extremity wound intact, palpable pedal pulses , tender to touch, foot drop) - Abdominal General gastrointestinal: soft, non-tender, non-distended, normal bowel sounds - Integumentary Integumentary: Present: clear, warm - Psychiatric Psychiatric: appropriate mood/affect, cooperative - Neurologic Neurologic: moves all extremities Results - Labs CBC & Chem 7: 10/14/17 06:16 10/14/17 06:16 Labs: Laboratory Last Values WBC 7.0 K/mm3 (4.5-11.0) 10/14/17 06:16 RBC 5.00 M/mm3 (3.65-5.03) 10/14/17 06:16 Hgb 15.3 gm/dl (11.8-15.2) H 10/14/17 06:16 Hct 45.5 % (35.5-45.6) 10/14/17 06:16 MCV 91 fl (84-94) 10/14/17 06:16 MCH 31 pg (28-32) 10/14/17 06:16 MCHC 34 % (32-34) 10/14/17 06:16 RDW 14.7 % (13.2-15.2) 10/14/17 06:16 Plt Count 225 K/mm3 (140-440) 10/14/17 06:16 Lymph % (Auto) 45.1 % (13.4-35.0) H 10/14/17 06:16 [place] % (Auto) 7.3 % (0.0-7.3) 10/14/17 06:16 Eos % (Auto) 7.3 % (0.0-4.3) H 10/14/17 06:16 Baso % (Auto) 0.9 % (0.0-1.8) 10/14/17 06:16 Lymph # 3.2 K/mm3 (1.2-5.4) 10/14/17 06:16 [place] # 0.5 K/mm3 (0.0-0.8) 10/14/17 06:16 Eos # 0.5 K/mm3 (0.0-0.4) H 10/14/17 06:16 Baso # 0.1 K/mm3 (0.0-0.1) 10/14/17 06:16 Add Manual Diff Complete 10/08/17 06:12 Total Counted 100 10/08/17 06:12 Seg Neutrophils % 39.4 % (40.0-70.0) L 10/14/17 06:16 Seg Neuts % (Manual) 35.0 % (40.0-70.0) L 10/08/17 06:12 Band Neutrophils % 1.0 % 10/08/17 06:12 Lymphocytes % (Manual) 50.0 % (13.4-35.0) H 10/08/17 06:12 Reactive Lymphs % (Man) 0 % 10/08/17 06:12 Monocytes % (Manual) 4.0 % (0.0-7.3) 10/08/17 06:12 Eosinophils % (Manual) 9.0 % (0.0-4.3) H 10/08/17 06:12 Basophils % (Manual) 1.0 % (0.0-1.8) 10/08/17 06:12 Metamyelocytes % 0 % 10/08/17 06:12 Myelocytes % 0 % 10/08/17 06:12 Promyelocytes % 0 % 10/08/17 06:12 Blast Cells % 0 % 10/08/17 06:12 Nucleated RBC % Not Reportable 10/08/17 06:12 Seg Neutrophils # 2.8 K/mm3 (1.8-7.7) 10/14/17 06:16 Seg Neutrophils # Man 2.5 K/mm3 (1.8-7.7) 10/08/17 06:12 Band Neutrophils # 0.1 K/mm3 10/08/17 06:12 Lymphocytes # (Manual) 3.6 K/mm3 (1.2-5.4) 10/08/17 06:12 Abs React Lymphs (Man) 0.0 K/mm3 10/08/17 06:12 Monocytes # (Manual) 0.3 K/mm3 (0.0-0.8) 10/08/17 06:12 Eosinophils # (Manual) 0.6 K/mm3 (0.0-0.4) H 10/08/17 06:12 Basophils # (Manual) 0.1 K/mm3 (0.0-0.1) 10/08/17 06:12 Metamyelocytes # 0.0 K/mm3 10/08/17 06:12 Myelocytes # 0.0 K/mm3 10/08/17 06:12 Promyelocytes # 0.0 K/mm3 10/08/17 06:12 Blast Cells # 0.0 K/mm3 10/08/17 06:12 WBC Morphology Not Reportable 10/08/17 06:12 Hypersegmented Neuts Not Reportable 10/08/17 06:12 Hyposegmented Neuts Not Reportable 10/08/17 06:12 Hypogranular Neuts Not Reportable 10/08/17 06:12 Smudge Cells Not Reportable 10/08/17 06:12 Toxic Granulation Not Reportable 10/08/17 06:12 Toxic Vacuolation Not Reportable 10/08/17 06:12 Dohle Bodies Not Reportable 10/08/17 06:12 Pelger-Huet Anomaly Not Reportable 10/08/17 06:12 [place] Rods Not Reportable 10/08/17 06:12 Platelet Estimate Consistent w auto 10/08/17 06:12 Clumped Platelets Not Reportable 10/08/17 06:12 Plt Clumps, EDTA Not Reportable 10/08/17 06:12 Large Platelets Not Reportable 10/08/17 06:12 Giant Platelets Not Reportable 10/08/17 06:12 Platelet Satelliting Not Reportable 10/08/17 06:12 Plt Morphology Comment Not Reportable 10/08/17 06:12 RBC Morphology Not Reportable 10/08/17 06:12 Dimorphic RBCs Not Reportable 10/08/17 06:12 Polychromasia Not Reportable 10/08/17 06:12 Hypochromasia Not Reportable 10/08/17 06:12 Poikilocytosis Not Reportable 10/08/17 06:12 Anisocytosis 1+ 10/08/17 06:12 Microcytosis Not Reportable 10/08/17 06:12 Macrocytosis Not Reportable 10/08/17 06:12 Spherocytes Not Reportable 10/08/17 06:12 Pappenheimer Bodies Not Reportable 10/08/17 06:12 Sickle Cells Not Reportable 10/08/17 06:12 Target Cells Not Reportable 10/08/17 06:12 Tear Drop Cells Not Reportable 10/08/17 06:12 Ovalocytes Not Reportable 10/08/17 06:12 Helmet Cells Not Reportable 10/08/17 06:12 Ros[place] Bodies Not Reportable 10/08/17 06:12 [place] Rings Not Reportable 10/08/17 06:12 [place] Cells Not Reportable 10/08/17 06:12 Bite Cells Not Reportable 10/08/17 06:12 Crenated Cell Not Reportable 10/08/17 06:12 Elliptocytes Not Reportable 10/08/17 06:12 Acanthocytes (Spur) Not Reportable 10/08/17 06:12 Rouleaux Not Reportable 10/08/17 06:12 Hemoglobin C Crystals Not Reportable 10/08/17 06:12 Schistocytes Not Reportable 10/08/17 06:12 Malaria parasites Not Reportable 10/08/17 06:12 [place] Bodies Not Reportable 10/08/17 06:12 Hem Pathologist Commnt No 10/08/17 06:12 PT 21.4 Sec. (12.2-14.9) H 10/19/17 05:31 INR 1.74 (0.87-1.13) H 10/19/17 05:31 APTT 25.6 Sec. (24.2-36.6) 10/05/17 18:22 Fibrinogen 309 mg/dl (211-480) 10/06/17 15:00 Lupus Anticoagulant see below 10/07/17 10:23 LA PTT Baseline 98 sec (<=40) H 10/07/17 10:23 dRVVT Screen 50:50 See scanned report 10/07/17 10:23 dRVVT Mix Interpret See scanned report 10/07/17 10:23 Protein C Antigen See scanned report 10/07/17 10:23 Free Protein S 132 % normal (57-171) 10/07/17 10:23 Total Protein S 105 % (70-140) 10/07/17 10:23 Heparin Anti-Xa Level 0.46 U.I./ml (0.3-0.7) 10/19/17 05:31 POC ABG pH 7.354 (7.35-7.45) 10/06/17 16:44 POC ABG pCO2 45.0 (35-45) 10/06/17 16:44 POC ABG pO2 59 (80-105) L 10/06/17 16:44 POC ABG HCO3 25.1 10/06/17 16:44 POC ABG Total CO2 26 10/06/17 16:44 POC ABG O2 Sat 89 10/06/17 16:44 POC ABG Base Excess 0 10/06/17 16:44 FiO2 32 % 10/06/17 16:44 Sodium 140 mmol/L (137-145) 10/14/17 06:16 Potassium 4.1 mmol/L (3.6-5.0) 10/14/17 06:16 Chloride 99.9 mmol/L (98-107) 10/14/17 06:16 Carbon Dioxide 25 mmol/L (22-30) 10/14/17 06:16 Anion Gap 19 mmol/L 10/14/17 06:16 BUN 19 mg/dL (9-20) 10/14/17 06:16 Creatinine 1.0 mg/dL (0.8-1.5) 10/14/17 06:16 Estimated GFR > 60 ml/min 10/14/17 06:16 BUN/Creatinine Ratio 19 % 10/14/17 06:16 Glucose 94 mg/dL (75-100) 10/14/17 06:16 Lactic Acid 1.50 mmol/L (0.7-2.0) 10/05/17 21:39 Calcium 9.7 mg/dL (8.4-10.2) 10/14/17 06:16 Magnesium 2.20 mg/dL (1.7-2.3) 10/14/17 06:16 Total Bilirubin 0.30 mg/dL (0.1-1.2) 10/14/17 06:16 AST 32 units/L (5-40) 10/14/17 06:16 ALT 27 units/L (7-56) 10/14/17 06:16 Alkaline Phosphatase 72 units/L (35-129) 10/14/17 06:16 Lactate Dehydrogenase 283 units/L (91-180) H 10/08/17 06:12 Total Protein 7.4 g/dL (6.3-8.2) 10/14/17 06:16 Albumin 3.8 g/dL (3.9-5) L 10/14/17 06:16 Albumin/Globulin Ratio 1.1 % 10/14/17 06:16 Prothrombin Gene Mutate See scanned report 10/07/17 10:23 Blood Type O POSITIVE 10/05/17 18:49 Antibody Screen Negative 10/05/17 18:49
[2017-10-19] MEDS: ZESTRIL PO SCH (10:54)
[2017-10-19] MEDS: HABITROL TD SCH (10:55)
[2017-10-19] MEDS: LOPRESSOR PO SCH ×2 (10:55→21:46)
[2017-10-19] MEDS: PEPCID PO SCH (10:55)
[2017-10-19] MEDS: FAMVIR PO SCH (11:04)
[2017-10-19] MEDS: NORVIR PO SCH (11:05)
[2017-10-19] MEDS: PREZISTA PO SCH (11:05)
--- NOTE | 2017-10-19 14:43 | Progress Note ---
Assessment and Plan 61-year-old male status post left lower extremity percutaneous thrombolysis and left lower extremity fasciotomy. Left foot drop. Has AFO brace for foot drop. Continue physical therapy. INR subtherapeutic. Continue heparin drip. Hopefully will be therapeutic on friday for discharge. Subjective Date of service: 10/19/17 Principal diagnosis: Acute Limb Ischemia s/p thrombolysis; Hypoxemic Resp failure; PVDx; HIV +ve Interval history: Left lower extremity foot drop present. Palpable pedal pulses. The left leg incision is well approximated. Clean, dry, and intact. On heparin drip. INR subtherapeutic. Objective - Constitutional Vitals: Vital Signs - 12hr 10/19/17 04:55 Temperature 98.6 F Pulse Rate 67 Respiratory 20 Rate Blood Pressure 134/80 O2 Sat by Pulse 96 Oximetry General appearance: Present: no acute distress - EENT Eyes: EOM intact ENT: hearing intact - Respiratory Respiratory effort: normal Extremities: pulses intact (pedal pulses), normal temperature, normal color, abnormal (left calf incision c/d/i ; wearing AFO) - Gastrointestinal General gastrointestinal: Present: soft - Psychiatric Psychiatric: appropriate mood/affect, cooperative - Labs CBC & Chem 7: 10/14/17 06:16 10/14/17 06:16 Labs: Abnormal lab results 10/19/17 Range/Units 05:31 PT 21.4 H (12.2-14.9) Sec. INR 1.74 H (0.87-1.13)
[2017-10-19] MEDS: COUMADIN PO SCH (17:45)
--- NOTE | 2017-10-19 20:56 | Progress Note ---
Assessment and Plan Patient alert, awake, resting on room air.O2 saturation 95%. No complaint of chest pain, shortness of breath or cough.Patients todays INR 1.74. If patient going home soon, recommend pulmonary follow up as out patient. - Patient Problems (1) HIV disease Current Visit: Yes Status: Acute Plan to address problem: Management as per primary and infectious diseases. (2) HTN (hypertension) Current Visit: Yes Status: Acute Qualifiers: Hypertension type: essential hypertension Qualified Code(s): I10 - Essential (primary) hypertension Plan to address problem: Management as per primary care. (3) Ischemia of left lower extremity Current Visit: Yes Status: Acute Plan to address problem: Patient is on I/V heparin Patient started on PO coumadin. Management as per vascular surgery. (4) Nicotine dependence Current Visit: Yes Status: Acute Qualifiers: Substance use status: in withdrawal Plan to address problem: Counselled to stop smoking. (5) Respiratory failure with hypoxia and hypercapnia Current Visit: Yes Status: Acute Plan to address problem: Patient has mild hypoxic and hypercapnic faolure. Possible COPD. PFTs as out patient. Recommend pulmonary follow up as out patient. Subjective Date of service: 10/19/17 Principal diagnosis: Acute Limb Ischemia s/p thrombolysis; Hypoxemic Resp failure; PVDx; HIV +ve Interval history: Patient alert, awake, resting on room air.O2 saturation 94%. No complaint of chest pain, shortness of breath or cough.Patients INR 1.74. If patient going home soon, recommend pulmonary follow up as out patient. Objective Vital Signs - 12hr 10/19/17 10:00 Respiratory 18 Rate O2 Sat by Pulse 95 Oximetry Constitutional: no acute distress, alert, other (elderly AAM, normocephalic and atraumatic resting in bed.) Eyes: non-icteric ENT: oropharynx moist, other (mallampati 2) Neck: supple, no lymphadenopathy, no JVD, other (no thyromegaly) Effort: mildly labored Ascultation: Bilateral: diminished breath sounds, rhonchi (base) Percussion: Bilateral: not dull Cardiovascular: regular rate and rhythm, other (No R/M) Gastrointestinal: normoactive bowel sounds, soft, non-tender, non-distended, other (No HSM) Integumentary: normal Extremities: no cyanosis, pulses normal, no ischemia or petechiae, other (left leg /alan dressing) Neurologic: normal mental status, non-focal exam, pupils equal and round, motor strength normal and Psychiatric: mood appropriate, affect normal CBC and BMP: 10/14/17 06:16 10/14/17 06:16 ABG, PT/INR, D-dimer: ABG POC ABG pH 7.354 (7.35-7.45) 10/06/17 16:44 POC ABG pCO2 45.0 (35-45) 10/06/17 16:44 POC ABG pO2 59 (80-105) L 10/06/17 16:44 POC ABG HCO3 25.1 10/06/17 16:44 POC ABG Total CO2 26 10/06/17 16:44 POC ABG O2 Sat 89 10/06/17 16:44 PT/INR, D-dimer PT 21.4 Sec. (12.2-14.9) H 10/19/17 05:31 INR 1.74 (0.87-1.13) H 10/19/17 05:31 Abnormal lab findings: Abnormal Labs 10/05/17 10/05/17 10/05/17 17:51 17:51 17:51 RBC 5.22 H Hgb 15.9 H Hct 46.8 H Plt Count Lymph % (Auto) [place] % (Auto) 8.1 H Eos % (Auto) Baso % (Auto) Eos # Seg Neutrophils % Seg Neuts % (Manual) Lymphocytes % (Manual) Eosinophils % (Manual) Eosinophils # (Manual) PT INR Fibrinogen LA PTT Baseline Heparin Anti-Xa Level POC ABG pO2 Chloride Glucose 122 H Lactic Acid 3.10 H* Lactate Dehydrogenase Albumin 10/05/17 10/06/17 10/06/17 19:44 01:54 01:54 RBC Hgb Hct Plt Count Lymph % (Auto) [place] % (Auto) Eos % (Auto) Baso % (Auto) Eos # Seg Neutrophils % 71.8 H Seg Neuts % (Manual) Lymphocytes % (Manual) Eosinophils % (Manual) Eosinophils # (Manual) PT INR Fibrinogen 521 H LA PTT Baseline Heparin Anti-Xa Level 0.15 L POC ABG pO2 Chloride Glucose Lactic Acid Lactate Dehydrogenase Albumin 10/06/17 10/06/17 10/06/17 05:41 07:14 07:14 RBC Hgb Hct Plt Count Lymph % (Auto) [place] % (Auto) 7.6 H Eos % (Auto) Baso % (Auto) Eos # Seg Neutrophils % Seg Neuts % (Manual) Lymphocytes % (Manual) Eosinophils % (Manual) Eosinophils # (Manual) PT INR Fibrinogen LA PTT Baseline Heparin Anti-Xa Level > 2.00 H POC ABG pO2 Chloride Glucose 103 H Lactic Acid Lactate Dehydrogenase Albumin 10/06/17 10/06/17 10/06/17 15:00 15:00 16:44 RBC Hgb Hct Plt Count Lymph % (Auto) [place] % (Auto) Eos % (Auto) 4.8 H Baso % (Auto) 2.0 H Eos # Seg Neutrophils % Seg Neuts % (Manual) Lymphocytes % (Manual) Eosinophils % (Manual) Eosinophils # (Manual) PT INR Fibrinogen LA PTT Baseline Heparin Anti-Xa Level 0.11 L POC ABG pO2 59 L Chloride Glucose Lactic Acid Lactate Dehydrogenase Albumin 10/06/17 10/07/17 10/07/17 21:09 03:35 03:35 RBC Hgb Hct Plt Count 133 L Lymph % (Auto) [place] % (Auto) Eos % (Auto) Baso % (Auto) Eos # Seg Neutrophils % Seg Neuts % (Manual) Lymphocytes % (Manual) Eosinophils % (Manual) Eosinophils # (Manual) PT INR Fibrinogen LA PTT Baseline Heparin Anti-Xa Level 0.10 L POC ABG pO2 Chloride 96.4 L Glucose 114 H Lactic Acid Lactate Dehydrogenase Albumin 10/07/17 10/08/17 10/08/17 10:23 06:12 06:12 RBC Hgb Hct Plt Count Lymph % (Auto) [place] % (Auto) Eos % (Auto) Baso % (Auto) Eos # Seg Neutrophils % Seg Neuts % (Manual) 35.0 L Lymphocytes % (Manual) 50.0 H Eosinophils % (Manual) 9.0 H Eosinophils # (Manual) 0.6 H PT INR Fibrinogen LA PTT Baseline 98 H Heparin Anti-Xa Level POC ABG pO2 Chloride Glucose Lactic Acid Lactate Dehydrogenase 283 H Albumin 10/10/17 10/11/17 10/12/17 05:07 09:46 09:37 RBC Hgb 15.3 H Hct Plt Count Lymph % (Auto) [place] % (Auto) Eos % (Auto) Baso % (Auto) Eos # Seg Neutrophils % Seg Neuts % (Manual) Lymphocytes % (Manual) Eosinophils % (Manual) Eosinophils # (Manual) PT INR Fibrinogen LA PTT Baseline Heparin Anti-Xa Level < 0.10 L POC ABG pO2 Chloride Glucose 112 H Lactic Acid Lactate Dehydrogenase Albumin 10/13/17 10/13/17 10/14/17 05:28 13:12 06:16 RBC Hgb 15.5 H 15.3 H Hct 45.8 H Plt Count Lymph % (Auto) 37.0 H 45.1 H [place] % (Auto) 8.1 H Eos % (Auto) 7.1 H 7.3 H Baso % (Auto) Eos # 0.5 H 0.5 H Seg Neutrophils % 39.4 L Seg Neuts % (Manual) Lymphocytes % (Manual) Eosinophils % (Manual) Eosinophils # (Manual) PT INR Fibrinogen LA PTT Baseline Heparin Anti-Xa Level 0.16 L POC ABG pO2 Chloride Glucose Lactic Acid Lactate Dehydrogenase Albumin 10/14/17 10/17/17 10/18/17 06:16 05:50 05:01 RBC Hgb Hct Plt Count Lymph % (Auto) [place] % (Auto) Eos % (Auto) Baso % (Auto) Eos # Seg Neutrophils % Seg Neuts % (Manual) Lymphocytes % (Manual) Eosinophils % (Manual) Eosinophils # (Manual) PT 16.1 H 19.7 H INR 1.22 H 1.57 H Fibrinogen LA PTT Baseline Heparin Anti-Xa Level POC ABG pO2 Chloride Glucose Lactic Acid Lactate Dehydrogenase Albumin 3.8 L 10/19/17 05:31 RBC Hgb Hct Plt Count Lymph % (Auto) [place] % (Auto) Eos % (Auto) Baso % (Auto) Eos # Seg Neutrophils % Seg Neuts % (Manual) Lymphocytes % (Manual) Eosinophils % (Manual) Eosinophils # (Manual) PT 21.4 H INR 1.74 H Fibrinogen LA PTT Baseline Heparin Anti-Xa Level POC ABG pO2 Chloride Glucose Lactic Acid Lactate Dehydrogenase Albumin Allied health notes reviewed: nursing
[2017-10-20] MEDS: NORCO 5/325 PO PRN ×3 (06:30→21:00)
[2017-10-20] MEDS: HEPARIN/ 0.45% NACL-25,000 UNIT/500 ML 25,000 UNIT/500 ML BAG IV SCH ×2 (06:32→23:00)
[2017-10-20 09:03] LABS: INR 1.94 (0.87-1.13)
[2017-10-20 09:04] LABS: Heparin anti-factor XA 0.33 U.I./ml (0.3-0.7)
[2017-10-20] MEDS: ZESTRIL PO SCH (10:32)
[2017-10-20] MEDS: LOPRESSOR PO SCH ×2 (10:32→22:00)
[2017-10-20] MEDS: HABITROL TD SCH (10:32)
[2017-10-20] MEDS: PEPCID PO SCH (10:33)
[2017-10-20] MEDS ORDERED: PROVENTIL IH PRN (10:42)
[2017-10-20] MEDS: NORVIR PO SCH ×2 (11:54→12:04)
[2017-10-20] MEDS: PREZISTA PO SCH (11:56)
[2017-10-20] MEDS: FAMVIR PO SCH ×2 (11:56→12:04)
--- NOTE | 2017-10-20 12:12 | Progress Note ---
Assessment and Plan Acute limb ischemia, status post catheter-directed thrombolytic therapy. Peripheral vascular disease. Hypertension. Tobacco use disorder. History of deep venous thrombosis. Asthma. Human immunodeficiency virus positive. Obesity. History of coronary artery disease - serum LDH slightly elevated but other possible reasons - encouraged ICS and deep breathing re: Atelectasis - CXR discontinued - continue supplemental oxygen and wean for sats > 90% - continue wound care per RN and WCT - vascular surgery E&M ongoing - continue IV heparin for now - hematology consult noted re: coumadin X 6 months - continue GI prophylaxis - continue ART ... re-evaluate in am & prn ... 35' Subjective Date of service: 10/20/17 Principal diagnosis: Acute Limb Ischemia s/p thrombolysis; Hypoxemic Resp failure; PVDx; HIV +ve Interval history: Patient is seen today for: Acute Limb Ischemia s/p thrombolysis; Hypoxemic Resp failure; PVDx; HIV +ve Seen and examined at bedside; 24hour events reviewed; nursing and respiratory care staff consulted; no adverse overnight events reported to me; resting in bed ; Objective Vital Signs - 12hr 10/20/17 10/20/17 10/20/17 06:10 10:31 10:38 Temperature 99 F Pulse Rate 68 Respiratory 17 Rate Blood Pressure 114/73 Blood Pressure 104/77 [Right] O2 Sat by Pulse 94 96 Oximetry 10/20/17 10:45 Temperature Pulse Rate 68 Respiratory Rate Blood Pressure Blood Pressure [Right] O2 Sat by Pulse Oximetry Constitutional: no acute distress, alert, other (elderly AAM, normocephalic and atraumatic resting in bed.) Eyes: non-icteric ENT: oropharynx moist, other (mallampati 2) Neck: supple, no lymphadenopathy, no JVD, other (no thyromegaly) Effort: mildly labored Ascultation: Bilateral: clear, diminished breath sounds, rhonchi (base) Percussion: Bilateral: not dull Cardiovascular: regular rate and rhythm, other (No R/M) Gastrointestinal: normoactive bowel sounds, soft, non-tender, non-distended, other (No HSM) Integumentary: normal Extremities: no cyanosis, pulses normal, no ischemia or petechiae, other (left leg /alan dressing) Neurologic: normal mental status, non-focal exam, pupils equal and round, motor strength normal and Psychiatric: mood appropriate, affect normal CBC and BMP: 10/14/17 06:16 10/14/17 06:16 ABG, PT/INR, D-dimer: ABG POC ABG pH 7.354 (7.35-7.45) 10/06/17 16:44 POC ABG pCO2 45.0 (35-45) 10/06/17 16:44 POC ABG pO2 59 (80-105) L 10/06/17 16:44 POC ABG HCO3 25.1 10/06/17 16:44 POC ABG Total CO2 26 10/06/17 16:44 POC ABG O2 Sat 89 10/06/17 16:44 PT/INR, D-dimer PT 23.4 Sec. (12.2-14.9) H 10/20/17 07:14 INR 1.94 (0.87-1.13) H 10/20/17 07:14 Abnormal lab findings: Abnormal Labs 10/05/17 10/05/17 10/05/17 17:51 17:51 17:51 RBC 5.22 H Hgb 15.9 H Hct 46.8 H Plt Count Lymph % (Auto) [place] % (Auto) 8.1 H Eos % (Auto) Baso % (Auto) Eos # Seg Neutrophils % Seg Neuts % (Manual) Lymphocytes % (Manual) Eosinophils % (Manual) Eosinophils # (Manual) PT INR Fibrinogen LA PTT Baseline Heparin Anti-Xa Level POC ABG pO2 Chloride Glucose 122 H Lactic Acid 3.10 H* Lactate Dehydrogenase Albumin 10/05/17 10/06/17 10/06/17 19:44 01:54 01:54 RBC Hgb Hct Plt Count Lymph % (Auto) [place] % (Auto) Eos % (Auto) Baso % (Auto) Eos # Seg Neutrophils % 71.8 H Seg Neuts % (Manual) Lymphocytes % (Manual) Eosinophils % (Manual) Eosinophils # (Manual) PT INR Fibrinogen 521 H LA PTT Baseline Heparin Anti-Xa Level 0.15 L POC ABG pO2 Chloride Glucose Lactic Acid Lactate Dehydrogenase Albumin 10/06/17 10/06/17 10/06/17 05:41 07:14 07:14 RBC Hgb Hct Plt Count Lymph % (Auto) [place] % (Auto) 7.6 H Eos % (Auto) Baso % (Auto) Eos # Seg Neutrophils % Seg Neuts % (Manual) Lymphocytes % (Manual) Eosinophils % (Manual) Eosinophils # (Manual) PT INR Fibrinogen LA PTT Baseline Heparin Anti-Xa Level > 2.00 H POC ABG pO2 Chloride Glucose 103 H Lactic Acid Lactate Dehydrogenase Albumin 10/06/17 10/06/17 10/06/17 15:00 15:00 16:44 RBC Hgb Hct Plt Count Lymph % (Auto) [place] % (Auto) Eos % (Auto) 4.8 H Baso % (Auto) 2.0 H Eos # Seg Neutrophils % Seg Neuts % (Manual) Lymphocytes % (Manual) Eosinophils % (Manual) Eosinophils # (Manual) PT INR Fibrinogen LA PTT Baseline Heparin Anti-Xa Level 0.11 L POC ABG pO2 59 L Chloride Glucose Lactic Acid Lactate Dehydrogenase Albumin 10/06/17 10/07/17 10/07/17 21:09 03:35 03:35 RBC Hgb Hct Plt Count 133 L Lymph % (Auto) [place] % (Auto) Eos % (Auto) Baso % (Auto) Eos # Seg Neutrophils % Seg Neuts % (Manual) Lymphocytes % (Manual) Eosinophils % (Manual) Eosinophils # (Manual) PT INR Fibrinogen LA PTT Baseline Heparin Anti-Xa Level 0.10 L POC ABG pO2 Chloride 96.4 L Glucose 114 H Lactic Acid Lactate Dehydrogenase Albumin 10/07/17 10/08/17 10/08/17 10:23 06:12 06:12 RBC Hgb Hct Plt Count Lymph % (Auto) [place] % (Auto) Eos % (Auto) Baso % (Auto) Eos # Seg Neutrophils % Seg Neuts % (Manual) 35.0 L Lymphocytes % (Manual) 50.0 H Eosinophils % (Manual) 9.0 H Eosinophils # (Manual) 0.6 H PT INR Fibrinogen LA PTT Baseline 98 H Heparin Anti-Xa Level POC ABG pO2 Chloride Glucose Lactic Acid Lactate Dehydrogenase 283 H Albumin 10/10/17 10/11/17 10/12/17 05:07 09:46 09:37 RBC Hgb 15.3 H Hct Plt Count Lymph % (Auto) [place] % (Auto) Eos % (Auto) Baso % (Auto) Eos # Seg Neutrophils % Seg Neuts % (Manual) Lymphocytes % (Manual) Eosinophils % (Manual) Eosinophils # (Manual) PT INR Fibrinogen LA PTT Baseline Heparin Anti-Xa Level < 0.10 L POC ABG pO2 Chloride Glucose 112 H Lactic Acid Lactate Dehydrogenase Albumin 10/13/17 10/13/17 10/14/17 05:28 13:12 06:16 RBC Hgb 15.5 H 15.3 H Hct 45.8 H Plt Count Lymph % (Auto) 37.0 H 45.1 H [place] % (Auto) 8.1 H Eos % (Auto) 7.1 H 7.3 H Baso % (Auto) Eos # 0.5 H 0.5 H Seg Neutrophils % 39.4 L Seg Neuts % (Manual) Lymphocytes % (Manual) Eosinophils % (Manual) Eosinophils # (Manual) PT INR Fibrinogen LA PTT Baseline Heparin Anti-Xa Level 0.16 L POC ABG pO2 Chloride Glucose Lactic Acid Lactate Dehydrogenase Albumin 10/14/17 10/17/17 10/18/17 06:16 05:50 05:01 RBC Hgb Hct Plt Count Lymph % (Auto) [place] % (Auto) Eos % (Auto) Baso % (Auto) Eos # Seg Neutrophils % Seg Neuts % (Manual) Lymphocytes % (Manual) Eosinophils % (Manual) Eosinophils # (Manual) PT 16.1 H 19.7 H INR 1.22 H 1.57 H Fibrinogen LA PTT Baseline Heparin Anti-Xa Level POC ABG pO2 Chloride Glucose Lactic Acid Lactate Dehydrogenase Albumin 3.8 L 10/19/17 10/20/17 05:31 07:14 RBC Hgb Hct Plt Count Lymph % (Auto) [place] % (Auto) Eos % (Auto) Baso % (Auto) Eos # Seg Neutrophils % Seg Neuts % (Manual) Lymphocytes % (Manual) Eosinophils % (Manual) Eosinophils # (Manual) PT 21.4 H 23.4 H INR 1.74 H 1.94 H Fibrinogen LA PTT Baseline Heparin Anti-Xa Level POC ABG pO2 Chloride Glucose Lactic Acid Lactate Dehydrogenase Albumin Allied health notes reviewed: nursing
[2017-10-20] MEDS ORDERED: TIVICAY (NF) PO SCH (15:00)
--- NOTE | 2017-10-20 15:20 | Progress Note ---
Assessment and Plan Plan discharge home tomorrow when patient is therapeutic on Coumadin. Subjective Date of service: 10/20/17 Principal diagnosis: Acute Limb Ischemia s/p thrombolysis; Hypoxemic Resp failure; PVDx; HIV +ve Interval history: Patient is currently stable. Awaiting full anticoagulation. His INR is currently 1.94. Objective - Constitutional Vitals: Vital Signs - 12hr 10/20/17 10/20/17 10/20/17 06:10 10:31 10:38 Temperature 99 F Pulse Rate 68 Respiratory 17 Rate Blood Pressure 114/73 Blood Pressure 104/77 [Right] O2 Sat by Pulse 94 96 Oximetry 10/20/17 10/20/17 10:45 13:09 Temperature 98.4 F Pulse Rate 68 63 Respiratory 20 Rate Blood Pressure 110/65 Blood Pressure [Right] O2 Sat by Pulse 94 Oximetry General appearance: Present: no acute distress - EENT Eyes: PERRL ENT: hearing intact - Neck Neck: supple, normal ROM - Respiratory Respiratory effort: normal - Breasts Breasts: deferred Extremities: pulses intact, abnormal (left foot drop) - Gastrointestinal General gastrointestinal: Present: deferred - Genitourinary Male genitourinary: deferred - Psychiatric Psychiatric: appropriate mood/affect, cooperative - Labs CBC & Chem 7: 10/14/17 06:16 10/14/17 06:16 Labs: Abnormal lab results 10/20/17 Range/Units 07:14 PT 23.4 H (12.2-14.9) Sec. INR 1.94 H (0.87-1.13)
[2017-10-20] MEDS: COUMADIN PO SCH (18:46)
--- NOTE | 2017-10-20 19:55 | Progress Note ---
Assessment and Plan Assessment and plan: 61-year-old male patient was admitted with left lower extremity ischemia status post percutaneous thrombolysis on heparin drip and Coumadin Compartment syndrome of the left leg, status post fasciotomy, wound closure and supportive care, left foot drop on PT Patient's INR is subtherapeutic at 1.9, on heparin and Coumadin --Left Foot drop : foot brace, PTOT, possible home with home health upon discharge -- Ischemia of left lower extremity: S/p percutaneous thrombolysis left lower extremity On heparin drip, and Coumadin, sub therapeutic INR 1.94 Target INR 2-3 Palpable pedal pulses --Compartment syndrome left lower extremity s/p fasciotomy wound closed, elevate the limb --HIV disease: on antiretroviral therapy, outpatient ID f/u upon discharge --Lactic Acidosis: Resolved -- PVD ; continue current management -- Nicotine dependence;smoking cessation advised -- HTN (hypertension); well controlled On antihypertensives and PRN meds --Constipation;stool softeners as needed -- DVT prophylaxis; pt on heparin and Coumadin Physical therapy occupational therapy, foot brace Possible home with home health went INR is therapeutic Disposition: Home with home health and home PT on Coumadin When INR is therapeutic, and cleared by vascular History Interval history: Patient seen and examined medical records reviewed Feels slightly better still complains of left lower extremity excruciating pain Tolerating foot brace and physical therapy No other complaints Vital signs stable, heparin and Coumadin INR subtherapeutic at 1.94 Hospitalist Physical - Constitutional Vitals: Temp Pulse Resp BP Pulse Ox 98.0 F 63 18 102/68 93 10/20/17 18:20 10/20/17 18:20 10/20/17 18:20 10/20/17 18:20 10/20/17 18:20 General appearance: Present: no acute distress, well-nourished - EENT Eyes: Present: PERRL, EOM intact - Neck Neck: Present: supple, normal ROM - Respiratory Respiratory effort: normal Respiratory: bilateral: diminished, negative: rales, rhonchi, wheezing - Cardiovascular Rhythm: regular Heart Sounds: Present: S1 & S2 - Extremities Extremities: No edema, normal temperature, abnormal (palpable pedal pulses left foot, tender to touch, left foot drop) - Abdominal General gastrointestinal: soft, non-tender, non-distended, normal bowel sounds - Integumentary Integumentary: Present: clear, warm - Psychiatric Psychiatric: appropriate mood/affect, cooperative - Neurologic Neurologic: CNII-XII intact, moves all extremities Results - Labs CBC & Chem 7: 10/14/17 06:16 10/14/17 06:16 Labs: Laboratory Last Values WBC 7.0 K/mm3 (4.5-11.0) 10/14/17 06:16 RBC 5.00 M/mm3 (3.65-5.03) 10/14/17 06:16 Hgb 15.3 gm/dl (11.8-15.2) H 10/14/17 06:16 Hct 45.5 % (35.5-45.6) 10/14/17 06:16 MCV 91 fl (84-94) 10/14/17 06:16 MCH 31 pg (28-32) 10/14/17 06:16 MCHC 34 % (32-34) 10/14/17 06:16 RDW 14.7 % (13.2-15.2) 10/14/17 06:16 Plt Count 225 K/mm3 (140-440) 10/14/17 06:16 Lymph % (Auto) 45.1 % (13.4-35.0) H 10/14/17 06:16 [place] % (Auto) 7.3 % (0.0-7.3) 10/14/17 06:16 Eos % (Auto) 7.3 % (0.0-4.3) H 10/14/17 06:16 Baso % (Auto) 0.9 % (0.0-1.8) 10/14/17 06:16 Lymph # 3.2 K/mm3 (1.2-5.4) 10/14/17 06:16 [place] # 0.5 K/mm3 (0.0-0.8) 10/14/17 06:16 Eos # 0.5 K/mm3 (0.0-0.4) H 10/14/17 06:16 Baso # 0.1 K/mm3 (0.0-0.1) 10/14/17 06:16 Add Manual Diff Complete 10/08/17 06:12 Total Counted 100 10/08/17 06:12 Seg Neutrophils % 39.4 % (40.0-70.0) L 10/14/17 06:16 Seg Neuts % (Manual) 35.0 % (40.0-70.0) L 10/08/17 06:12 Band Neutrophils % 1.0 % 10/08/17 06:12 Lymphocytes % (Manual) 50.0 % (13.4-35.0) H 10/08/17 06:12 Reactive Lymphs % (Man) 0 % 10/08/17 06:12 Monocytes % (Manual) 4.0 % (0.0-7.3) 10/08/17 06:12 Eosinophils % (Manual) 9.0 % (0.0-4.3) H 10/08/17 06:12 Basophils % (Manual) 1.0 % (0.0-1.8) 10/08/17 06:12 Metamyelocytes % 0 % 10/08/17 06:12 Myelocytes % 0 % 10/08/17 06:12 Promyelocytes % 0 % 10/08/17 06:12 Blast Cells % 0 % 10/08/17 06:12 Nucleated RBC % Not Reportable 10/08/17 06:12 Seg Neutrophils # 2.8 K/mm3 (1.8-7.7) 10/14/17 06:16 Seg Neutrophils # Man 2.5 K/mm3 (1.8-7.7) 10/08/17 06:12 Band Neutrophils # 0.1 K/mm3 10/08/17 06:12 Lymphocytes # (Manual) 3.6 K/mm3 (1.2-5.4) 10/08/17 06:12 Abs React Lymphs (Man) 0.0 K/mm3 10/08/17 06:12 Monocytes # (Manual) 0.3 K/mm3 (0.0-0.8) 10/08/17 06:12 Eosinophils # (Manual) 0.6 K/mm3 (0.0-0.4) H 10/08/17 06:12 Basophils # (Manual) 0.1 K/mm3 (0.0-0.1) 10/08/17 06:12 Metamyelocytes # 0.0 K/mm3 10/08/17 06:12 Myelocytes # 0.0 K/mm3 10/08/17 06:12 Promyelocytes # 0.0 K/mm3 10/08/17 06:12 Blast Cells # 0.0 K/mm3 10/08/17 06:12 WBC Morphology Not Reportable 10/08/17 06:12 Hypersegmented Neuts Not Reportable 10/08/17 06:12 Hyposegmented Neuts Not Reportable 10/08/17 06:12 Hypogranular Neuts Not Reportable 10/08/17 06:12 Smudge Cells Not Reportable 10/08/17 06:12 Toxic Granulation Not Reportable 10/08/17 06:12 Toxic Vacuolation Not Reportable 10/08/17 06:12 Dohle Bodies Not Reportable 10/08/17 06:12 Pelger-Huet Anomaly Not Reportable 10/08/17 06:12 [place] Rods Not Reportable 10/08/17 06:12 Platelet Estimate Consistent w auto 10/08/17 06:12 Clumped Platelets Not Reportable 10/08/17 06:12 Plt Clumps, EDTA Not Reportable 10/08/17 06:12 Large Platelets Not Reportable 10/08/17 06:12 Giant Platelets Not Reportable 10/08/17 06:12 Platelet Satelliting Not Reportable 10/08/17 06:12 Plt Morphology Comment Not Reportable 10/08/17 06:12 RBC Morphology Not Reportable 10/08/17 06:12 Dimorphic RBCs Not Reportable 10/08/17 06:12 Polychromasia Not Reportable 10/08/17 06:12 Hypochromasia Not Reportable 10/08/17 06:12 Poikilocytosis Not Reportable 10/08/17 06:12 Anisocytosis 1+ 10/08/17 06:12 Microcytosis Not Reportable 10/08/17 06:12 Macrocytosis Not Reportable 10/08/17 06:12 Spherocytes Not Reportable 10/08/17 06:12 Pappenheimer Bodies Not Reportable 10/08/17 06:12 Sickle Cells Not Reportable 10/08/17 06:12 Target Cells Not Reportable 10/08/17 06:12 Tear Drop Cells Not Reportable 10/08/17 06:12 Ovalocytes Not Reportable 10/08/17 06:12 Helmet Cells Not Reportable 10/08/17 06:12 [place] Bodies Not Reportable 10/08/17 06:12 [place] Rings Not Reportable 10/08/17 06:12 Nabeel Cells Not Reportable 10/08/17 06:12 Bite Cells Not Reportable 10/08/17 06:12 Crenated Cell Not Reportable 10/08/17 06:12 Elliptocytes Not Reportable 10/08/17 06:12 Acanthocytes (Spur) Not Reportable 10/08/17 06:12 Rouleaux Not Reportable 10/08/17 06:12 Hemoglobin C Crystals Not Reportable 10/08/17 06:12 Schistocytes Not Reportable 10/08/17 06:12 Malaria parasites Not Reportable 10/08/17 06:12 [place] Bodies Not Reportable 10/08/17 06:12 Hem Pathologist Commnt No 10/08/17 06:12 PT 23.4 Sec. (12.2-14.9) H 10/20/17 07:14 INR 1.94 (0.87-1.13) H 10/20/17 07:14 APTT 25.6 Sec. (24.2-36.6) 10/05/17 18:22 Fibrinogen 309 mg/dl (211-480) 10/06/17 15:00 Lupus Anticoagulant see below 10/07/17 10:23 LA PTT Baseline 98 sec (<=40) H 10/07/17 10:23 dRVVT Screen 50:50 See scanned report 10/07/17 10:23 dRVVT Mix Interpret See scanned report 10/07/17 10:23 Protein C Antigen See scanned report 10/07/17 10:23 Free Protein S 132 % normal (57-171) 10/07/17 10:23 Total Protein S 105 % (70-140) 10/07/17 10:23 Heparin Anti-Xa Level 0.33 U.I./ml (0.3-0.7) 10/20/17 07:14 POC ABG pH 7.354 (7.35-7.45) 10/06/17 16:44 POC ABG pCO2 45.0 (35-45) 10/06/17 16:44 POC ABG pO2 59 (80-105) L 10/06/17 16:44 POC ABG HCO3 25.1 10/06/17 16:44 POC ABG Total CO2 26 10/06/17 16:44 POC ABG O2 Sat 89 10/06/17 16:44 POC ABG Base Excess 0 10/06/17 16:44 FiO2 32 % 10/06/17 16:44 Sodium 140 mmol/L (137-145) 10/14/17 06:16 Potassium 4.1 mmol/L (3.6-5.0) 10/14/17 06:16 Chloride 99.9 mmol/L (98-107) 10/14/17 06:16 Carbon Dioxide 25 mmol/L (22-30) 10/14/17 06:16 Anion Gap 19 mmol/L 10/14/17 06:16 BUN 19 mg/dL (9-20) 10/14/17 06:16 Creatinine 1.0 mg/dL (0.8-1.5) 10/14/17 06:16 Estimated GFR > 60 ml/min 10/14/17 06:16 BUN/Creatinine Ratio 19 % 10/14/17 06:16 Glucose 94 mg/dL (75-100) 10/14/17 06:16 Lactic Acid 1.50 mmol/L (0.7-2.0) 10/05/17 21:39 Calcium 9.7 mg/dL (8.4-10.2) 10/14/17 06:16 Magnesium 2.20 mg/dL (1.7-2.3) 10/14/17 06:16 Total Bilirubin 0.30 mg/dL (0.1-1.2) 10/14/17 06:16 AST 32 units/L (5-40) 10/14/17 06:16 ALT 27 units/L (7-56) 10/14/17 06:16 Alkaline Phosphatase 72 units/L (35-129) 10/14/17 06:16 Lactate Dehydrogenase 283 units/L (91-180) H 10/08/17 06:12 Total Protein 7.4 g/dL (6.3-8.2) 10/14/17 06:16 Albumin 3.8 g/dL (3.9-5) L 10/14/17 06:16 Albumin/Globulin Ratio 1.1 % 10/14/17 06:16 Prothrombin Gene Mutate See scanned report 10/07/17 10:23 Blood Type O POSITIVE 10/05/17 18:49 Antibody Screen Negative 10/05/17 18:49
[2017-10-21 06:03] LABS: INR 2.11 (0.87-1.13)
[2017-10-21 06:05] LABS: Heparin anti-factor XA 0.48 U.I./ml (0.3-0.7)
[2017-10-21 07:03] VITALS: BP 128/80
[2017-10-21] MEDS: NORCO 5/325 PO PRN (07:48)
--- NOTE | 2017-10-21 09:22 | Discharge Summary ---
Providers - Providers Date of Admission: 10/05/17 20:36 Date of discharge: 10/21/17 Attending physician: ARTURO HECK 10/05/17 20:35 Consult to Physician [CONS] Routine Comment: Consulting Provider: ISMAEL STONE Physician Instructions: Reason For Exam: ischemic Limb, taken urgently to OR 10/06/17 11:28 Consult to Physician [CONS] Routine Comment: please eval for hypercoagulable, pt with fam hist Consulting Provider: MISHA SIERRA Physician Instructions: Reason For Exam: arterial thrombus/HIV 10/07/17 12:47 Physical Therapy Evaluation and Treat [CONS] Routine Comment: Reason For Exam: Evaluate and treat 10/10/17 14:42 Physical Therapy Evaluation and Treat [CONS] Routine Comment: s/p LLE revasc, s/p fasciotomy, ?left foot drop? Reason For Exam: gait training Weight bearing status?: Full wt bearing 10/16/17 17:46 Consult to Case Management [CONS] Routine Services Needed at Discharge: Physical Therapy Home Health Services Notified:: Case management Comment:: QUESTIONS ABOUT DISABILITY Primary care physician: TRANSPORT SPECIALIST Hospitalization Condition: Fair Disposition: DC/[place]-06 HOME UNDER HOME [facility] Core Measure Documentation - Palliative Care Palliative Care/ Comfort Measures: Not Applicable - Core Measures Any of the following diagnoses?: none Exam - Constitutional Vitals: Temp Pulse Resp BP Pulse Ox 98.9 F 92 H 24 128/80 93 10/21/17 05:29 10/21/17 05:29 10/21/17 05:29 10/21/17 05:29 10/21/17 05:29 Plan Activity: advance as tolerated Diet: low fat, low cholesterol, low salt Special Instructions: physical therapy, home health RN Durable Medical Equipment Needed Upon Discharge: Walker-Rolling Additional Instructions: 1.Follow up with PCP or [facility] in 1 week. 2.Follow up with Dr. Jcarlos Tidwell, Vasc Surg in 1 week. 3.Follow up with Dr. Sierra in 1 week. 4.Check INR on 10/[address] Sierra or PCP Follow up with: PRIMARY CARE, [Primary Care Provider] - 3-5 Days Forms: Warfarin Discharge Instruction Prescriptions: Famotidine [Pepcid] 20 mg PO DAILY #60 tablet HYDROcodone/APAP 5-325 [[place] 5-325 mg TAB] 1 each PO Q6H PRN #10 tablet PRN Reason: Pain, Moderate (4-6) Warfarin [Coumadin] 7.5 mg PO DAILY@1700 #30 tablet
[2017-10-21] MEDS: NORVIR PO SCH (10:05)
[2017-10-21] MEDS: PEPCID PO SCH (10:06)
[2017-10-21] MEDS: ZESTRIL PO SCH (10:06)
[2017-10-21] MEDS: PREZISTA PO SCH (10:06)
[2017-10-21] MEDS: HABITROL TD SCH (10:06)
[2017-10-21] MEDS: LOPRESSOR PO SCH (10:06)
== END 2017-10-21 12:30 | disposition home health service (06) | DRG 270 ==
LOC: ED 17:15 → CC1 20:36 → 4A 10-07 23:24 → 3A 10-19 18:58
PROVIDERS: ADMIT Internal Medicine; ATTEND Internal Medicine
PROC: 04HL33Z Insertion of Infusion Device into Left Femoral Artery, Percutaneous Approach (ICD-10-PCS; 2017-10-05)
PROC: 3E05317 Introduction of Other Thrombolytic into Peripheral Artery, Percutaneous Approach (ICD-10-PCS; 2017-10-05)
PROC: 4A033R1 Measurement of Arterial Saturation, Peripheral, Percutaneous Approach (ICD-10-PCS; principal; 2017-10-06)
PROC: 04CS3ZZ Extirpation of Matter from Left Posterior Tibial Artery, Percutaneous Approach (ICD-10-PCS; 2017-10-06)
PROC: 047S3ZZ Dilation of Left Posterior Tibial Artery, Percutaneous Approach (ICD-10-PCS; 2017-10-06)
PROC: 04CQ3ZZ Extirpation of Matter from Left Anterior Tibial Artery, Percutaneous Approach (ICD-10-PCS; 2017-10-06)
PROC: 3E05317 Introduction of Other Thrombolytic into Peripheral Artery, Percutaneous Approach (ICD-10-PCS; 2017-10-06)
PROC: 04PYX3Z Removal of Infusion Device from Lower Artery, External Approach (ICD-10-PCS; 2017-10-06)
PROC: B41G1ZZ Fluoroscopy of Left Lower Extremity Arteries using Low Osmolar Contrast (ICD-10-PCS; 2017-10-06)
PROC: 0KNT0ZZ Release Left Lower Leg Muscle, Open Approach (ICD-10-PCS; 2017-10-08)
PROC: 0KNT0ZZ Release Left Lower Leg Muscle, Open Approach (ICD-10-PCS; 2017-10-08)
PROC: 0KQT0ZZ Repair Left Lower Leg Muscle, Open Approach (ICD-10-PCS; 2017-10-15)
DX: T82.856A Stenosis of peripheral vascular stent, initial encounter (principal); B20 Human immunodeficiency virus [HIV] disease; J96.91 Respiratory failure, unspecified with hypoxia; J96.92 Respiratory failure, unspecified with hypercapnia; I74.3 Embolism and thrombosis of arteries of the lower extremities; E87.2 Acidosis; M79.A22 Nontraumatic compartment syndrome of left lower extremity; I70.292 Other atherosclerosis of native arteries of extremities, left leg; E66.9 Obesity, unspecified; M21.372 Foot drop, left foot; I99.8 Other disorder of circulatory system; J45.909 Unspecified asthma, uncomplicated; I10 Essential (primary) hypertension; F17.210 Nicotine dependence, cigarettes, uncomplicated; I25.2 Old myocardial infarction; Z82.49 Family history of ischemic heart disease and other diseases of the circulatory system; Z71.6 Tobacco abuse counseling; Z68.28 Body mass index [BMI] 28.0-28.9, adult; Z86.718 Personal history of other venous thrombosis and embolism; Z79.899 Other long term (current) drug therapy; Z95.5 Presence of coronary angioplasty implant and graft
CPT/HCPCS: 36415; 36600; 37184; 37185; 37211; 37214; 37228; 71045; 76937; 80048; 80053; 82140; 82803; 83516; 83615; 83735; 85007; 85014; 85018; 85025; 85049; 85210; 85305; 85384; 85520; 85610; 85613; 85730; 86850; 86900; 86901; 94760; 96374; 96375; A9270-GY; C1725; C1757; C1760; C1769; C1887; J0690; J1170; J1644; J1885; J2250; J2270; J2405; J2704; J2997; J3010; J7030; J7040; J7050; Q9967

== ENCOUNTER 2017-11-30 14:11 | Emergency (ER) | payer MEDICARE ==
--- NOTE | 2017-11-30 22:09 | Emergency Department Report ---
ED Extremity Problem HPI - General Chief complaint: Extremity Injury, Lower Stated complaint: LFT LEG POSS CLOT/PAIN Time Seen by Provider: 11/30/17 21:03 Source: patient Mode of arrival: Ambulatory Limitations: No Limitations - History of Present Illness Initial comments: 61-year-old male with a past medical history of asthma HIV, CAD, hypertension, PAD with stent placement, leg arterial thrombosis, acute them ischemia required thrombectomy in October presents to the hospital complaining of left leg pain for 4 days. Patient's pain started while at physical therapy after a piece of tape was placed on his left lateral leg fasciotomy scar. Patient assumed to have something to do with the tape causing irritation of the pain continued after removal. He now has pain to his deep calf area and pain to his foot. He has been compliant with his medications including Coumadin. On previous medical record review patient was admitted here 10/05/2017 for acute limb ischemia. He received left lower leg percutaneous thrombolysis and required a lateral leg fasciotomy. Patient states that upon discharge he had a palpable pulse and can walk without a walker. He has been using a walker the last 4 days since pain returned. Pain is rated 6/10, constant, worse with palp and ambulation. Taking Oxycodone for pain with some relief. No fever reported. Severity scale (0 -10): 4 - Related Data Home Medications Medication Instructions Recorded Confirmed Last Taken Atorvastatin Calcium [Lipitor] 80 mg PO QDAY 06/14/13 10/05/17 09/23/17 40mg Darunavir [Prezista] 800 mg PO QDAY 06/14/13 10/05/17 09/23/17 800mg Metoprolol [Lopressor TAB] 50 mg PO BID 06/14/13 10/05/17 09/23/17 50mg Ramipril Cap (Nf) [Altace Cap (Nf)] 2.5 mg PO QDAY 06/14/13 10/05/17 09/23/17 2.5mg Dolutegravir Sodium [Tivicay] 50 mg PO DAILY 10/16/17 10/16/17 10/14/17 Previous Rx's Medication Instructions Recorded Last Taken Type Famotidine [Pepcid] 20 mg PO DAILY #60 tablet 10/21/17 Unknown Rx HYDROcodone/APAP 5-325 [[place] 1 each PO Q6H PRN #10 tablet 10/21/17 Unknown Rx 5-325 mg TAB] Warfarin [Coumadin] 7.5 mg PO DAILY@1700 #30 tablet 10/21/17 Unknown Rx Oxycodone HCl [oxyCODONE TAB] 10 mg PO Q6H PRN #10 tablet 12/01/17 Unknown Rx traMADol [Ultram 50 MG tab] 50 mg PO Q6HR PRN #14 tablet 12/01/17 Unknown Rx Allergies Allergy/AdvReac Type Severity Reaction Status Date / Time No Known Allergies Allergy Verified 06/14/13 08:29 ED Review of Systems ROS: Stated complaint: LFT LEG POSS CLOT/PAIN Other details as noted in HPI Comment: All other systems reviewed and negative ED Past Medical Hx - Past Medical History Hx Hypertension: Yes Hx Heart Attack/AMI: Yes (2003,2004) Hx Deep Vein Thrombosis: Yes (stent in leg) Hx Arthritis: Yes Hx Asthma: Yes Hx HIV: Yes - Surgical History Hx Coronary Stent: Yes (2003,2004) Additional Surgical History: Stent to left leg 09/2017, Stent to left leg 10/2017 - Social History Smoking Status: Current Every Day Smoker Substance Use Type: Alcohol - Medications Home Medications: Home Medications Medication Instructions Recorded Confirmed Last Taken Type Atorvastatin Calcium [Lipitor] 80 mg PO QDAY 06/14/13 10/05/17 09/23/17 History 40mg Darunavir [Prezista] 800 mg PO QDAY 06/14/13 10/05/17 09/23/17 History 800mg Metoprolol [Lopressor TAB] 50 mg PO BID 06/14/13 10/05/17 09/23/17 History 50mg Ramipril Cap (Nf) [Altace Cap (Nf)] 2.5 mg PO QDAY 06/14/13 10/05/17 09/23/17 History 2.5mg Dolutegravir Sodium [Tivicay] 50 mg PO DAILY 10/16/17 10/16/17 10/14/17 History Famotidine [Pepcid] 20 mg PO DAILY #60 tablet 10/21/17 Unknown Rx HYDROcodone/APAP 5-325 [[place] 1 each PO Q6H PRN #10 tablet 10/21/17 Unknown Rx 5-325 mg TAB] Warfarin [Coumadin] 7.5 mg PO DAILY@1700 #30 tablet 10/21/17 Unknown Rx Oxycodone HCl [oxyCODONE TAB] 10 mg PO Q6H PRN #10 tablet 12/01/17 Unknown Rx traMADol [Ultram 50 MG tab] 50 mg PO Q6HR PRN #14 tablet 12/01/17 Unknown Rx ED Physical Exam - General Limitations: No Limitations - Other Other exam information: General: No limitations, patient is alert in no acute distress Head exam: Atraumatic, normocephalic Eyes exam: Normal appearance ENT: Moist mucous membrane Neck exam: Normal inspection, full range of motion, no meningismus nontender Respiratory exam: Clear to auscultation bilateral, no wheezes, rales, crackles Cardiovascular: Normal rate and rhythm, normal heart sounds Abdomen: Soft, nondistended, and nontender, with normal bowel sounds, no rebound, or guarding Extremity: Whole left lateral lower leg fasciotomy scar healing without erythema , warmth, or drainage. Coolness to left foot with cap refill greater than 2 seconds. Unable to palpate or auscultate DP or PT pulses of the left foot. Patient is able to wiggle his toes and plantar and dorsiflex his foot. Tenderness to the left calf with deep palpation and left foot Back: Normal Inspection, full range of motion, no tenderness Neurologic: Alert, oriented x3, cranial nerves intact, no motor or sensory deficit Psychiatric: normal affect, normal mood Skin: Warm, dry, intact ED Course Vital Signs 11/30/17 11/30/17 11/30/17 14:20 19:57 21:51 Temperature 98.1 F 98.3 F Pulse Rate 78 65 Respiratory 16 18 20 Rate Blood Pressure 105/67 110/79 O2 Sat by Pulse 95 95 98 Oximetry - Consultations Consultation #1: 11/30/17 22:08 case d/w Vascular Dr Paulino. unable to auscultate or palpate dp or pt pulse, rec cta leg. I'm awaiting creatinine function 12/01/17 01:[address] scan report and sisters collateral flow patient may be discharged. Recommend a Lovenox dose since INR is subtherapeutic. Patient is to follow-up he will likely need an arterial bypass of that extremity ED Medical Decision Making - Lab Data Result diagrams: 11/30/17 21:22 11/30/17 21:22 Lab Results 08/11/30/17 11/30/17 Range/Units 21:22 21:22 21:22 WBC 6.6 (4.5-11.0) K/mm3 RBC 4.65 (3.65-5.03) M/mm3 Hgb 14.3 (11.8-15.2) gm/dl Hct 40.7 (35.5-45.6) % MCV 88 (84-94) fl MCH 31 (28-32) pg MCHC 35 H (32-34) % RDW 14.0 (13.2-15.2) % Plt Count 226 (140-440) K/mm3 Add Manual Diff Complete Total Counted 100 Seg Neutrophils % Curing Finisher Seg Neuts % (Manual) 36.0 L (40.0-70.0) % Band Neutrophils % 0 % Lymphocytes % (Manual) 52.0 H (13.4-35.0) % Reactive Lymphs % (Man) 0 % Monocytes % (Manual) 8.0 H (0.0-7.3) % Eosinophils % (Manual) 4.0 (0.0-4.3) % Basophils % (Manual) 0 (0.0-1.8) % Metamyelocytes % 0 % Myelocytes % 0 % Promyelocytes % 0 % Blast Cells % 0 % Nucleated RBC % Not Reportable Seg Neutrophils # Man 2.4 (1.8-7.7) K/mm3 Band Neutrophils # 0.0 K/mm3 Lymphocytes # (Manual) 3.4 (1.2-5.4) K/mm3 Abs React Lymphs (Man) 0.0 K/mm3 Monocytes # (Manual) 0.5 (0.0-0.8) K/mm3 Eosinophils # (Manual) 0.3 (0.0-0.4) K/mm3 Basophils # (Manual) 0.0 (0.0-0.1) K/mm3 Metamyelocytes # 0.0 K/mm3 Myelocytes # 0.0 K/mm3 Promyelocytes # 0.0 K/mm3 Blast Cells # 0.0 K/mm3 WBC Morphology Not Reportable Hypersegmented Neuts Not Reportable Hyposegmented Neuts Not Reportable Hypogranular Neuts Not Reportable Smudge Cells Not Reportable Toxic Granulation Not Reportable Toxic Vacuolation Not Reportable Dohle Bodies Not Reportable Pelger-Huet Anomaly Not Reportable Candelaria Rods Not Reportable Platelet Estimate Appears normal Clumped Platelets Not Reportable Plt Clumps, EDTA Not Reportable Large Platelets Few Giant Platelets Not Reportable Platelet Satelliting Not Reportable Plt Morphology Comment Not Reportable RBC Morphology Not Reportable Dimorphic RBCs Not Reportable Polychromasia Not Reportable Hypochromasia Not Reportable Poikilocytosis Not Reportable Anisocytosis 1+ Microcytosis Not Reportable Macrocytosis Not Reportable Spherocytes Not Reportable Pappenheimer Bodies Not Reportable Sickle Cells Not Reportable Target Cells Not Reportable Tear Drop Cells Not Reportable Ovalocytes Not Reportable Helmet Cells Not Reportable Rosario-Foley Bodies Not Reportable [place] Rings Not Reportable Delta Cells Not Reportable Bite Cells Not Reportable Crenated Cell Not Reportable Elliptocytes Not Reportable Acanthocytes (Spur) Not Reportable Rouleaux Not Reportable Hemoglobin C Crystals Not Reportable Schistocytes Not Reportable Malaria parasites Not Reportable [place] Bodies Not Reportable Hem Pathologist Commnt No PT 22.0 H (12.2-14.9) Sec. INR 1.86 H (0.87-1.13) APTT 48.4 H (24.2-36.6) Sec. VBG pH (7.320-7.420) Sodium 137 (137-145) mmol/L Potassium 4.2 (3.6-5.0) mmol/L Chloride 97.3 L (98-107) mmol/L Carbon Dioxide 24 (22-30) mmol/L Anion Gap 20 mmol/L BUN 15 (9-20) mg/dL Creatinine 1.1 (0.8-1.5) mg/dL Estimated GFR > 60 ml/min BUN/Creatinine Ratio 14 % Glucose 84 (75-100) mg/dL Lactic Acid (0.7-2.0) mmol/L Calcium 9.6 (8.4-10.2) mg/dL Total Creatine Kinase 1440 H (55-170) units/L 11/30/17 11/30/17 Range/Units 21:22 21:22 WBC (4.5-11.0) K/mm3 RBC (3.65-5.03) M/mm3 Hgb (11.8-15.2) gm/dl Hct (35.5-45.6) % MCV (84-94) fl MCH (28-32) pg MCHC (32-34) % RDW (13.2-15.2) % Plt Count (140-440) K/mm3 Add Manual Diff Total Counted Seg Neutrophils % Seg Neuts % (Manual) (40.0-70.0) % Band Neutrophils % % Lymphocytes % (Manual) (13.4-35.0) % Reactive Lymphs % (Man) % Monocytes % (Manual) (0.0-7.3) % Eosinophils % (Manual) (0.0-4.3) % Basophils % (Manual) (0.0-1.8) % Metamyelocytes % % Myelocytes % % Promyelocytes % % Blast Cells % % Nucleated RBC % Seg Neutrophils # Man (1.8-7.7) K/mm3 Band Neutrophils # K/mm3 Lymphocytes # (Manual) (1.2-5.4) K/mm3 Abs React Lymphs (Man) K/mm3 Monocytes # (Manual) (0.0-0.8) K/mm3 Eosinophils # (Manual) (0.0-0.4) K/mm3 Basophils # (Manual) (0.0-0.1) K/mm3 Metamyelocytes # K/mm3 Myelocytes # K/mm3 Promyelocytes # K/mm3 Blast Cells # K/mm3 WBC Morphology Hypersegmented Neuts Hyposegmented Neuts Hypogranular Neuts Smudge Cells Toxic Granulation Toxic Vacuolation Dohle Bodies Pelger-Huet Anomaly Candelaria Rods Platelet Estimate Clumped Platelets Plt Clumps, EDTA Large Platelets Giant Platelets Platelet Satelliting Plt Morphology Comment RBC Morphology Dimorphic RBCs Polychromasia Hypochromasia Poikilocytosis Anisocytosis Microcytosis Macrocytosis Spherocytes Pappenheimer Bodies Sickle Cells Target Cells Tear Drop Cells Ovalocytes Helmet Cells Rosario-Foley Bodies [place] Rings Nabeel Cells Bite Cells Crenated Cell Elliptocytes Acanthocytes (Spur) Rouleaux Hemoglobin C Crystals Schistocytes Malaria parasites Cruzito Bodies Hem Pathologist Commnt PT (12.2-14.9) Sec. INR (0.87-1.13) APTT (24.2-36.6) Sec. VBG pH 7.346 (7.320-7.420) Sodium (137-145) mmol/L Potassium (3.6-5.0) mmol/L Chloride (98-107) mmol/L Carbon Dioxide (22-30) mmol/L Anion Gap mmol/L BUN (9-20) mg/dL Creatinine (0.8-1.5) mg/dL Estimated GFR ml/min BUN/Creatinine Ratio % Glucose (75-100) mg/dL Lactic Acid 1.20 (0.7-2.0) mmol/L Calcium (8.4-10.2) mg/dL Total Creatine Kinase (55-170) units/L - Medical Decision Making left leg pain Unable to palpate or Doppler pulse by CTA confirms that there is collateral flow to the distal extremity. Patient's INR is subtherapeutic Lovenox dosing provided and follow-up recommended Elevated CK discussed with Dr. Paulino and he states they have been higher in the past. Patient has normal renal function Recommended outpatient follow-up with vascular to discuss and schedule bypass surgery. pt requesting refill in oxycodone 10 and tramadol scripts since he is running low - Differential Diagnosis DVT, arterial occlusion, PAD Critical Care Time: No Critical care attestation.: If time is entered above; I have spent that time in minutes in the direct care of this critically ill patient, excluding procedure time. ED Disposition Clinical Impression: PAD (peripheral artery disease), HIV disease, Subtherapeutic international normalized ratio (INR) Disposition: DC- TO HOME OR SELFCARE Is pt being admited?: No Does the pt Need Aspirin: No Condition: Stable Instructions: Peripheral Vascular Disorders (ED) Additional Instructions: Continue your current medication.. Follow up with your vascular doctor. Return if symptoms worsen as indicated by your discharge instructions. Follow up to have your INR rechecked and coumadin doses adjusted as necessary Prescriptions: Oxycodone HCl [oxyCODONE TAB] 10 mg PO Q6H PRN #10 tablet PRN Reason: Pain , Severe (7-10) traMADol [Ultram 50 MG tab] 50 mg PO Q6HR PRN #14 tablet PRN Reason: Pain, Moderate (4-6) Referrals: PRIMARY CARE, [Primary Care Provider] - 3-5 Days [facility] [Provider Group] - 2-3 Days JONATHAN DELUNA MD [Staff Physician] - 2-3 Days Time of Disposition: 01:40
[2017-11-30 22:18] LABS: Hematocrit 40.7 % (35.5-45.6); Hemoglobin 14.3 gm/dl (11.8-15.2); Mean Corpuscular HGB Conc 35 % (32-34); Mean Corpuscular Hemoglobin 31 pg (28-32); Mean Corpuscular Volume 88 fl (84-94); Platelet Count 226 K/mm3 (140-440); Red Blood Count 4.65 M/mm3 (3.65-5.03)
[2017-11-30 22:23] LABS: BUN/Creatinine Ratio 14; Blood Urea Nitrogen 15 mg/dL (9-20); Calcium 9.6 mg/dL (8.4-10.2); Hemolysis Index 2
[2017-11-30] MEDS ORDERED: NACL 0.9% 1000 ML 1,000 ML IV ONE (22:24)
[2017-11-30 22:26] LABS: INR 1.86 (0.87-1.13)
[2017-11-30 22:27] LABS: Partial Thromboplastin Time 48.4 Sec. (24.2-36.6)
--- NOTE | 2017-12-01 01:05 | Cat Scan Report ---
FINAL REPORT PROCEDURE: CT ANGIO ABD/FEMORAL ABD AORTA TECHNIQUE: Computerized axial tomographic angiography of the aortoiliac system with bilateral lower extremity runoff was performed after the IV injection of nonionic iodinated contrast including image processing. The image data was postprocessed using 2-dimensional multiplanar reformatted (MPR) and 3-dimensional (MIP and/or volume rendered) techniques. HISTORY: left leg ischemia COMPARISON: No prior studies are available for comparison. FINDINGS: Abdominal aorta: Normal. Celiac artery: Normal. Superior mesenteric artery: Normal. LEFT renal artery: Normal. RIGHT renal artery: Normal. Inferior mesenteric artery: Normal. Common iliac arteries: Normal. External iliac arteries: Normal. RIGHT lower extremity: Femoral arteries: Normal. Popliteal arteries: Normal. Trifurcation vessels: Normal. LEFT lower extremity: Femoral arteries: Normal. Popliteal arteries: There is a stent in the left popliteal artery which is occluded. Trifurcation vessels: There is reconstitution of the trifurcation the arteries which are patent to the foot. Abdominal and pelvic viscera: Normal. Other: None. IMPRESSION: Occlusion of the left popliteal artery stent. There is reconstitution of the left infrapopliteal trifurcation arteries. Remainder of the vascular structures are patent and normal in caliber. There is no acute intra-abdominal abnormality.
[2017-12-01 01:06] LABS: Anisocytosis 1+; Basophils % (Manual) 0 % (0.0-1.8); Total Cells Counted 100
[2017-12-01 01:07] LABS: Large Platelets Few
[2017-12-01] MEDS ORDERED: LOVENOX SUB-Q ONE (01:27)
[2017-12-01 03:56] VITALS: BP 124/81
== END 2017-12-01 03:57 | disposition home or self-care (01) ==
LOC: ED 14:11
DX: I73.9 Peripheral vascular disease, unspecified (principal); R79.1 Abnormal coagulation profile; J45.909 Unspecified asthma, uncomplicated; I11.0 Hypertensive heart disease with heart failure; M19.90 Unspecified osteoarthritis, unspecified site; F17.200 Nicotine dependence, unspecified, uncomplicated; Z21 Asymptomatic human immunodeficiency virus [HIV] infection status; Z86.718 Personal history of other venous thrombosis and embolism
CPT/HCPCS: 36415; 75635; 80048; 82140; 82550; 82805; 85007; 85025; 85610; 85730; 96372; 99284; J1650; J7030; Q9967

== ENCOUNTER 2019-01-06 06:40 | Day surgery (SDC) | payer MEDICARE ==
[2019-01-06 07:48] LABS: Basophils % (Auto) 0.4 % (0.0-1.8); Eosinophils # (Auto) 0.3 K/mm3 (0.0-0.4); Eosinophils % (Auto) 5.6 % (0.0-4.3); Hemoglobin 14.4 gm/dl (11.8-15.2); Lymphocytes # (Auto) 2.5 K/mm3 (1.2-5.4); Lymphocytes % (Auto) 44.6 % (13.4-35.0); Mean Corpuscular HGB Conc 34 % (32-34); Mean Corpuscular Volume 89 fl (84-94); Monocytes # (Auto) 0.5 K/mm3 (0.0-0.8); Monocytes % (Auto) 9.1 % (0.0-7.3); Platelet Count 215 K/mm3 (140-440); Red Blood Count 4.71 M/mm3 (3.65-5.03); Red Cell Distribution Width 14.8 % (13.2-15.2)
[2019-01-06 07:58] LABS: BUN/Creatinine Ratio 11; Blood Urea Nitrogen 12 mg/dL (9-20); Calcium 8.7 mg/dL (8.4-10.2); Hemolysis Index 1
[2019-01-06 07:59] LABS: INR 1.11 (0.87-1.13)
[2019-01-06 08:00] LABS: Partial Thromboplastin Time 29.7 Sec. (24.2-36.6)
[2019-01-06] MEDS ORDERED: SODIUM CHLORIDE 0.45% 500 ML IV SCH (08:00)
[2019-01-06] MEDS ORDERED: HEPARIN/NS 5000 UNIT/500ML 1,000 ML IR ONE (08:26)
[2019-01-06] MEDS ORDERED: LIDOCAINE (2%) 20 MG/1 ML VIAL 20 ML MDV INFILTRATI ONE (08:27)
[2019-01-06] MEDS ORDERED: SODIUM CHLORIDE 0.9% 500 ML 500 ML ONE ×2 (08:49→11:33)
[2019-01-06] MEDS: HEPARIN 10,000 UNITS/10 ML VIAL ONE ×4 (09:04→11:52)
[2019-01-06] MEDS: fentaNYL 100 MCG/2 ML INJ ONE ×7 (09:09→11:18)
[2019-01-06] MEDS: MIDAZOLAM 2 MG/2 ML INJ ONE ×6 (09:10→11:18)
[2019-01-06] MEDS ORDERED: HEPARIN/NS 5000 UNIT/500ML 500 ML IR ONE ×3 (09:39→11:54)
[2019-01-06] MEDS ORDERED: SODIUM CHLORIDE 0.9% 100 ML ONE (09:43)
[2019-01-06] MEDS ORDERED: ALTEPLASE 2 MG INJ ONE (09:43)
[2019-01-06] MEDS ORDERED: NITROGLYCERIN SYRINGE 3 ML ONE ×2 (11:13→11:56)
[2019-01-06] MEDS ORDERED: HYDROcodone/ACETAMINOPHEN 5-325 MG TAB PO PRN (12:33)
--- NOTE | 2019-01-06 13:09 | Short Stay Summary ---
Short Stay Documentation Date of service: 01/06/19 Narrative H&P: See H&P - History H&P: obtained from office - Allergies and Medications Current Medications: Allergies No Known Allergies Allergy (Verified 06/14/13 08:29) Home Medications Medication Instructions Recorded Confirmed Last Taken Type Metoprolol [Lopressor TAB] 50 mg PO DAILY 06/14/13 01/06/19 01/05/19 History Ramipril Cap (Nf) [Altace Cap (Nf)] 2.5 mg PO QDAY 06/14/13 01/06/19 01/05/19 History Dolutegravir Sodium [Tivicay] 50 mg PO DAILY 10/16/17 01/06/19 01/05/19 History Apixaban [Eliquis] 5 mg PO BID 12/16/17 01/06/19 01/05/19 History Darunavir/Cobicistat [Prezcobix 1 each PO DAILY 12/16/17 01/06/19 01/05/19 History 800 mg-150 mg Tablet] Clopidogrel Bisulfate [Plavix] 75 mg PO QDAY #30 tablet 12/27/17 01/06/19 01/05/19 Rx Amoxicillin/Potassium Clav 1 tab PO DAILY 01/06/19 01/06/19 01/05/19 History [Amox-Clav 400-57 mg Tab Chew] Bupropion HCl [Wellbutrin XL] 300 mg PO QAM 01/06/19 01/06/19 01/05/19 History Diclofenac 1% [Diclofenac 1% 1 cream TRANSDERMA DAILY 01/06/19 01/06/19 01/05/19 History topical gel] Ezetimibe [Zetia] 10 mg PO DAILY 01/06/19 01/06/19 01/05/19 History Pravastatin [Pravachol] 80 mg PO DAILY 01/06/19 01/06/19 01/05/19 History Active Medications Acetaminophen/Hydrocodone Bitart ([place] 5/325) 1 each PO Q4H PRN PRN Reason: Pain, Moderate (4-6) Apixaban (Eliquis) 5 mg PO Q12HR HIRA; Protocol Clopidogrel Bisulfate (Plavix) 300 mg PO ONCE ONE Stop: 01/06/19 13:43 Sodium Chloride (Nacl 0.45%) 500 mls @ 50 mls/hr IV DIRECT HIRA Nitroglycerin (Nitro-Bid 2%) 1 inch TP ONCE ONE; Protocol Stop: 01/06/19 13:42 - Brief post op/procedure progress note Date of procedure: 01/06/19 Pre-op diagnosis: thrombosed left femoral artery to tibioperoneal trunk bypass Post-op diagnosis: same Procedure: 1. Ultrasound-Guided Access Right Common Femoral Artery 2. Diagnostic Aortogram with Left Lower Extremity Runoff (The Patient Had a Clinical Change) 3. Percutaneous PharmacoMechanical Thrombectomy Of Left SFA and Left Femoral Artery to Tibioperoneal Trunk with 20 mg of TPA and AngioJet Aspiration Catheter 4. Percutaneous PharmacoMechanical Thrombectomy of Left Posterior Tibial Artery With 20 Mg of TPA and AngioJet Aspiration Catheter 5. Atherectomy with Angioplasty of Left SFA with invi LS Directional Atherectomy Catheter and 6 x 150 IN.Pact Drug-Coated Balloon 6. Angioplasty of Left SFA to Tibioperoneal Bypass Graft with 5 x 20 mm Cutting Balloon and 5 x 150 IN.Pact Drug-Coated Balloon 7. Angioplasty of Left Posterior Tibial Artery with 3 x 150 AngioSculpt Balloon followed by 4 x 150 IN.Pact Drug Coated Balloon 8. Angioplasty of Left Peroneal Artery with 3 x 150 AngioSculpt Balloon 9. Injection of a Total of 1200 g of Nitroglycerin into the Left Tibial Vessels 10. Closure of Right Femoral Arteriotomy with ProGlide Closure Device 11. Radiologic Supervision with Interpretation Anesthesia: local, other (Monitored Moderate Sedation) Surgeon: MARLEEN CEJA Estimated blood loss: minimal Pathology: none Condition: stable - Disposition Condition at discharge: Good Disposition: DC-01 TO HOME OR SELFCARE Short Stay Discharge Plan Activity: other (no strenuous activity for 24 hours) Wound: remove dressing (24 hours) Follow up with: MARLEEN CEJA MD [Staff Physician] - 14 Days Prescriptions: HYDROcodone/APAP 7.5-325 [[place] 7.5/325] 1 each PO Q6HR PRN #30 tablet PRN Reason: Pain
[2019-01-06] MEDS ORDERED: CLOPIDOGREL 300 MG TAB ONE (13:37)
[2019-01-06] MEDS ORDERED: APIXABAN 5 MG TAB ONE (13:37)
[2019-01-06] MEDS ORDERED: NITROGLYCERIN 2% OINT 1 GM TP ONE (13:41)
--- NOTE | 2019-01-06 13:41 | Operative Report ---
Operative Report Operative Report: Date of Procedure: 01/06/2019 Pre-operative Diagnosis: Occluded Left SFA to Tibioperoneal Trunk Bypass Graft Post-operative Diagnosis: Same Procedure(s): 1. Ultrasound-Guided Access Right Common Femoral Artery 2. Diagnostic Aortogram with Left Lower Extremity Runoff (The Patient Had a Clinical Change) 3. Percutaneous PharmacoMechanical Thrombectomy Of Left SFA and Left Femoral Artery to Tibioperoneal Trunk with 20 mg of TPA and AngioJet Aspiration Catheter 4. Percutaneous PharmacoMechanical Thrombectomy of Left Posterior Tibial Artery With 20 Mg of TPA and AngioJet Aspiration Catheter 5. Atherectomy with Angioplasty of Left SFA with [employer] LS Directional Atherectomy Catheter and 6 x 150 IN.Pact Drug-Coated Balloon 6. Angioplasty of Left SFA to Tibioperoneal Bypass Graft with 5 x 20 mm Cutting Balloon and 5 x 150 IN.Pact Drug-Coated Balloon 7. Angioplasty of Left Posterior Tibial Artery with 3 x 150 AngioSculpt Balloon followed by 4 x 150 IN.Pact Drug Coated Balloon 8. Angioplasty of Left Peroneal Artery with 3 x 150 AngioSculpt Balloon 9. Injection of a Total of 1200 g of Nitroglycerin into the Left Tibial Vessels 10. Closure of Right Femoral Arteriotomy with ProGlide Closure Device 11. Radiologic Supervision with Interpretation Surgeon: Angel Paulino M.D. Soil Biology Teacher: None Anesthesia: Local/Moderate Monitored Anesthesia EBL: Minimal Counts: Correct Complications: None Condition: Stable Specimen: None Indication: The patient is a 63-year-old male with history of bilateral popliteal artery aneurysms who had a left superficial femoral artery to tibioperoneal trunk bypass with reverse greater saphenous vein performed approximate one year ago. He presented with complaints of short distance claudication that began approximately 1-2 weeks prior to his presentation at the office. An arterial duplex revealed occlusion of the bypass graft so he was scheduled for diagnostic arteriogram with possible intervention. He was given the risk, benefits, and alternative procedures and consented to the procedure. Angiographic Findings: The diagnostic aortogram revealed no evidence of stenosis or aneurysmal dilatation. Bilateral common iliac arteries were ectatic. The left external iliac artery was patent without any evidence of aneurysmal dilatation or flow- limiting stenosis. The left common femoral artery and profunda artery were patent without any evidence of flow-limiting stenosis. The left superficial femoral artery occluded in the proximal artery with a collateral branch that remained patent and provided collateral flow to the anterior tibial artery which was patent throughout its course to the foot as a dorsalis pedis artery. There appeared to be flow within the posterior tibial artery and peroneal artery through collaterals filling in the midportion of these vessels and the appear patent from the mid vessels throughout the remainder of her course. After intervention the SFA was patent with less than 10% residual stenosis and minimal residual thrombus. The superficial femoral artery to tibioperoneal bypass graft was patent with less than 15% residual stenosis. The tibioperoneal trunk as well as the posterior tibial artery and peroneal arteries were all patent with less than 10% residual stenosis and's somewhat sluggish flow secondary to spasm however this did improve with infusion of nitroglycerin. The stump of the below-knee popliteal artery had thrombus that became evident after treatment with the TPA however this did not appear to embolize or affect the flow through the tibioperoneal trunk and into the tibial vessels. Description of Procedure: The patient was brought to the clinical lab assistant and laid in supine position. After a timeout was performed patient's right groin was prepped and draped in normal sterile fashion. Ultrasound was used to identify the right common femoral artery and confirmed patency. Once patency was confirmed the overlying skin and soft tissue was anesthetized with lidocaine. An 11 blade was used to make a small stab incision and a curved hemostat was used with ultrasound guidance to bluntly dissect down to the anterior surface of the right common femoral artery. A micropuncture needle was used with ultrasound guidance to the right common femoral artery and a 0.018 wire was then advanced into the external iliac artery under fluoroscopy. The needle was exchanged for a micropuncture sheath and the wire and dilator were removed. A 0.035 J-wire was advanced into the artery and the micropuncture sheath was exchanged for 5 Nigerian sheath by Seldinger technique. An Omni Flush catheter was advanced into the aorta after removing the wire an aortogram was performed with the previously described findings. A Bentson wire and the Omni Flush catheter was advanced up and over the bifurcation and the left lower extremity arteriogram was performed with the previously described findings. I advanced the Bentson wire into the superficial femoral artery and then exchanged the 5 Nigerian sheath for a 7 Nigerian 45 cm destination sheath and at that point I systemically heparinized the patient with 5000 units of heparin IV which was redosed with 1000 units every 45 minutes until the completion of the case. I then used a 5 Nigerian Navicross Catheter and a 0.018 V 18 wire to cross the occluded SFA to the area of hemoclips that were identified on the fluoroscopy. I performed an arteriogram that revealed the thrombosed bypass graft. I was able to cannulate the bypass graft and advanced the wire and catheter to the distal anastomosis which was confirmed by arteriogram. This revealed thrombus extending into the tibial peroneal trunk and 99% stenosis of the proximal posterior tibial artery as well as approximately 75% stenosis in the proximal peroneal artery. I was able to cannulate the posterior tibial artery with the V 18 wire and advanced the Navicross Catheter into the artery which was confirmed by arteriogram. I then advanced a 0.035 Advantage Wire into the posterior tibial artery and then used the AngioJet catheter to infuse 100 mL of heparinized saline with 20 mg of TPA into the thrombosed SFA and bypass graft. I allowed this to dwell for approximately 30 minutes and used the AngioJet catheter to perform percutaneous mechanical thrombectomy of the SFA, bypass graft, and proximal portion of the posterior tibial artery. This resulted in minimal residual thrombus however there was significant stenosis within the bypass graft ranging from 50-85% and within the SFA of approximately 80% at the level of the original occlusion. I initially used a 5 x 150 Angiosculpt balloon to perform angioplasty of the bypass graft followed by angioplasty with a 5 x 150 IN.Pact Drug-Coated Balloon. This improved the stenosis however there was residual stenosis within the graft of approximately 60-70% in the proximal portion of the graft which I treated wi th a 5 x 20 mm cutting balloon reducing the stenosis to less than 15% residual stenosis. I then used a 6 x 150 IN.Pact Drug-Coated Balloon in the SFA however this is resulted in complete recall of the lesion in the proximal SFA. I decided that the SFA will require atherectomy to reduce the plaque burden as I did not want to place a stent in the proximal SFA however I wanted to treat the tibial vessels prior to perform an atherectomy. I performed angioplasty of the area of stenosis within the posterior tibial artery with a 3 x 150 Angiosculpt Balloon followed by angioplasty with a 4 x 150 IN.Pact Drug-Coated Balloon extending from the possible posterior tibial artery into the tibioperoneal trunk which resulted in less than 10% residual stenosis within the posterior tibial artery and tibial peroneal trunk. I then pulled the V 18 wire back and cannulated the peroneal artery and performed angioplasty of the proximal peroneal artery with the 3 x 150 Angiosculpt Balloon with a result of less than 10% residual stenosis. The flow was somewhat sluggish in both vessels and I prepared to perform distal embolectomy again I had embolized debris into the distal vessels however after advancing the catheter into the distal posterior tibial artery are realized that this was due to spasm so I injected a total of 1200 g nitroglycerin into the vessels which improved the outflow vessels. I t hen advanced a 7 mm Spider Wire into the SFA, just proximal to the bypass graft, and performed atherectomy of the proximal SFA followed by angioplasty with a 6 x 150 balloon with a result of less than 10% residual stenosis. At that point I recaptured the spider wire and pulled the sheath into the right external iliac artery and advanced the Bentson wire into the aorta. I then used a ProGlide gómez sure device to close the right femoral arteriotomy. A sterile dressing was then applied to the groin and the patient was transported to the recovery area in stable condition.
[2019-01-06] MEDS ORDERED: CLOPIDOGREL 300 MG TAB PO ONE (13:42)
[2019-01-06] MEDS ORDERED: APIXABAN 5 MG TAB PO SCH (14:00)
[2019-01-06 14:04] VITALS: BP 95/64
== END 2019-01-06 14:45 | disposition home or self-care (01) ==
LOC: CATHLABREC 06:40
PROVIDERS: ATTEND Surgery Vascular Surgery
DX: I70.213 Atherosclerosis of native arteries of extremities with intermittent claudication, bilateral legs (principal); I77.1 Stricture of artery; I70.25 Atherosclerosis of native arteries of other extremities with ulceration; I74.3 Embolism and thrombosis of arteries of the lower extremities; E78.00 Pure hypercholesterolemia, unspecified; I10 Essential (primary) hypertension; J45.909 Unspecified asthma, uncomplicated; K21.9 Gastro-esophageal reflux disease without esophagitis; F17.210 Nicotine dependence, cigarettes, uncomplicated; T79.A29A Traumatic compartment syndrome of unspecified lower extremity, initial encounter; Z79.899 Other long term (current) drug therapy; Z98.890 Other specified postprocedural states
CPT/HCPCS: 36415; 37184; 37185; 37225; 37228; 37232; 75625; 75710; 76937; 80048; 85025; 85610; 85730; 99156; 99157; C1714; C1725; C1757; C1760; C1769; C1884; C1887; C2623; J1644; J2250; J2997; J3010; J7040; Q9967

== ENCOUNTER 2021-07-25 10:03 | Inpatient (IN) | payer MEDICARE ==
[2021-07-25] MEDS ORDERED: LIDOCAINE (2%) 20 MG/1 ML VIAL 50 ML MDV INFILTRATI ONE (10:35)
[2021-07-25] MEDS ORDERED: HEPARIN/NS 5000 UNIT/500ML 1,000 ML IR ONE (10:35)
[2021-07-25] MEDS ORDERED: ceFAZolin/Water 2 GM/20 ML 2 GM/20 ML SYRINGE IV ONE (10:35)
[2021-07-25] MEDS ORDERED: SODIUM CHLORIDE 0.9% 500 ML 500 ML IV SCH (11:00)
[2021-07-25 11:13] LABS: Basophils % (Auto) 0.8 % (0.0-1.8); Eosinophils # (Auto) 0.3 K/mm3 (0.0-0.4); Hematocrit 46.2 % (35.5-45.6); Hemoglobin 15.7 gm/dl (11.8-15.2); Lymphocytes # (Auto) 2.8 K/mm3 (1.2-5.4); Lymphocytes % (Auto) 47.4 % (13.4-35.0); Mean Corpuscular HGB Conc 34 % (32-34); Mean Corpuscular Volume 88 fl (84-94); Monocytes # (Auto) 0.5 K/mm3 (0.0-0.8); Monocytes % (Auto) 9.2 % (0.0-7.3); Platelet Count 210 K/mm3 (140-440); Red Blood Count 5.22 M/mm3 (3.65-5.03); Red Cell Distribution Width 14.7 % (13.2-15.2)
[2021-07-25 11:16] LABS: BUN/Creatinine Ratio 9; Blood Urea Nitrogen 10 mg/dL (9-20); Calcium 9.4 mg/dL (8.4-10.2); Hemolysis Index 12
[2021-07-25 11:22] LABS: INR 0.98 (0.87-1.13)
[2021-07-25 11:23] LABS: Partial Thromboplastin Time 32.6 Sec. (24.2-36.6)
[2021-07-25] MEDS: HEPARIN 10,000 UNITS/10 ML VIAL ONE ×3 (11:42→12:55)
[2021-07-25] MEDS ORDERED: MORPHINE 2 MG/1 ML INJ IV PRN (11:57)
[2021-07-25] MEDS ORDERED: ACETAMINOPHEN 325 MG TAB PO PRN (11:57)
[2021-07-25] MEDS ORDERED: MORPHINE 4 MG/1 ML INJ IV PRN (11:57)
[2021-07-25] MEDS ORDERED: SODIUM CHLORIDE 0.9% 1000 ML 1,000 ML IV SCH (12:00)
[2021-07-25] MEDS: fentaNYL 100 MCG/2 ML INJ ONE ×2 (12:14→12:37)
[2021-07-25] MEDS: MIDAZOLAM 2 MG/2 ML INJ ONE ×2 (12:14→12:37)
[2021-07-25] MEDS ORDERED: fentaNYL 100 MCG/2 ML INJ ONE (12:45)
[2021-07-25] MEDS ORDERED: MIDAZOLAM 2 MG/2 ML INJ ONE (12:45)
[2021-07-25] MEDS ORDERED: HEPARIN/ 0.45% NACL DRIP 25,000 UNIT/500 ML BAG ONE (12:46)
[2021-07-25] MEDS ORDERED: ALTEPLASE 20 MG in SODIUM CHLORIDE 0.9% 500 ML 500 ML EKOSDLUMEN STA (12:46)
[2021-07-25] MEDS ORDERED: WATER FOR INJ Sterile (PF) 10 ML ONE (12:47)
[2021-07-25] MEDS ORDERED: ALTEPLASE 2 MG INJ ONE (12:47)
[2021-07-25] MEDS ORDERED: ONDANSETRON 4 MG/2 ML INJ IV PRN (12:48)
[2021-07-25] MEDS ORDERED: HEPARIN/ 0.45% NACL DRIP 25,000 UNIT/500 ML BAG SHEATH SCH (13:00)
[2021-07-25] MEDS ORDERED: SODIUM CHLORIDE 0.9% 1000 ML 1,000 ML EKOSCLUMEN SCH (13:00)
[2021-07-25] MEDS ORDERED: SODIUM CHLORIDE 0.9% 1000 ML 1,000 ML SHEATH SCH (13:00)
--- NOTE | 2021-07-25 13:05 | Operative Report ---
Operative Report Operative Report: Date of Procedure: 07/25/2021 Pre-operative Diagnosis: History of Popliteal Artery Aneurysms with Thrombosis o f Left Femoral to Popliteal Artery Bypass Post-operative Diagnosis: Same Procedure(s): 1. Ultrasound-Guided Access Right Common Femoral Artery 2. Diagnostic Aortogram (No Films for Comparison) 3. Diagnostic Left Lower Extremity Angiogram (No Films for Comparison) 4. Angioplasty of Left Popliteal Artery with 4.0 x 150 Lobo Balloon 5. Angioplasty of Left Tibioperoneal Trunk and Posterior Tibial Artery with 4.0 x 150 Lobo Balloon 6. Thrombolysis of Left SFA and Femoral to Popliteal Artery Bypass with 135 x 50 cm EKOS Thrombolysis Catheter 7. Radiologic Supervision with Interpretation 8. Monitored Moderate Sedation (Total Anesthesia Time: 44 Minutes) Surgeon: Angel Paulino M.D. Field Agronomist: Kamryn Anesthesia: Local/Monitored Moderate Sedation Total Anesthesia Time: 44 Minutes EBL: Minimal Counts: Correct Complications: None Condition: Stable Specimen: None Indication: The patient is a 65-year-old male with a history of bilateral popliteal artery aneurysms that have been treated with vein bypass. He presented with complaints of left leg pain and numbness and was found to have thrombosis of his bypass graft as well as his proximal SFA. He is in need of a diagnostic angiogram with possible intervention. He was given the risk, benefits, and alternative procedures and consented to the procedure. 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 The diagnostic left lower extremity angiogram revealed the hypogastric artery and external il iac artery were both patent without evidence of aneurysmal dilatation or flow- limiting stenosis. The common femoral artery and profunda artery were both patent without aneurysmal dilatation or flow-limiting stenosis. There was thrombus noted within the proximal SFA with thrombosis throughout the remainder of the proximal mid SFA. The bypass graft proximal anastomosis was then in the mid SFA and there was evidence of chronic thrombus throughout the anastomosis with thrombus extending throughout the graft and no flow noted within the graft. Collateral flow feels the anterior tibial artery which was patent throughout its course without evidence of thrombus or flow-limiting stenosis. The tibioperoneal trunk was occluded with flow noted in both the posterior tibial and peroneal arteries which appear to be patent without significant flow- limiting stenosis or evidence of thrombus. After intervention the below-knee popliteal artery as well as the tibioperoneal trunk were patent however there was evidence of thrombus throughout the arteries with less than 20% residual stenosis. The distal tip of the EKOS catheter was placed in the tibioperoneal trunk and the proximal tip of the catheter was in the proximal SFA. Description of Procedure: The patient was brought to the Production Control Supervisor and laid in supine position. After timeout was performed his right groin was prepped and draped in normal sterile fashion. Ultrasound was used to identify the right common femoral artery and confirm patency. Once patency was confirmed the overlying skin and soft tissue was anesthetized with lidocaine. An 11 blade was used to make a small stab incision and a curved hemostat was used to bluntly dissect down to the anterior surface of the right common femoral artery. A 21-gauge micropuncture needle was used with ultrasound guidance into the right common femoral artery and a 0.018 micropuncture wire was advanced into the artery. The dilator and wire were removed and a 0.035 Bentson wire was advanced to the aorta. The micropuncture sheath was exchanged for 5 Armenian sheath by Seldinger technique. I advanced an Omni Flush catheter into the infrarenal aorta and performed a diagnostic aortog lisa with the previously described findings. I advanced the Omni Flush catheter and Bentson wire up and over the bifurcation and a diagnostic left lower extremity angiogram was performed with the previously described findings. I exchanged the 5 Armenian sheath for 6 Armenian 45 cm destination sheath and at this point the patient was systemically heparinized with 5000 units of heparin IV. I used a combination of catheters and wires was eventually able to advance a 0.018 Gladius Wire and Navicross Catheter into the posterior tibial artery which was confirmed by angiogram. I performed angioplasty of the tibioperoneal trunk as well as the distal popliteal artery using a 4.0 x 150 balloon which resulted in less than 20% residual stenosis however there was obvious thrombus within the arteries. I then advanced the 135 x 50 cm EKOS Thrombolysis Catheter into position with the distal tip in the tibioperoneal trunk and the proximal tip in the SFA. I then advanced the ultrasound wire into the catheter and secured the sheath and catheter in position with a 0 silk stitch. I then prepped the drug port with 8 mg of tPA, the sheath with 2000 units of heparin, and the coolant point with 2000 units of heparin. The catheter and sheath were then dressed with sterile dressings. The patient tolerated the procedure well. All sponge, needle, and instrument counts were correct. The patient was taken to the recovery area in stable condition.
[2021-07-25] MEDS ORDERED: DOLUTEGRAVIR 50 MG TAB PO SCH (17:45)
[2021-07-25 17:56] LABS: Hematocrit 46.6 % (35.5-45.6); Hemoglobin 15.8 gm/dl (11.8-15.2); Mean Corpuscular HGB Conc 34 % (32-34); Mean Corpuscular Volume 90 fl (84-94); Platelet Count 181 K/mm3 (140-440); Red Cell Distribution Width 14.6 % (13.2-15.2)
[2021-07-25] MEDS ORDERED: RITONAVIR 100 MG PO SCH (18:00)
[2021-07-25] MEDS ORDERED: DARUNAVIR 800 MG PO SCH (18:00)
[2021-07-25] MEDS ORDERED: oxyCODONE /ACETAMINOPHEN 5-325MG TAB PO PRN (21:27)
[2021-07-25] MEDS ORDERED: HYDROmorphone 1 MG/1 ML INJ IM PRN (21:28)
[2021-07-25 23:34] LABS: Basophils % (Auto) 0.3 % (0.0-1.8); Eosinophils % (Auto) 0.7 % (0.0-4.3); Hemoglobin 14.9 gm/dl (11.8-15.2); Lymphocytes # (Auto) 1.1 K/mm3 (1.2-5.4); Lymphocytes % (Auto) 18.7 % (13.4-35.0); Mean Corpuscular HGB Conc 32 % (32-34); Mean Corpuscular Volume 90 fl (84-94); Monocytes # (Auto) 0.4 K/mm3 (0.0-0.8); Monocytes % (Auto) 6.1 % (0.0-7.3); Platelet Count 142 K/mm3 (140-440); Red Blood Count 5.11 M/mm3 (3.65-5.03); Red Cell Distribution Width 14.6 % (13.2-15.2)
[2021-07-25] MEDS: HYDROmorphone 1 MG/1 ML INJ IV PRN (23:52)
[2021-07-26] MEDS: HYDROmorphone 1 MG/1 ML INJ IV PRN ×2 (04:01→11:08)
[2021-07-26 05:14] LABS: Basophils % (Auto) 0.3 % (0.0-1.8); Eosinophils # (Auto) 0.1 K/mm3 (0.0-0.4); Eosinophils % (Auto) 2.2 % (0.0-4.3); Hematocrit 43.2 % (35.5-45.6); Hemoglobin 14.2 gm/dl (11.8-15.2); Lymphocytes # (Auto) 2.8 K/mm3 (1.2-5.4); Lymphocytes % (Auto) 46.4 % (13.4-35.0); Mean Corpuscular HGB Conc 33 % (32-34); Mean Corpuscular Volume 90 fl (84-94); Monocytes # (Auto) 0.5 K/mm3 (0.0-0.8); Monocytes % (Auto) 7.9 % (0.0-7.3); Platelet Count 130 K/mm3 (140-440); Red Blood Count 4.81 M/mm3 (3.65-5.03); Red Cell Distribution Width 14.7 % (13.2-15.2)
[2021-07-26 05:28] LABS: BUN/Creatinine Ratio 11; Blood Urea Nitrogen 13 mg/dL (9-20); Calcium 8.1 mg/dL (8.4-10.2); Hemolysis Index 4
[2021-07-26] MEDS ORDERED: HEPARIN 10,000 UNITS/10 ML VIAL ONE (08:46)
[2021-07-26] MEDS ORDERED: HEPARIN/NS 5000 UNIT/500ML 1,000 ML IR ONE (08:46)
[2021-07-26] MEDS ORDERED: LIDOCAINE (2%) 20 MG/1 ML VIAL 50 ML MDV INFILTRATI ONE (08:46)
[2021-07-26] MEDS ORDERED: ceFAZolin/Water 2 GM/20 ML 2 GM/20 ML SYRINGE IV ONE (08:47)
[2021-07-26] MEDS ORDERED: SODIUM CHLORIDE 0.9% 500 ML 500 ML ONE (09:28)
[2021-07-26] MEDS: fentaNYL 100 MCG/2 ML INJ ONE ×2 (09:47→10:16)
[2021-07-26] MEDS: MIDAZOLAM 2 MG/2 ML INJ ONE ×2 (09:48→09:56)
[2021-07-26] MEDS ORDERED: DOLUTEGRAVIR 50 MG TAB PO SCH (10:00)
--- NOTE | 2021-07-26 10:23 | Post Operative Note ---
Pre-op diagnosis: Acute arterial occlusion left leg Post-op diagnosis: same Findings: Status post thrombolytic catheter placement with angioplasty, improved perfusion Procedure: Removal of thrombolytics catheter, left leg angiography, left leg aspiration thrombectomy Anesthesia: local Surgeon: SUYAPA NICOLE Estimated blood loss: minimal Pathology: none Condition: stable Disposition: ICU
--- NOTE | 2021-07-26 10:29 | Operative Report ---
Operative Report Operative Report: Exam: Left leg angiography, removal of left leg thrombolytics catheter, aspiration thrombectomy of left SFA Clinical indication: Patient with a history of acute arterial thrombus to the left leg. Patient has a remote history of popliteal bypass. Day 2 of thrombolytics Date: 07/26/2021 Procedure: Following an explanation of the risks, benefits and alternatives; written informed consent was obtained. The patient was brought to the angiographic suite and placed in supine position on the examination table. Initial evaluation of his foot demonstrated what appeared to be a palpable dorsalis pedis pulse. The foot is warm and well-perfused. The patient's indwelling thrombolytics catheter, left groin and sheath were prepped and draped in the usual sterile fashion. 2% lidocaine was used for anesthesia at the sheath exit site and along the pathway to the artery. The thrombolytics ultrasound wire was removed. A V 18 guidewire was advanced through the thrombolytic catheter into the tibioperoneal trunk. Contrast was injected through the thrombolytics catheter and imaging obtained at multiple loc ations. The distal anastomosis appears patent. The proximal anastomosis appears patent. There appears to be focal areas of occlusion within the distal posterior tibial artery. Collateral flow is present with three-vessel runoff ultimately to the foot. There is thrombus in the SFA just distal to the sheath at a valve. A vertebral catheter was advanced over the guidewire and the V 18 guidewire removed. A 7 mm spider wire was then advanced through the vertebral catheter past the thrombus in the SFA. Aspiration thrombectomy was then performed using a 6 Iranian MPA guide cath. Multiple passes were made in an attempt to remove the thrombus from the proximal SFA. A significant component of this appears to be chronic however, there is brisk flow past this area. Decision was made therefore to not further intervene. The vertebral catheter was again advanced over the guidewire and the spider wire removed over the vertebral catheter. A 0.035 Bentson wire was then advanced through the sheath. The sheath was then proximal lysed and the guidewire directed in the distal aorta. Hemostasis was then achieved following removal of the sheath using an Angio-Seal arterial closure device and compression dressing. Post procedure demonstrated strongly dopplerable dorsalis pedis and posterior tibial arteries. Foot is warm and well-perfused. The patient tolerated the procedure well. There were no immediate postprocedural complications. Conscious sedation was performed under the guidance of radiologic nursing. Continuous cardiopulmonary monitoring was utilized. Impression: 1) Left lower extremity angiography demonstrated a removal of thrombus previously noted. Minimal thrombus is noted within the distal posterior tibial artery with collateral flow through peroneal and anterior tibial artery onto the foot perfusing the posterior tibial artery distally. There is also thrombus in the proximal SFA just distal to the sheath at the site of a valve.. 2) Aspiration thrombectomy of the proximal SFA thrombus over spider wire. 3) Patient has strongly dopplerable dorsalis pedis and posterior tibial arteries at the conclusion of the procedure
[2021-07-26] MEDS ORDERED: HEPARIN/ 0.45% NACL DRIP 25,000 UNIT/500 ML BAG IV SCH (11:00)
[2021-07-26] MEDS: METOPROLOL TARTRATE 50 MG TAB PO SCH (11:14)
[2021-07-26] MEDS: ASPIRIN EC 81 MG TAB PO SCH (11:14)
[2021-07-26] MEDS: DARUNAVIR 800 MG TAB PO SCH (11:15)
[2021-07-26] MEDS: LISINOPRIL 5 MG TAB PO SCH (11:15)
[2021-07-26] MEDS: RITONAVIR 100 MG TAB PO SCH (11:15)
[2021-07-26] MEDS: EZETIMIBE 10 MG TAB PO SCH (11:16)
[2021-07-26] MEDS: DOLUTEGRAVIR 50 MG TAB PO SCH (11:16)
[2021-07-26] MEDS: PRAVASTATIN 80 MG TAB PO SCH (11:16)
[2021-07-26] MEDS: APIXABAN 5 MG TAB PO SCH ×2 (11:19→21:02)
--- NOTE | 2021-07-27 09:54 | Progress Note ---
Assessment and Plan The patient is postop day #1 status post removal of EKOS catheter and percutaneous mechanical thrombectomy. He is doing well with a warm well- perfused foot and resolution of his numbness. He has ambulated without difficulty and is clinically ready for discharge home. He would be discharged on his preprocedure medications. I counseled the patient extensively about smoking cessation. The patient is stated that he will attempt to stop smoking. Subjective Date of service: 07/27/21 Principal diagnosis: Subacute Left Lower Extremity Ischemia Interval history: The patient states that his left foot numbness has resolved. He has ambulated without difficulty. He has no complaints at this time. Objective - Constitutional Vitals: Vital Signs - 12hr 07/26/21 07/26/21 07/26/21 22:00 22:30 23:00 Temperature Pulse Rate 72 71 71 Respiratory 23 18 13 Rate Blood Pressure 142/80 142/80 142/80 O2 Sat by Pulse 95 96 93 Oximetry 07/26/21 07/27/21 07/27/21 23:30 00:00 00:10 Temperature 98.4 F 98.4 F Pulse Rate 70 70 Respiratory 13 19 Rate Blood Pressure 142/80 118/64 O2 Sat by Pulse 93 95 Oximetry 07/27/21 07/27/21 07/27/21 00:30 00:36 01:00 Temperature Pulse Rate 65 66 Respiratory 22 16 14 Rate Blood Pressure 118/64 118/64 O2 Sat by Pulse 94 94 Oximetry 07/27/21 07/27/21 07/27/21 01:30 02:00 02:30 Temperature Pulse Rate 81 70 64 Respiratory 15 13 14 Rate Blood Pressure 118/64 118/64 118/64 O2 Sat by Pulse 93 90 94 Oximetry 07/27/21 07/27/21 07/27/21 03:00 04:00 05:15 Temperature 98.1 F Pulse Rate 55 L 64 Respiratory 18 18 Rate Blood Pressure 118/64 118/64 O2 Sat by Pulse 97 100 92 Oximetry 07/27/21 07/27/21 07/27/21 05:30 06:00 06:30 Temperature Pulse Rate 56 L 52 L 87 Respiratory 18 19 26 H Rate Blood Pressure 136/82 136/82 136/82 O2 Sat by Pulse 96 96 96 Oximetry 07/27/21 07/27/21 07/27/21 06:40 07:00 07:23 Temperature 98.1 F 97.8 F Pulse Rate 78 Respiratory 15 Rate Blood Pressure 136/82 O2 Sat by Pulse 93 Oximetry 07/27/21 07/27/21 07:30 08:00 Temperature 97.8 F Pulse Rate 71 89 Respiratory 20 17 Rate Blood Pressure 136/82 136/82 O2 Sat by Pulse 95 92 Oximetry General appearance: Present: no acute distress - Respiratory Respiratory effort: normal - Breasts Breasts: deferred - Cardiovascular Rhythm: regular Extremities: no ischemia, normal temperature, abnormal (Right groin access site is soft and without evidence of hematoma or pseudoaneurysm) Extremity abnormal: other (Doppler signal in the left posterior tibial and dorsalis pedis arteries) - Gastrointestinal General gastrointestinal: Present: soft, non-tender, non-distended - Genitourinary Male genitourinary: deferred - Musculoskeletal Musculoskeletal: strength equal bilaterally - Labs CBC & Chem 7: 07/26/21 04:46 07/26/21 04:46 Medications & Allergies - Medications Allergies/Adverse Reactions: Allergies No Known Allergies Allergy (Verified 06/14/13 08:29) Home Medications: Home Medications Medication Instructions Recorded Confirmed Last Taken Type Metoprolol [Lopressor TAB] 50 mg PO DAILY 06/14/13 07/25/21 07/24/21 History Ramipril Cap (Nf) [Altace Cap (Nf)] 2.5 mg PO QDAY 06/14/13 07/25/21 07/24/21 History Apixaban [Eliquis] 5 mg PO BID 12/16/17 07/25/21 07/23/21 History Ezetimibe [Zetia] 10 mg PO DAILY 01/06/19 07/25/21 07/24/21 History Pravastatin [Pravachol] 80 mg PO DAILY 01/06/19 07/25/21 07/24/21 History Aspirin [Adult Aspirin] 81 mg PO DAILY 07/25/21 07/25/21 07/24/21 History Dolutegravir [Tivicay] 1 tab PO DAILY 07/25/21 07/25/21 07/24/21 History Active Medications: Generic Name Dose Route Start Last Admin Trade Name Freq PRN Reason Stop Dose Admin Acetaminophen 650 mg 07/25/21 11:57 07/26/21 23:36 Acetaminophen 325 Mg Tab PO 650 mg Q6H PRN Administration Pain, Mild (1-3) Apixaban 5 mg 07/26/21 11:00 07/26/21 21:02 Apixaban 5 Mg Tab PO 5 mg Q12HR HIRA Administration Protocol Aspirin 81 mg 07/26/21 10:00 07/26/21 11:14 Aspirin Ec 81 Mg Tab PO 81 mg DAILY HIRA Administration Darunavir 800 mg 07/26/21 10:00 07/26/21 11:15 Darunavir 800 Mg Tab PO 800 mg QDAY HIRA Administration Dolutegravir Sodium 50 mg 07/26/21 10:00 07/26/21 11:16 Dolutegravir 50 Mg Tab PO 50 mg QDAY HIRA Administration Ezetimibe 10 mg 07/26/21 10:00 07/26/21 11:16 Ezetimibe 10 Mg Tab PO 10 mg DAILY HIRA Administration Hydromorphone HCl 1 mg 07/25/21 23:19 07/26/21 11:08 Hydromorphone 1 Mg/1 Ml Inj IV 1 mg Q4H PRN Administration Pain , Severe (7-10) Lisinopril 5 mg 07/26/21 10:00 07/26/21 11:15 Lisinopril 5 Mg Tab PO 5 mg QDAY HIRA Administration Metoprolol Tartrate 50 mg 07/26/21 10:00 07/26/21 11:14 Metoprolol Tartrate 50 Mg Tab PO 50 mg DAILY HIRA Administration Morphine Sulfate 2 mg 07/25/21 11:57 07/25/21 18:07 Morphine 2 Mg/1 Ml Inj IV 2 mg Q4H PRN Administration Pain, Moderate (4-6) Ondansetron HCl 4 mg 07/25/21 12:48 Ondansetron 4 Mg/2 Ml Inj IV Q8H PRN Nausea And Vomiting Oxycodone/Acetaminophen 1 tab 07/25/21 21:27 07/25/21 23:07 Oxycodone /Acetaminophen 5-325mg Tab PO 1 tab Q6H PRN Administration Pain, Moderate (4-6) Pravastatin Sodium 80 mg 07/26/21 10:00 07/26/21 11:16 Pravastatin 80 Mg Tab PO 80 mg DAILY HIRA Administration Ritonavir 100 mg 07/26/21 10:00 07/26/21 11:15 Ritonavir 100 Mg Tab PO 100 mg QDAY HIRA Administration
--- NOTE | 2021-07-27 09:56 | Short Stay Summary ---
Short Stay Documentation Date of service: 07/27/21 - History Principal diagnosis: Subacute Left Lower Extremity Ischemia - Allergies and Medications Current Medications: Allergies No Known Allergies Allergy (Verified 06/14/13 08:29) Home Medications Medication Instructions Recorded Confirmed Last Taken Type Metoprolol [Lopressor TAB] 50 mg PO DAILY 06/14/13 07/25/21 07/24/21 History Ramipril Cap (Nf) [Altace Cap (Nf)] 2.5 mg PO QDAY 06/14/13 07/25/21 07/24/21 History Apixaban [Eliquis] 5 mg PO BID 12/16/17 07/25/21 07/23/21 History Ezetimibe [Zetia] 10 mg PO DAILY 01/06/19 07/25/21 07/24/21 History Pravastatin [Pravachol] 80 mg PO DAILY 01/06/19 07/25/21 07/24/21 History Aspirin [Adult Aspirin] 81 mg PO DAILY 07/25/21 07/25/21 07/24/21 History Dolutegravir [Tivicay] 1 tab PO DAILY 07/25/21 07/25/21 07/24/21 History Active Medications Acetaminophen (Acetaminophen 325 Mg Tab) 650 mg PO Q6H PRN PRN Reason: Pain, Mild (1-3) Last Admin: 07/26/21 23:36 Dose: 650 mg Apixaban (Apixaban 5 Mg Tab) 5 mg PO Q12HR [facility]; Protocol Last Admin: 07/26/21 21:02 Dose: 5 mg Aspirin (Aspirin Ec 81 Mg Tab) 81 mg PO DAILY [facility] Last Admin: 07/26/21 11:14 Dose: 81 mg Darunavir (Darunavir 800 Mg Tab) 800 mg PO QDAY [facility] Last Admin: 07/26/21 11:15 Dose: 800 mg Dolutegravir Sodium (Dolutegravir 50 Mg Tab) 50 mg PO QDAY [facility] Last Admin: 07/26/21 11:16 Dose: 50 mg Ezetimibe (Ezetimibe 10 Mg Tab) 10 mg PO DAILY [facility] Last Admin: 07/26/21 11:16 Dose: 10 mg Hydromorphone HCl (Hydromorphone 1 Mg/1 Ml Inj) 1 mg IV Q4H PRN PRN Reason: Pain , Severe (7-10) Last Admin: 07/26/21 11:08 Dose: 1 mg Lisinopril (Lisinopril 5 Mg Tab) 5 mg PO QDAY [facility] Last Admin: 07/26/21 11:15 Dose: 5 mg Metoprolol Tartrate (Metoprolol Tartrate 50 Mg Tab) 50 mg PO DAILY [facility] Last Admin: 07/26/21 11:14 Dose: 50 mg Morphine Sulfate (Morphine 2 Mg/1 Ml Inj) 2 mg IV Q4H PRN PRN Reason: Pain, Moderate (4-6) Last Admin: 07/25/21 18:07 Dose: 2 mg Ondansetron HCl (Ondansetron 4 Mg/2 Ml Inj) 4 mg IV Q8H PRN PRN Reason: Nausea And Vomiting Oxycodone/Acetaminophen (Oxycodone /Acetaminophen 5-325mg Tab) 1 tab PO Q6H PRN PRN Reason: Pain, Moderate (4-6) Last Admin: 07/25/21 23:07 Dose: 1 tab Pravastatin Sodium (Pravastatin 80 Mg Tab) 80 mg PO DAILY [facility] Last Admin: 07/26/21 11:16 Dose: 80 mg Ritonavir (Ritonavir 100 Mg Tab) 100 mg PO QDAY [facility] Last Admin: 07/26/21 11:15 Dose: 100 mg - Physical exam Breasts: deferred Extremities: no ischemia, normal temperature, abnormal (Right groin access site is soft and without evidence of hematoma or pseudoaneurysm) - Disposition Condition at discharge: Good Disposition: 01 HOME / SELF CARE / HOMELESS Short Stay Discharge Plan Activity: other (No strenuous activity for 24 hours.) Wound: remove dressing (Okay to remove the dressing in 24 hours. After removing the dressing okay to shower and wash the incision with soap and water but do not soak in water for 2 weeks.) Follow up with: MARLEEN CEJA MD [Staff Physician] - 7 Days
[2021-07-27] MEDS: APIXABAN 5 MG TAB PO SCH (10:00)
[2021-07-27] MEDS: DOLUTEGRAVIR 50 MG TAB PO SCH (10:00)
[2021-07-27] MEDS: EZETIMIBE 10 MG TAB PO SCH (10:00)
[2021-07-27] MEDS: ASPIRIN EC 81 MG TAB PO SCH (10:00)
[2021-07-27] MEDS: DARUNAVIR 800 MG TAB PO SCH (10:01)
[2021-07-27] MEDS: RITONAVIR 100 MG TAB PO SCH (10:01)
[2021-07-27] MEDS: PRAVASTATIN 80 MG TAB PO SCH (10:02)
[2021-07-27] MEDS: METOPROLOL TARTRATE 50 MG TAB PO SCH (10:02)
[2021-07-27] MEDS: LISINOPRIL 5 MG TAB PO SCH (10:02)
[2021-07-27 10:08] VITALS: BP 129/75
== END 2021-07-27 11:00 | disposition home or self-care (01) | DRG 271 ==
LOC: CATHLABREC 10:03 → CC1 11:58
PROVIDERS: ADMIT Surgery Vascular Surgery; ATTEND Surgery Vascular Surgery
PROC: 04CN3ZZ Extirpation of Matter from Left Popliteal Artery, Percutaneous Approach (ICD-10-PCS; principal; 2021-07-25)
PROC: 04CL3ZZ Extirpation of Matter from Left Femoral Artery, Percutaneous Approach (ICD-10-PCS; 2021-07-25)
PROC: 047N3ZZ Dilation of Left Popliteal Artery, Percutaneous Approach (ICD-10-PCS; 2021-07-25)
PROC: 047S3ZZ Dilation of Left Posterior Tibial Artery, Percutaneous Approach (ICD-10-PCS; 2021-07-25)
PROC: B41G1ZZ Fluoroscopy of Left Lower Extremity Arteries using Low Osmolar Contrast (ICD-10-PCS; 2021-07-25)
PROC: 04CL3ZZ Extirpation of Matter from Left Femoral Artery, Percutaneous Approach (ICD-10-PCS; 2021-07-26)
DX: I70.213 Atherosclerosis of native arteries of extremities with intermittent claudication, bilateral legs (principal); I74.3 Embolism and thrombosis of arteries of the lower extremities; I77.1 Stricture of artery
CPT/HCPCS: 34201; 36415; 37211; 37214; 37224; 37228; 75625; 75710; 76937; 80048; 85025; 85384; 85520; 85610; 85730; G0378; J3490; C1725; C1757; C1760; C1769; C1884; C1887; J0690; J1170; J1644; J2250; J2270; J2997; J3010; J7030; J7040; Q9967